=== PATIENT | female | born 1940 | race Caucasian/White ===

== ENCOUNTER 2016-11-01 17:51 | Inpatient (IN) | payer OTHER ==
[2016-11-01] MEDS ORDERED: ALBUTEROL SO4 2.5/IPRATROPIUM 0.5 INH SOL 3 ML VIAL.NEB. NEB ONE (18:15)
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
[2016-11-01] MEDS ORDERED: MAGNESIUM SULF 50% (8.12 MEQ/2 ML-1 GM VIAL) IVPB ONE (18:33)
[2016-11-01 18:39] VITALS: BMI 20.2
[2016-11-01] MEDS ORDERED: MAGNESIUM SULF 50% (8.12 MEQ/2 ML-1 GM VIAL) ONE (18:43)
[2016-11-01 19:12] LABS: MCH 28.7 pg (25.7-33.7); MEAN CELL VOLUME 89.6 fl (80-96); MEAN PLT VOLUME 8.3 fl (7.5-11.1); PLATELET COUNT 327 K/MM3 (134-434); RDW 16.2 % (11.6-15.6)
[2016-11-01 19:25] LABS: INR 1.34 (0.82-1.09); PROTHROMBIN TIME (PATIENT) 14.8 SEC (9.98-11.88)
[2016-11-01 19:43] LABS: ALBUMIN 3.3 g/dl (3.4-5.0); BILIRUBIN,TOTAL 0.3 mg/dL (0.2-1.0); CALCIUM 9.3 mg/dL (8.5-10.1); TOT PROT 6.5 g/dl (6.4-8.2)
[2016-11-01 19:44] LABS: TROPONIN I 0.06 ng/ml (0.00-0.05)
[2016-11-01] MEDS ORDERED: FUROSEMIDE 40 MG/4 ML INJECTABLE VIAL IVPUSH ONE (19:46)
[2016-11-01 20:08] LABS: ANISOCYTOSIS 1+; PLATELET ESTIMATE ADEQUATE (NORMAL); POLYCHROMASIA FEW
[2016-11-01] MEDS ORDERED: FUROSEMIDE 40 MG/4 ML INJECTABLE VIAL ONE ×2 (20:23→20:37)
[2016-11-01] MEDS ORDERED: dilTIAZem HCL 50 MG/10 ML - 10 ML VIAL IVPUSH ONE ×2 (20:28→22:41)
[2016-11-01] MEDS ORDERED: ASPIRIN 81 MG CHEWABLE TABLETS PO ONE (20:31)
[2016-11-01] MEDS ORDERED: ASPIRIN 81 MG CHEWABLE TABLETS ONE (20:36)
[2016-11-01] MEDS ORDERED: dilTIAZem HCL 125 MG/25 ML - 25 ML VIAL ONE (20:37)
[2016-11-01] MEDS ORDERED: ALBUTEROL SO4 0.083% IH SOL 2.5 MG/3 ML VIAL.NEB. NEB PRN (20:41)
[2016-11-01] MEDS ORDERED: LEVOFLOXACIN 500 MG IVPB 100 ML IVPB SCH (20:45)
[2016-11-01] MEDS ORDERED: LEVOFLOXACIN 500 MG IVPB 100 ML IVPB ONE ×2 (22:00→22:08)
[2016-11-01] MEDS ORDERED: methylPREDNISolone NA SUCC 40 MG/1 ML VIAL ONE (22:08)
[2016-11-01] MEDS: methylPREDNISolone NA SUCC 125 MG/2 ML VIAL IVPB SCH (22:43)
[2016-11-01] MEDS ORDERED: HEPARIN NA (PORCINE) 5,000 UNITS/ML 1ML VIAL ONE (22:44)
[2016-11-01] MEDS ORDERED: dilTIAZem HCL 50 MG/10 ML - 10 ML VIAL ONE (22:44)
[2016-11-01] MEDS ORDERED: RANITIDINE HCL 150 MG TABLET (FP) ONE (22:44)
[2016-11-01] MEDS: RANITIDINE HCL 150 MG TABLET (FP) PO SCH (23:01)
[2016-11-01] MEDS: HEPARIN NA (PORCINE) 5,000 UNITS/ML 1ML VIAL SQ SCH (23:01)
[2016-11-02] MEDS: methylPREDNISolone NA SUCC 125 MG/2 ML VIAL IVPB SCH ×3 (02:20→17:24)
[2016-11-02] MEDS: dilTIAZem HCL 125 MG/25 ML - 5 ML VIAL IV PRN ×3 (02:21→09:12)
[2016-11-02] MEDS: ALBUTEROL SO4 0.083% IH SOL 2.5 MG/3 ML VIAL.NEB. NEB SCH ×4 (06:00→18:10)
[2016-11-02 06:59] LABS: MCH 29.3 pg (25.7-33.7); MCHC 32.8 g/dl (32.0-36.0); MEAN CELL VOLUME 89.2 fl (80-96); PLATELET COUNT 302 K/MM3 (134-434); RDW 15.9 % (11.6-15.6)
[2016-11-02 07:40] LABS: ANION GAP 9 (8-16); CALCIUM 8.7 mg/dL (8.5-10.1); CO2 37 mmol/L (21-32); GLUCOSE,RANDOM 87 mg/dL (74-106)
[2016-11-02 07:46] LABS: ALK PHOS 109 U/L (45-117); BILIRUBIN,TOTAL 0.4 mg/dL (0.2-1.0); CREATININE 0.8 mg/dL (0.55-1.02); SGOT/AST 20 U/L (15-37); SGPT/ALT 23 U/L (12-78); TOT PROT 6.3 g/dl (6.4-8.2); TROPONIN I 0.06 ng/ml (0.00-0.05)
[2016-11-02 08:02] LABS: ALLENS TEST POSITIVE; ART PUNCT SITE RIGHT BRACHIAL; ARTERIAL BLOOD GAS BASE EXCESS 12.2 meq/l (-2-2); ARTERIAL BLOOD GAS HCO3 36.6 meq/L (22-26); TYPE OF O2 NASAL
[2016-11-02 08:03] LABS: ARTERIAL BLOOD GAS pH 7.51 (7.35-7.45); LPM/O2% 3L; PT. ON O2? YES
[2016-11-02 08:04] LABS: ARTERIAL BLOOD GAS PO2 69.6 mmHg (70-100)
[2016-11-02] MEDS: ASPIRIN 81 MG CHEWABLE TABLETS PO SCH (09:02)
[2016-11-02] MEDS: RANITIDINE HCL 150 MG TABLET (FP) PO SCH ×2 (09:02→21:08)
[2016-11-02] MEDS: DIGOXIN 0.125 MG TABLET (FP) PO SCH (09:02)
[2016-11-02] MEDS: HEPARIN NA (PORCINE) 5,000 UNITS/ML 1ML VIAL SQ SCH ×2 (09:02→21:08)
[2016-11-02] MEDS: POTASSIUM CHLORIDE TABS 10 MEQ TABLET.ER (FP) PO SCH (09:02)
[2016-11-02] MEDS: FUROSEMIDE 40 MG/4 ML INJECTABLE VIAL IVPUSH SCH (09:03)
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
--- NOTE | 2016-11-02 11:28 | HP ---
Admitting History and Physical - Primary Care Physician PCP: Mariano Jameson - Admission Chief Complaint: I had trouble breathing History of Present Illness: Ms Mo is a very pleasant 75 year old female who comes in with one episode of shortness of breath. She was recently discharged from [facility] after rehab. She was at home and was having some weakness but otherwise was doing well. However last night she began to have shortness of breath. She had it both at rest and on exertion. She noted that her heart was racing as well. She attempted to control it at home but it did not improve. She presented to the hospital and was found to be tachycardic. She was admitted. Currently she says she feels fine. She denies feeling feverish, chills, lightheadedness, dizziness , chest pain, coughing, abdominal pain, nausea, vomiting, diarrhea, constipation , difficulty or pain on urination, or swelling. History Source: Patient Limitations to Obtaining History: No Limitations - Past Medical History Cardiovascular: Yes: HTN, Pulmonary Hypertension Pulmonary: Yes: COPD, O2 Dependent - Past Surgical History Past Surgical History: Yes: None - Smoking History Smoking history: Former smoker Have you smoked in the past 12 months: No Aproximately how many cigarettes per day: 1 - Alcohol/Substance Use Hx Alcohol Use: No History of Substance Use: reports: None - Social History ADL: Family Assistance History of Recent Travel: No Home Medications - Allergies Allergies/Adverse Reactions: Allergies Allergy/AdvReac Type Severity Reaction Status Date / Time No Known Allergies Allergy Verified 11/01/16 18:40 - Home Medications Home Medications: Ambulatory Orders Digoxin [Lanoxin -] 0.125 mg PO DAILY tablet 09/27/16 Diltiazem Cd [Cardizem Cd -] 180 mg PO DAILY cap.cd.24h 09/27/16 Aspirin [ASA -] 81 mg PO DAILY 09/29/16 Furosemide [Lasix -] 40 mg PO DAILY tablet 10/06/16 Albuterol Sulfate Inhaler - [Ventolin Hfa Inhaler -] 2 inh PO Q6H PRN 11/01/16 Potassium Chloride [Klor-Con 10] 10 meq PO DAILY 11/01/16 Prednisone [Deltasone -] 10 mg PO DAILY 11/01/16 Ranitidine [Zantac -] 150 mg PO BID 11/01/16 Family Disease History - Family Disease History Family History: Unremarkable Review of Systems Findings/Remarks: Full review of systems obtained, as per HPI and otherwise negative Physical Examination Vital Signs: Vital Signs Temperature 98.2 F 11/02/16 10:00 Pulse Rate 158 H 11/02/16 10:00 Respiratory Rate 20 11/02/16 10:00 Blood Pressure 137/76 11/02/16 10:00 O2 Sat by Pulse Oximetry (%) 100 11/02/16 00:00 Constitutional: Yes: Well Nourished, No Distress, Calm Eyes: Yes: Conjunctiva Clear, EOM Intact Cardiovascular: Yes: Tachycardia, Pulse Irregular. No: Gallop, Murmur, Rub Respiratory: Yes: Regular, CTA Bilaterally. No: Rales, Rhonchi, Wheezes Gastrointestinal: Yes: Normal Bowel Sounds, Soft. No: Distention, Tenderness Extremities: Yes: WNL Edema: No Labs: CBC, BMP 11/02/16 05:35 11/02/16 05:35 Imaging - Results Chest X-ray: Report Reviewed, Image Reviewed Problem List - Problems (1) Severe sepsis Assessment/Plan: -patient with bacteremia, dyspnea, leukocytosis, and tachycardia -recently had MRSA infection -concerning for endocarditis or spinal abscess -spinal abscess less concerning secondary to no back pain, but with history of compression fractures -give 1 dose vancomycin and zosyn -obtain ECHO to evaluate for endocarditis -consult Dr Yo for further antibiotic orders -defer possible MRI of thoracic spine to Dr Yo -follow up cultures Code(s): A41.9 - SEPSIS, UNSPECIFIED ORGANISM R65.20 - SEVERE SEPSIS WITHOUT SEPTIC SHOCK (2) Atrial fibrillation with RVR Assessment/Plan: -secondary to sepsis -continue telemetry -cardiology following and note reviewed -continue digoxin and diltiazem Code(s): I48.91 - UNSPECIFIED ATRIAL FIBRILLATION (3) COPD (chronic obstructive pulmonary disease) Assessment/Plan: -case d/w Dr Zarco -suspect SOB more due to cardiac/sepsis than COPD exacerbation -will stop steroids -continue bronchodilators Code(s): J44.9 - CHRONIC OBSTRUCTIVE PULMONARY DISEASE, UNSPECIFIED Qualifiers : COPD type: COPD with acute exacerbation Qualified Code(s): J44.1 - Chronic obstructive pulmonary disease with (acute) exacerbation (4) Compressed spine fracture Assessment/Plan: -currently pain free -await Dr Yo to see in evaluation, may need MRI of thoracic spine Code(s): M48.50XA - COLLAPSED VERTEBRA, NEC, SITE UNSP, INIT (5) Pulmonary hypertension Assessment/Plan: -pulmonary following -cardiology placed on IV lasix -will closely monitor Code(s): I27.2 - OTHER SECONDARY PULMONARY HYPERTENSION
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
[2016-11-02] MEDS ORDERED: PIPERACILLIN/TAZOB 3.375 GM/50 ML PRE-DOCKED IVPB ONE (11:31)
[2016-11-02] MEDS ORDERED: VANCOMYCIN 1 GRAM (PRE-DOCKED) 250 ML IVPB ONE (11:31)
[2016-11-02 14:38] LABS: URINE APPEARANCE CLEAR; URINE BILIRUBIN NEGATIVE (NEGATIVE); URINE BLOOD NEGATIVE (NEGATIVE); URINE COLOR LTYELLOW; URINE GLUCOSE (UA) NEGATIVE (NEGATIVE); URINE KETONE NEGATIVE (NEGATIVE); URINE LEUK ESTERASE NEGATIVE (NEGATIVE); URINE NITRITE NEGATIVE (NEGATIVE); URINE PROTEIN NEGATIVE (NEGATIVE); URINE UROBILINOGEN NEGATIVE E.U./dl (0.2-1.0)
[2016-11-02 15:26] LABS: THYROID STIMULATING HORMONE 0.14 uIU/ml (0.358-3.74)
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
[2016-11-02 17:02] LABS: TROPONIN I 0.09 ng/ml (0.00-0.05)
[2016-11-02] MEDS: ALPRAZolam 0.25 MG TABLET PO PRN (21:08)
[2016-11-02] MEDS ORDERED: LEVOFLOXACIN 250 MG IVPB 50 ML IVPB SCH (22:00)
[2016-11-03] MEDS: ALBUTEROL SO4 0.083% IH SOL 2.5 MG/3 ML VIAL.NEB. NEB SCH ×5 (06:31→23:09)
[2016-11-03 06:59] LABS: MCHC 32.9 g/dl (32.0-36.0); MEAN CELL VOLUME 88.3 fl (80-96); MEAN PLT VOLUME 7.8 fl (7.5-11.1); PLATELET COUNT 319 K/MM3 (134-434); RDW 16.2 % (11.6-15.6); WHITE BLOOD COUNT 11.6 K/mm3 (4.0-10.0)
[2016-11-03 07:48] LABS: CALCIUM 9.6 mg/dL (8.5-10.1); CREATININE 0.8 mg/dL (0.55-1.02); MAGNESIUM 2.4 mg/dL (1.8-2.4); PHOSPHOROUS 3.1 mg/dL (2.5-4.9)
[2016-11-03] MEDS: ALPRAZolam 0.25 MG TABLET PO PRN ×2 (09:44→18:15)
[2016-11-03] MEDS: POTASSIUM CHLORIDE TABS 10 MEQ TABLET.ER (FP) PO SCH (09:45)
[2016-11-03] MEDS: RANITIDINE HCL 150 MG TABLET (FP) PO SCH ×2 (09:45→22:04)
[2016-11-03] MEDS: VANCOMYCIN 1 GRAM (PRE-DOCKED) 250 ML IVPB SCH (09:45)
[2016-11-03] MEDS: FUROSEMIDE 40 MG/4 ML INJECTABLE VIAL IVPUSH SCH (09:45)
[2016-11-03] MEDS: ASPIRIN 81 MG CHEWABLE TABLETS PO SCH (09:46)
[2016-11-03] MEDS: DIGOXIN 0.125 MG TABLET (FP) PO SCH (09:48)
[2016-11-03] MEDS: HEPARIN NA (PORCINE) 5,000 UNITS/ML 1ML VIAL SQ SCH ×2 (09:49→22:04)
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
--- NOTE | 2016-11-03 14:09 | EKG ---
Test Reason : Blood Pressure : / mmHG Vent. Rate : 111 BPM Atrial Rate : 468 BPM P-R Int : 000 ms QRS Dur : 084 ms QT Int : 316 ms P-R-T Axes : 000 047 260 degrees QTc Int : 429 ms MULTIFOCAL ATRIAL TACHYCARDIA POSSIBLE INFERIOR INFARCT (CITED ON OR BEFORE 14-SEP-2016) MARKED ST ABNORMALITY, POSSIBLE ANTERIOR SUBENDOCARDIAL INJURY ABNORMAL ECG WHEN COMPARED WITH ECG OF 01-NOV-2016 19:14, NO SIGNIFICANT CHANGE WAS FOUND Confirmed by DIAN VENCES MD ([id number]) on 11/03/2016 2:09:04 PM Referred By: DIAN VENCES Confirmed By:DIAN VENCES MD
--- NOTE | 2016-11-03 14:23 | EKG ---
Test Reason : Blood Pressure : / mmHG Vent. Rate : 126 BPM Atrial Rate : 127 BPM P-R Int : 000 ms QRS Dur : 078 ms QT Int : 312 ms P-R-T Axes : 000 040 243 degrees QTc Int : 451 ms SUPRAVENTRICULAR TACHYCARDIA POSSIBLE MULTIFOCAL ATRIAL TACHYCARDIA POSSIBLE INFERIOR INFARCT (CITED ON OR BEFORE 14-SEP-2016) ANTERIOR INFARCT , AGE UNDETERMINED ABNORMAL ECG WHEN COMPARED WITH ECG OF 29-SEP-2016 14:36, SIGNIFICANT CHANGES HAVE OCCURRED Confirmed by DIAN VENCES MD ([id number]) on 11/03/2016 2:22:40 PM Referred By: Confirmed By:DIAN VENCES MD
--- NOTE | 2016-11-03 14:36 | PN ---
Progress Note (short form) - Note Progress Note: PULMONARY Still short of breath. No chest pain. No cough or wheezing. No fevers recorded. Blood cultures growing presumptive MSSA. Last Vital Signs Temp Pulse Resp BP Pulse Ox 98.4 F 118 H 20 134/78 99 11/03/16 10:00 11/03/16 10:00 11/03/16 10:00 11/03/16 10:00 11/02/16 22:00 Intake & Output 10/31/16 11/01/16 11/02/16 11/03/16 23:59 23:59 23:59 23:59 Intake Total 870 Balance 870 Weight 100 lb Gen: tachypneic at rest Heart: tachycaric, regular Lung: bibasilar rales R>L Abd: soft, nontender Ext: no edema CBC, BMP 11/03/16 05:35 11/03/16 05:35 Active Medications Albuterol Sulfate (Ventolin 0.083% Nebulizer Soln -) 1 amp NEB Q4H PRN PRN Reason: SHORT OF BREATH/WHEEZING Albuterol Sulfate (Ventolin 0.083% Nebulizer Soln -) 1 amp NEB QIDR [facility] Last Admin: 11/03/16 11:20 Dose: Not Given Alprazolam (Xanax -) 0.25 mg PO Q8H PRN Last Admin: 11/03/16 09:44 Dose: 0.25 mg Aspirin (Asa -) 81 mg PO DAILY [facility] Last Admin: 11/03/16 09:46 Dose: 81 mg Digoxin (Lanoxin -) 0.125 mg PO DAILY [facility] Last Admin: 11/03/16 09:48 Dose: 0.125 mg Diltiazem HCl (Cardizem Injection -) 10 mg IV Q4H PRN PRN Reason: FOR HR > 120 Last Admin: 11/02/16 09:12 Dose: 10 mg Diltiazem HCl (Cardizem Cd -) 300 mg PO DAILY [facility] Last Admin: 11/03/16 09:46 Dose: 300 mg Furosemide (Lasix Injection -) 40 mg IVPUSH DAILY [facility] Last Admin: 11/03/16 09:45 Dose: 40 mg Heparin Sodium (Porcine) (Heparin -) 5,000 unit SQ BID [facility] Last Admin: 11/03/16 09:49 Dose: 5,000 unit Vancomycin HCl (Vancomycin (Pre-Docked)) 250 mls @ 250 mls/hr IVPB DAILY [facility] Last Admin: 11/03/16 09:45 Dose: 250 mls/hr Potassium Chloride (K-Dur -) 10 meq PO DAILY [facility] Last Admin: 11/03/16 09:45 Dose: 10 meq Ranitidine HCl (Zantac -) 150 mg PO BID [facility] Last Admin: 11/03/16 09:45 Dose: 150 mg A/P MSSA Bacteremia r/o Endocarditis Acute Diastolic Heart Failure Pulmonary HTN Mitral Regurgitation MAT COPD - continue antibiotics - f/u final cultures and sensitivities - lasix - monitor urine output, creatinine - shortness of breath more suggestive of cardiac etiology - inhaled bronchodilators - would defer systemic steroids at this time - rate control - O2 as needed - MANUEL when more stable - DVT prophylaxis
--- NOTE | 2016-11-03 14:59 | PN ---
Progress Note, Physician Chief Complaint: Ms Mo says she is not feeling as good today. Feeling short of breath. No cp or n/v. Does not have any back pain or numbness. - Current Medication List Current Medications: Active Medications Albuterol Sulfate (Ventolin 0.083% Nebulizer Soln -) 1 amp NEB Q4H PRN PRN Reason: SHORT OF BREATH/WHEEZING Last Admin: 11/03/16 14:40 Dose: 1 amp Albuterol Sulfate (Ventolin 0.083% Nebulizer Soln -) 1 amp NEB QIDR [facility] Last Admin: 11/03/16 11:20 Dose: Not Given Alprazolam (Xanax -) 0.25 mg PO Q8H PRN Last Admin: 11/03/16 09:44 Dose: 0.25 mg Aspirin (Asa -) 81 mg PO DAILY [facility] Last Admin: 11/03/16 09:46 Dose: 81 mg Digoxin (Lanoxin -) 0.125 mg PO DAILY [facility] Last Admin: 11/03/16 09:48 Dose: 0.125 mg Diltiazem HCl (Cardizem Injection -) 10 mg IV Q4H PRN PRN Reason: FOR HR > 120 Last Admin: 11/02/16 09:12 Dose: 10 mg Diltiazem HCl (Cardizem Cd -) 300 mg PO DAILY [facility] Last Admin: 11/03/16 09:46 Dose: 300 mg Furosemide (Lasix Injection -) 40 mg IVPUSH DAILY [facility] Last Admin: 11/03/16 09:45 Dose: 40 mg Heparin Sodium (Porcine) (Heparin -) 5,000 unit SQ BID [facility] Last Admin: 11/03/16 09:49 Dose: 5,000 unit Vancomycin HCl (Vancomycin (Pre-Docked)) 250 mls @ 250 mls/hr IVPB DAILY [facility] Last Admin: 11/03/16 09:45 Dose: 250 mls/hr Potassium Chloride (K-Dur -) 10 meq PO DAILY [facility] Last Admin: 11/03/16 09:45 Dose: 10 meq Ranitidine HCl (Zantac -) 150 mg PO BID [facility] Last Admin: 11/03/16 09:45 Dose: 150 mg - Objective Vital Signs: Vital Signs Temperature 98.4 F 11/03/16 10:00 Pulse Rate 118 H 11/03/16 10:00 Respiratory Rate 20 11/03/16 10:00 Blood Pressure 134/78 11/03/16 10:00 O2 Sat by Pulse Oximetry (%) 99 11/02/16 22:00 Constitutional: Yes: Well Nourished, No Distress, Calm Cardiovascular: Yes: Tachycardia. No: Gallop, Murmur, Rub Respiratory: Yes: Regular, CTA Bilaterally, On Nasal O2. No: Rales, Rhonchi, Wheezes Gastrointestinal: Yes: Normal Bowel Sounds, Soft. No: Distention, Tenderness Musculoskeletal: Yes: WNL Edema: No Labs: CBC, BMP 11/03/16 05:35 11/03/16 05:35 INR, PTT INR 1.34 (0.82-1.09) H 11/01/16 18:50 Problem List - Problems (1) Endocarditis Code(s): I38 - ENDOCARDITIS, VALVE UNSPECIFIED Qualifiers: Endocarditis type: infective Infective endocarditis organism: bacterial Chronicity: acute Qualified Code(s): I33.0 - Acute and subacute infective endocarditis (2) Severe sepsis Code(s): A41.9 - SEPSIS, UNSPECIFIED ORGANISM R65.20 - SEVERE SEPSIS WITHOUT SEPTIC SHOCK (3) Atrial fibrillation with RVR Code(s): I48.91 - UNSPECIFIED ATRIAL FIBRILLATION (4) COPD (chronic obstructive pulmonary disease) Code(s): J44.9 - CHRONIC OBSTRUCTIVE PULMONARY DISEASE, UNSPECIFIED Qualifiers : COPD type: COPD with acute exacerbation Qualified Code(s): J44.1 - Chronic obstructive pulmonary disease with (acute) exacerbation (5) Compressed spine fracture Code(s): M48.50XA - COLLAPSED VERTEBRA, NEC, SITE UNSP, INIT (6) Pulmonary hypertension Code(s): I27.2 - OTHER SECONDARY PULMONARY HYPERTENSION Assessment/Plan (1) Endocarditis -vegetation found on TTE -bacterial cultures growing presumptive MSSA -ID following and managing antibiotics -await recommendation for need for MANUEL, however not stable currently for procedure -will need 4-6 weeks IV antibiotics (2) Severe sepsis Assessment/Plan: -improving -secondary to endocarditis -antibiotics per ID Code(s): A41.9 - SEPSIS, UNSPECIFIED ORGANISM R65.20 - SEVERE SEPSIS WITHOUT SEPTIC SHOCK (3) Atrial fibrillation with RVR Assessment/Plan: -secondary to sepsis -continue telemetry -cardiology following and note reviewed -continue digoxin and diltiazem Code(s): I48.91 - UNSPECIFIED ATRIAL FIBRILLATION (4) COPD (chronic obstructive pulmonary disease) Assessment/Plan: -pulmonary following -continue albuterol Code(s): J44.9 - CHRONIC OBSTRUCTIVE PULMONARY DISEASE, UNSPECIFIED Qualifiers : COPD type: COPD with acute exacerbation Qualified Code(s): J44.1 - Chronic obstructive pulmonary disease with (acute) exacerbation (5) Compressed spine fracture Assessment/Plan: -currently pain free -await Dr Yo to see in evaluation, may need MRI of thoracic spine Code(s): M48.50XA - COLLAPSED VERTEBRA, NEC, SITE UNSP, INIT (6) Pulmonary hypertension Assessment/Plan: -continue IV lasix Code(s): I27.2 - OTHER SECONDARY PULMONARY HYPERTENSION
--- NOTE | 2016-11-03 15:40 | PN ---
Progress Note, Physician History of Present Illness: patient doing well asymptomatic echo result noted - Current Medication List Current Medications: Active Medications Albuterol Sulfate (Ventolin 0.083% Nebulizer Soln -) 1 amp NEB Q4H PRN PRN Reason: SHORT OF BREATH/WHEEZING Last Admin: 11/03/16 14:40 Dose: 1 amp Albuterol Sulfate (Ventolin 0.083% Nebulizer Soln -) 1 amp NEB QIDR [facility] Last Admin: 11/03/16 11:20 Dose: Not Given Alprazolam (Xanax -) 0.25 mg PO Q8H PRN Last Admin: 11/03/16 09:44 Dose: 0.25 mg Aspirin (Asa -) 81 mg PO DAILY [facility] Last Admin: 11/03/16 09:46 Dose: 81 mg Digoxin (Lanoxin -) 0.125 mg PO DAILY [facility] Last Admin: 11/03/16 09:48 Dose: 0.125 mg Diltiazem HCl (Cardizem Injection -) 10 mg IV Q4H PRN PRN Reason: FOR HR > 120 Last Admin: 11/02/16 09:12 Dose: 10 mg Diltiazem HCl (Cardizem Cd -) 300 mg PO DAILY [facility] Last Admin: 11/03/16 09:46 Dose: 300 mg Furosemide (Lasix Injection -) 40 mg IVPUSH DAILY [facility] Last Admin: 11/03/16 09:45 Dose: 40 mg Heparin Sodium (Porcine) (Heparin -) 5,000 unit SQ BID [facility] Last Admin: 11/03/16 09:49 Dose: 5,000 unit Vancomycin HCl (Vancomycin (Pre-Docked)) 250 mls @ 250 mls/hr IVPB DAILY [facility] Last Admin: 11/03/16 09:45 Dose: 250 mls/hr Potassium Chloride (K-Dur -) 10 meq PO DAILY [facility] Last Admin: 11/03/16 09:45 Dose: 10 meq Ranitidine HCl (Zantac -) 150 mg PO BID [facility] Last Admin: 11/03/16 09:45 Dose: 150 mg - Objective Vital Signs: Vital Signs Temperature 98.4 F 11/03/16 10:00 Pulse Rate 118 H 11/03/16 10:00 Respiratory Rate 20 11/03/16 10:00 Blood Pressure 134/78 11/03/16 10:00 O2 Sat by Pulse Oximetry (%) 99 11/02/16 22:00 Constitutional: Yes: No Distress, Calm Eyes: Yes: Conjunctiva Clear Cardiovascular: Yes: Regular Rate and Rhythm Respiratory: Yes: Regular, CTA Bilaterally Gastrointestinal: Yes: Normal Bowel Sounds, Soft Musculoskeletal: Yes: Other Extremities: Yes: Other Neurological: Yes: Alert, Oriented Psychiatric: Yes: Alert Labs: CBC, BMP 11/03/16 05:35 11/03/16 05:35 INR, PTT INR 1.34 (0.82-1.09) H 11/01/16 18:50 Assessment/Plan Problem List - Problems (1) Endocarditis Code(s): I38 - ENDOCARDITIS, VALVE UNSPECIFIED Qualifiers: Endocarditis type: infective Infective endocarditis organism: bacterial Chronicity: acute Qualified Code(s): I33.0 - Acute and subacute infective endocarditis (2) Severe sepsis Code(s): A41.9 - SEPSIS, UNSPECIFIED ORGANISM R65.20 - SEVERE SEPSIS WITHOUT SEPTIC SHOCK (3) Atrial fibrillation with RVR Code(s): I48.91 - UNSPECIFIED ATRIAL FIBRILLATION (4) COPD (chronic obstructive pulmonary disease) Code(s): J44.9 - CHRONIC OBSTRUCTIVE PULMONARY DISEASE, UNSPECIFIED Qualifiers : COPD type: COPD with acute exacerbation Qualified Code(s): J44.1 - Chronic obstructive pulmonary disease with (acute) exacerbation (5) Compressed spine fracture Code(s): M48.50XA - COLLAPSED VERTEBRA, NEC, SITE UNSP, INIT (6) Pulmonary hypertension Code(s): I27.2 - OTHER SECONDARY PULMONARY HYPERTENSION plan patient needs MALISSA continue vanco will need 4-6 weeks of iv abx will d/w the patient the need for malissa
[2016-11-04] MEDS: ALPRAZolam 0.25 MG TABLET PO PRN ×2 (06:18→21:39)
[2016-11-04] MEDS: ALBUTEROL SO4 0.083% IH SOL 2.5 MG/3 ML VIAL.NEB. NEB SCH ×5 (06:24→22:50)
[2016-11-04 08:15] LABS: BASOPHIL 0.3 % (0-2.0); EOSINOPHIL 0.2 % (0-4.5); MCH 30.1 pg (25.7-33.7); MCHC 33.6 g/dl (32.0-36.0); MEAN CELL VOLUME 89.4 fl (80-96); MEAN PLT VOLUME 7.7 fl (7.5-11.1); NEUTROPHILS 89.1 % (42.8-82.8); PLATELET COUNT 306 K/MM3 (134-434); WHITE BLOOD COUNT 10.5 K/mm3 (4.0-10.0)
[2016-11-04 09:58] LABS: CALCIUM 9.3 mg/dL (8.5-10.1); CREATININE 0.5 mg/dL (0.55-1.02); DIGOXIN LEVEL 1.8888 ng/ml (0.8-2.0); MAGNESIUM 2.4 mg/dL (1.8-2.4); PHOSPHOROUS 2.3 mg/dL (2.5-4.9)
[2016-11-04] MEDS ORDERED: PT OWN MED DRAWER 7, Y5N ONE (10:22)
[2016-11-04] MEDS: HEPARIN NA (PORCINE) 5,000 UNITS/ML 1ML VIAL SQ SCH ×2 (10:28→21:39)
[2016-11-04] MEDS: DIGOXIN 0.125 MG TABLET (FP) PO SCH (10:28)
[2016-11-04] MEDS: POTASSIUM CHLORIDE TABS 10 MEQ TABLET.ER (FP) PO SCH (10:28)
[2016-11-04] MEDS: ASPIRIN 81 MG CHEWABLE TABLETS PO SCH (10:28)
[2016-11-04] MEDS: VANCOMYCIN 1 GRAM (PRE-DOCKED) 250 ML IVPB SCH (10:28)
[2016-11-04] MEDS: RANITIDINE HCL 150 MG TABLET (FP) PO SCH ×2 (10:29→21:44)
[2016-11-04] MEDS: FUROSEMIDE 40 MG/4 ML INJECTABLE VIAL IVPUSH SCH (10:29)
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
[2016-11-04] MEDS ORDERED: ALBUTEROL SO4 0.083% IH SOL 2.5 MG/3 ML VIAL.NEB. NEB PRN (10:48)
--- NOTE | 2016-11-04 10:58 | PN ---
Progress Note (short form) - Note Progress Note: PULMONARY MUCH MORE DYSPNEIC/USING NEB/ HR 110 /AFEBRILE/ RR 24 PALE/ANICTERIC B/L WHEEZES S1S2 IRREG BS+ SOFT NO EDEMA LABS/MEDS/NOTES/IMAGING/MICRO REVIEWED IMP: MSSA BACTEREMIA END STAGE COPD/PULMONARY HYPERTENSION ENDOCARDITIS MAT PLAN TRANSFER TO ICU BEGIN STEROIDS HAVE ADJUSTED NEBS/ADDEDE SPIRIVA CONTINUE ANTIBIOTICS CARDIO/ID F/U HOLD OFF ON MANUEL UNTIL CLINICAL CONDITION IMPROVES R [place] Problem List - Problems (1) COPD (chronic obstructive pulmonary disease) Code(s): J44.9 - CHRONIC OBSTRUCTIVE PULMONARY DISEASE, UNSPECIFIED Qualifiers : COPD type: COPD with acute exacerbation Qualified Code(s): J44.1 - Chronic obstructive pulmonary disease with (acute) exacerbation (2) Tachycardia Code(s): R00.0 - TACHYCARDIA, UNSPECIFIED (3) Bacteremia Code(s): R78.81 - BACTEREMIA (4) Chronic respiratory failure with hypoxia Code(s): J96.11 - CHRONIC RESPIRATORY FAILURE WITH HYPOXIA
[2016-11-04] MEDS: methylPREDNISolone NA SUCC 40 MG/1 ML VIAL IVPB SCH ×2 (11:39→18:23)
--- NOTE | 2016-11-04 12:00 | PN ---
Progress Note, Physician Chief Complaint: Ms Mo says she is not feeling as good today. Still short of breath. No cp or n/v - Current Medication List Current Medications: Active Medications Albuterol Sulfate (Ventolin 0.083% Nebulizer Soln -) 1 amp NEB Q1H PRN PRN Reason: SHORT OF BREATH/WHEEZING Albuterol Sulfate (Ventolin 0.083% Nebulizer Soln -) 1 amp NEB Q4H [facility] Alprazolam (Xanax -) 0.25 mg PO Q8H PRN Last Admin: 11/04/16 06:18 Dose: 0.25 mg Aspirin (Asa -) 81 mg PO DAILY [facility] Last Admin: 11/04/16 10:28 Dose: 81 mg Digoxin (Lanoxin -) 0.125 mg PO DAILY [facility] Last Admin: 11/04/16 10:28 Dose: 0.125 mg Diltiazem HCl (Cardizem Injection -) 10 mg IV Q4H PRN PRN Reason: FOR HR > 120 Last Admin: 11/02/16 09:12 Dose: 10 mg Diltiazem HCl (Cardizem Cd -) 300 mg PO DAILY [facility] Last Admin: 11/04/16 10:28 Dose: 300 mg Furosemide (Lasix Injection -) 40 mg IVPUSH DAILY [facility] Last Admin: 11/04/16 10:29 Dose: 40 mg Heparin Sodium (Porcine) (Heparin -) 5,000 unit SQ BID [facility] Last Admin: 11/04/16 10:28 Dose: 5,000 unit Vancomycin HCl (Vancomycin (Pre-Docked)) 250 mls @ 250 mls/hr IVPB DAILY [facility] Last Admin: 11/04/16 10:28 Dose: 250 mls/hr Methylprednisolone Sodium Succinate (Solu-Medrol -) 40 mg IVPB Q8H-IV [facility] Last Admin: 11/04/16 11:39 Dose: 40 mg Potassium Chloride (K-Dur -) 10 meq PO DAILY [facility] Last Admin: 11/04/16 10:28 Dose: 10 meq Ranitidine HCl (Zantac -) 150 mg PO BID [facility] Last Admin: 11/04/16 10:29 Dose: 150 mg Tiotropium [place] (Spiriva -) 1 puff IH DAILY [facility] - Objective Vital Signs: Vital Signs Temperature 98.2 F 11/04/16 10:00 Pulse Rate 110 H 11/04/16 10:28 Respiratory Rate 23 11/04/16 10:00 Blood Pressure 133/74 11/04/16 10:00 O2 Sat by Pulse Oximetry (%) 97 11/03/16 22:00 Constitutional: Yes: No Distress, Calm Cardiovascular: Yes: Tachycardia. No: Gallop, Murmur, Rub Respiratory: Yes: Regular, CTA Bilaterally, On Nasal O2. No: Rales, Rhonchi, Wheezes Gastrointestinal: Yes: Normal Bowel Sounds, Soft. No: Distention, Tenderness Extremities: Yes: WNL Edema: No Labs: CBC, BMP 11/04/16 06:50 11/04/16 06:50 INR, PTT INR 1.34 (0.82-1.09) H 11/01/16 18:50 Problem List - Problems (1) Endocarditis Code(s): I38 - ENDOCARDITIS, VALVE UNSPECIFIED Qualifiers: Endocarditis type: infective Infective endocarditis organism: bacterial Chronicity: acute Qualified Code(s): I33.0 - Acute and subacute infective endocarditis (2) Severe sepsis Code(s): A41.9 - SEPSIS, UNSPECIFIED ORGANISM R65.20 - SEVERE SEPSIS WITHOUT SEPTIC SHOCK (3) Atrial fibrillation with RVR Code(s): I48.91 - UNSPECIFIED ATRIAL FIBRILLATION (4) COPD (chronic obstructive pulmonary disease) Code(s): J44.9 - CHRONIC OBSTRUCTIVE PULMONARY DISEASE, UNSPECIFIED Qualifiers : COPD type: COPD with acute exacerbation Qualified Code(s): J44.1 - Chronic obstructive pulmonary disease with (acute) exacerbation (5) Compressed spine fracture Code(s): M48.50XA - COLLAPSED VERTEBRA, NEC, SITE UNSP, INIT (6) Pulmonary hypertension Code(s): I27.2 - OTHER SECONDARY PULMONARY HYPERTENSION Assessment/Plan (1) Endocarditis -vegetation found on TTE -bacterial cultures growing MSSA -ID following and managing antibiotics -will need MANUEL, however currently not stable -will need 4-6 weeks IV antibiotics (2) Severe sepsis Assessment/Plan: -leukocytosis improved today -however patient clinically appeared worse -recommended transfer to the ICU, patient declined -continue to monitor on telemetry Code(s): A41.9 - SEPSIS, UNSPECIFIED ORGANISM R65.20 - SEVERE SEPSIS WITHOUT SEPTIC SHOCK (3) Atrial fibrillation with RVR Assessment/Plan: -secondary to sepsis -continue telemetry -improving but still rapid -continue digoxin and diltiazem Code(s): I48.91 - UNSPECIFIED ATRIAL FIBRILLATION (4) COPD (chronic obstructive pulmonary disease) Assessment/Plan: -pulmonary following and case reviewed -start on solumedrol since episode of shortness of breath -continue albuterol Code(s): J44.9 - CHRONIC OBSTRUCTIVE PULMONARY DISEASE, UNSPECIFIED Qualifiers : COPD type: COPD with acute exacerbation Qualified Code(s): J44.1 - Chronic obstructive pulmonary disease with (acute) exacerbation (5) Compressed spine fracture Assessment/Plan: -currently pain free -no need for MRI Code(s): M48.50XA - COLLAPSED VERTEBRA, NEC, SITE UNSP, INIT (6) Pulmonary hypertension Assessment/Plan: -continue IV lasix Code(s): I27.2 - OTHER SECONDARY PULMONARY HYPERTENSION
--- NOTE | 2016-11-04 14:40 | PN ---
Progress Note, Physician History of Present Illness: patient doing well asymptomatic echo result noted patient had some sob episode this morning now stable - Current Medication List Current Medications: Active Medications Albuterol Sulfate (Ventolin 0.083% Nebulizer Soln -) 1 amp NEB Q1H PRN PRN Reason: SHORT OF BREATH/WHEEZING Albuterol Sulfate (Ventolin 0.083% Nebulizer Soln -) 1 amp NEB Q4H [facility] Last Admin: 11/04/16 14:00 Dose: 1 amp Alprazolam (Xanax -) 0.25 mg PO Q8H PRN Last Admin: 11/04/16 06:18 Dose: 0.25 mg Aspirin (Asa -) 81 mg PO DAILY [facility] Last Admin: 11/04/16 10:28 Dose: 81 mg Digoxin (Lanoxin -) 0.125 mg PO DAILY [facility] Last Admin: 11/04/16 10:28 Dose: 0.125 mg Diltiazem HCl (Cardizem Injection -) 10 mg IV Q4H PRN PRN Reason: FOR HR > 120 Last Admin: 11/02/16 09:12 Dose: 10 mg Diltiazem HCl (Cardizem Cd -) 300 mg PO DAILY [facility] Last Admin: 11/04/16 10:28 Dose: 300 mg Furosemide (Lasix Injection -) 40 mg IVPUSH DAILY [facility] Last Admin: 11/04/16 10:29 Dose: 40 mg Heparin Sodium (Porcine) (Heparin -) 5,000 unit SQ BID [facility] Last Admin: 11/04/16 10:28 Dose: 5,000 unit Vancomycin HCl (Vancomycin (Pre-Docked)) 250 mls @ 250 mls/hr IVPB DAILY [facility] Last Admin: 11/04/16 10:28 Dose: 250 mls/hr Methylprednisolone Sodium Succinate (Solu-Medrol -) 40 mg IVPB Q8H-IV [facility] Last Admin: 11/04/16 11:39 Dose: 40 mg Potassium Chloride (K-Dur -) 10 meq PO DAILY [facility] Last Admin: 11/04/16 10:28 Dose: 10 meq Potassium Phos/Sodium Phos (Phos-Nak Packet -) 1 packet PO BID [facility] Ranitidine HCl (Zantac -) 150 mg PO BID [facility] Last Admin: 11/04/16 10:29 Dose: 150 mg Tiotropium [place] (Spiriva -) 1 puff IH DAILY [facility] - Objective Vital Signs: Vital Signs Temperature 98.2 F 11/04/16 14:00 Pulse Rate 106 H 11/04/16 14:00 Respiratory Rate 22 11/04/16 14:00 Blood Pressure 132/60 11/04/16 14:00 O2 Sat by Pulse Oximetry (%) 97 11/03/16 22:00 Constitutional: Yes: No Distress, Calm Cardiovascular: Yes: Regular Rate and Rhythm Respiratory: Yes: Regular, Poor Air Entry Gastrointestinal: Yes: Normal Bowel Sounds, Soft Musculoskeletal: Yes: WNL Extremities: Yes: WNL Neurological: Yes: Alert, Oriented Psychiatric: Yes: Alert Labs: CBC, BMP 11/04/16 06:50 11/04/16 06:50 INR, PTT INR 1.34 (0.82-1.09) H 11/01/16 18:50 Assessment/Plan Problem List - Problems (1) Endocarditis Code(s): I38 - ENDOCARDITIS, VALVE UNSPECIFIED Qualifiers: Endocarditis type: infective Infective endocarditis organism: bacterial Chronicity: acute Qualified Code(s): I33.0 - Acute and subacute infective endocarditis (2) Severe sepsis Code(s): A41.9 - SEPSIS, UNSPECIFIED ORGANISM R65.20 - SEVERE SEPSIS WITHOUT SEPTIC SHOCK (3) Atrial fibrillation with RVR Code(s): I48.91 - UNSPECIFIED ATRIAL FIBRILLATION (4) COPD (chronic obstructive pulmonary disease) Code(s): J44.9 - CHRONIC OBSTRUCTIVE PULMONARY DISEASE, UNSPECIFIED Qualifiers : COPD type: COPD with acute exacerbation Qualified Code(s): J44.1 - Chronic obstructive pulmonary disease with (acute) exacerbation (5) Compressed spine fracture Code(s): M48.50XA - COLLAPSED VERTEBRA, NEC, SITE UNSP, INIT (6) Pulmonary hypertension Code(s): I27.2 - OTHER SECONDARY PULMONARY HYPERTENSION plan cx result noted abx changed to cefazolin malissa incentive ally repeat blood cx pending
[2016-11-04] MEDS: NAPH,MB-DB/K PH,MBDB POWDER PACKET PO SCH ×2 (15:15→21:39)
[2016-11-04] MEDS: TIOTROPIUM BROMIDE 18 MCG/INH (DEVICE W/ 5 CAPSULES) IH SCH (15:15)
[2016-11-04] MEDS: CEFAZOLIN 1 GM/D5W 50 ML IVPB SCH (18:23)
[2016-11-05] MEDS: CEFAZOLIN 1 GM/D5W 50 ML IVPB SCH ×3 (01:44→18:07)
[2016-11-05] MEDS: methylPREDNISolone NA SUCC 40 MG/1 ML VIAL IVPB SCH ×3 (01:45→18:07)
[2016-11-05] MEDS: ALBUTEROL SO4 0.083% IH SOL 2.5 MG/3 ML VIAL.NEB. NEB SCH ×6 (02:11→22:08)
[2016-11-05 07:29] LABS: BASOPHIL 0.1 % (0-2.0); MCH 29.2 pg (25.7-33.7); MCHC 32.5 g/dl (32.0-36.0); MEAN CELL VOLUME 89.8 fl (80-96); MEAN PLT VOLUME 7.5 fl (7.5-11.1); NEUTROPHILS 94.9 % (42.8-82.8); PLATELET COUNT 262 K/MM3 (134-434); RDW 15.8 % (11.6-15.6); WHITE BLOOD COUNT 13.7 K/mm3 (4.0-10.0)
[2016-11-05 08:38] LABS: CALCIUM 9.6 mg/dL (8.5-10.1); CREATININE 0.6 mg/dL (0.55-1.02); MAGNESIUM 2.4 mg/dL (1.8-2.4); PHOSPHOROUS 2.8 mg/dL (2.5-4.9)
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
[2016-11-05] MEDS ORDERED: PT OWN MED DRAWER 7, Y5N ONE ×2 (08:53→16:33)
[2016-11-05] MEDS: ALPRAZolam 0.25 MG TABLET PO PRN (08:56)
[2016-11-05] MEDS: FUROSEMIDE 40 MG/4 ML INJECTABLE VIAL IVPUSH SCH (09:04)
[2016-11-05] MEDS: ASPIRIN 81 MG CHEWABLE TABLETS PO SCH (09:04)
[2016-11-05] MEDS: POTASSIUM CHLORIDE TABS 10 MEQ TABLET.ER (FP) PO SCH (09:04)
[2016-11-05] MEDS: HEPARIN NA (PORCINE) 5,000 UNITS/ML 1ML VIAL SQ SCH (09:04)
[2016-11-05] MEDS: RANITIDINE HCL 150 MG TABLET (FP) PO SCH ×2 (09:04→22:22)
[2016-11-05] MEDS: DIGOXIN 0.125 MG TABLET (FP) PO SCH (09:05)
[2016-11-05] MEDS: NAPH,MB-DB/K PH,MBDB POWDER PACKET PO SCH ×2 (09:05→22:22)
[2016-11-05] MEDS: TIOTROPIUM BROMIDE 18 MCG/INH (DEVICE W/ 5 CAPSULES) IH SCH (09:05)
[2016-11-05] MEDS ORDERED: APIXABAN 5 MG TABLET PO SCH (10:15)
[2016-11-05] MEDS ORDERED: ALPRAZolam 0.25 MG TABLET PO ONE (10:55)
--- NOTE | 2016-11-05 12:11 | PN ---
Progress Note (short form) - Note Progress Note: Patient seen and examined Chart reviewed. Currently alert, responsive and appropriate, lying supine in bed. Denies pain or worsening of dyspnea. Labs and senior energy consultant notes reviewed at length. Selected Entries 11/05/16 11/05/16 06:00 10:00 Temperature 98.4 F Pulse Rate 117 H Respiratory 20 Rate Blood Pressure 122/77 Weight 86 lb 6.4 oz Laboratory Tests 11/02/16 11/02/16 11/02/16 05:35 07:50 12:15 WBC Hgb Hct Plt Count ABG pH 7.51 H ABG pCO2 at Pt Temp 46.2 H ABG pO2 at Pt Temp 69.6 L D Oxygen Flow Rate 3l Sodium Potassium Chloride Carbon Dioxide BUN Creatinine Random Glucose Calcium Phosphorus Magnesium Creatine Kinase Troponin I C-Reactive Protein 25.7 H Albumin 3.0 L 11/02/16 11/05/16 11/05/16 14:45 06:00 06:00 WBC 13.7 H D Hgb 9.0 L Hct 27.8 L Plt Count 262 ABG pH ABG pCO2 at Pt Temp ABG pO2 at Pt Temp Oxygen Flow Rate Sodium 135 L Potassium 4.0 Chloride 83 L Carbon Dioxide 43 H BUN 30 H Creatinine 0.6 Random Glucose 127 H D Calcium 9.6 Phosphorus 2.8 D Magnesium 2.4 Creatine Kinase 26 Troponin I 0.09 H C-Reactive Protein Albumin Chest Mild expiratory wheezing with prolonged expiratory phase of respiration Cor Irregular 1/6 systolic murmur Abd Distended No mass or tenderness Ext No edema No phlebitis Neuro No new focal deficit Telemetry AFib Assessment and Plan Exacerbation of COPD On Rx ABG noted with mild elevation of pCO2 c/w CO2 retention and chronically elevated serum bicarb Anemia 9.0/13.7 On corticosteroids For COPD Note increase wbc and %polys Decompensated CHF elevated BNP noted On Rx Positive blood culture with MSSA R/O SBE with MANUEL Pulmonary HTN Stable OA Stable H/o compression fractures MVP with MR For MANUEL Atrial Fibrillation Stable Previous RVR
--- NOTE | 2016-11-05 13:16 | PN ---
Progress Note (short form) - Note Progress Note: PULMONARY CONTINUES TO BE DYSPNEIC CONFUSED HR 110 /AFEBRILE/ RR 24 PALE/ANICTERIC B/L WHEEZES S1S2 IRREG BS+ SOFT NO EDEMA LABS/MEDS/NOTES/IMAGING/MICRO REVIEWED IMP: MSSA BACTEREMIA END STAGE COPD/PULMONARY HYPERTENSION ENDOCARDITIS MAT PLAN TRANSFER TO ICU REFUSED YESTERDAY STAT ABG R/O CO2 RETENTION STEROIDS HAVE ADJUSTED NEBS/ADDED SPIRIVA CONTINUE ANTIBIOTICS CARDIO/ID F/U HOLD OFF ON MANUEL/MRI'S UNTIL CLINICAL CONDITION IMPROVES R [place] Problem List - Problems (1) COPD (chronic obstructive pulmonary disease) Code(s): J44.9 - CHRONIC OBSTRUCTIVE PULMONARY DISEASE, UNSPECIFIED Qualifiers : COPD type: COPD with acute exacerbation Qualified Code(s): J44.1 - Chronic obstructive pulmonary disease with (acute) exacerbation (2) Tachycardia Code(s): R00.0 - TACHYCARDIA, UNSPECIFIED (3) Bacteremia Code(s): R78.81 - BACTEREMIA (4) Chronic respiratory failure with hypoxia Code(s): J96.11 - CHRONIC RESPIRATORY FAILURE WITH HYPOXIA
[2016-11-05 13:43] LABS: ARTERIAL BLD GAS O2 SATURATION 96.5 % (90-98.9); ARTERIAL BLOOD GAS BASE EXCESS 19.5 meq/l (-2-2); ARTERIAL BLOOD GAS HCO3 45.6 meq/L (22-26); ARTERIAL BLOOD GAS pH 7.51 (7.35-7.45)
[2016-11-05 13:44] LABS: ALLENS TEST POSITIVE; ART PUNCT SITE RIGHT RADIAL; LPM/O2% 2L; PT. ON O2? YES; TYPE OF O2 N/C
--- NOTE | 2016-11-05 16:48 | PN ---
Progress Note, Physician History of Present Illness: patient doing well no new events - Current Medication List Current Medications: Active Medications Albuterol Sulfate (Ventolin 0.083% Nebulizer Soln -) 1 amp NEB Q1H PRN PRN Reason: SHORT OF BREATH/WHEEZING Albuterol Sulfate (Ventolin 0.083% Nebulizer Soln -) 1 amp NEB Q4H [facility] Last Admin: 11/05/16 12:31 Dose: 1 amp Alprazolam (Xanax -) 0.25 mg PO Q8H PRN Last Admin: 11/05/16 08:56 Dose: 0.25 mg Aspirin (Ecotrin -) 81 mg PO DAILY [facility] Digoxin (Lanoxin -) 0.125 mg PO DAILY [facility] Last Admin: 11/05/16 09:05 Dose: 0.125 mg Diltiazem HCl (Cardizem Injection -) 10 mg IV Q4H PRN PRN Reason: FOR HR > 120 Last Admin: 11/02/16 09:12 Dose: 10 mg Diltiazem HCl (Cardizem Cd -) 240 mg PO DAILY [facility] Furosemide (Lasix Injection -) 40 mg IVPUSH DAILY [facility] Last Admin: 11/05/16 09:04 Dose: 40 mg Heparin Sodium (Porcine) (Heparin -) 5,000 unit SQ BID [facility] Cefazolin Sodium (Ancef 1 Gm Premixed Ivpb -) 50 mls @ 100 mls/hr IVPB Q8H-IV [facility] Last Admin: 11/05/16 09:02 Dose: 100 mls/hr Methylprednisolone Sodium Succinate (Solu-Medrol -) 40 mg IVPB Q8H-IV [facility] Last Admin: 11/05/16 09:04 Dose: 40 mg Potassium Chloride (K-Dur -) 10 meq PO DAILY [facility] Last Admin: 11/05/16 09:04 Dose: 10 meq Potassium Phos/Sodium Phos (Phos-Nak Packet -) 1 packet PO BID [facility] Last Admin: 11/05/16 09:05 Dose: 1 packet Ranitidine HCl (Zantac -) 150 mg PO BID [facility] Last Admin: 11/05/16 09:04 Dose: 150 mg Tiotropium [place] (Spiriva -) 1 puff IH DAILY [facility] Last Admin: 11/05/16 09:05 Dose: 1 puff - Objective Vital Signs: Vital Signs Temperature 98.5 F 11/05/16 14:00 Pulse Rate 112 H 11/05/16 14:00 Respiratory Rate 20 11/05/16 14:00 Blood Pressure 145/80 11/05/16 14:00 O2 Sat by Pulse Oximetry (%) 96 11/05/16 12:47 Constitutional: Yes: No Distress, Calm Cardiovascular: Yes: Regular Rate and Rhythm Respiratory: Yes: Regular, Poor Air Entry, Rhonchi Gastrointestinal: Yes: Normal Bowel Sounds, Soft Musculoskeletal: Yes: WNL Extremities: Yes: WNL Neurological: Yes: Alert, Oriented Psychiatric: Yes: Alert Labs: CBC, BMP 11/05/16 06:00 11/05/16 06:00 INR, PTT INR 1.34 (0.82-1.09) H 11/01/16 18:50 Assessment/Plan Problem List - Problems (1) Endocarditis Code(s): I38 - ENDOCARDITIS, VALVE UNSPECIFIED Qualifiers: Endocarditis type: infective Infective endocarditis organism: bacterial Chronicity: acute Qualified Code(s): I33.0 - Acute and subacute infective endocarditis (2) Severe sepsis Code(s): A41.9 - SEPSIS, UNSPECIFIED ORGANISM R65.20 - SEVERE SEPSIS WITHOUT SEPTIC SHOCK (3) Atrial fibrillation with RVR Code(s): I48.91 - UNSPECIFIED ATRIAL FIBRILLATION (4) COPD (chronic obstructive pulmonary disease) Code(s): J44.9 - CHRONIC OBSTRUCTIVE PULMONARY DISEASE, UNSPECIFIED Qualifiers : COPD type: COPD with acute exacerbation Qualified Code(s): J44.1 - Chronic obstructive pulmonary disease with (acute) exacerbation (5) Compressed spine fracture Code(s): M48.50XA - COLLAPSED VERTEBRA, NEC, SITE UNSP, INIT (6) Pulmonary hypertension Code(s): I27.2 - OTHER SECONDARY PULMONARY HYPERTENSION plan continue current abx blood cx negative
[2016-11-05] MEDS ORDERED: HEPARIN - 25,000 UNIT in SODIUM CHLORIDE 495 ML IV SCH (20:30)
[2016-11-05] MEDS ORDERED: HEPARIN NA (PORCINE) 5,000 UNITS/ML 1ML VIAL IVPUSH PRN ×2 (20:55)
[2016-11-05] MEDS ORDERED: HEPARIN NA (PORCINE) 5,000 UNITS/ML 1ML VIAL SQ SCH (22:00)
[2016-11-05] MEDS: HEPARIN INFUSION - 500 ML IVPB SCH (22:22)
[2016-11-06] MEDS: methylPREDNISolone NA SUCC 40 MG/1 ML VIAL IVPB SCH ×3 (01:15→17:55)
[2016-11-06] MEDS: CEFAZOLIN 1 GM/D5W 50 ML IVPB SCH ×3 (01:15→17:56)
[2016-11-06] MEDS: ALBUTEROL SO4 0.083% IH SOL 2.5 MG/3 ML VIAL.NEB. NEB SCH ×6 (02:30→21:40)
[2016-11-06 07:08] LABS: BASOPHIL 0.1 % (0-2.0); MCH 28.5 pg (25.7-33.7); MEAN CELL VOLUME 88.9 fl (80-96); MEAN PLT VOLUME 7.1 fl (7.5-11.1); NEUTROPHILS 94.5 % (42.8-82.8); PLATELET COUNT 283 K/MM3 (134-434); RDW 15.9 % (11.6-15.6)
[2016-11-06 07:39] LABS: CALCIUM 9.2 mg/dL (8.5-10.1); CREATININE 0.6 mg/dL (0.55-1.02)
[2016-11-06 07:51] LABS: DIGOXIN LEVEL 1.5389 ng/ml (0.8-2.0)
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
[2016-11-06] MEDS: DIGOXIN 0.125 MG TABLET (FP) PO SCH (09:30)
[2016-11-06] MEDS: FUROSEMIDE 40 MG/4 ML INJECTABLE VIAL IVPUSH SCH (09:30)
[2016-11-06] MEDS: ALPRAZolam 0.25 MG TABLET PO PRN ×2 (09:31→21:26)
[2016-11-06] MEDS: POTASSIUM CHLORIDE TABS 10 MEQ TABLET.ER (FP) PO SCH (09:31)
[2016-11-06] MEDS: NAPH,MB-DB/K PH,MBDB POWDER PACKET PO SCH ×2 (09:41→21:25)
[2016-11-06] MEDS: TIOTROPIUM BROMIDE 18 MCG/INH (DEVICE W/ 5 CAPSULES) IH SCH (09:42)
[2016-11-06] MEDS ORDERED: ASPIRIN COATED 81 MG TABLET.EC PO SCH (10:00)
[2016-11-06] MEDS: RANITIDINE HCL 150 MG TABLET (FP) PO SCH ×2 (10:33→21:26)
--- NOTE | 2016-11-06 11:02 | PN ---
Progress Note (short form) - Note Progress Note: PULMONARY CONTINUES TO BE DYSPNEIC CONFUSED(I HAVE NEVER BEEN IN A HOSPITAL BEFORE) VSS/AFEBRILE PALE/ANICTERIC B/L DIMINISHED BREATH SOUNDS S1S2 IRREG BS+ SOFT NO EDEMA LABS/MEDS/NOTES/IMAGING/MICRO REVIEWED PH 7.51/57/78/96% 2L/M O2 MRI BRAIN NOTED IMP: MSSA BACTEREMIA END STAGE COPD/PULMONARY HYPERTENSION ENDOCARDITIS MAT PLAN STEROID DOSE ADJUSTED CONTINUE NEBS/ SPIRIVA ANTIBIOTICS CARDIO/ID F/U R [place] Problem List - Problems (1) COPD (chronic obstructive pulmonary disease) Code(s): J44.9 - CHRONIC OBSTRUCTIVE PULMONARY DISEASE, UNSPECIFIED Qualifiers : COPD type: COPD with acute exacerbation Qualified Code(s): J44.1 - Chronic obstructive pulmonary disease with (acute) exacerbation (2) Tachycardia Code(s): R00.0 - TACHYCARDIA, UNSPECIFIED (3) Bacteremia Code(s): R78.81 - BACTEREMIA (4) Chronic respiratory failure with hypoxia Code(s): J96.11 - CHRONIC RESPIRATORY FAILURE WITH HYPOXIA
--- NOTE | 2016-11-06 11:55 | PN ---
Progress Note (short form) - Note Progress Note: Patient seen and examined Chart reviewed. Currently alert, responsive and appropriate, lying on her left side, in bed. Denies pain or worsening of dyspnea. Labs, telemetry and automotive internet sales consultant notes reviewed at length. Selected Entries 11/06/16 11/06/16 06:53 09:30 Temperature 97.7 F Pulse Rate 105 H Respiratory 18 Rate Blood Pressure 114/62 Weight 86 lb 8 oz Laboratory Tests 11/05/16 11/06/16 11/06/16 13:40 06:00 06:00 WBC 14.0 H Hgb 9.5 L Hct 29.7 L Plt Count 283 ABG pH 7.51 H ABG pCO2 at Pt Temp 57.8 H D ABG pO2 at Pt Temp 78.0 O2 Delivery Device N/c Oxygen Flow Rate 2l Sodium 136 Potassium 3.5 Chloride 81 L Carbon Dioxide 45 H BUN 31 H Creatinine 0.6 Random Glucose 118 H Calcium 9.2 Chest Overall decreased breath wounds with minimal expiratory wheezing. Prolonged expiratory phase of respiration Cor Irregular 1/6 systolic murmur Abd Distended No mass or tenderness Ext No edema No phlebitis Neuro No new focal deficit Telemetry AFib Assessment and Plan Exacerbation of COPD On Rx ABG noted with elevation of pCO2 c/w CO2 retention but extreme underlying Metabolic Alkalosis with chronically elevated serum bicarb Anemia 9.0/13.7>>9.5/29.7 On corticosteroids For COPD Note increase wbc and %polys Decompensated CHF elevated BNP noted On Rx Positive blood culture with MSSA R/O SBE with MANUEL Pulmonary HTN Stable OA Stable H/o compression fractures MVP with MR For MANUEL Atrial Fibrillation Stable Previous RVR Previously noted to have MAT rhythm, but current telemetry appears to be AFib Metabolic Alkalosis Primary underlying alkalosis plus compensatory reaction to chronic CO2 retention
--- NOTE | 2016-11-06 17:14 | PN ---
Progress Note, Physician History of Present Illness: stable no new events - Current Medication List Current Medications: Active Medications Albuterol Sulfate (Ventolin 0.083% Nebulizer Soln -) 1 amp NEB Q1H PRN PRN Reason: SHORT OF BREATH/WHEEZING Albuterol Sulfate (Ventolin 0.083% Nebulizer Soln -) 1 amp NEB Q4HPO HERMINIO Last Admin: 11/06/16 14:50 Dose: 1 amp Alprazolam (Xanax -) 0.25 mg PO Q8H PRN Last Admin: 11/06/16 09:31 Dose: 0.25 mg Digoxin (Lanoxin -) 0.125 mg PO DAILY [facility] Last Admin: 11/06/16 09:30 Dose: 0.125 mg Diltiazem HCl (Cardizem Injection -) 10 mg IV Q4H PRN PRN Reason: FOR HR > 120 Last Admin: 11/02/16 09:12 Dose: 10 mg Diltiazem HCl (Cardizem Cd -) 240 mg PO DAILY [facility] Last Admin: 11/06/16 09:31 Dose: 240 mg Furosemide (Lasix Injection -) 40 mg IVPUSH DAILY [facility] Last Admin: 11/06/16 09:30 Dose: 40 mg Heparin Sodium (Porcine) (Heparin -) 5,000 unit IVPUSH PRN PRN Heparin Sodium (Porcine) (Heparin -) 1,000 unit IVPUSH PRN PRN Last Admin: 11/06/16 09:47 Dose: 1,000 unit Cefazolin Sodium (Ancef 1 Gm Premixed Ivpb -) 50 mls @ 100 mls/hr IVPB Q8H-IV [facility] Last Admin: 11/06/16 09:30 Dose: 100 mls/hr Heparin Sodium/Dextrose (Heparin Infusion -) 500 mls @ 16 mls/hr IVPB TITR HERMINIO ; 800 UNITS/HR PRN Reason: Protocol Last Titration: 11/06/16 09:30 Dose: 900 units/hr Methylprednisolone Sodium Succinate (Solu-Medrol -) 20 mg IVPB Q8H-IV HERMINIO Potassium Chloride (K-Dur -) 10 meq PO DAILY [facility] Last Admin: 11/06/16 09:31 Dose: 10 meq Potassium Phos/Sodium Phos (Phos-Nak Packet -) 1 packet PO BID [facility] Last Admin: 11/06/16 09:41 Dose: 1 packet Ranitidine HCl (Zantac -) 150 mg PO BID [facility] Last Admin: 11/06/16 10:33 Dose: 150 mg Tiotropium [place] (Spiriva -) 1 puff IH DAILY [facility] Last Admin: 11/06/16 09:42 Dose: 1 puff - Objective Vital Signs: Vital Signs Temperature 98.5 F 11/06/16 14:00 Pulse Rate 108 H 11/06/16 14:00 Respiratory Rate 20 11/06/16 14:00 Blood Pressure 123/69 11/06/16 14:00 O2 Sat by Pulse Oximetry (%) 96 11/05/16 12:47 Constitutional: Yes: No Distress, Calm HENT: Yes: Atraumatic Neck: Yes: Supple Cardiovascular: Yes: Regular Rate and Rhythm, Pulse Irregular Respiratory: Yes: Regular, Rhonchi Gastrointestinal: Yes: Normal Bowel Sounds, Soft Musculoskeletal: Yes: Other Extremities: Yes: Other Neurological: Yes: Alert, Oriented Labs: CBC, BMP 11/06/16 06:00 11/06/16 06:00 INR, PTT INR 1.34 (0.82-1.09) H 11/01/16 18:50 Assessment/Plan Problem List - Problems (1) Endocarditis Code(s): I38 - ENDOCARDITIS, VALVE UNSPECIFIED Qualifiers: Endocarditis type: infective Infective endocarditis organism: bacterial Chronicity: acute Qualified Code(s): I33.0 - Acute and subacute infective endocarditis (2) Severe sepsis Code(s): A41.9 - SEPSIS, UNSPECIFIED ORGANISM R65.20 - SEVERE SEPSIS WITHOUT SEPTIC SHOCK (3) Atrial fibrillation with RVR Code(s): I48.91 - UNSPECIFIED ATRIAL FIBRILLATION (4) COPD (chronic obstructive pulmonary disease) Code(s): J44.9 - CHRONIC OBSTRUCTIVE PULMONARY DISEASE, UNSPECIFIED Qualifiers : COPD type: COPD with acute exacerbation Qualified Code(s): J44.1 - Chronic obstructive pulmonary disease with (acute) exacerbation (5) Compressed spine fracture Code(s): M48.50XA - COLLAPSED VERTEBRA, NEC, SITE UNSP, INIT (6) Pulmonary hypertension Code(s): I27.2 - OTHER SECONDARY PULMONARY HYPERTENSION plan continue current abx blood cx negative await for malissa
[2016-11-06] MEDS ORDERED: PT OWN MED DRAWER 7, Y5N ONE (17:48)
[2016-11-06] MEDS: HEPARIN INFUSION - 500 ML IVPB SCH (21:25)
[2016-11-07] MEDS: CEFAZOLIN 1 GM/D5W 50 ML IVPB SCH ×3 (01:52→17:17)
[2016-11-07] MEDS: methylPREDNISolone NA SUCC 40 MG/1 ML VIAL IVPB SCH ×3 (01:53→17:17)
[2016-11-07] MEDS: ALBUTEROL SO4 0.083% IH SOL 2.5 MG/3 ML VIAL.NEB. NEB SCH ×6 (02:08→23:00)
[2016-11-07 07:33] LABS: MCHC 32.5 g/dl (32.0-36.0); MEAN PLT VOLUME 7.4 fl (7.5-11.1); NEUTROPHILS 94.5 % (42.8-82.8); PLATELET COUNT 295 K/MM3 (134-434); RDW 15.7 % (11.6-15.6); WHITE BLOOD COUNT 14.9 K/mm3 (4.0-10.0)
--- NOTE | 2016-11-07 07:53 | EKG ---
Test Reason : Blood Pressure : / mmHG Vent. Rate : 111 BPM Atrial Rate : 111 BPM P-R Int : 270 ms QRS Dur : 082 ms QT Int : 306 ms P-R-T Axes : 054 -06 176 degrees QTc Int : 416 ms PROBABLY MULTIFOCAL ATRIAL TACHYCARDIA INFERIOR INFARCT (CITED ON OR BEFORE 14-SEP-2016) ABNORMAL ECG POOR DATA QUALITY, INTERPRETATION MAY BE ADVERSELY AFFECTED Confirmed by XOCHILT STEVENS MD ([id number]) on 11/04/2016 11:31:22 AM Referred By: DIAN VENCES Confirmed By:XOCHILT STEVENS MD
--- NOTE | 2016-11-07 08:10 | PN ---
Progress Note, Physician Chief Complaint: bacteremia, resp distress History of Present Illness: denies sob at present, no orthopnea (lying flat); no cp, palpit + cigs - Current Medication List Current Medications: Active Medications Albuterol Sulfate (Ventolin 0.083% Nebulizer Soln -) 1 amp NEB Q1H PRN PRN Reason: SHORT OF BREATH/WHEEZING Albuterol Sulfate (Ventolin 0.083% Nebulizer Soln -) 1 amp NEB Q4HPO HERMINIO Last Admin: 11/07/16 06:20 Dose: 1 amp Alprazolam (Xanax -) 0.25 mg PO Q8H PRN Last Admin: 11/06/16 21:26 Dose: 0.25 mg Digoxin (Lanoxin -) 0.125 mg PO DAILY [facility] Last Admin: 11/06/16 09:30 Dose: 0.125 mg Diltiazem HCl (Cardizem Injection -) 10 mg IV Q4H PRN PRN Reason: FOR HR > 120 Last Admin: 11/02/16 09:12 Dose: 10 mg Diltiazem HCl (Cardizem Cd -) 240 mg PO DAILY HERMINIO Last Admin: 11/06/16 09:31 Dose: 240 mg Furosemide (Lasix Injection -) 40 mg IVPUSH DAILY HERMINIO Last Admin: 11/06/16 09:30 Dose: 40 mg Heparin Sodium (Porcine) (Heparin -) 5,000 unit IVPUSH PRN PRN Heparin Sodium (Porcine) (Heparin -) 1,000 unit IVPUSH PRN PRN Last Admin: 11/06/16 09:47 Dose: 1,000 unit Cefazolin Sodium (Ancef 1 Gm Premixed Ivpb -) 50 mls @ 100 mls/hr IVPB Q8H-IV [facility]IO Last Admin: 11/07/16 01:52 Dose: 100 mls/hr Heparin Sodium/Dextrose (Heparin Infusion -) 500 mls @ 16 mls/hr IVPB TITR HERMINIO ; 800 UNITS/HR PRN Reason: Protocol Last Admin: 11/06/16 21:25 Dose: 18 mls/hr Methylprednisolone Sodium Succinate (Solu-Medrol -) 20 mg IVPB Q8H-IV [facility] Last Admin: 11/07/16 01:53 Dose: 20 mg Potassium Chloride (K-Dur -) 10 meq PO DAILY HERMINIO Last Admin: 11/06/16 09:31 Dose: 10 meq Potassium Phos/Sodium Phos (Phos-Nak Packet -) 1 packet PO BID [facility] Last Admin: 11/06/16 21:25 Dose: 1 packet Ranitidine HCl (Zantac -) 150 mg PO BID [facility] Last Admin: 11/06/16 21:26 Dose: 150 mg Tiotropium [place] (Spiriva -) 1 puff IH DAILY [facility] Last Admin: 11/06/16 09:42 Dose: 1 puff - Objective Vital Signs: Vital Signs Temperature 97.6 F 11/07/16 06:00 Pulse Rate 108 H 11/07/16 06:00 Respiratory Rate 20 11/07/16 06:00 Blood Pressure 120/58 11/07/16 06:00 O2 Sat by Pulse Oximetry (%) 94 L 11/06/16 23:47 Constitutional: Yes: No Distress, Calm Eyes: No: Sclera Icterus HENT: No: Nasal Congestion Cardiovascular: Yes: Pulse Irregular, Murmur (soft MR murmur unchanged), S1, S2 , Other (PMI non diplaced). No: Gallop Respiratory: Yes: CTA Bilaterally (decr sounds). No: Accessory Muscle Use, Rales, Wheezes Gastrointestinal: Yes: Normal Bowel Sounds, Soft. No: Tenderness Musculoskeletal: Yes: Other (No kyphosis) Extremities: No: Cold Edema: No Integumentary: No: Jaundice Neurological: Yes: Alert, Oriented (x3) Psychiatric: No: Agitated Labs: CBC, BMP 11/07/16 06:30 INR, PTT INR 1.34 (0.82-1.09) H 11/01/16 18:50 - ....Imaging EKG: Other (tele: AF, hr good; PVCs, artifact; NSVT x 7b) Assessment/Plan echo 10/2016: nl lv/rv, sixto, mild mr, post mv leaflet?veg, mild-mod tr, nl rvsp, nl rvsp, mild ar Echo 09/2016: Nl lv/rv. Mod MAC. 1+ AR/TR. Mod [place]. 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 butcher fish); mild-mod MR with no systolic blunting or reversal of flow in pulm vein; peak E velocity (59 cm/sec) ; myxomatous TV with prob mild-mod TR; at least moderate pulm HTN; no change vs 2013 echo tele: afib, rate controlled a/p: resp distress/ acute decompensated diast chf/ a.e. copd: -has been well-compensated on lasix 20 qd for long time as outpt, with occasional prn 40mg doses (intolerant of 40 qd due to urinary frequency and still works full-time) -required lasix 40 iv qd for several days on prior admits -this time around pulm initially did not feel a.e. copd likely -CXR not impressive for congestion, however BNP up 2500 from 500 prior baseline- -she was treated with iv lasix (40 qd) and symptoms improved -11/04 with acute resp distress and diffuse wheezing, steroids started by pulm -11/05: doubt jvd on exam, yesterday's acute resp distress turned around with purely pulm treatment; cont lasix as doing (40 iv qd) -11/06: cont copd tx per pulm, resp status seems to be improving -11/07: bun/creat and bicarb up, no clinical chf; change lasix 40 iv to 40 po qd staph bacteremia/?endocarditis: -2nd recent admit with staph bacteremia: she had MSSA on repeat BCXs 2d apart in early 09/23 (treated with 14d of abx then), now back with spontaneous MSSA as outpatient; (-intervening gram-neg betty blood cx at [place] ultimately felt to be contaminant by id) -echo reporting possible veg on MV--upon dr ramirez's review there is calcification on MV that makes it difficult to conclude if veg is present -for malissa today (d/w'd pt in detail this am, as well as dtr (yadira) on phone on and explained risks/benefits--all agree) -cont abx per id new Afib/supraventricular tachycardia/MAT: -has hx mat worsened by acute resp illnesses in past -now in AFib on tele, HR well controlled -Cont dig (level good), dilt dose 240 -CHADS VASC 4, AC started (MRI w/o septic embolic or mycotic aneurysm) -cont UFH--change to NOAC (eliquis) once endocarditis dx is clarified VTach: -7b run NSVT (> AF with aberrancy) on tele 11/07: -replete K (ordered); Mag has been stable, will rpt level -EF preserved--no further tx warranted pulm HTN: -WHO 3 (overnight hypoxia has been documented), possibly WHO 2 component from LV diast chf -refuses 24 hr O2 repeatedly--cont copd and chf tx, nocturnal O2 MVP with mitral regurg: -likely not hemodynamically significant per recent echo, doubt causal in her sob sx's -remains mild appearing on echo here -for MALISSA today HTN -stable on dilt
[2016-11-07 08:25] LABS: ALK PHOS 96 U/L (45-117); BILIRUBIN,TOTAL 0.4 mg/dL (0.2-1.0); CALCIUM 9.1 mg/dL (8.5-10.1); CREATININE 0.7 mg/dL (0.55-1.02); GLUCOSE,RANDOM 178 mg/dL (74-106); SGOT/AST 23 U/L (15-37); SGPT/ALT 49 U/L (12-78)
[2016-11-07 08:47] LABS: ANION GAP 8 (8-16); CO2 47 mmol/L (21-32)
[2016-11-07] MEDS ORDERED: PT OWN MED DRAWER 7, Y5N ONE (09:24)
[2016-11-07] MEDS: DIGOXIN 0.125 MG TABLET (FP) PO SCH (09:39)
[2016-11-07] MEDS: RANITIDINE HCL 150 MG TABLET (FP) PO SCH ×2 (09:39→22:18)
[2016-11-07] MEDS: NAPH,MB-DB/K PH,MBDB POWDER PACKET PO SCH ×2 (09:40→22:18)
[2016-11-07] MEDS: FUROSEMIDE 40 MG TABLET (FP) PO SCH (09:53)
[2016-11-07] MEDS ORDERED: POTASSIUM CHLORIDE TABS 20 MEQ TABLET.ER (FP) PO ONE (10:00)
[2016-11-07 11:27] LABS: MAGNESIUM 2.6 mg/dL (1.8-2.4)
--- NOTE | 2016-11-07 12:07 | PROC ---
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--only mild MR present; myxomatous TV with no TR present; normal appearing AV with mild AI no vegetation or abscess visualized on AV, MV or TV; highly mobile, long linear echodensity in RA wall typical appearance of Chiari network, with tip of the density seen entering field of view just beneath tricuspid valve plane but clearly adherent to posterior RA wall and not the valve itself; no intracardiac masses; mild-mod aortic arch and descending aorta plaque present (no pedunculated or mobile elements) spontaneous echocontrast ("smoke" in LA and appendage, no thrombus) pt tolerated procedure well with stable VSs throughout, monitored by anesthesia
--- NOTE | 2016-11-07 13:00 | PN ---
Progress Note, Physician History of Present Illness: pulmonary alert,feeling better less dyspneic,s/p MANUEL tolerated procedure well - Current Medication List Current Medications: Active Medications Albuterol Sulfate (Ventolin 0.083% Nebulizer Soln -) 1 amp NEB Q1H PRN PRN Reason: SHORT OF BREATH/WHEEZING Albuterol Sulfate (Ventolin 0.083% Nebulizer Soln -) 1 amp NEB Q4HPO [facility] Last Admin: 11/07/16 10:10 Dose: 1 amp Digoxin (Lanoxin -) 0.125 mg PO DAILY [facility] Last Admin: 11/07/16 09:39 Dose: 0.125 mg Diltiazem HCl (Cardizem Injection -) 10 mg IV Q4H PRN PRN Reason: FOR HR > 120 Last Admin: 11/02/16 09:12 Dose: 10 mg Diltiazem HCl (Cardizem Cd -) 240 mg PO DAILY [facility] Last Admin: 11/07/16 09:39 Dose: 240 mg Furosemide (Lasix -) 40 mg PO DAILY [facility] Last Admin: 11/07/16 09:53 Dose: 40 mg Heparin Sodium (Porcine) (Heparin -) 5,000 unit IVPUSH PRN PRN Heparin Sodium (Porcine) (Heparin -) 1,000 unit IVPUSH PRN PRN Last Admin: 11/06/16 09:47 Dose: 1,000 unit Cefazolin Sodium (Ancef 1 Gm Premixed Ivpb -) 50 mls @ 100 mls/hr IVPB Q8H-IV [facility] Last Admin: 11/07/16 09:45 Dose: 100 mls/hr Heparin Sodium/Dextrose (Heparin Infusion -) 500 mls @ 16 mls/hr IVPB TITR [facility] ; 800 UNITS/HR PRN Reason: Protocol Last Admin: 11/06/16 21:25 Dose: 18 mls/hr Methylprednisolone Sodium Succinate (Solu-Medrol -) 20 mg IVPB Q8H-IV [facility] Last Admin: 11/07/16 09:45 Dose: 20 mg Potassium Chloride (K-Dur -) 20 meq PO DAILY [facility] Potassium Phos/Sodium Phos (Phos-Nak Packet -) 1 packet PO BID [facility] Last Admin: 11/07/16 09:40 Dose: 1 packet Ranitidine HCl (Zantac -) 150 mg PO BID [facility] Last Admin: 11/07/16 09:39 Dose: 150 mg Tiotropium [place] (Spiriva -) 1 puff IH DAILY [facility] Last Admin: 11/06/16 09:42 Dose: 1 puff - Objective Vital Signs: Vital Signs Temperature 98.3 F 11/07/16 12:04 Pulse Rate 102 H 11/07/16 12:40 Respiratory Rate 20 11/07/16 12:40 Blood Pressure 121/69 11/07/16 12:40 O2 Sat by Pulse Oximetry (%) 96 11/07/16 12:40 Constitutional: Yes: Well Nourished, Calm Eyes: Yes: WNL HENT: Yes: WNL Neck: Yes: WNL Cardiovascular: Yes: Regular Rate and Rhythm, S1, S2 Respiratory: Yes: Diminished, Rhonchi (few scattered scott wheezes) Gastrointestinal: Yes: Normal Bowel Sounds, Soft Extremities: Yes: WNL Edema: No Labs: CBC, BMP 11/07/16 06:30 11/07/16 06:30 INR, PTT INR 1.34 (0.82-1.09) H 11/01/16 18:50 Problem List - Problems (1) Atrial fibrillation with RVR Code(s): I48.91 - UNSPECIFIED ATRIAL FIBRILLATION (2) COPD (chronic obstructive pulmonary disease) Code(s): J44.9 - CHRONIC OBSTRUCTIVE PULMONARY DISEASE, UNSPECIFIED Qualifiers : COPD type: COPD with acute exacerbation Qualified Code(s): J44.1 - Chronic obstructive pulmonary disease with (acute) exacerbation (3) Chest pain Code(s): R07.9 - CHEST PAIN, UNSPECIFIED Qualifiers: Chest pain type: other chest pain Qualified Code(s): R07.89 - Other chest pain; R07.8 - Other chest pain (4) Dyspnea Code(s): R06.00 - DYSPNEA, UNSPECIFIED Qualifiers: Dyspnea type: shortness of breath Qualified Code(s): R06.02 - Shortness of breath (5) Endocarditis Code(s): I38 - ENDOCARDITIS, VALVE UNSPECIFIED Qualifiers: Endocarditis type: infective Infective endocarditis organism: bacterial Chronicity: acute Qualified Code(s): I33.0 - Acute and subacute infective endocarditis (6) Tachycardia Code(s): R00.0 - TACHYCARDIA, UNSPECIFIED (7) Bacteremia Code(s): R78.81 - BACTEREMIA (8) Chronic respiratory failure with hypoxia Code(s): J96.11 - CHRONIC RESPIRATORY FAILURE WITH HYPOXIA (9) Respiratory failure Code(s): J96.90 - RESPIRATORY FAILURE, UNSP, UNSP W HYPOXIA OR HYPERCAPNIA Assessment/Plan A/P MSSA Bacteremia r/o Endocarditis Acute Diastolic Heart Failure Pulmonary HTN Mitral Regurgitation MAT COPD - continue antibiotics - lasix - monitor urine output, creatinine - inhaled bronchodilators - rate control - O2 as needed - DVT prophylaxis - check results of MANUEL DR [place]
[2016-11-07] MEDS: TIOTROPIUM BROMIDE 18 MCG/INH (DEVICE W/ 5 CAPSULES) IH SCH (13:58)
--- NOTE | 2016-11-07 15:36 | PN ---
Progress Note, Physician Chief Complaint: Ms Mo says she is feeling well. No cp, sob, n/v. - Current Medication List Current Medications: Active Medications Albuterol Sulfate (Ventolin 0.083% Nebulizer Soln -) 1 amp NEB Q1H PRN PRN Reason: SHORT OF BREATH/WHEEZING Albuterol Sulfate (Ventolin 0.083% Nebulizer Soln -) 1 amp NEB Q4HPO [facility] Last Admin: 11/07/16 10:10 Dose: 1 amp Digoxin (Lanoxin -) 0.125 mg PO DAILY [facility] Last Admin: 11/07/16 09:39 Dose: 0.125 mg Diltiazem HCl (Cardizem Injection -) 10 mg IV Q4H PRN PRN Reason: FOR HR > 120 Last Admin: 11/02/16 09:12 Dose: 10 mg Diltiazem HCl (Cardizem Cd -) 240 mg PO DAILY [facility] Last Admin: 11/07/16 09:39 Dose: 240 mg Furosemide (Lasix -) 40 mg PO DAILY [facility] Last Admin: 11/07/16 09:53 Dose: 40 mg Heparin Sodium (Porcine) (Heparin -) 5,000 unit IVPUSH PRN PRN Heparin Sodium (Porcine) (Heparin -) 1,000 unit IVPUSH PRN PRN Last Admin: 11/06/16 09:47 Dose: 1,000 unit Cefazolin Sodium (Ancef 1 Gm Premixed Ivpb -) 50 mls @ 100 mls/hr IVPB Q8H-IV [facility] Last Admin: 11/07/16 09:45 Dose: 100 mls/hr Heparin Sodium/Dextrose (Heparin Infusion -) 500 mls @ 16 mls/hr IVPB TITR [facility] ; 800 UNITS/HR PRN Reason: Protocol Last Admin: 11/06/16 21:25 Dose: 18 mls/hr Methylprednisolone Sodium Succinate (Solu-Medrol -) 20 mg IVPB Q8H-IV [facility] Last Admin: 11/07/16 09:45 Dose: 20 mg Potassium Chloride (K-Dur -) 20 meq PO DAILY [facility] Potassium Phos/Sodium Phos (Phos-Nak Packet -) 1 packet PO BID [facility] Last Admin: 11/07/16 09:40 Dose: 1 packet Ranitidine HCl (Zantac -) 150 mg PO BID [facility] Last Admin: 11/07/16 09:39 Dose: 150 mg Tiotropium [place] (Spiriva -) 1 puff IH DAILY [facility] Last Admin: 11/07/16 13:58 Dose: 1 puff - Objective Vital Signs: Vital Signs Temperature 98.0 F 11/07/16 14:00 Pulse Rate 96 H 11/07/16 14:00 Respiratory Rate 16 11/07/16 14:00 Blood Pressure 120/69 11/07/16 14:00 O2 Sat by Pulse Oximetry (%) 96 11/07/16 12:40 Constitutional: Yes: Well Nourished, No Distress, Calm Cardiovascular: Yes: Pulse Irregular. No: Tachycardia, Gallop, Murmur, Rub Respiratory: Yes: Regular, CTA Bilaterally, On Nasal O2. No: Rales, Rhonchi, Wheezes Gastrointestinal: Yes: Normal Bowel Sounds, Soft. No: Distention, Tenderness Extremities: Yes: WNL Edema: No Labs: CBC, BMP 11/07/16 06:30 11/07/16 06:30 INR, PTT INR 1.34 (0.82-1.09) H 11/01/16 18:50 Problem List - Problems (1) Endocarditis Code(s): I38 - ENDOCARDITIS, VALVE UNSPECIFIED Qualifiers: Endocarditis type: infective Infective endocarditis organism: bacterial Chronicity: acute Qualified Code(s): I33.0 - Acute and subacute infective endocarditis (2) Severe sepsis Code(s): A41.9 - SEPSIS, UNSPECIFIED ORGANISM R65.20 - SEVERE SEPSIS WITHOUT SEPTIC SHOCK (3) Atrial fibrillation with RVR Code(s): I48.91 - UNSPECIFIED ATRIAL FIBRILLATION (4) COPD (chronic obstructive pulmonary disease) Code(s): J44.9 - CHRONIC OBSTRUCTIVE PULMONARY DISEASE, UNSPECIFIED Qualifiers : COPD type: COPD with acute exacerbation Qualified Code(s): J44.1 - Chronic obstructive pulmonary disease with (acute) exacerbation (5) Compressed spine fracture Code(s): M48.50XA - COLLAPSED VERTEBRA, NEC, SITE UNSP, INIT (6) Pulmonary hypertension Code(s): I27.2 - OTHER SECONDARY PULMONARY HYPERTENSION Assessment/Plan (1) Endocarditis -patient s/p MANUEL -official read appears to not show signs of vegetation -will d/w cardiology -unclear source of infection -ID following -continue cefazolin -will d/w Dr Yo about length of course (2) Severe sepsis Assessment/Plan: -continue antibiotics currently Code(s): A41.9 - SEPSIS, UNSPECIFIED ORGANISM R65.20 - SEVERE SEPSIS WITHOUT SEPTIC SHOCK (3) Atrial fibrillation with RVR Assessment/Plan: -rate controlled -on heparin gtt -place on anticoagulation per cardiology recommendations -continue digoxin and diltiazem Code(s): I48.91 - UNSPECIFIED ATRIAL FIBRILLATION (4) COPD (chronic obstructive pulmonary disease) Assessment/Plan: -pulmonary following and case reviewed -continue solumedrol currently -continue albuterol Code(s): J44.9 - CHRONIC OBSTRUCTIVE PULMONARY DISEASE, UNSPECIFIED Qualifiers : COPD type: COPD with acute exacerbation Qualified Code(s): J44.1 - Chronic obstructive pulmonary disease with (acute) exacerbation (5) Compressed spine fracture Assessment/Plan: -currently pain free -no need for MRI Code(s): M48.50XA - COLLAPSED VERTEBRA, NEC, SITE UNSP, INIT (6) Pulmonary hypertension Assessment/Plan: -continue oral lasix Code(s): I27.2 - OTHER SECONDARY PULMONARY HYPERTENSION
[2016-11-07] MEDS: ALPRAZolam 0.25 MG TABLET PO PRN (20:05)
[2016-11-07] MEDS: HEPARIN INFUSION - 500 ML IVPB SCH (22:18)
[2016-11-08] MEDS: CEFAZOLIN 1 GM/D5W 50 ML IVPB SCH ×3 (02:02→17:59)
[2016-11-08] MEDS: methylPREDNISolone NA SUCC 40 MG/1 ML VIAL IVPB SCH ×2 (02:02→09:49)
[2016-11-08] MEDS: ALBUTEROL SO4 0.083% IH SOL 2.5 MG/3 ML VIAL.NEB. NEB SCH ×6 (02:30→22:00)
[2016-11-08 06:21] LABS: BASOPHIL 0.1 % (0-2.0); MCH 28.7 pg (25.7-33.7); MCHC 32.7 g/dl (32.0-36.0); MEAN CELL VOLUME 87.8 fl (80-96); MEAN PLT VOLUME 7.3 fl (7.5-11.1); NEUTROPHILS 94.1 % (42.8-82.8); PLATELET COUNT 363 K/MM3 (134-434); WHITE BLOOD COUNT 13.7 K/mm3 (4.0-10.0)
[2016-11-08 06:50] LABS: CREATININE 0.5 mg/dL (0.55-1.02); MAGNESIUM 2.3 mg/dL (1.8-2.4); PHOSPHOROUS 2.8 mg/dL (2.5-4.9)
[2016-11-08] MEDS: DIGOXIN 0.125 MG TABLET (FP) PO SCH (09:49)
[2016-11-08] MEDS: RANITIDINE HCL 150 MG TABLET (FP) PO SCH ×2 (09:49→21:48)
[2016-11-08] MEDS: POTASSIUM CHLORIDE TABS 20 MEQ TABLET.ER (FP) PO SCH (09:49)
[2016-11-08] MEDS: FUROSEMIDE 40 MG TABLET (FP) PO SCH (09:50)
[2016-11-08] MEDS: ALPRAZolam 0.25 MG TABLET PO PRN ×2 (09:50→21:48)
[2016-11-08] MEDS: TIOTROPIUM BROMIDE 18 MCG/INH (DEVICE W/ 5 CAPSULES) IH SCH (09:50)
--- NOTE | 2016-11-08 09:57 | PN ---
Progress Note (short form) - Note Progress Note: Chief Complaint: bacteremia, resp distress History of Present Illness: sob this morning which she attributes to having a panic attack regarding not being allowed to get up to go to commode. denies sob at present, no orthopnea ( lying flat); no cp, palpit Had MALISSA yesterday. Transtioned from IV to PO lasix. + cigs Current Medications Albuterol Sulfate (Ventolin 0.083% Nebulizer Soln -) 1 amp NEB Q1H PRN PRN Reason: SHORT OF BREATH/WHEEZING Albuterol Sulfate (Ventolin 0.083% Nebulizer Soln -) 1 amp NEB Q4HPO [facility] Last Admin: 11/08/16 06:30 Dose: 1 amp Alprazolam (Xanax -) 0.25 mg PO Q8H PRN PRN Reason: ANXIETY Last Admin: 11/07/16 20:05 Dose: 0.25 mg Digoxin (Lanoxin -) 0.125 mg PO DAILY [facility] Last Admin: 11/07/16 09:39 Dose: 0.125 mg Diltiazem HCl (Cardizem Injection -) 10 mg IV Q4H PRN PRN Reason: FOR HR > 120 Last Admin: 11/02/16 09:12 Dose: 10 mg Diltiazem HCl (Cardizem Cd -) 240 mg PO DAILY [facility] Last Admin: 11/07/16 09:39 Dose: 240 mg Furosemide (Lasix -) 40 mg PO DAILY [facility] Last Admin: 11/07/16 09:53 Dose: 40 mg Heparin Sodium (Porcine) (Heparin -) 5,000 unit IVPUSH PRN PRN Heparin Sodium (Porcine) (Heparin -) 1,000 unit IVPUSH PRN PRN Last Admin: 11/06/16 09:47 Dose: 1,000 unit Cefazolin Sodium (Ancef 1 Gm Premixed Ivpb -) 50 mls @ 100 mls/hr IVPB Q8H-IV [facility] Last Admin: 11/08/16 02:02 Dose: 100 mls/hr Heparin Sodium/Dextrose (Heparin Infusion -) 500 mls @ 16 mls/hr IVPB TITR [facility] ; 800 UNITS/HR PRN Reason: Protocol Last Admin: 11/07/16 22:18 Dose: 18 mls/hr Methylprednisolone Sodium Succinate (Solu-Medrol -) 20 mg IVPB Q8H-IV [facility] Last Admin: 11/08/16 02:02 Dose: 20 mg Potassium Chloride (K-Dur -) 20 meq PO DAILY [facility] Potassium Phos/Sodium Phos (Phos-Nak Packet -) 1 packet PO BID [facility] Last Admin: 11/07/16 22:18 Dose: 1 packet Ranitidine HCl (Zantac -) 150 mg PO BID [facility] Last Admin: 11/07/16 22:18 Dose: 150 mg Tiotropium [place] (Spiriva -) 1 puff IH DAILY [facility] Last Admin: 11/07/16 13:58 Dose: 1 puff Vital Signs - 24 hr 11/07/16 11/07/16 11/07/16 10:00 10:15 12:04 Temperature 98.1 F 98.3 F Pulse Rate 110 H 104 H 100 H Respiratory 18 20 Rate Blood Pressure 137/80 106/63 O2 Sat by Pulse 97 99 Oximetry (%) 11/07/16 11/07/16 11/07/16 12:20 12:40 14:00 Temperature 98.0 F Pulse Rate 102 H 102 H 96 H Respiratory 20 20 16 Rate Blood Pressure 111/73 121/69 120/69 O2 Sat by Pulse 98 96 Oximetry (%) 11/07/16 11/07/16 11/08/16 19:00 20:15 02:15 Temperature 98.7 F 98.1 F 97.9 F Pulse Rate 96 H 107 H 100 H Respiratory 18 16 18 Rate Blood Pressure 122/62 137/73 137/81 O2 Sat by Pulse 96 Oximetry (%) 11/08/16 06:00 Temperature 98 F Pulse Rate 98 H Respiratory 18 Rate Blood Pressure 123/71 O2 Sat by Pulse Oximetry (%) Intake & Output 11/06/16 11/07/16 11/08/16 11/09/16 07:59 07:59 07:59 07:59 Intake Total 023 386 2862 Balance 022 781 4395 Weight 86 lb 8 oz Constitutional: Yes: No Distress, Calm, tachypneic, but O2 sat measured at bedside 97%. Eyes: No: Sclera Icterus HENT: No: Nasal Congestion Cardiovascular: Yes: Pulse Irregular, Murmur (soft MR murmur unchanged), S1, S2 , Other (PMI non diplaced). No: Gallop Respiratory: Yes: CTA Bilaterally (decr sounds). No: Accessory Muscle Use, Rales, Wheezes Gastrointestinal: Yes: Normal Bowel Sounds, Soft. No: Tenderness Musculoskeletal: Yes: Other (No kyphosis) Extremities: No: Cold Edema: No Integumentary: No: Jaundice Neurological: Yes: Alert, Oriented (x3) Psychiatric: No: Agitated Labs: CBC, BMP 11/08/16 05:35 11/08/16 05:35 Laboratory Tests 11/08/16 05:35 Magnesium 2.3 - ....Imaging EKG: Other (tele: AF, hr 100's, occasionally episodes 110's-120's; PVCs, artifact; occ NSVT x 3b) Assessment/Plan MALISSA 10/2016: nl lv/rv. 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 No TR. 1+ AR. No veg/abscess. Mobile linear density in RA --> [facility] network. No intracardiac mass. Mild-mod mural aortic atheroma. echo 10/2016: nl lv/rv, sixto, mild mr, post mv leaflet?veg, mild-mod tr, nl rvsp, nl rvsp, mild ar Echo 09/2016: Nl lv/rv. Mod MAC. 1+ AR/TR. Mod ID. 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 director title); mild-mod MR with no systolic blunting or reversal of flow in pulm vein; peak E velocity (59 cm/sec) ; myxomatous TV with prob mild-mod TR; at least moderate pulm HTN; no change vs 2013 echo a/p: resp distress/ acute decompensated diast chf/ a.e. copd: -has been well-compensated on lasix 20 qd for long time as outpt, with occasional prn 40mg doses (intolerant of 40 qd due to urinary frequency and still works full-time) -required lasix 40 iv qd for several days on prior admits -this time around pulm initially did not feel a.e. copd likely -CXR not impressive for congestion, however BNP up 2500 from 500 prior baseline- -she was treated with iv lasix (40 qd) and symptoms improved -11/04 with acute resp distress and diffuse wheezing, steroids started by pulm -11/05: doubt jvd on exam, yesterday's acute resp distress turned around with purely pulm treatment; cont lasix as doing (40 iv qd) -11/06: cont copd tx per pulm, resp status seems to be improving -11/07: bun/creat and bicarb up, no clinical chf; change lasix 40 iv to 40 po qd - 11/08: tolerated change to po lasix, continue. If recurrent sob/anxiety tomorrow reevaluate volume status. recurrent staph bacteremia/MALISSA negative for endocarditis: -2nd recent admit with staph bacteremia: she had MSSA on repeat BCXs 2d apart in early 09/23 (treated with 14d of abx then), now back with spontaneous MSSA as outpatient; (-intervening gram-neg betty blood cx at [place] ultimately felt to be contaminant by id) -echo reporting possible veg on MV--upon dr ramirez's review there is calcification on MV that makes it difficult to conclude if veg is present -for malissa today (d/w'd pt in detail this am, as well as dtr (yadira) on phone on and explained risks/benefits--all agree) -cont abx per id new Afib/supraventricular tachycardia/MAT: -has hx mat worsened by acute resp illnesses in past -now in AFib on tele, HR well controlled -Cont dig (level good), dilt dose 240 (11/08 HR slightly elevated in setting of anxiety /sob. If still elevated tomorrow consider uptitration of regimen. -CHADS VASC 4, AC started (MRI w/o septic embolic or mycotic aneurysm) - no endocarditis, will change heparin drip to eliquis tonight. VTach: -7b run NSVT (> AF with aberrancy) on tele 11/07: -replete K, Mag PRN -EF preserved--no further tx warranted pulm HTN: -WHO 3 (overnight hypoxia has been documented), possibly WHO 2 component from LV diast chf -refuses 24 hr O2 repeatedly--cont copd and chf tx, nocturnal O2 MVP with mitral regurg: -likely not hemodynamically significant per recent echo, doubt causal in her sob sx's HTN -stable on dilt
[2016-11-08] MEDS: NAPH,MB-DB/K PH,MBDB POWDER PACKET PO SCH ×2 (10:06→21:48)
--- NOTE | 2016-11-08 12:39 | PN ---
Progress Note (short form) - Note Progress Note: Reports having a panic attack early this AM. Now feels OK. Denies CP or SOB. Intake & Output 11/05/16 11/06/16 11/07/16 11/08/16 23:59 23:59 23:59 23:59 Intake Total 253 895 4843 548 Balance 868 407 9784 548 Weight 86 lb 6.4 oz 86 lb 8 oz Last Vital Signs Temp Pulse Resp BP Pulse Ox 98 F 110 H 18 123/71 97 11/08/16 06:00 11/08/16 10:23 11/08/16 06:00 11/08/16 06:00 11/08/16 10:23 Active Medications Albuterol Sulfate (Ventolin 0.083% Nebulizer Soln -) 1 amp NEB Q1H PRN PRN Reason: SHORT OF BREATH/WHEEZING Albuterol Sulfate (Ventolin 0.083% Nebulizer Soln -) 1 amp NEB Q4HPO [facility] Last Admin: 11/08/16 10:10 Dose: 1 amp Alprazolam (Xanax -) 0.25 mg PO Q8H PRN PRN Reason: ANXIETY Last Admin: 11/08/16 09:50 Dose: 0.25 mg Digoxin (Lanoxin -) 0.125 mg PO DAILY [facility] Last Admin: 11/08/16 09:49 Dose: 0.125 mg Diltiazem HCl (Cardizem Injection -) 10 mg IV Q4H PRN PRN Reason: FOR HR > 120 Last Admin: 11/02/16 09:12 Dose: 10 mg Diltiazem HCl (Cardizem Cd -) 240 mg PO DAILY [facility] Last Admin: 11/08/16 09:50 Dose: 240 mg Furosemide (Lasix -) 40 mg PO DAILY [facility] Last Admin: 11/08/16 09:50 Dose: 40 mg Heparin Sodium (Porcine) (Heparin -) 5,000 unit IVPUSH PRN PRN Heparin Sodium (Porcine) (Heparin -) 1,000 unit IVPUSH PRN PRN Last Admin: 11/06/16 09:47 Dose: 1,000 unit Cefazolin Sodium (Ancef 1 Gm Premixed Ivpb -) 50 mls @ 100 mls/hr IVPB Q8H-IV [facility] Last Admin: 11/08/16 09:50 Dose: 100 mls/hr Heparin Sodium/Dextrose (Heparin Infusion -) 500 mls @ 16 mls/hr IVPB TITR [facility] ; 800 UNITS/HR PRN Reason: Protocol Last Admin: 11/07/16 22:18 Dose: 18 mls/hr Methylprednisolone Sodium Succinate (Solu-Medrol -) 20 mg IVPB Q8H-IV [facility] Last Admin: 11/08/16 09:49 Dose: 20 mg Potassium Chloride (K-Dur -) 20 meq PO DAILY [facility] Last Admin: 11/08/16 09:49 Dose: 20 meq Potassium Phos/Sodium Phos (Phos-Nak Packet -) 1 packet PO BID [facility] Last Admin: 11/08/16 10:06 Dose: 1 packet Ranitidine HCl (Zantac -) 150 mg PO BID [facility] Last Admin: 11/08/16 09:49 Dose: 150 mg Tiotropium [place] (Spiriva -) 1 puff IH DAILY [facility] Last Admin: 11/08/16 09:50 Dose: 1 puff - Objective Vital Signs: Constitutional: Yes: NAD but mildly tachypneic while eating lunch Eyes: Yes: WNL HENT: Yes: WNL Neck: Yes: WNL Cardiovascular: Yes: Regular Rate and Rhythm, S1, S2 Respiratory: Yes: Diminished, Rhonchi, no wheezing heard Gastrointestinal: Yes: Normal Bowel Sounds, Soft Extremities: Yes: WNL Edema: No Labs: Laboratory Results - last 24 hr 11/08/16 11/08/16 11/08/16 05:35 05:35 05:35 WBC 13.7 H RBC 3.44 L Hgb 9.9 L Hct 30.2 L MCV 87.8 MCHC 32.7 RDW 16.0 H Plt Count 363 D MPV 7.3 L Neutrophils % 94.1 H Lymphocytes % 2.0 L Monocytes % 3.8 Eosinophils % 0.0 Basophils % 0.1 D PTT (Actin FS) 67.1 H Sodium 137 Potassium 3.7 Chloride 85 L Carbon Dioxide 41 H Anion Gap 11 BUN 32 H Creatinine 0.5 L D Random Glucose 127 H D Calcium 9.0 Phosphorus 2.8 Magnesium 2.3 Problem List - Problems (1) Atrial fibrillation with RVR Code(s): I48.91 - UNSPECIFIED ATRIAL FIBRILLATION (2) COPD (chronic obstructive pulmonary disease) Code(s): J44.9 - CHRONIC OBSTRUCTIVE PULMONARY DISEASE, UNSPECIFIED Qualifiers : COPD type: COPD with acute exacerbation Qualified Code(s): J44.1 - Chronic obstructive pulmonary disease with (acute) exacerbation (3) Chest pain Code(s): R07.9 - CHEST PAIN, UNSPECIFIED Qualifiers: Chest pain type: other chest pain Qualified Code(s): R07.89 - Other chest pain; R07.8 - Other chest pain (4) Dyspnea Code(s): R06.00 - DYSPNEA, UNSPECIFIED Qualifiers: Dyspnea type: shortness of breath Qualified Code(s): R06.02 - Shortness of breath (5) Endocarditis Code(s): I38 - ENDOCARDITIS, VALVE UNSPECIFIED Qualifiers: Endocarditis type: infective Infective endocarditis organism: bacterial Chronicity: acute Qualified Code(s): I33.0 - Acute and subacute infective endocarditis (6) Tachycardia Code(s): R00.0 - TACHYCARDIA, UNSPECIFIED (7) Bacteremia Code(s): R78.81 - BACTEREMIA (8) Chronic respiratory failure with hypoxia Code(s): J96.11 - CHRONIC RESPIRATORY FAILURE WITH HYPOXIA (9) Respiratory failure Code(s): J96.90 - RESPIRATORY FAILURE, UNSP, UNSP W HYPOXIA OR HYPERCAPNIA Assessment/Plan MSSA Bacteremia Endocarditis ruled out Acute Diastolic Heart Failure Pulmonary HTN Mitral Regurgitation MAT COPD - ABX Per ID - lasix - monitor urine output, creatinine - inhaled bronchodilators - rate control - O2 as needed - DVT prophylaxis - Change to Prednisone Dr Ayoub
--- NOTE | 2016-11-08 14:00 | PN ---
Progress Note, Physician Chief Complaint: Ms Mo says she is having a panic attack, was worse this am but better. Characterized by shortness of breath. No cp or n/v. - Current Medication List Current Medications: Active Medications Albuterol Sulfate (Ventolin 0.083% Nebulizer Soln -) 1 amp NEB Q1H PRN PRN Reason: SHORT OF BREATH/WHEEZING Albuterol Sulfate (Ventolin 0.083% Nebulizer Soln -) 1 amp NEB Q4HPO [facility] Last Admin: 11/08/16 10:10 Dose: 1 amp Alprazolam (Xanax -) 0.25 mg PO Q8H PRN PRN Reason: ANXIETY Last Admin: 11/08/16 09:50 Dose: 0.25 mg Digoxin (Lanoxin -) 0.125 mg PO DAILY [facility] Last Admin: 11/08/16 09:49 Dose: 0.125 mg Diltiazem HCl (Cardizem Injection -) 10 mg IV Q4H PRN PRN Reason: FOR HR > 120 Last Admin: 11/02/16 09:12 Dose: 10 mg Diltiazem HCl (Cardizem Cd -) 240 mg PO DAILY [facility] Last Admin: 11/08/16 09:50 Dose: 240 mg Furosemide (Lasix -) 40 mg PO DAILY [facility] Last Admin: 11/08/16 09:50 Dose: 40 mg Heparin Sodium (Porcine) (Heparin -) 5,000 unit IVPUSH PRN PRN Heparin Sodium (Porcine) (Heparin -) 1,000 unit IVPUSH PRN PRN Last Admin: 11/06/16 09:47 Dose: 1,000 unit Cefazolin Sodium (Ancef 1 Gm Premixed Ivpb -) 50 mls @ 100 mls/hr IVPB Q8H-IV [facility] Last Admin: 11/08/16 09:50 Dose: 100 mls/hr Heparin Sodium/Dextrose (Heparin Infusion -) 500 mls @ 16 mls/hr IVPB TITR [facility] ; 800 UNITS/HR PRN Reason: Protocol Last Admin: 11/07/16 22:18 Dose: 18 mls/hr Potassium Chloride (K-Dur -) 20 meq PO DAILY [facility] Last Admin: 11/08/16 09:49 Dose: 20 meq Potassium Phos/Sodium Phos (Phos-Nak Packet -) 1 packet PO BID [facility] Last Admin: 11/08/16 10:06 Dose: 1 packet Prednisone (Deltasone -) 20 mg PO BID [facility] Ranitidine HCl (Zantac -) 150 mg PO BID [facility] Last Admin: 11/08/16 09:49 Dose: 150 mg Tiotropium [place] (Spiriva -) 1 puff IH DAILY [facility] Last Admin: 11/08/16 09:50 Dose: 1 puff - Objective Vital Signs: Vital Signs Temperature 98 F 11/08/16 06:00 Pulse Rate 110 H 11/08/16 10:23 Respiratory Rate 18 11/08/16 06:00 Blood Pressure 123/71 11/08/16 06:00 O2 Sat by Pulse Oximetry (%) 97 11/08/16 10:23 Constitutional: Yes: No Distress, Calm, Thin Cardiovascular: Yes: Pulse Irregular. No: Tachycardia, Gallop, Murmur, Rub Respiratory: Yes: Regular, On Nasal O2, Rales (bilateral), Wheezes. No: Rhonchi Gastrointestinal: Yes: Normal Bowel Sounds, Soft. No: Distention, Tenderness Extremities: Yes: WNL Edema: No Labs: CBC, BMP 11/08/16 05:35 11/08/16 05:35 INR, PTT INR 1.34 (0.82-1.09) H 11/01/16 18:50 Problem List - Problems (1) Endocarditis Code(s): I38 - ENDOCARDITIS, VALVE UNSPECIFIED Qualifiers: Endocarditis type: infective Infective endocarditis organism: bacterial Chronicity: acute Qualified Code(s): I33.0 - Acute and subacute infective endocarditis (2) Severe sepsis Code(s): A41.9 - SEPSIS, UNSPECIFIED ORGANISM R65.20 - SEVERE SEPSIS WITHOUT SEPTIC SHOCK (3) Atrial fibrillation with RVR Code(s): I48.91 - UNSPECIFIED ATRIAL FIBRILLATION (4) COPD (chronic obstructive pulmonary disease) Code(s): J44.9 - CHRONIC OBSTRUCTIVE PULMONARY DISEASE, UNSPECIFIED Qualifiers : COPD type: COPD with acute exacerbation Qualified Code(s): J44.1 - Chronic obstructive pulmonary disease with (acute) exacerbation (5) Compressed spine fracture Code(s): M48.50XA - COLLAPSED VERTEBRA, NEC, SITE UNSP, INIT (6) Pulmonary hypertension Code(s): I27.2 - OTHER SECONDARY PULMONARY HYPERTENSION Assessment/Plan (1) MRSA bacteremia -endocarditis ruled out by MANEUL -however still do not have a source -not with back pain -ID to recommend course of antibiotics, suspect will need long course -if has back pain or any other back complaints have low threshold for MRI or CT with contrast if cannot tolerate MRI (2) Severe sepsis Assessment/Plan: -continue antibiotics currently Code(s): A41.9 - SEPSIS, UNSPECIFIED ORGANISM R65.20 - SEVERE SEPSIS WITHOUT SEPTIC SHOCK (3) Atrial fibrillation with RVR Assessment/Plan: -rate controlled -on heparin gtt -place on anticoagulation per cardiology recommendations -continue digoxin and diltiazem -change to eliquis per cardiology recommendations Code(s): I48.91 - UNSPECIFIED ATRIAL FIBRILLATION (4) COPD (chronic obstructive pulmonary disease) Assessment/Plan: -pulmonary following and case reviewed -decreased to prednisone -continue albuterol -concerning these "anxiety attacks" are actually hypoxia -pulmonary to make recommendations Code(s): J44.9 - CHRONIC OBSTRUCTIVE PULMONARY DISEASE, UNSPECIFIED Qualifiers : COPD type: COPD with acute exacerbation Qualified Code(s): J44.1 - Chronic obstructive pulmonary disease with (acute) exacerbation (5) Compressed spine fracture Assessment/Plan: -as above Code(s): M48.50XA - COLLAPSED VERTEBRA, NEC, SITE UNSP, INIT (6) Pulmonary hypertension Assessment/Plan: -continue oral lasix Code(s): I27.2 - OTHER SECONDARY PULMONARY HYPERTENSION
--- NOTE | 2016-11-08 14:08 | PN ---
Progress Note, Physician History of Present Illness: patient had episode of hypoxia this morning now better working with physio - Current Medication List Current Medications: Active Medications Albuterol Sulfate (Ventolin 0.083% Nebulizer Soln -) 1 amp NEB Q1H PRN PRN Reason: SHORT OF BREATH/WHEEZING Albuterol Sulfate (Ventolin 0.083% Nebulizer Soln -) 1 amp NEB Q4HPO [facility] Last Admin: 11/08/16 10:10 Dose: 1 amp Alprazolam (Xanax -) 0.25 mg PO Q8H PRN PRN Reason: ANXIETY Last Admin: 11/08/16 09:50 Dose: 0.25 mg Digoxin (Lanoxin -) 0.125 mg PO DAILY [facility] Last Admin: 11/08/16 09:49 Dose: 0.125 mg Diltiazem HCl (Cardizem Injection -) 10 mg IV Q4H PRN PRN Reason: FOR HR > 120 Last Admin: 11/02/16 09:12 Dose: 10 mg Diltiazem HCl (Cardizem Cd -) 240 mg PO DAILY [facility] Last Admin: 11/08/16 09:50 Dose: 240 mg Furosemide (Lasix -) 40 mg PO DAILY [facility] Last Admin: 11/08/16 09:50 Dose: 40 mg Heparin Sodium (Porcine) (Heparin -) 5,000 unit IVPUSH PRN PRN Heparin Sodium (Porcine) (Heparin -) 1,000 unit IVPUSH PRN PRN Last Admin: 11/06/16 09:47 Dose: 1,000 unit Cefazolin Sodium (Ancef 1 Gm Premixed Ivpb -) 50 mls @ 100 mls/hr IVPB Q8H-IV [facility] Last Admin: 11/08/16 09:50 Dose: 100 mls/hr Heparin Sodium/Dextrose (Heparin Infusion -) 500 mls @ 16 mls/hr IVPB TITR HERIMNIO ; 800 UNITS/HR PRN Reason: Protocol Last Admin: 11/07/16 22:18 Dose: 18 mls/hr Potassium Chloride (K-Dur -) 20 meq PO DAILY [facility] Last Admin: 11/08/16 09:49 Dose: 20 meq Potassium Phos/Sodium Phos (Phos-Nak Packet -) 1 packet PO BID [facility] Last Admin: 11/08/16 10:06 Dose: 1 packet Prednisone (Deltasone -) 20 mg PO BID [facility] Ranitidine HCl (Zantac -) 150 mg PO BID [facility] Last Admin: 11/08/16 09:49 Dose: 150 mg Tiotropium [place] (Spiriva -) 1 puff IH DAILY [facility] Last Admin: 11/08/16 09:50 Dose: 1 puff - Objective Vital Signs: Vital Signs Temperature 98 F 11/08/16 06:00 Pulse Rate 110 H 11/08/16 10:23 Respiratory Rate 18 11/08/16 06:00 Blood Pressure 123/71 11/08/16 06:00 O2 Sat by Pulse Oximetry (%) 97 11/08/16 10:23 Constitutional: Yes: No Distress, Calm Cardiovascular: Yes: Regular Rate and Rhythm Respiratory: Yes: Regular, Poor Air Entry Gastrointestinal: Yes: Normal Bowel Sounds, Soft Musculoskeletal: Yes: WNL Extremities: Yes: WNL Neurological: Yes: Alert, Oriented Psychiatric: Yes: Alert Labs: CBC, BMP 11/08/16 05:35 11/08/16 05:35 INR, PTT INR 1.34 (0.82-1.09) H 11/01/16 18:50 Assessment/Plan Problem List - Problems (1) Endocarditis Code(s): I38 - ENDOCARDITIS, VALVE UNSPECIFIED Qualifiers: Endocarditis type: infective Infective endocarditis organism: bacterial Chronicity: acute Qualified Code(s): I33.0 - Acute and subacute infective endocarditis (2) Severe sepsis Code(s): A41.9 - SEPSIS, UNSPECIFIED ORGANISM R65.20 - SEVERE SEPSIS WITHOUT SEPTIC SHOCK (3) Atrial fibrillation with RVR Code(s): I48.91 - UNSPECIFIED ATRIAL FIBRILLATION (4) COPD (chronic obstructive pulmonary disease) Code(s): J44.9 - CHRONIC OBSTRUCTIVE PULMONARY DISEASE, UNSPECIFIED Qualifiers : COPD type: COPD with acute exacerbation Qualified Code(s): J44.1 - Chronic obstructive pulmonary disease with (acute) exacerbation (5) Compressed spine fracture Code(s): M48.50XA - COLLAPSED VERTEBRA, NEC, SITE UNSP, INIT (6) Pulmonary hypertension Code(s): I27.2 - OTHER SECONDARY PULMONARY HYPERTENSION plan continue current abx blood cx negative malissa negative i think we should get mri of the spine as she was c/o of pain i the back before and she has repeat bacteria which is staph and the same and we still do not have a source abx will continue this time for 4 weeks at least
--- NOTE | 2016-11-08 14:31 | PN ---
Progress Note, Physician History of Present Illness: doing well no complaints - Current Medication List Current Medications: Active Medications Albuterol Sulfate (Ventolin 0.083% Nebulizer Soln -) 1 amp NEB Q1H PRN PRN Reason: SHORT OF BREATH/WHEEZING Albuterol Sulfate (Ventolin 0.083% Nebulizer Soln -) 1 amp NEB Q4HPO [facility] Last Admin: 11/08/16 10:10 Dose: 1 amp Alprazolam (Xanax -) 0.25 mg PO Q8H PRN PRN Reason: ANXIETY Last Admin: 11/08/16 09:50 Dose: 0.25 mg Digoxin (Lanoxin -) 0.125 mg PO DAILY [facility] Last Admin: 11/08/16 09:49 Dose: 0.125 mg Diltiazem HCl (Cardizem Injection -) 10 mg IV Q4H PRN PRN Reason: FOR HR > 120 Last Admin: 11/02/16 09:12 Dose: 10 mg Diltiazem HCl (Cardizem Cd -) 240 mg PO DAILY [facility] Last Admin: 11/08/16 09:50 Dose: 240 mg Furosemide (Lasix -) 40 mg PO DAILY [facility] Last Admin: 11/08/16 09:50 Dose: 40 mg Heparin Sodium (Porcine) (Heparin -) 5,000 unit IVPUSH PRN PRN Heparin Sodium (Porcine) (Heparin -) 1,000 unit IVPUSH PRN PRN Last Admin: 11/06/16 09:47 Dose: 1,000 unit Cefazolin Sodium (Ancef 1 Gm Premixed Ivpb -) 50 mls @ 100 mls/hr IVPB Q8H-IV [facility] Last Admin: 11/08/16 09:50 Dose: 100 mls/hr Heparin Sodium/Dextrose (Heparin Infusion -) 500 mls @ 16 mls/hr IVPB TITR [facility] ; 800 UNITS/HR PRN Reason: Protocol Last Admin: 11/07/16 22:18 Dose: 18 mls/hr Potassium Chloride (K-Dur -) 20 meq PO DAILY [facility] Last Admin: 11/08/16 09:49 Dose: 20 meq Potassium Phos/Sodium Phos (Phos-Nak Packet -) 1 packet PO BID [facility] Last Admin: 11/08/16 10:06 Dose: 1 packet Prednisone (Deltasone -) 20 mg PO BID [facility] Ranitidine HCl (Zantac -) 150 mg PO BID [facility] Last Admin: 11/08/16 09:49 Dose: 150 mg Tiotropium [place] (Spiriva -) 1 puff IH DAILY [facility] Last Admin: 11/08/16 09:50 Dose: 1 puff - Objective Vital Signs: Vital Signs Temperature 98 F 11/08/16 06:00 Pulse Rate 110 H 11/08/16 10:23 Respiratory Rate 18 11/08/16 06:00 Blood Pressure 123/71 11/08/16 06:00 O2 Sat by Pulse Oximetry (%) 97 11/08/16 10:23 Constitutional: Yes: No Distress, Calm Cardiovascular: Yes: Regular Rate and Rhythm Respiratory: Yes: Regular, Poor Air Entry, Rhonchi Gastrointestinal: Yes: Normal Bowel Sounds, Soft Musculoskeletal: Yes: Other Extremities: Yes: WNL Neurological: Yes: Alert, Oriented Psychiatric: Yes: Alert Labs: CBC, BMP 11/08/16 05:35 11/08/16 05:35 INR, PTT INR 1.34 (0.82-1.09) H 11/01/16 18:50 Assessment/Plan Problem List - Problems (1) Endocarditis Code(s): I38 - ENDOCARDITIS, VALVE UNSPECIFIED Qualifiers: Endocarditis type: infective Infective endocarditis organism: bacterial Chronicity: acute Qualified Code(s): I33.0 - Acute and subacute infective endocarditis (2) Severe sepsis Code(s): A41.9 - SEPSIS, UNSPECIFIED ORGANISM R65.20 - SEVERE SEPSIS WITHOUT SEPTIC SHOCK (3) Atrial fibrillation with RVR Code(s): I48.91 - UNSPECIFIED ATRIAL FIBRILLATION (4) COPD (chronic obstructive pulmonary disease) Code(s): J44.9 - CHRONIC OBSTRUCTIVE PULMONARY DISEASE, UNSPECIFIED Qualifiers : COPD type: COPD with acute exacerbation Qualified Code(s): J44.1 - Chronic obstructive pulmonary disease with (acute) exacerbation (5) Compressed spine fracture Code(s): M48.50XA - COLLAPSED VERTEBRA, NEC, SITE UNSP, INIT (6) Pulmonary hypertension Code(s): I27.2 - OTHER SECONDARY PULMONARY HYPERTENSION plan continue current abx blood cx negative malissa negative will plan further mgmt
[2016-11-08] MEDS: APIXABAN 5 MG TABLET PO SCH (21:48)
[2016-11-08] MEDS: predniSONE 20 MG TABLET (UD) PO SCH (21:48)
[2016-11-09] MEDS: CEFAZOLIN 1 GM/D5W 50 ML IVPB SCH ×3 (01:15→18:33)
[2016-11-09] MEDS: ALBUTEROL SO4 0.083% IH SOL 2.5 MG/3 ML VIAL.NEB. NEB SCH ×6 (02:45→22:10)
[2016-11-09 07:12] LABS: MCH 29.2 pg (25.7-33.7); MCHC 32.7 g/dl (32.0-36.0); MEAN CELL VOLUME 89.2 fl (80-96); MEAN PLT VOLUME 7.1 fl (7.5-11.1); NEUTROPHILS 93.5 % (42.8-82.8); PLATELET COUNT 296 K/MM3 (134-434); RDW 15.9 % (11.6-15.6); WHITE BLOOD COUNT 15.4 K/mm3 (4.0-10.0)
[2016-11-09 07:35] LABS: CALCIUM 9.3 mg/dL (8.5-10.1); CREATININE 0.5 mg/dL (0.55-1.02); MAGNESIUM 2.3 mg/dL (1.8-2.4); PHOSPHOROUS 2.9 mg/dL (2.5-4.9)
[2016-11-09] MEDS: APIXABAN 5 MG TABLET PO SCH ×2 (10:02→21:46)
[2016-11-09] MEDS: ALPRAZolam 0.25 MG TABLET PO PRN (10:02)
[2016-11-09] MEDS: predniSONE 20 MG TABLET (UD) PO SCH ×2 (10:02→21:46)
[2016-11-09] MEDS: POTASSIUM CHLORIDE TABS 20 MEQ TABLET.ER (FP) PO SCH (10:02)
[2016-11-09] MEDS: RANITIDINE HCL 150 MG TABLET (FP) PO SCH ×2 (10:02→21:46)
[2016-11-09] MEDS: FUROSEMIDE 40 MG TABLET (FP) PO SCH (10:02)
[2016-11-09] MEDS: DIGOXIN 0.125 MG TABLET (FP) PO SCH (10:02)
[2016-11-09] MEDS: NAPH,MB-DB/K PH,MBDB POWDER PACKET PO SCH ×2 (10:03→21:46)
[2016-11-09] MEDS: TIOTROPIUM BROMIDE 18 MCG/INH (DEVICE W/ 5 CAPSULES) IH SCH (10:11)
--- NOTE | 2016-11-09 11:03 | PN ---
Progress Note (short form) - Note Progress Note: s: no cp palps dizzy; sob improving o: Vital Signs Period Temp Pulse Resp BP Sys/Starks Pulse Ox Last 24 Hr 97.5 F-98.2 F 94-111 18-22 115-131/60-81 97 nad no jvd irreg, s1s2 no mrg cta bl, nl eff aaox3 no le e/c/c abd nt nd pos bs no jaundice diaphoresis Current Medications Generic Name Dose Route Start Last Admin Trade Name Freq PRN Reason Stop Dose Admin Albuterol Sulfate 1 amp 11/04/16 10:48 Ventolin 0.083% Nebulizer Soln - NEB Q1H PRN SHORT OF BREATH/WHEEZING Albuterol Sulfate 1 amp 11/05/16 22:00 11/09/16 06:10 Ventolin 0.083% Nebulizer Soln - NEB 1 amp Q4HPO [facility] Administration Alprazolam 0.25 mg 11/07/16 18:40 11/09/16 10:02 Xanax - PO 0.25 mg Q8H PRN Administration ANXIETY Apixaban 5 mg 11/08/16 22:00 11/09/16 10:02 Eliquis - PO 5 mg BID [facility] Administration Digoxin 0.125 mg 11/02/16 10:00 11/09/16 10:02 Lanoxin - PO 0.125 mg DAILY [facility] Administration Diltiazem HCl 10 mg 11/02/16 01:13 11/02/16 09:12 Cardizem Injection - IV 10 mg Q4H PRN Administration FOR HR > 120 Diltiazem HCl 240 mg 11/05/16 10:08 11/09/16 10:02 Cardizem Cd - PO 240 mg DAILY [facility] Administration Furosemide 40 mg 11/07/16 10:00 11/09/16 10:02 Lasix - PO 40 mg DAILY [facility] Administration Cefazolin Sodium 50 mls @ 100 mls/hr 11/04/16 18:00 11/09/16 10:02 Ancef 1 Gm Premixed Ivpb - IVPB 100 mls/hr Q8H-IV [facility] Administration Potassium Chloride 20 meq 11/08/16 10:00 11/09/16 10:02 K-Dur - PO 20 meq DAILY [facility] Administration Potassium Phos/Sodium Phos 1 packet 11/04/16 12:00 11/09/16 10:03 Phos-Nak Packet - PO 1 packet BID [facility] Administration Prednisone 20 mg 11/08/16 22:00 11/09/16 10:02 Deltasone - PO 20 mg BID [facility] Administration Ranitidine HCl 150 mg 11/01/16 22:00 11/09/16 10:02 Zantac - PO 150 mg BID [facility] Administration Tiotropium [place] 1 puff 11/04/16 11:00 11/09/16 10:11 Spiriva - IH 1 puff DAILY [facility] Administration CBC, BMP 11/09/16 06:05 11/09/16 06:05 MANUEL 10/2016: nl lv/rv. 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 No TR. 1+ AR. No veg/abscess. Mobile linear density in RA --> chiari network. No intracardiac mass. Mild-mod mural aortic atheroma. echo 10/2016: nl lv/rv, sixto, mild mr, post mv leaflet?veg, mild-mod tr, nl rvsp, nl rvsp, mild ar Echo 09/2016: Nl lv/rv. Mod MAC. 1+ AR/TR. Mod WV. 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 patient care specialist); mild-mod MR with no systolic blunting or reversal of flow in pulm vein; peak E velocity (59 cm/sec) ; myxomatous TV with prob mild-mod TR; at least moderate pulm HTN; no change vs 2013 echo tele: afib, rate controlled a/p: resp distress/ acute decompensated diast chf/ a.e. copd: -has been well-compensated on lasix 20 qd for long time as outpt, with occasional prn 40mg doses (intolerant of 40 qd due to urinary frequency and still works full-time) -required lasix 40 iv qd for several days on prior admits -this time around pulm initially did not feel a.e. copd likely -CXR not impressive for congestion, however BNP up 2500 from 500 prior baseline- -she was treated with iv lasix (40 qd) and symptoms improved -11/04 with acute resp distress and diffuse wheezing, steroids started by pulm -11/05: doubt jvd on exam, yesterday's acute resp distress turned around with purely pulm treatment; cont lasix as doing (40 iv qd) -11/06: cont copd tx per pulm, resp status seems to be improving -11/07: bun/creat and bicarb up, no clinical chf; change lasix 40 iv to 40 po qd - 11/08-11/09: tolerated change to po lasix, continue. recurrent staph bacteremia/MANUEL negative for endocarditis: -2nd recent admit with staph bacteremia: she had MSSA on repeat BCXs 2d apart in early 09/23 (treated with 14d of abx then), now back with spontaneous MSSA as outpatient; (-intervening gram-neg btety blood cx at [facility] ultimately felt to be contaminant by id) -echo reporting possible veg on MV, pt then had MANUEL showing no indication of endocarditis -cont abx per id new Afib/supraventricular tachycardia/MAT: -has hx mat worsened by acute resp illnesses in past -now in AFib on tele, HR well controlled -Cont dig (level good), dilt dose 240 (11/08 HR slightly elevated in setting of anxiety /sob. If still elevated tomorrow consider uptitration of regimen. 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
--- NOTE | 2016-11-09 12:10 | PN ---
Progress Note, Physician History of Present Illness: pulmonary alert,feeling better,less dyspneic - Current Medication List Current Medications: Active Medications Albuterol Sulfate (Ventolin 0.083% Nebulizer Soln -) 1 amp NEB Q1H PRN PRN Reason: SHORT OF BREATH/WHEEZING Albuterol Sulfate (Ventolin 0.083% Nebulizer Soln -) 1 amp NEB Q4HPO [facility] Last Admin: 11/09/16 10:00 Dose: 1 amp Alprazolam (Xanax -) 0.25 mg PO Q8H PRN PRN Reason: ANXIETY Last Admin: 11/09/16 10:02 Dose: 0.25 mg Apixaban (Eliquis -) 5 mg PO BID [facility] Last Admin: 11/09/16 10:02 Dose: 5 mg Digoxin (Lanoxin -) 0.125 mg PO DAILY [facility] Last Admin: 11/09/16 10:02 Dose: 0.125 mg Diltiazem HCl (Cardizem Injection -) 10 mg IV Q4H PRN PRN Reason: FOR HR > 120 Last Admin: 11/02/16 09:12 Dose: 10 mg Diltiazem HCl (Cardizem Cd -) 240 mg PO DAILY [facility] Last Admin: 11/09/16 10:02 Dose: 240 mg Furosemide (Lasix -) 40 mg PO DAILY [facility] Last Admin: 11/09/16 10:02 Dose: 40 mg Cefazolin Sodium (Ancef 1 Gm Premixed Ivpb -) 50 mls @ 100 mls/hr IVPB Q8H-IV [facility] Last Admin: 11/09/16 10:02 Dose: 100 mls/hr Potassium Chloride (K-Dur -) 20 meq PO DAILY [facility] Last Admin: 11/09/16 10:02 Dose: 20 meq Potassium Phos/Sodium Phos (Phos-Nak Packet -) 1 packet PO BID [facility] Last Admin: 11/09/16 10:03 Dose: 1 packet Prednisone (Deltasone -) 20 mg PO BID [facility] Last Admin: 11/09/16 10:02 Dose: 20 mg Ranitidine HCl (Zantac -) 150 mg PO BID [facility] Last Admin: 11/09/16 10:02 Dose: 150 mg Tiotropium [place] (Spiriva -) 1 puff IH DAILY [facility] Last Admin: 11/09/16 10:11 Dose: 1 puff - Objective Vital Signs: Vital Signs Temperature 98.1 F 11/09/16 10:05 Pulse Rate 111 H 11/09/16 10:05 Respiratory Rate 22 11/09/16 10:05 Blood Pressure 122/72 11/09/16 10:05 O2 Sat by Pulse Oximetry (%) 97 11/08/16 22:00 Constitutional: Yes: Calm, Thin Eyes: Yes: WNL HENT: Yes: WNL Neck: Yes: WNL Cardiovascular: Yes: Pulse Irregular, S1, S2 Respiratory: Yes: Diminished Gastrointestinal: Yes: Normal Bowel Sounds, Soft Extremities: Yes: WNL Edema: No Labs: CBC, BMP 11/09/16 06:05 11/09/16 06:05 INR, PTT INR 1.34 (0.82-1.09) H 11/01/16 18:50 Problem List - Problems (1) Atrial fibrillation with RVR Code(s): I48.91 - UNSPECIFIED ATRIAL FIBRILLATION (2) COPD (chronic obstructive pulmonary disease) Code(s): J44.9 - CHRONIC OBSTRUCTIVE PULMONARY DISEASE, UNSPECIFIED Qualifiers : COPD type: COPD with acute exacerbation Qualified Code(s): J44.1 - Chronic obstructive pulmonary disease with (acute) exacerbation (3) Chest pain Code(s): R07.9 - CHEST PAIN, UNSPECIFIED Qualifiers: Chest pain type: other chest pain Qualified Code(s): R07.89 - Other chest pain; R07.8 - Other chest pain (4) Dyspnea Code(s): R06.00 - DYSPNEA, UNSPECIFIED Qualifiers: Dyspnea type: shortness of breath Qualified Code(s): R06.02 - Shortness of breath (5) Endocarditis Code(s): I38 - ENDOCARDITIS, VALVE UNSPECIFIED Qualifiers: Endocarditis type: infective Infective endocarditis organism: bacterial Chronicity: acute Qualified Code(s): I33.0 - Acute and subacute infective endocarditis (6) Tachycardia Code(s): R00.0 - TACHYCARDIA, UNSPECIFIED (7) Bacteremia Code(s): R78.81 - BACTEREMIA (8) Chronic respiratory failure with hypoxia Code(s): J96.11 - CHRONIC RESPIRATORY FAILURE WITH HYPOXIA (9) Respiratory failure Code(s): J96.90 - RESPIRATORY FAILURE, UNSP, UNSP W HYPOXIA OR HYPERCAPNIA Assessment/Plan A/P MSSA Bacteremia Endocarditis ruled out Acute Diastolic Heart Failure Pulmonary HTN Mitral Regurgitation MAT COPD - continue antibiotics - lasix - monitor urine output, creatinine - inhaled bronchodilators - rate control - O2 as needed - DVT prophylaxis - prednisone DR RUTHERFORD
--- NOTE | 2016-11-09 13:15 | PN ---
Progress Note, Physician Chief Complaint: Ms Mo says she is feeling fine, is not short of breath today. Saying she will be ready for discharge tomorrow. No cp or n/v. - Current Medication List Current Medications: Active Medications Albuterol Sulfate (Ventolin 0.083% Nebulizer Soln -) 1 amp NEB Q1H PRN PRN Reason: SHORT OF BREATH/WHEEZING Albuterol Sulfate (Ventolin 0.083% Nebulizer Soln -) 1 amp NEB Q4HPO [facility] Last Admin: 11/09/16 10:00 Dose: 1 amp Alprazolam (Xanax -) 0.25 mg PO Q8H PRN PRN Reason: ANXIETY Last Admin: 11/09/16 10:02 Dose: 0.25 mg Apixaban (Eliquis -) 5 mg PO BID [facility] Last Admin: 11/09/16 10:02 Dose: 5 mg Digoxin (Lanoxin -) 0.125 mg PO DAILY [facility] Last Admin: 11/09/16 10:02 Dose: 0.125 mg Diltiazem HCl (Cardizem Injection -) 10 mg IV Q4H PRN PRN Reason: FOR HR > 120 Last Admin: 11/02/16 09:12 Dose: 10 mg Diltiazem HCl (Cardizem Cd -) 240 mg PO DAILY [facility] Last Admin: 11/09/16 10:02 Dose: 240 mg Furosemide (Lasix -) 40 mg PO DAILY [facility] Last Admin: 11/09/16 10:02 Dose: 40 mg Cefazolin Sodium (Ancef 1 Gm Premixed Ivpb -) 50 mls @ 100 mls/hr IVPB Q8H-IV [facility] Last Admin: 11/09/16 10:02 Dose: 100 mls/hr Potassium Chloride (K-Dur -) 20 meq PO DAILY [facility] Last Admin: 11/09/16 10:02 Dose: 20 meq Potassium Phos/Sodium Phos (Phos-Nak Packet -) 1 packet PO BID [facility] Last Admin: 11/09/16 10:03 Dose: 1 packet Prednisone (Deltasone -) 20 mg PO BID [facility] Last Admin: 11/09/16 10:02 Dose: 20 mg Ranitidine HCl (Zantac -) 150 mg PO BID [facility] Last Admin: 11/09/16 10:02 Dose: 150 mg Tiotropium [place] (Spiriva -) 1 puff IH DAILY [facility] Last Admin: 11/09/16 10:11 Dose: 1 puff - Objective Vital Signs: Vital Signs Temperature 98.1 F 11/09/16 10:05 Pulse Rate 111 H 11/09/16 10:05 Respiratory Rate 22 11/09/16 10:05 Blood Pressure 122/72 11/09/16 10:05 O2 Sat by Pulse Oximetry (%) 97 11/08/16 22:00 Constitutional: Yes: No Distress, Calm, Thin Cardiovascular: Yes: Pulse Irregular. No: Gallop, Murmur, Rub Respiratory: Yes: Regular, Other (fair air movement). No: Rales, Rhonchi, Wheezes Gastrointestinal: Yes: Normal Bowel Sounds, Soft. No: Distention, Tenderness Extremities: Yes: WNL Edema: No Labs: CBC, BMP 11/09/16 06:05 11/09/16 06:05 INR, PTT INR 1.34 (0.82-1.09) H 11/01/16 18:50 Problem List - Problems (1) Endocarditis Code(s): I38 - ENDOCARDITIS, VALVE UNSPECIFIED Qualifiers: Endocarditis type: infective Infective endocarditis organism: bacterial Chronicity: acute Qualified Code(s): I33.0 - Acute and subacute infective endocarditis (2) Severe sepsis Code(s): A41.9 - SEPSIS, UNSPECIFIED ORGANISM R65.20 - SEVERE SEPSIS WITHOUT SEPTIC SHOCK (3) Atrial fibrillation with RVR Code(s): I48.91 - UNSPECIFIED ATRIAL FIBRILLATION (4) COPD (chronic obstructive pulmonary disease) Code(s): J44.9 - CHRONIC OBSTRUCTIVE PULMONARY DISEASE, UNSPECIFIED Qualifiers : COPD type: COPD with acute exacerbation Qualified Code(s): J44.1 - Chronic obstructive pulmonary disease with (acute) exacerbation (5) Compressed spine fracture Code(s): M48.50XA - COLLAPSED VERTEBRA, NEC, SITE UNSP, INIT (6) Pulmonary hypertension Code(s): I27.2 - OTHER SECONDARY PULMONARY HYPERTENSION Assessment/Plan (1) MRSA bacteremia -endocarditis ruled out by MANUEL -however still do not have a source -currently feeling much better -if still feels well tomorrow, d/c to SNF on IV antibiotics (2) Severe sepsis Assessment/Plan: -continue antibiotics currently Code(s): A41.9 - SEPSIS, UNSPECIFIED ORGANISM R65.20 - SEVERE SEPSIS WITHOUT SEPTIC SHOCK (3) Atrial fibrillation with RVR Assessment/Plan: -rate controlled -on eliquis -continue digoxin and diltiazem Code(s): I48.91 - UNSPECIFIED ATRIAL FIBRILLATION (4) COPD (chronic obstructive pulmonary disease) Assessment/Plan: -pulmonary following and case reviewed -improved today -continue current management Code(s): J44.9 - CHRONIC OBSTRUCTIVE PULMONARY DISEASE, UNSPECIFIED Qualifiers : COPD type: COPD with acute exacerbation Qualified Code(s): J44.1 - Chronic obstructive pulmonary disease with (acute) exacerbation (5) Compressed spine fracture Assessment/Plan: -if has any pain or complaints, perform MRI or CT with contrast on spine Code(s): M48.50XA - COLLAPSED VERTEBRA, NEC, SITE UNSP, INIT (6) Pulmonary hypertension Assessment/Plan: -continue oral lasix Code(s): I27.2 - OTHER SECONDARY PULMONARY HYPERTENSION
--- NOTE | 2016-11-09 16:34 | PN ---
Progress Note, Physician History of Present Illness: doing well no complaints - Current Medication List Current Medications: Active Medications Albuterol Sulfate (Ventolin 0.083% Nebulizer Soln -) 1 amp NEB Q1H PRN PRN Reason: SHORT OF BREATH/WHEEZING Albuterol Sulfate (Ventolin 0.083% Nebulizer Soln -) 1 amp NEB Q4HPO [facility] Last Admin: 11/09/16 14:00 Dose: 1 amp Alprazolam (Xanax -) 0.25 mg PO Q8H PRN PRN Reason: ANXIETY Last Admin: 11/09/16 10:02 Dose: 0.25 mg Apixaban (Eliquis -) 5 mg PO BID [facility] Last Admin: 11/09/16 10:02 Dose: 5 mg Digoxin (Lanoxin -) 0.125 mg PO DAILY [facility] Last Admin: 11/09/16 10:02 Dose: 0.125 mg Diltiazem HCl (Cardizem Injection -) 10 mg IV Q4H PRN PRN Reason: FOR HR > 120 Last Admin: 11/02/16 09:12 Dose: 10 mg Diltiazem HCl (Cardizem Cd -) 240 mg PO DAILY [facility] Last Admin: 11/09/16 10:02 Dose: 240 mg Furosemide (Lasix -) 40 mg PO DAILY [facility] Last Admin: 11/09/16 10:02 Dose: 40 mg Cefazolin Sodium (Ancef 1 Gm Premixed Ivpb -) 50 mls @ 100 mls/hr IVPB Q8H-IV [facility] Last Admin: 11/09/16 10:02 Dose: 100 mls/hr Potassium Chloride (K-Dur -) 20 meq PO DAILY [facility] Last Admin: 11/09/16 10:02 Dose: 20 meq Potassium Phos/Sodium Phos (Phos-Nak Packet -) 1 packet PO BID [facility] Last Admin: 11/09/16 10:03 Dose: 1 packet Prednisone (Deltasone -) 20 mg PO BID [facility] Last Admin: 11/09/16 10:02 Dose: 20 mg Ranitidine HCl (Zantac -) 150 mg PO BID [facility] Last Admin: 11/09/16 10:02 Dose: 150 mg Tiotropium [place] (Spiriva -) 1 puff IH DAILY [facility] Last Admin: 11/09/16 10:11 Dose: 1 puff - Objective Vital Signs: Vital Signs Temperature 98.1 F 11/09/16 14:50 Pulse Rate 100 H 11/09/16 15:07 Respiratory Rate 22 11/09/16 14:50 Blood Pressure 127/63 11/09/16 14:50 O2 Sat by Pulse Oximetry (%) 97 11/09/16 15:07 Constitutional: Yes: No Distress, Calm Neck: Yes: Supple Cardiovascular: Yes: Regular Rate and Rhythm Respiratory: Yes: Regular, Rhonchi Gastrointestinal: Yes: Normal Bowel Sounds, Soft Musculoskeletal: Yes: WNL Extremities: Yes: WNL Neurological: Yes: Alert, Oriented Psychiatric: Yes: Alert Labs: CBC, BMP 11/09/16 06:05 11/09/16 06:05 INR, PTT INR 1.34 (0.82-1.09) H 11/01/16 18:50 Assessment/Plan Problem List - Problems (1) Endocarditis Code(s): I38 - ENDOCARDITIS, VALVE UNSPECIFIED Qualifiers: Endocarditis type: infective Infective endocarditis organism: bacterial Chronicity: acute Qualified Code(s): I33.0 - Acute and subacute infective endocarditis (2) Severe sepsis Code(s): A41.9 - SEPSIS, UNSPECIFIED ORGANISM R65.20 - SEVERE SEPSIS WITHOUT SEPTIC SHOCK (3) Atrial fibrillation with RVR Code(s): I48.91 - UNSPECIFIED ATRIAL FIBRILLATION (4) COPD (chronic obstructive pulmonary disease) Code(s): J44.9 - CHRONIC OBSTRUCTIVE PULMONARY DISEASE, UNSPECIFIED Qualifiers : COPD type: COPD with acute exacerbation Qualified Code(s): J44.1 - Chronic obstructive pulmonary disease with (acute) exacerbation (5) Compressed spine fracture Code(s): M48.50XA - COLLAPSED VERTEBRA, NEC, SITE UNSP, INIT (6) Pulmonary hypertension Code(s): I27.2 - OTHER SECONDARY PULMONARY HYPERTENSION plan continue current abx blood cx negative malissa negative continue abx for a total of 4 weeks
[2016-11-09] MEDS ORDERED: PT OWN MED DRAWER 7, Y5N ONE (19:41)
[2016-11-10] MEDS: CEFAZOLIN 1 GM/D5W 50 ML IVPB SCH ×3 (02:17→17:27)
[2016-11-10] MEDS: ALBUTEROL SO4 0.083% IH SOL 2.5 MG/3 ML VIAL.NEB. NEB SCH ×6 (02:35→21:50)
[2016-11-10 07:24] LABS: MCH 28.4 pg (25.7-33.7); MCHC 31.9 g/dl (32.0-36.0); MEAN CELL VOLUME 89.2 fl (80-96); MEAN PLT VOLUME 7.3 fl (7.5-11.1); PLATELET COUNT 300 K/MM3 (134-434); RDW 15.8 % (11.6-15.6); WHITE BLOOD COUNT 15.8 K/mm3 (4.0-10.0)
[2016-11-10 08:20] LABS: CALCIUM 8.9 mg/dL (8.5-10.1); MAGNESIUM 2.3 mg/dL (1.8-2.4)
[2016-11-10 08:22] LABS: CREATININE 0.4 mg/dL (0.55-1.02)
[2016-11-10] MEDS ORDERED: PT OWN MED DRAWER 7, Y5N ONE (09:24)
[2016-11-10] MEDS: ALPRAZolam 0.25 MG TABLET PO PRN ×2 (09:25→21:21)
[2016-11-10] MEDS: APIXABAN 5 MG TABLET PO SCH ×2 (09:25→21:21)
[2016-11-10] MEDS: RANITIDINE HCL 150 MG TABLET (FP) PO SCH ×2 (09:26→21:21)
[2016-11-10] MEDS: NAPH,MB-DB/K PH,MBDB POWDER PACKET PO SCH ×2 (09:26→21:22)
[2016-11-10] MEDS: FUROSEMIDE 40 MG TABLET (FP) PO SCH (09:26)
[2016-11-10] MEDS: DIGOXIN 0.125 MG TABLET (FP) PO SCH (09:26)
[2016-11-10] MEDS: POTASSIUM CHLORIDE TABS 20 MEQ TABLET.ER (FP) PO SCH (09:26)
[2016-11-10] MEDS: predniSONE 20 MG TABLET (UD) PO SCH ×2 (09:26→21:21)
[2016-11-10] MEDS: TIOTROPIUM BROMIDE 18 MCG/INH (DEVICE W/ 5 CAPSULES) IH SCH (09:34)
--- NOTE | 2016-11-10 10:22 | PN ---
Progress Note (short form) - Note Progress Note: s: no cp palps dizzy; sob was better but then this AM felt anxious and sob again o: Vital Signs Period Temp Pulse Resp BP Sys/Starks Pulse Ox Last 24 Hr 97.4 F-98.3 F 95-109 20-22 101-127/56-75 92-97 nad no jvd irreg, s1s2 no mrg cta bl, nl eff aaox3 no le e/c/c no jaundice diaphoresis Current Medications Generic Name Dose Route Start Last Admin Trade Name Freq PRN Reason Stop Dose Admin Albuterol Sulfate 1 amp 11/04/16 10:48 Ventolin 0.083% Nebulizer Soln - NEB Q1H PRN SHORT OF BREATH/WHEEZING Albuterol Sulfate 1 amp 11/05/16 22:00 11/10/16 09:30 Ventolin 0.083% Nebulizer Soln - NEB 1 amp Q4HPO HERMINIO Administration Alprazolam 0.25 mg 11/07/16 18:40 11/10/16 09:25 Xanax - PO 0.25 mg Q8H PRN Administration ANXIETY Apixaban 5 mg 11/08/16 22:00 11/10/16 09:25 Eliquis - PO 5 mg BID HERMINIO Administration Digoxin 0.125 mg 11/02/16 10:00 11/10/16 09:26 Lanoxin - PO 0.125 mg DAILY HERMINIO Administration Diltiazem HCl 10 mg 11/02/16 01:13 11/02/16 09:12 Cardizem Injection - IV 10 mg Q4H PRN Administration FOR HR > 120 Diltiazem HCl 240 mg 11/05/16 10:08 11/10/16 09:26 Cardizem Cd - PO 240 mg DAILY HERMINIO Administration Furosemide 40 mg 11/07/16 10:00 11/10/16 09:26 Lasix - PO 40 mg DAILY HERMINIO Administration Cefazolin Sodium 50 mls @ 100 mls/hr 11/04/16 18:00 11/10/16 09:26 Ancef 1 Gm Premixed Ivpb - IVPB 100 mls/hr Q8H-IV HERMINIO Administration Potassium Chloride 20 meq 11/08/16 10:00 11/10/16 09:26 K-Dur - PO 20 meq DAILY HERMINIO Administration Potassium Phos/Sodium Phos 1 packet 11/04/16 12:00 11/10/16 09:26 Phos-Nak Packet - PO 1 packet BID HERMINIO Administration Prednisone 20 mg 11/08/16 22:00 11/10/16 09:26 Deltasone - PO 20 mg BID HERMINIO Administration Ranitidine HCl 150 mg 11/01/16 22:00 11/10/16 09:26 Zantac - PO 150 mg BID HERMINIO Administration Tiotropium [place] 1 puff 11/04/16 11:00 11/10/16 09:34 Spiriva - IH 1 puff DAILY HERMINIO Administration CBC, BMP 11/10/16 06:00 11/10/16 06:00 MANUEL 10/2016: nl lv/rv. 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 No TR. 1+ AR. No veg/abscess. Mobile linear density in RA --> chiari network. No intracardiac mass. Mild-mod mural aortic atheroma. echo 10/2016: nl lv/rv, sixto, mild mr, post mv leaflet?veg, mild-mod tr, nl rvsp, nl rvsp, mild ar Echo 09/2016: Nl lv/rv. Mod MAC. 1+ AR/TR. Mod SD. 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 circular saw filer); mild-mod MR with no systolic blunting or reversal of flow in pulm vein; peak E velocity (59 cm/sec) ; myxomatous TV with prob mild-mod TR; at least moderate pulm HTN; no change vs 2013 echo tele: afib, rate mostly controlled (brief rvr 120s when anxious) a/p: resp distress/ acute decompensated diast chf/ a.e. copd: -has been well-compensated on lasix 20 qd for long time as outpt, with occasional prn 40mg doses (intolerant of 40 qd due to urinary frequency and still works full-time) -required lasix 40 iv qd for several days on prior admits -this time around pulm initially did not feel a.e. copd likely -CXR not impressive for congestion, however BNP up 2500 from 500 prior baseline- -she was treated with iv lasix (40 qd) and symptoms improved -11/04 with acute resp distress and diffuse wheezing, steroids started by pulm -11/05: doubt jvd on exam, yesterday's acute resp distress turned around with purely pulm treatment; cont lasix as doing (40 iv qd) -11/06: cont copd tx per pulm, resp status seems to be improving -11/07: bun/creat and bicarb up, no clinical chf; change lasix 40 iv to 40 po qd - 11/08-11/10: tolerated change to po lasix, continue. gets episodes of anxiety that seems to trigger brief sob episodes, resolves with xanax, does not seem chf related. recurrent staph bacteremia/MANUEL negative for endocarditis: -2nd recent admit with staph bacteremia: she had MSSA on repeat BCXs 2d apart in early 09/23 (treated with 14d of abx then), now back with spontaneous MSSA as outpatient; (-intervening gram-neg betty blood cx at [place] ultimately felt to be contaminant by id) -echo reporting possible veg on MV, pt then had MANUEL showing no indication of endocarditis -cont abx per id new Afib/supraventricular tachycardia/MAT: -has hx mat worsened by acute resp illnesses in past -now in AFib on tele, HR mostly controlled, has occasional rvr when anxious -Cont dig (level good), dilt dose 240 qd -CHADS VASC 4, cont eliquis VTach: -7b run NSVT (> AF with aberrancy) on tele 11/07, none further -replete K, Mag PRN -EF preserved--no further tx warranted at this time pulm HTN: -WHO 3 (overnight hypoxia has been documented), possibly WHO 2 component from LV diast chf -refuses 24 hr O2 repeatedly--cont copd and chf tx, nocturnal O2 MVP with mitral regurg: -likely not hemodynamically significant per recent echo, doubt causal in her sob sx's HTN -stable on dilt
--- NOTE | 2016-11-10 12:03 | PN ---
Progress Note (short form) - Note Progress Note: Breathing feels about the same. (+) Panic attack. Denies CP or SOB. Intake & Output 11/07/16 11/08/16 11/09/16 11/10/16 23:59 23:59 23:59 23:59 Intake Total 1316 966 680 350 Balance 1316 966 680 350 Last Vital Signs Temp Pulse Resp BP Pulse Ox 98.4 F 105 H 20 125/59 96 11/10/16 10:00 11/10/16 10:00 11/10/16 10:00 11/10/16 10:00 11/10/16 09:00 Active Medications Albuterol Sulfate (Ventolin 0.083% Nebulizer Soln -) 1 amp NEB Q1H PRN PRN Reason: SHORT OF BREATH/WHEEZING Albuterol Sulfate (Ventolin 0.083% Nebulizer Soln -) 1 amp NEB Q4HPO [facility] Last Admin: 11/10/16 09:30 Dose: 1 amp Alprazolam (Xanax -) 0.25 mg PO Q8H PRN PRN Reason: ANXIETY Last Admin: 11/10/16 09:25 Dose: 0.25 mg Apixaban (Eliquis -) 5 mg PO BID [facility] Last Admin: 11/10/16 09:25 Dose: 5 mg Digoxin (Lanoxin -) 0.125 mg PO DAILY [facility] Last Admin: 11/10/16 09:26 Dose: 0.125 mg Diltiazem HCl (Cardizem Injection -) 10 mg IV Q4H PRN PRN Reason: FOR HR > 120 Last Admin: 11/02/16 09:12 Dose: 10 mg Diltiazem HCl (Cardizem Cd -) 240 mg PO DAILY [facility] Last Admin: 11/10/16 09:26 Dose: 240 mg Furosemide (Lasix -) 40 mg PO DAILY [facility] Last Admin: 11/10/16 09:26 Dose: 40 mg Cefazolin Sodium (Ancef 1 Gm Premixed Ivpb -) 50 mls @ 100 mls/hr IVPB Q8H-IV HERMINIO Last Admin: 11/10/16 09:26 Dose: 100 mls/hr Potassium Chloride (K-Dur -) 20 meq PO DAILY [facility] Last Admin: 11/10/16 09:26 Dose: 20 meq Potassium Phos/Sodium Phos (Phos-Nak Packet -) 1 packet PO BID [facility] Last Admin: 11/10/16 09:26 Dose: 1 packet Prednisone (Deltasone -) 20 mg PO BID [facility] Last Admin: 11/10/16 09:26 Dose: 20 mg Ranitidine HCl (Zantac -) 150 mg PO BID [facility] Last Admin: 11/10/16 09:26 Dose: 150 mg Tiotropium [place] (Spiriva -) 1 puff IH DAILY [facility] Last Admin: 11/10/16 09:34 Dose: 1 puff - Objective Vital Signs: Constitutional: Yes: NAD but mildly tachypneic while eating lunch Eyes: Yes: WNL HENT: Yes: WNL Neck: Yes: WNL Cardiovascular: Yes: Regular Rate and Rhythm, S1, S2 Respiratory: Yes: Diminished, Rhonchi, no wheezing heard Gastrointestinal: Yes: Normal Bowel Sounds, Soft Extremities: Yes: WNL Edema: No Labs: Laboratory Results - last 24 hr 11/10/16 11/10/16 06:00 06:00 WBC 15.8 H RBC 3.38 L Hgb 9.6 L Hct 30.1 L MCV 89.2 MCHC 31.9 L RDW 15.8 H Plt Count 300 MPV 7.3 L Sodium 137 Potassium 4.6 Chloride 87 L Carbon Dioxide 45 H Anion Gap 5 L BUN 30 H Creatinine 0.4 L Random Glucose 98 Calcium 8.9 Phosphorus 3.0 Magnesium 2.3 Problem List - Problems (1) Atrial fibrillation with RVR Code(s): I48.91 - UNSPECIFIED ATRIAL FIBRILLATION (2) COPD (chronic obstructive pulmonary disease) Code(s): J44.9 - CHRONIC OBSTRUCTIVE PULMONARY DISEASE, UNSPECIFIED Qualifiers : COPD type: COPD with acute exacerbation Qualified Code(s): J44.1 - Chronic obstructive pulmonary disease with (acute) exacerbation (3) Chest pain Code(s): R07.9 - CHEST PAIN, UNSPECIFIED Qualifiers: Chest pain type: other chest pain Qualified Code(s): R07.89 - Other chest pain; R07.8 - Other chest pain (4) Dyspnea Code(s): R06.00 - DYSPNEA, UNSPECIFIED Qualifiers: Dyspnea type: shortness of breath Qualified Code(s): R06.02 - Shortness of breath (5) Endocarditis Code(s): I38 - ENDOCARDITIS, VALVE UNSPECIFIED Qualifiers: Endocarditis type: infective Infective endocarditis organism: bacterial Chronicity: acute Qualified Code(s): I33.0 - Acute and subacute infective endocarditis (6) Tachycardia Code(s): R00.0 - TACHYCARDIA, UNSPECIFIED (7) Bacteremia Code(s): R78.81 - BACTEREMIA (8) Chronic respiratory failure with hypoxia Code(s): J96.11 - CHRONIC RESPIRATORY FAILURE WITH HYPOXIA (9) Respiratory failure Code(s): J96.90 - RESPIRATORY FAILURE, UNSP, UNSP W HYPOXIA OR HYPERCAPNIA Assessment/Plan MSSA Bacteremia Endocarditis ruled out Acute Diastolic Heart Failure Pulmonary HTN Mitral Regurgitation MAT COPD - ABX Per ID - lasix - monitor urine output, creatinine - inhaled bronchodilators - rate control - O2 as needed - DVT prophylaxis - Prednisone Dr Ayoub
[2016-11-10] MEDS ORDERED: PICC LINE 8 ML FLUSH PROTOCOL IVPUSH PRN (13:10)
--- NOTE | 2016-11-10 14:30 | PN ---
Progress Note, Physician Chief Complaint: Ms Mo says she is feeling fine and is without complaint. No cp, sob, n/v. - Current Medication List Current Medications: Active Medications Albuterol Sulfate (Ventolin 0.083% Nebulizer Soln -) 1 amp NEB Q1H PRN PRN Reason: SHORT OF BREATH/WHEEZING Albuterol Sulfate (Ventolin 0.083% Nebulizer Soln -) 1 amp NEB Q4HPO HERMINIO Last Admin: 11/10/16 09:30 Dose: 1 amp Alprazolam (Xanax -) 0.25 mg PO Q8H PRN PRN Reason: ANXIETY Last Admin: 11/10/16 09:25 Dose: 0.25 mg Apixaban (Eliquis -) 5 mg PO BID COUNTS INCLUDE 234 BEDS AT THE [facility] Last Admin: 11/10/16 09:25 Dose: 5 mg Digoxin (Lanoxin -) 0.125 mg PO DAILY COUNTS INCLUDE 234 BEDS AT THE [facility] Last Admin: 11/10/16 09:26 Dose: 0.125 mg Diltiazem HCl (Cardizem Injection -) 10 mg IV Q4H PRN PRN Reason: FOR HR > 120 Last Admin: 11/02/16 09:12 Dose: 10 mg Diltiazem HCl (Cardizem Cd -) 240 mg PO DAILY COUNTS INCLUDE 234 BEDS AT THE [facility] Last Admin: 11/10/16 09:26 Dose: 240 mg Furosemide (Lasix -) 40 mg PO DAILY COUNTS INCLUDE 234 BEDS AT THE [facility] Last Admin: 11/10/16 09:26 Dose: 40 mg IV Flush (Picc Line Flush) 8 ml IVPUSH PRN PRN PRN Reason: Protocol Cefazolin Sodium (Ancef 1 Gm Premixed Ivpb -) 50 mls @ 100 mls/hr IVPB Q8H-IV HERMINIO Last Admin: 11/10/16 09:26 Dose: 100 mls/hr Potassium Chloride (K-Dur -) 20 meq PO DAILY COUNTS INCLUDE 234 BEDS AT THE [facility] Last Admin: 11/10/16 09:26 Dose: 20 meq Potassium Phos/Sodium Phos (Phos-Nak Packet -) 1 packet PO BID COUNTS INCLUDE 234 BEDS AT THE [facility] Last Admin: 11/10/16 09:26 Dose: 1 packet Prednisone (Deltasone -) 20 mg PO BID COUNTS INCLUDE 234 BEDS AT THE [facility] Last Admin: 11/10/16 09:26 Dose: 20 mg Ranitidine HCl (Zantac -) 150 mg PO BID COUNTS INCLUDE 234 BEDS AT THE [facility] Last Admin: 11/10/16 09:26 Dose: 150 mg Tiotropium [place] (Spiriva -) 1 puff IH DAILY HERMINIO Last Admin: 11/10/16 09:34 Dose: 1 puff - Objective Vital Signs: Vital Signs Temperature 98.4 F 11/10/16 10:00 Pulse Rate 122 H 11/10/16 12:31 Respiratory Rate 20 11/10/16 10:00 Blood Pressure 125/59 11/10/16 10:00 O2 Sat by Pulse Oximetry (%) 98 11/10/16 12:31 Constitutional: Yes: Well Nourished, No Distress, Calm Cardiovascular: Yes: Pulse Irregular. No: Gallop, Murmur, Rub Respiratory: Yes: Regular, CTA Bilaterally, On Nasal O2. No: Rales, Rhonchi, Wheezes Gastrointestinal: Yes: Normal Bowel Sounds, Soft. No: Distention, Tenderness Extremities: Yes: WNL Edema: No Labs: CBC, BMP 11/10/16 06:00 11/10/16 06:00 INR, PTT INR 1.34 (0.82-1.09) H 11/01/16 18:50 Problem List - Problems (1) Endocarditis Code(s): I38 - ENDOCARDITIS, VALVE UNSPECIFIED Qualifiers: Endocarditis type: infective Infective endocarditis organism: bacterial Chronicity: acute Qualified Code(s): I33.0 - Acute and subacute infective endocarditis (2) Severe sepsis Code(s): A41.9 - SEPSIS, UNSPECIFIED ORGANISM R65.20 - SEVERE SEPSIS WITHOUT SEPTIC SHOCK (3) Atrial fibrillation with RVR Code(s): I48.91 - UNSPECIFIED ATRIAL FIBRILLATION (4) COPD (chronic obstructive pulmonary disease) Code(s): J44.9 - CHRONIC OBSTRUCTIVE PULMONARY DISEASE, UNSPECIFIED Qualifiers : COPD type: COPD with acute exacerbation Qualified Code(s): J44.1 - Chronic obstructive pulmonary disease with (acute) exacerbation (5) Compressed spine fracture Code(s): M48.50XA - COLLAPSED VERTEBRA, NEC, SITE UNSP, INIT (6) Pulmonary hypertension Code(s): I27.2 - OTHER SECONDARY PULMONARY HYPERTENSION Assessment/Plan (1) MRSA bacteremia -plan on discharge tomorrow once antibiotics set up -continue for four weeks per ID (2) Severe sepsis Assessment/Plan: -continue antibiotics currently Code(s): A41.9 - SEPSIS, UNSPECIFIED ORGANISM R65.20 - SEVERE SEPSIS WITHOUT SEPTIC SHOCK (3) Atrial fibrillation with RVR Assessment/Plan: -rate controlled -on eliquis -continue digoxin and diltiazem Code(s): I48.91 - UNSPECIFIED ATRIAL FIBRILLATION (4) COPD (chronic obstructive pulmonary disease) Assessment/Plan: -continue current management -at baseline Code(s): J44.9 - CHRONIC OBSTRUCTIVE PULMONARY DISEASE, UNSPECIFIED Qualifiers : COPD type: COPD with acute exacerbation Qualified Code(s): J44.1 - Chronic obstructive pulmonary disease with (acute) exacerbation (5) Compressed spine fracture Assessment/Plan: -if has any pain or complaints, perform MRI or CT with contrast on spine Code(s): M48.50XA - COLLAPSED VERTEBRA, NEC, SITE UNSP, INIT (6) Pulmonary hypertension Assessment/Plan: -continue oral lasix Code(s): I27.2 - OTHER SECONDARY PULMONARY HYPERTENSION
--- NOTE | 2016-11-10 17:45 | PN ---
Progress Note, Physician History of Present Illness: doing well no complaints - Current Medication List Current Medications: Active Medications Albuterol Sulfate (Ventolin 0.083% Nebulizer Soln -) 1 amp NEB Q1H PRN PRN Reason: SHORT OF BREATH/WHEEZING Albuterol Sulfate (Ventolin 0.083% Nebulizer Soln -) 1 amp NEB Q4HPO [facility] Last Admin: 11/10/16 14:15 Dose: Not Given Alprazolam (Xanax -) 0.25 mg PO Q8H PRN PRN Reason: ANXIETY Last Admin: 11/10/16 09:25 Dose: 0.25 mg Apixaban (Eliquis -) 5 mg PO BID [facility] Last Admin: 11/10/16 09:25 Dose: 5 mg Digoxin (Lanoxin -) 0.125 mg PO DAILY [facility] Last Admin: 11/10/16 09:26 Dose: 0.125 mg Diltiazem HCl (Cardizem Injection -) 10 mg IV Q4H PRN PRN Reason: FOR HR > 120 Last Admin: 11/02/16 09:12 Dose: 10 mg Diltiazem HCl (Cardizem Cd -) 240 mg PO DAILY [facility] Last Admin: 11/10/16 09:26 Dose: 240 mg Furosemide (Lasix -) 40 mg PO DAILY [facility] Last Admin: 11/10/16 09:26 Dose: 40 mg IV Flush (Picc Line Flush) 8 ml IVPUSH PRN PRN PRN Reason: Protocol Cefazolin Sodium (Ancef 1 Gm Premixed Ivpb -) 50 mls @ 100 mls/hr IVPB Q8H-IV [facility] Last Admin: 11/10/16 17:27 Dose: 100 mls/hr Potassium Chloride (K-Dur -) 20 meq PO DAILY [facility] Last Admin: 11/10/16 09:26 Dose: 20 meq Potassium Phos/Sodium Phos (Phos-Nak Packet -) 1 packet PO BID [facility] Last Admin: 11/10/16 09:26 Dose: 1 packet Prednisone (Deltasone -) 20 mg PO BID [facility] Last Admin: 11/10/16 09:26 Dose: 20 mg Ranitidine HCl (Zantac -) 150 mg PO BID [facility] Last Admin: 11/10/16 09:26 Dose: 150 mg Tiotropium [place] (Spiriva -) 1 puff IH DAILY [facility] Last Admin: 11/10/16 09:34 Dose: 1 puff - Objective Vital Signs: Vital Signs Temperature 98.3 F 11/10/16 14:30 Pulse Rate 106 H 11/10/16 14:30 Respiratory Rate 22 11/10/16 14:30 Blood Pressure 127/74 11/10/16 14:30 O2 Sat by Pulse Oximetry (%) 98 11/10/16 12:31 Constitutional: Yes: No Distress, Calm Cardiovascular: Yes: Regular Rate and Rhythm Respiratory: Yes: Regular, Poor Air Entry, Rhonchi Gastrointestinal: Yes: Normal Bowel Sounds, Soft Musculoskeletal: Yes: WNL Extremities: Yes: WNL Neurological: Yes: Alert, Oriented Psychiatric: Yes: Alert Labs: CBC, BMP 11/10/16 06:00 11/10/16 06:00 INR, PTT INR 1.34 (0.82-1.09) H 11/01/16 18:50 Assessment/Plan Problem List - Problems (1) Endocarditis Code(s): I38 - ENDOCARDITIS, VALVE UNSPECIFIED Qualifiers: Endocarditis type: infective Infective endocarditis organism: bacterial Chronicity: acute Qualified Code(s): I33.0 - Acute and subacute infective endocarditis (2) Severe sepsis Code(s): A41.9 - SEPSIS, UNSPECIFIED ORGANISM R65.20 - SEVERE SEPSIS WITHOUT SEPTIC SHOCK (3) Atrial fibrillation with RVR Code(s): I48.91 - UNSPECIFIED ATRIAL FIBRILLATION (4) COPD (chronic obstructive pulmonary disease) Code(s): J44.9 - CHRONIC OBSTRUCTIVE PULMONARY DISEASE, UNSPECIFIED Qualifiers : COPD type: COPD with acute exacerbation Qualified Code(s): J44.1 - Chronic obstructive pulmonary disease with (acute) exacerbation (5) Compressed spine fracture Code(s): M48.50XA - COLLAPSED VERTEBRA, NEC, SITE UNSP, INIT (6) Pulmonary hypertension Code(s): I27.2 - OTHER SECONDARY PULMONARY HYPERTENSION plan continue current abx blood cx negative malissa negative continue abx for a total of 4 weeks
[2016-11-11] MEDS: ALBUTEROL SO4 0.083% IH SOL 2.5 MG/3 ML VIAL.NEB. NEB SCH ×3 (02:15→10:19)
[2016-11-11] MEDS: CEFAZOLIN 1 GM/D5W 50 ML IVPB SCH ×2 (02:20→09:04)
[2016-11-11 07:10] LABS: MCH 28.1 pg (25.7-33.7); MCHC 31.3 g/dl (32.0-36.0); MEAN CELL VOLUME 89.7 fl (80-96); MEAN PLT VOLUME 7.3 fl (7.5-11.1); NEUTROPHILS 93.2 % (42.8-82.8); PLATELET COUNT 307 K/MM3 (134-434); RDW 16.1 % (11.6-15.6); WHITE BLOOD COUNT 15.1 K/mm3 (4.0-10.0)
[2016-11-11 07:31] LABS: CALCIUM 9.3 mg/dL (8.5-10.1); CREATININE 0.4 mg/dL (0.55-1.02); MAGNESIUM 2.3 mg/dL (1.8-2.4); PHOSPHOROUS 3.1 mg/dL (2.5-4.9)
[2016-11-11] MEDS ORDERED: PT OWN MED DRAWER 7, Y5N ONE (08:58)
[2016-11-11] MEDS: ALPRAZolam 0.25 MG TABLET PO PRN (09:02)
[2016-11-11] MEDS: DIGOXIN 0.125 MG TABLET (FP) PO SCH (09:03)
[2016-11-11] MEDS: POTASSIUM CHLORIDE TABS 20 MEQ TABLET.ER (FP) PO SCH (09:03)
[2016-11-11] MEDS: predniSONE 20 MG TABLET (UD) PO SCH (09:03)
[2016-11-11] MEDS: FUROSEMIDE 40 MG TABLET (FP) PO SCH (09:03)
[2016-11-11] MEDS: RANITIDINE HCL 150 MG TABLET (FP) PO SCH (09:03)
[2016-11-11] MEDS: APIXABAN 5 MG TABLET PO SCH (09:03)
[2016-11-11] MEDS: NAPH,MB-DB/K PH,MBDB POWDER PACKET PO SCH (09:04)
[2016-11-11] MEDS: TIOTROPIUM BROMIDE 18 MCG/INH (DEVICE W/ 5 CAPSULES) IH SCH (09:04)
--- NOTE | 2016-11-11 10:07 | PN ---
Progress Note (short form) - Note Progress Note: s: no cp palps dizzy; sob better o: Vital Signs Period Temp Pulse Resp BP Sys/Starks Pulse Ox Last 24 Hr 97.5 F-98.4 F 94-122 18-22 117-135/67-82 98-98 nad no jvd irreg, s1s2 no mrg cta bl, nl eff aaox3 no le e/c/c no jaundice diaphoresis Current Medications Generic Name Dose Route Start Last Admin Trade Name Freq PRN Reason Stop Dose Admin Albuterol Sulfate 1 amp 11/04/16 10:48 Ventolin 0.083% Nebulizer Soln - NEB Q1H PRN SHORT OF BREATH/WHEEZING Albuterol Sulfate 1 amp 11/05/16 22:00 11/11/16 06:15 Ventolin 0.083% Nebulizer Soln - NEB 1 amp Q4HPO HERMINIO Administration Alprazolam 0.25 mg 11/07/16 18:40 11/11/16 09:02 Xanax - PO 0.25 mg Q8H PRN Administration ANXIETY Apixaban 5 mg 11/08/16 22:00 11/11/16 09:03 Eliquis - PO 5 mg BID HERMINIO Administration Digoxin 0.125 mg 11/02/16 10:00 11/11/16 09:03 Lanoxin - PO 0.125 mg DAILY [facility] Administration Diltiazem HCl 10 mg 11/02/16 01:13 11/02/16 09:12 Cardizem Injection - IV 10 mg Q4H PRN Administration FOR HR > 120 Diltiazem HCl 240 mg 11/05/16 10:08 11/11/16 09:03 Cardizem Cd - PO 240 mg DAILY [facility] Administration Furosemide 40 mg 11/07/16 10:00 11/11/16 09:03 Lasix - PO 40 mg DAILY [facility] Administration IV Flush 8 ml 11/10/16 13:10 11/11/16 06:22 Picc Line Flush IVPUSH 8 ml PRN PRN Administration Protocol Cefazolin Sodium 50 mls @ 100 mls/hr 11/04/16 18:00 11/11/16 09:04 Ancef 1 Gm Premixed Ivpb - IVPB 100 mls/hr Q8H-IV [facility] Administration Potassium Chloride 20 meq 11/08/16 10:00 11/11/16 09:03 K-Dur - PO 20 meq DAILY [facility] Administration Potassium Phos/Sodium Phos 1 packet 11/04/16 12:00 11/11/16 09:04 Phos-Nak Packet - PO 1 packet BID [facility] Administration Prednisone 20 mg 11/08/16 22:00 11/11/16 09:03 Deltasone - PO 20 mg BID [facility] Administration Ranitidine HCl 150 mg 11/01/16 22:00 11/11/16 09:03 Zantac - PO 150 mg BID [facility] Administration Tiotropium [place] 1 puff 11/04/16 11:00 11/11/16 09:04 Spiriva - IH 1 puff DAILY [facility] Administration CBC, BMP 11/11/16 05:35 11/11/16 05:35 MANUEL 10/2016: nl lv/rv. 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 No TR. 1+ AR. No veg/abscess. Mobile linear density in RA --> chiari network. No intracardiac mass. Mild-mod mural aortic atheroma. echo 10/2016: nl lv/rv, sixto, mild mr, post mv leaflet?veg, mild-mod tr, nl rvsp, nl rvsp, mild ar Echo 09/2016: Nl lv/rv. Mod MAC. 1+ AR/TR. Mod AL. 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 copd: -has been well-compensated on lasix 20 qd for long time as outpt, with occasional prn 40mg doses (intolerant of 40 qd due to urinary frequency and still works full-time) -required lasix 40 iv qd for several days on prior admits -this time around pulm initially did not feel a.e. copd likely -CXR not impressive for congestion, however BNP up 2500 from 500 prior baseline- -she was treated with iv lasix (40 qd) and symptoms improved -11/04 with acute resp distress and diffuse wheezing, steroids started by pulm -11/05: doubt jvd on exam, yesterday's acute resp distress turned around with purely pulm treatment; cont lasix as doing (40 iv qd) -11/06: cont copd tx per pulm, resp status seems to be improving -11/07: bun/creat and bicarb up, no clinical chf; change lasix 40 iv to 40 po qd - 11/08-/: tolerating po lasix, continue. gets episodes of anxiety that seems to trigger brief sob episodes, resolves with xanax, does not seem chf related. recurrent staph bacteremia/MANUEL negative for endocarditis: -2nd recent admit with staph bacteremia: she had MSSA on repeat BCXs 2d apart in early 09/23 (treated with 14d of abx then), now back with spontaneous MSSA as outpatient; (-intervening gram-neg betty blood cx at [place] ultimately felt to be contaminant by id) -echo reporting possible veg on MV, pt then had MANUEL showing no indication of endocarditis -cont abx per id new Afib/supraventricular tachycardia/MAT: -has hx mat worsened by acute resp illnesses in past -now in AFib on tele, HR mostly controlled, has occasional rvr when anxious -Cont dig (level good), dilt dose 240 qd -CHADS VASC 4, cont eliquis VTach: -7b run NSVT (> AF with aberrancy) on tele 11/07, none further -replete K, Mag PRN -EF preserved--no further tx warranted at this time pulm HTN: -WHO 3 (overnight hypoxia has been documented), possibly WHO 2 component from LV diast chf -refuses 24 hr O2 repeatedly--cont copd and chf tx, nocturnal O2 MVP with mitral regurg: -likely not hemodynamically significant per recent echo, doubt causal in her sob sx's HTN -stable on dilt cardiac dsouza stable for snf
--- NOTE | 2016-11-11 12:53 | DS ---
Physical Examination Vital Signs: Vital Signs Temperature 97.8 F 11/11/16 10:00 Pulse Rate 115 H 11/11/16 10:00 Respiratory Rate 18 11/11/16 10:00 Blood Pressure 130/77 11/11/16 10:00 O2 Sat by Pulse Oximetry (%) 96 11/11/16 09:00 Labs: CBC, BMP 11/11/16 05:35 11/11/16 05:35 Discharge Summary Reason For Visit: DYSPNEA/COPD/CHEST PAIN Current Active Problems Atrial fibrillation with RVR (Acute) COPD (chronic obstructive pulmonary disease) (Acute) Chest pain (Acute) Dyspnea (Acute) Endocarditis (Acute) Severe sepsis (Acute) Tachycardia (Acute) Condition: Good - Instructions Diet, Activity, Other Instructions: sodium controlled diet. Up with assistance, further activity per PT at SNF Referrals: Mariano Jameson MD [Primary Care Provider] - Anabela Yo MD [Staff Physician] - Nas Marsh MD [Staff Physician] - Lamine Wilkerson MD [Staff Physician] - Disposition: SNF FACILITY - Home Medications Comprehensive Discharge Medication List: Ambulatory Orders Digoxin [Lanoxin -] 0.125 mg PO DAILY tablet 09/27/16 Furosemide [Lasix -] 40 mg PO DAILY tablet 10/06/16 Albuterol Sulfate Inhaler - [Ventolin HFA Inhaler -] 2 inh PO Q6H PRN 11/01/16 Potassium Chloride [Klor-Con 10] 10 meq PO DAILY 11/01/16 Ranitidine [Zantac -] 150 mg PO BID 11/01/16 Albuterol 0.083% Nebulizer [place] [Ventolin 0.083% Nebulizer Soln -] 1 amp NEB Q4HPO amp 11/11/16 Alprazolam [Xanax] 0.25 mg PO Q8H PRN #0 tablet MDD 1mg 11/11/16 Apixaban [Eliquis -] 5 mg PO BID tablet 11/11/16 Cefazolin 1 gm/D5w [Ancef 1 gm Premixed Ivpb -] 50 ml IVPB Q8H-IV 20 Days Diltiazem Cd [Cardizem Cd -] 240 mg PO DAILY cap.cd.24h 11/11/16 Picc Line Flush [Picc Line Flush -] 8 ml IVPUSH PRN PRN #0 ml 11/11/16 Prednisone [Deltasone -] 5 mg PO ASDIR #32 tab 11/11/16 Tiotropium [place] [Spiriva] 1 puff IH DAILY inh 11/11/16
--- NOTE | 2016-11-11 13:59 | PN ---
Progress Note, Physician History of Present Illness: pulmonary alert,oob-chair,comfortable nad - Current Medication List Current Medications: Active Medications Albuterol Sulfate (Ventolin 0.083% Nebulizer Soln -) 1 amp NEB Q1H PRN PRN Reason: SHORT OF BREATH/WHEEZING Albuterol Sulfate (Ventolin 0.083% Nebulizer Soln -) 1 amp NEB Q4HPO [facility] Last Admin: 11/11/16 06:15 Dose: 1 amp Alprazolam (Xanax -) 0.25 mg PO Q8H PRN PRN Reason: ANXIETY Last Admin: 11/11/16 09:02 Dose: 0.25 mg Apixaban (Eliquis -) 5 mg PO BID [facility] Last Admin: 11/11/16 09:03 Dose: 5 mg Digoxin (Lanoxin -) 0.125 mg PO DAILY [facility] Last Admin: 11/11/16 09:03 Dose: 0.125 mg Diltiazem HCl (Cardizem Injection -) 10 mg IV Q4H PRN PRN Reason: FOR HR > 120 Last Admin: 11/02/16 09:12 Dose: 10 mg Diltiazem HCl (Cardizem Cd -) 240 mg PO DAILY [facility] Last Admin: 11/11/16 09:03 Dose: 240 mg Furosemide (Lasix -) 40 mg PO DAILY [facility] Last Admin: 11/11/16 09:03 Dose: 40 mg IV Flush (Picc Line Flush) 8 ml IVPUSH PRN PRN PRN Reason: Protocol Last Admin: 11/11/16 06:22 Dose: 8 ml Cefazolin Sodium (Ancef 1 Gm Premixed Ivpb -) 50 mls @ 100 mls/hr IVPB Q8H-IV [facility] Last Admin: 11/11/16 09:04 Dose: 100 mls/hr Potassium Chloride (K-Dur -) 20 meq PO DAILY [facility] Last Admin: 11/11/16 09:03 Dose: 20 meq Potassium Phos/Sodium Phos (Phos-Nak Packet -) 1 packet PO BID [facility] Last Admin: 11/11/16 09:04 Dose: 1 packet Prednisone (Deltasone -) 20 mg PO BID [facility] Last Admin: 11/11/16 09:03 Dose: 20 mg Ranitidine HCl (Zantac -) 150 mg PO BID [facility] Last Admin: 11/11/16 09:03 Dose: 150 mg Tiotropium [place] (Spiriva -) 1 puff IH DAILY [facility] Last Admin: 11/11/16 09:04 Dose: 1 puff - Objective Vital Signs: Vital Signs Temperature 97.8 F 11/11/16 10:00 Pulse Rate 115 H 11/11/16 10:00 Respiratory Rate 18 11/11/16 10:00 Blood Pressure 130/77 11/11/16 10:00 O2 Sat by Pulse Oximetry (%) 96 11/11/16 09:00 Constitutional: Yes: Calm, Thin Eyes: Yes: Occular Prosthesis HENT: Yes: WNL Neck: Yes: WNL Cardiovascular: Yes: Regular Rate and Rhythm, S1, S2 Respiratory: Yes: Diminished Gastrointestinal: Yes: Normal Bowel Sounds, Soft Extremities: Yes: WNL Edema: No Labs: CBC, BMP 11/11/16 05:35 11/11/16 05:35 INR, PTT INR 1.34 (0.82-1.09) H 11/01/16 18:50 Problem List - Problems (1) Atrial fibrillation with RVR Code(s): I48.91 - UNSPECIFIED ATRIAL FIBRILLATION (2) COPD (chronic obstructive pulmonary disease) Code(s): J44.9 - CHRONIC OBSTRUCTIVE PULMONARY DISEASE, UNSPECIFIED Qualifiers : COPD type: COPD with acute exacerbation Qualified Code(s): J44.1 - Chronic obstructive pulmonary disease with (acute) exacerbation (3) Chest pain Code(s): R07.9 - CHEST PAIN, UNSPECIFIED Qualifiers: Chest pain type: other chest pain Qualified Code(s): R07.89 - Other chest pain; R07.8 - Other chest pain (4) Dyspnea Code(s): R06.00 - DYSPNEA, UNSPECIFIED Qualifiers: Dyspnea type: shortness of breath Qualified Code(s): R06.02 - Shortness of breath (5) Endocarditis Code(s): I38 - ENDOCARDITIS, VALVE UNSPECIFIED Qualifiers: Endocarditis type: infective Infective endocarditis organism: bacterial Chronicity: acute Qualified Code(s): I33.0 - Acute and subacute infective endocarditis (6) Tachycardia Code(s): R00.0 - TACHYCARDIA, UNSPECIFIED (7) Bacteremia Code(s): R78.81 - BACTEREMIA (8) Chronic respiratory failure with hypoxia Code(s): J96.11 - CHRONIC RESPIRATORY FAILURE WITH HYPOXIA (9) Respiratory failure Code(s): J96.90 - RESPIRATORY FAILURE, UNSP, UNSP W HYPOXIA OR HYPERCAPNIA Assessment/Plan A/P MSSA Bacteremia Endocarditis ruled out Acute Diastolic Heart Failure Pulmonary HTN Mitral Regurgitation MAT COPD - continue antibiotics outpatient - lasix - inhaled bronchodilators - O2 as needed - prednisone DR RUTHERFORD
--- NOTE | 2016-11-11 15:24 | PN ---
Progress Note, Physician Chief Complaint: Ms Mo says she is feeling fine and is without complaint. No cp, sob, n/v. - Current Medication List Current Medications: Active Medications Albuterol Sulfate (Ventolin 0.083% Nebulizer Soln -) 1 amp NEB Q1H PRN PRN Reason: SHORT OF BREATH/WHEEZING Albuterol Sulfate (Ventolin 0.083% Nebulizer Soln -) 1 amp NEB Q4HPO [facility] Last Admin: 11/11/16 10:19 Dose: 1 amp Alprazolam (Xanax -) 0.25 mg PO Q8H PRN PRN Reason: ANXIETY Last Admin: 11/11/16 09:02 Dose: 0.25 mg Apixaban (Eliquis -) 5 mg PO BID [facility] Last Admin: 11/11/16 09:03 Dose: 5 mg Digoxin (Lanoxin -) 0.125 mg PO DAILY [facility] Last Admin: 11/11/16 09:03 Dose: 0.125 mg Diltiazem HCl (Cardizem Injection -) 10 mg IV Q4H PRN PRN Reason: FOR HR > 120 Last Admin: 11/02/16 09:12 Dose: 10 mg Diltiazem HCl (Cardizem Cd -) 240 mg PO DAILY [facility] Last Admin: 11/11/16 09:03 Dose: 240 mg Furosemide (Lasix -) 40 mg PO DAILY [facility] Last Admin: 11/11/16 09:03 Dose: 40 mg IV Flush (Picc Line Flush) 8 ml IVPUSH PRN PRN PRN Reason: Protocol Last Admin: 11/11/16 06:22 Dose: 8 ml Cefazolin Sodium (Ancef 1 Gm Premixed Ivpb -) 50 mls @ 100 mls/hr IVPB Q8H-IV [facility] Last Admin: 11/11/16 09:04 Dose: 100 mls/hr Potassium Chloride (K-Dur -) 20 meq PO DAILY [facility] Last Admin: 11/11/16 09:03 Dose: 20 meq Potassium Phos/Sodium Phos (Phos-Nak Packet -) 1 packet PO BID [facility] Last Admin: 11/11/16 09:04 Dose: 1 packet Prednisone (Deltasone -) 20 mg PO BID [facility] Last Admin: 11/11/16 09:03 Dose: 20 mg Ranitidine HCl (Zantac -) 150 mg PO BID [facility] Last Admin: 11/11/16 09:03 Dose: 150 mg Tiotropium [place] (Spiriva -) 1 puff IH DAILY [facility] Last Admin: 11/11/16 09:04 Dose: 1 puff - Objective Vital Signs: Vital Signs Temperature 97.8 F 11/11/16 10:00 Pulse Rate 76 11/11/16 14:20 Respiratory Rate 18 11/11/16 10:00 Blood Pressure 130/77 11/11/16 10:00 O2 Sat by Pulse Oximetry (%) 98 11/11/16 14:20 Constitutional: Yes: No Distress, Calm, Thin Cardiovascular: Yes: Pulse Irregular. No: Gallop, Murmur, Rub Respiratory: Yes: Regular, On Nasal O2, Wheezes (slight). No: Rales, Rhonchi Gastrointestinal: Yes: Normal Bowel Sounds, Soft. No: Distention, Tenderness Extremities: Yes: WNL Edema: No Labs: CBC, BMP 11/11/16 05:35 11/11/16 05:35 INR, PTT INR 1.34 (0.82-1.09) H 11/01/16 18:50 Problem List - Problems (1) Endocarditis Code(s): I38 - ENDOCARDITIS, VALVE UNSPECIFIED Qualifiers: Endocarditis type: infective Infective endocarditis organism: bacterial Chronicity: acute Qualified Code(s): I33.0 - Acute and subacute infective endocarditis (2) Severe sepsis Code(s): A41.9 - SEPSIS, UNSPECIFIED ORGANISM R65.20 - SEVERE SEPSIS WITHOUT SEPTIC SHOCK (3) Atrial fibrillation with RVR Code(s): I48.91 - UNSPECIFIED ATRIAL FIBRILLATION (4) COPD (chronic obstructive pulmonary disease) Code(s): J44.9 - CHRONIC OBSTRUCTIVE PULMONARY DISEASE, UNSPECIFIED Qualifiers : COPD type: COPD with acute exacerbation Qualified Code(s): J44.1 - Chronic obstructive pulmonary disease with (acute) exacerbation (5) Compressed spine fracture Code(s): M48.50XA - COLLAPSED VERTEBRA, NEC, SITE UNSP, INIT (6) Pulmonary hypertension Code(s): I27.2 - OTHER SECONDARY PULMONARY HYPERTENSION Assessment/Plan (1) MRSA bacteremia -cefazolin for a total of 4 weeks (2) Severe sepsis Assessment/Plan: -resolved -as above Code(s): A41.9 - SEPSIS, UNSPECIFIED ORGANISM R65.20 - SEVERE SEPSIS WITHOUT SEPTIC SHOCK (3) Atrial fibrillation with RVR Assessment/Plan: -rate controlled -on eliquis -continue digoxin and diltiazem Code(s): I48.91 - UNSPECIFIED ATRIAL FIBRILLATION (4) COPD (chronic obstructive pulmonary disease) Assessment/Plan: -continue current management -at baseline -prednisone taper as an outpatient Code(s): J44.9 - CHRONIC OBSTRUCTIVE PULMONARY DISEASE, UNSPECIFIED Qualifiers : COPD type: COPD with acute exacerbation Qualified Code(s): J44.1 - Chronic obstructive pulmonary disease with (acute) exacerbation (5) Compressed spine fracture Assessment/Plan: -if has any pain or complaints, perform MRI or CT with contrast on spine Code(s): M48.50XA - COLLAPSED VERTEBRA, NEC, SITE UNSP, INIT (6) Pulmonary hypertension Assessment/Plan: -continue oral lasix Code(s): I27.2 - OTHER SECONDARY PULMONARY HYPERTENSION Dispo -patient safe for discharge, awaiting bed at SNF
[2016-11-11 15:56] VITALS: BP 120/70; PULSE 103; TEMP 98.5
--- NOTE | 2016-11-11 17:14 | PN ---
Progress Note, Physician History of Present Illness: patient doing well no complaints - Current Medication List Current Medications: Active Medications Albuterol Sulfate (Ventolin 0.083% Nebulizer Soln -) 1 amp NEB Q1H PRN PRN Reason: SHORT OF BREATH/WHEEZING Albuterol Sulfate (Ventolin 0.083% Nebulizer Soln -) 1 amp NEB Q4HPO [facility] Last Admin: 11/11/16 10:19 Dose: 1 amp Alprazolam (Xanax -) 0.25 mg PO Q8H PRN PRN Reason: ANXIETY Last Admin: 11/11/16 09:02 Dose: 0.25 mg Apixaban (Eliquis -) 5 mg PO BID [facility] Last Admin: 11/11/16 09:03 Dose: 5 mg Digoxin (Lanoxin -) 0.125 mg PO DAILY [facility] Last Admin: 11/11/16 09:03 Dose: 0.125 mg Diltiazem HCl (Cardizem Injection -) 10 mg IV Q4H PRN PRN Reason: FOR HR > 120 Last Admin: 11/02/16 09:12 Dose: 10 mg Diltiazem HCl (Cardizem Cd -) 240 mg PO DAILY [facility] Last Admin: 11/11/16 09:03 Dose: 240 mg Furosemide (Lasix -) 40 mg PO DAILY [facility] Last Admin: 11/11/16 09:03 Dose: 40 mg IV Flush (Picc Line Flush) 8 ml IVPUSH PRN PRN PRN Reason: Protocol Last Admin: 11/11/16 06:22 Dose: 8 ml Cefazolin Sodium (Ancef 1 Gm Premixed Ivpb -) 50 mls @ 100 mls/hr IVPB Q8H-IV [facility] Last Admin: 11/11/16 09:04 Dose: 100 mls/hr Potassium Chloride (K-Dur -) 20 meq PO DAILY [facility] Last Admin: 11/11/16 09:03 Dose: 20 meq Potassium Phos/Sodium Phos (Phos-Nak Packet -) 1 packet PO BID [facility] Last Admin: 11/11/16 09:04 Dose: 1 packet Prednisone (Deltasone -) 20 mg PO BID [facility] Last Admin: 11/11/16 09:03 Dose: 20 mg Ranitidine HCl (Zantac -) 150 mg PO BID [facility] Last Admin: 11/11/16 09:03 Dose: 150 mg Tiotropium [place] (Spiriva -) 1 puff IH DAILY [facility] Last Admin: 11/11/16 09:04 Dose: 1 puff - Objective Vital Signs: Vital Signs Temperature 98.5 F 11/11/16 15:55 Pulse Rate 103 H 11/11/16 15:55 Respiratory Rate 18 11/11/16 15:55 Blood Pressure 120/70 11/11/16 15:55 O2 Sat by Pulse Oximetry (%) 98 11/11/16 14:20 Constitutional: Yes: No Distress, Calm Cardiovascular: Yes: Regular Rate and Rhythm Respiratory: Yes: Regular, Poor Air Entry Gastrointestinal: Yes: Normal Bowel Sounds, Soft Musculoskeletal: Yes: WNL Extremities: Yes: Other Neurological: Yes: Alert, Oriented Psychiatric: Yes: Alert Labs: CBC, BMP 11/11/16 05:35 11/11/16 05:35 INR, PTT INR 1.34 (0.82-1.09) H 11/01/16 18:50 Assessment/Plan Problem List - Problems (1) Endocarditis Code(s): I38 - ENDOCARDITIS, VALVE UNSPECIFIED Qualifiers: Endocarditis type: infective Infective endocarditis organism: bacterial Chronicity: acute Qualified Code(s): I33.0 - Acute and subacute infective endocarditis (2) Severe sepsis Code(s): A41.9 - SEPSIS, UNSPECIFIED ORGANISM R65.20 - SEVERE SEPSIS WITHOUT SEPTIC SHOCK (3) Atrial fibrillation with RVR Code(s): I48.91 - UNSPECIFIED ATRIAL FIBRILLATION (4) COPD (chronic obstructive pulmonary disease) Code(s): J44.9 - CHRONIC OBSTRUCTIVE PULMONARY DISEASE, UNSPECIFIED Qualifiers : COPD type: COPD with acute exacerbation Qualified Code(s): J44.1 - Chronic obstructive pulmonary disease with (acute) exacerbation (5) Compressed spine fracture Code(s): M48.50XA - COLLAPSED VERTEBRA, NEC, SITE UNSP, INIT (6) Pulmonary hypertension Code(s): I27.2 - OTHER SECONDARY PULMONARY HYPERTENSION plan continue as abx decided till patient finishes the course
== END 2016-11-11 17:50 | DRG 871 ==
LOC: JER 17:51 → JERBED 20:45 → UNDOADMIN 20:59 → JERBED 20:59 → J4S 23:43
PROVIDERS: ADMIT Specialist; ATTEND Specialist
PROC: B246ZZ4 Ultrasonography of Right and Left Heart, Transesophageal (ICD-10-PCS; principal; 2016-11-07 11:00)
PROC: 02HV33Z Insertion of Infusion Device into Superior Vena Cava, Percutaneous Approach (ICD-10-PCS; 2016-11-10)
PROC: B518YZA Fluoroscopy of Superior Vena Cava using Other Contrast, Guidance (ICD-10-PCS; 2016-11-10)
DX: A41.9 Sepsis, unspecified organism (principal); I50.31 Acute diastolic (congestive) heart failure; J44.1 Chronic obstructive pulmonary disease with (acute) exacerbation; M48.56XA Collapsed vertebra, not elsewhere classified, lumbar region, initial encounter for fracture; I47.1 Supraventricular tachycardia; I47.2 Ventricular tachycardia; E87.3 Alkalosis; J96.11 Chronic respiratory failure with hypoxia; J96.12 Chronic respiratory failure with hypercapnia; R64 Cachexia; I48.91 Unspecified atrial fibrillation; I27.2 Other secondary pulmonary hypertension; I34.0 Nonrheumatic mitral (valve) insufficiency; I10 Essential (primary) hypertension; R65.20 Severe sepsis without septic shock; R07.89 Other chest pain; Z87.891 Personal history of nicotine dependence
CPT/HCPCS: 36415; 36569; 36600; 70546-TC; 70553-TC; 71010-TC; 77001-TC; 80048; 80053; 80162; 81003; 82272; 82550; 82803; 83735; 83880; 84100; 84443; 84484; 85025; 85027; 85610; 85651; 85730; 86140; 87040; 87086; 87186; 87254; 87804; 93005; 93010; 93306-TC; 93312; 93325; 94640; 97116-GP; 97161-GP; 99282-25; A9576; C1751; J1644

== ENCOUNTER 2016-12-24 14:30 | Emergency (ER) | payer OTHER ==
[2016-12-24 14:52] VITALS: BMI 18.8
[2016-12-24 15:11] VITALS: TEMP 99.1
[2016-12-24] MEDS ORDERED: SODIUM CHLORIDE 500 ML IV STA (15:12)
[2016-12-24 15:29] LABS: BASOPHIL 0.6 % (0-2.0); EOSINOPHIL 0.3 % (0-4.5); MCH 24.2 pg (25.7-33.7); MCHC 31.4 g/dl (32.0-36.0); MEAN CELL VOLUME 77.1 fl (80-96); MEAN PLT VOLUME 7.3 fl (7.5-11.1); PLATELET COUNT 395 K/MM3 (134-434); RDW 19.9 % (11.6-15.6); WHITE BLOOD COUNT 9.7 K/mm3 (4.0-10.0)
[2016-12-24 15:38] LABS: URINE APPEARANCE CLEAR; URINE BILIRUBIN NEGATIVE (NEGATIVE); URINE BLOOD NEGATIVE (NEGATIVE); URINE COLOR COLORLESS; URINE GLUCOSE (UA) NEGATIVE (NEGATIVE); URINE KETONE NEGATIVE (NEGATIVE); URINE NITRITE NEGATIVE (NEGATIVE); URINE PROTEIN NEGATIVE (NEGATIVE); URINE UROBILINOGEN NEGATIVE E.U./dl (0.2-1.0)
[2016-12-24 15:51] LABS: ANION GAP 6 (8-16); BILIRUBIN,TOTAL 0.6 mg/dL (0.2-1.0); CALCIUM 9.2 mg/dL (8.5-10.1); CO2 39 mmol/L (21-32); CREATININE 0.6 mg/dL (0.55-1.02); GLUCOSE,RANDOM 90 mg/dL (74-106); SGOT/AST 8 U/L (15-37); SGPT/ALT 14 U/L (12-78); TOT PROT 6.6 g/dl (6.4-8.2)
[2016-12-24 15:54] LABS: ALK PHOS 99 U/L (45-117); TROPONIN I < 0.02 ng/ml (0.00-0.05)
[2016-12-24 15:57] LABS: URINE LEUK ESTERASE TRACE (NEGATIVE)
[2016-12-24 16:06] LABS: URINE BACTERIA RARE /hpf (NONE SEEN); URINE RBC 1 /hpf (0-3); URINE WBC 1 /hpf (3-5)
--- NOTE | 2016-12-24 16:08 | PDOC ---
History of Present Illness - General History Source: Patient Exam Limitations: No Limitations - History of Present Illness Initial Comments: 12/24/16 16:16 The patient is a 76 year old female, with a significant past medical history of Atrial Fibrillation (on Eliquis), COPD (on home O2), CHF, HTN and bacteremia, who presents to the emergency department via EMS from home with complaints of generalized weakness and confusion. The patient states she has not been feeling herself for the past day. As per daughter, the patient has complained of throat pain and diffuse body itching. The daughter has noticed the patients decreased appetite and presents to the ED for further evaluation. She denies chest pain, headache or dizziness. She denies fever, chills, nausea, vomit, diarrhea or constipation. She denies dysuria, frequency, urgency or hematuria. Allergies: NKA Social history: Former smoker <Bella Becerra - Last Filed: 12/24/16 16:31> - General History Source: Patient, EMS, Family Exam Limitations: No Limitations <Eli Rider - Last Filed: 12/24/16 16:46> - General Chief Complaint: Weakness Stated Complaint: GENERAL MALAISE Time Seen by Provider: 12/24/16 14:45 Past History <Bella Becerra - Last Filed: 12/24/16 16:31> - Past Medical History Cardiac Disorders: Yes (A-FIB-ON ELIQUIS) COPD: Yes CHF: Yes HTN: Yes Psychiatric Problems: Yes (DEPRESSION) - Immunization History Immunization Up to Date: Yes - Psycho/Social/Smoking Cessation Hx Anxiety: No Suicidal Ideation: No Smoking Status: Yes Smoking History: Former smoker Have you smoked in the past 12 months: Yes Number of Cigarettes Smoked Daily: 1 If you are a former smoker, when did you quit?: 08/09/2016 Information on smoking cessation initiated: No 'Breaking Loose' booklet given: 09/10/16 Hx Alcohol Use: No Drug/Substance Use Hx: No Substance Use Type: None Hx Substance Use Treatment: No <Eli Rider - Last Filed: 12/24/16 16:46> - Past Medical History Allergies/Adverse Reactions: Allergies Allergy/AdvReac Type Severity Reaction Status Date / Time No Known Allergies Allergy Verified 12/24/16 14:49 Home Medications: Ambulatory Orders Digoxin [Lanoxin -] 0.125 mg PO DAILY tablet 09/27/16 Furosemide [Lasix -] 40 mg PO DAILY tablet 10/06/16 Potassium Chloride [Klor-Con 10] 10 meq PO DAILY 11/01/16 Ranitidine [Zantac -] 150 mg PO BID 11/01/16 Albuterol 0.083% Nebulizer [place] [Ventolin 0.083% Nebulizer Soln -] 1 amp NEB Q4HPO amp 11/11/16 Apixaban [Eliquis -] 5 mg PO BID tablet 11/11/16 Diltiazem Cd [Cardizem Cd -] 240 mg PO DAILY cap.cd.24h 11/11/16 Alprazolam [Xanax] 0.25 mg PO BID PRN MDD 1mg 12/24/16 Levofloxacin [Levaquin] 500 mg PO DAILY #7 tablet 12/24/16 Prednisone [Deltasone -] 5 mg PO DAILY 12/24/16 Review of Systems - Review of Systems Able to Perform ROS?: Yes Comments:: 12/24/16 16:16 GENERAL/CONSTITUTIONAL: No fever or chills. + weakness. +confusion. HEAD, EYES, EARS, NOSE AND THROAT: + throat pain. No change in vision. No ear pain or discharge. CARDIOVASCULAR: No chest pain or shortness of breath. RESPIRATORY: No cough, wheezing, or hemoptysis. GASTROINTESTINAL: No nausea, vomiting, diarrhea or constipation. GENITOURINARY: No dysuria, frequency, or change in urination. MUSCULOSKELETAL: No joint or muscle swelling or pain. No neck or back pain. SKIN: No rash NEUROLOGIC: No headache, vertigo, loss of consciousness, or change in strength/ sensation. ENDOCRINE: No increased thirst. No abnormal weight change. HEMATOLOGIC/LYMPHATIC: No anemia, easy bleeding, or history of blood clots. ALLERGIC/IMMUNOLOGIC: No hives or skin allergy. <Bella Becerra - Last Filed: 12/24/16 16:31> *Physical Exam - Vital Signs Last Vital Signs Temp Pulse Resp BP Pulse Ox 99.1 F 96 H 15 113/78 100 12/24/16 14:45 12/24/16 14:41 12/24/16 14:41 12/24/16 14:41 12/24/16 14:41 - Physical Exam Comments: 12/24/16 16:17 GENERAL:+Thin. Awake, alert, and fully oriented, in no acute distress HEAD: No signs of trauma EYES: PERRLA, EOMI, sclera anicteric, conjunctiva clear ENT: Auricles normal inspection, hearing grossly normal, nares patent, oropharynx clear without exudates. + Dry mucosa. NECK: Normal ROM, supple, no lymphadenopathy, JVD, or masses LUNGS: Breath sounds equal, clear to auscultation bilaterally. No wheezes, and no crackles HEART: Irregular rate and rhythm, normal S1 and S2, no murmurs, rubs or gallops ABDOMEN: Soft, nontender, normoactive bowel sounds. No guarding, no rebound. No masses EXTREMITIES: Normal range of motion, no edema. No clubbing or cyanosis. No cords, erythema, or tenderness NEUROLOGICAL: Cranial nerves II through XII grossly intact. Normal speech. SKIN: No sacral decubitus ulcers. Warm, Dry, normal turgor, no rashes or lesions noted. <Bella Becerra - Last Filed: 12/24/16 16:31> - Vital Signs Last Vital Signs Temp Pulse Resp BP Pulse Ox 99.1 F 96 H 15 113/78 100 12/24/16 14:45 12/24/16 14:41 12/24/16 14:41 12/24/16 14:41 12/24/16 14:41 <Eli Rider - Last Filed: 12/24/16 16:46> ED Treatment Course - LABORATORY CBC & Chemistry Diagram: 12/24/16 15:08 12/24/16 15:08 - ADDITIONAL ORDERS Additional order review: Laboratory Results 12/24/16 12/24/16 15:30 15:08 Sodium 138 Potassium 3.2 L D Chloride 93 L Carbon Dioxide 39 H Anion Gap 6 L BUN 16 D Creatinine 0.6 D Creat Clearance w eGFR > 60 Random Glucose 90 Calcium 9.2 Phosphorus 3.0 Magnesium 2.0 Total Bilirubin 0.6 D AST 8 L D ALT 14 D Alkaline Phosphatase 99 Creatine Kinase 22 L Troponin I < 0.02 Total Protein 6.6 Albumin 4.0 D Urine Color Colorless Urine Appearance Clear Urine pH 8.0 D Ur Specific [place] 1.005 Urine Protein Negative Urine Glucose (UA) Negative Urine Ketones Negative Urine Blood Negative Urine Nitrite Negative Urine Bilirubin Negative Urine Urobilinogen Negative Ur Leukocyte Esterase Trace H 12/24/16 15:08 RBC 4.01 MCV 77.1 L MCHC 31.4 L RDW 19.9 H D MPV 7.3 L Neutrophils % 91.0 H Lymphocytes % 5.1 L D Monocytes % 3.0 L Eosinophils % 0.3 D Basophils % 0.6 D - Medications Given in the ED: ED Medications Discontinued Medications Generic Name Dose Route Start Last Admin Trade Name Freq PRN Reason Stop Dose Admin Sodium Chloride 500 mls @ 1,000 mls/hr 12/24/16 15:12 12/24/16 15:20 Normal Saline - IV 12/24/16 15:41 1,000 mls/hr ASDIR STA Administration <Bella Becerra - Last Filed: 12/24/16 16:31> - LABORATORY CBC & Chemistry Diagram: 12/24/16 15:08 12/24/16 15:08 - ADDITIONAL ORDERS Additional order review: Laboratory Results 12/24/16 12/24/16 15:30 15:08 Sodium 138 Potassium 3.2 L D Chloride 93 L Carbon Dioxide 39 H Anion Gap 6 L BUN 16 D Creatinine 0.6 D Creat Clearance w eGFR > 60 Random Glucose 90 Calcium 9.2 Phosphorus 3.0 Magnesium 2.0 Total Bilirubin 0.6 D AST 8 L D ALT 14 D Alkaline Phosphatase 99 Creatine Kinase 22 L Troponin I < 0.02 Total Protein 6.6 Albumin 4.0 D Urine Color Colorless Urine Appearance Clear Urine pH 8.0 D Ur Specific [place] 1.005 Urine Protein Negative Urine Glucose (UA) Negative Urine Ketones Negative Urine Blood Negative Urine Nitrite Negative Urine Bilirubin Negative Urine Urobilinogen Negative Ur Leukocyte Esterase Trace H 12/24/16 15:08 RBC 4.01 MCV 77.1 L MCHC 31.4 L RDW 19.9 H D MPV 7.3 L Neutrophils % 91.0 H Lymphocytes % 5.1 L D Monocytes % 3.0 L Eosinophils % 0.3 D Basophils % 0.6 D - RADIOLOGY Radiology Studies Ordered: Category Date Time Status HEAD CT WITHOUT CONTRAST [CT] Stat CT Scan 12/24/16 15:42 Completed CHEST X-RAY PORTABLE* [RAD] Stat Radiology 12/24/16 14:53 Completed - Medications Given in the ED: ED Medications Discontinued Medications Generic Name Dose Route Start Last Admin Trade Name Freq PRN Reason Stop Dose Admin Sodium Chloride 500 mls @ 1,000 mls/hr 12/24/16 15:12 12/24/16 15:20 Normal Saline - IV 12/24/16 15:41 1,000 mls/hr ASDIR STA Administration <Eli Rider - Last Filed: 12/24/16 16:46> Medical Decision Making - Medical Decision Making 12/24/16 16:11 Dr. Jameson paged via phone answering service at 4:11 PM. Awaiting call back. Second call placed o Dr Meyer covering for Dr Jameson at 4:[address] Meyer returned and call and the patient's case was discussed at 4:32 PM. <Bella Becerra - Last Filed: 12/24/16 16:31> - Medical Decision Making 12/24/16 16:06 76-year-old female with history of COPDoxygen dependent, CHF, atrial fibrillation, pulmonary hypertension, depression, bacteremia who presents the emergency department with her daughter who states that for the past week or so the patient has had deterioration in her mental status and has not been making sense at times. Differential diagnosis includes but is not limited to: Delirium , dehydration, electrolyte abnormality, infection, intracranial process, toxic/ metabolic derangement, ACS. Plan: 1. CT head 2. EKG 3. Labs 4. Urine 5. IV fluids for hydration 6. Observe and reevaluate 12/24/16 16:38 Addendum: EKG show atrial fib at 94 bpm and unchanged from prior EKG. All labs were reviewed and are noted in the EMR. CXR showed slightly increased markings at the right lung base. CT head shows no acute intracranial pathology. She has no elevated WBC. The urine has +LE. Will treat for presumptive UTI with levaquin. I have discussed the case with Dr. Meyer. The daughter is a little concerned because transportation cannot take her to doctors appointments because she does not have transportable oxygen. Will speak to keycase assembler. <Eli Rider - Last Filed: 12/24/16 16:46> *DC/Admit/Observation/Transfer - Attestations Scribe Attestion: 12/24/16 16:17 Documentation prepared by Bella Becerra, acting as medical delivery technician for Eli Rider MD. <Bella Becerra - Last Filed: 12/24/16 16:31> - Discharge Dispostion Admit: No - Attestations Physician Attestion: 12/24/16 16:07 I, Dr. Eli Rider, attest that the scribes documentation that appears above has been prepared under my direction and personally reviewed by me in its entirety. I confirmed that the note above accurately reflects all work, treatment, procedures, and medical decision-making performed by me. <Eli Rider - Last Filed: 12/24/16 16:46> Diagnosis at time of Disposition: Altered mental status, UTI (urinary tract infection) - Discharge Dispostion Disposition: HOME Condition at time of disposition: Stable - Prescriptions Prescriptions: Levofloxacin [Levaquin] 500 mg PO DAILY #7 tablet - Referrals Referrals: Mariano Jameson MD [Primary Care Provider] - - Patient Instructions Printed Discharge Instructions: DI for Urinary Tract Infection (UTI) Additional Instructions: You are being treated for a urinary tract infection with levaquin 500mg--take one tablet daily for the next 7 days. Please follow-up with your doctor on Monday. Return to the ED if your symptoms persist, worsen or new symptoms arise.
[2016-12-24] MEDS ORDERED: POTASSIUM CHLORIDE TABS 20 MEQ TABLET.ER (FP) PO ONE ×2 (16:26→16:29)
[2016-12-24] MEDS ORDERED: LEVOFLOXACIN 500 MG TABLET (FP) PO SCH (16:45)
[2016-12-24] MEDS ORDERED: LEVOFLOXACIN 500 MG TABLET (FP) ONE (17:03)
[2016-12-24 17:25] VITALS: BP 119/73; PULSE 85
--- NOTE | 2016-12-25 11:32 | EKG ---
Test Reason : Blood Pressure : / mmHG Vent. Rate : 094 BPM Atrial Rate : 125 BPM P-R Int : 000 ms QRS Dur : 086 ms QT Int : 344 ms P-R-T Axes : 000 -18 165 degrees QTc Int : 430 ms ATRIAL FIBRILLATION ABNORMAL ECG WHEN COMPARED WITH ECG OF 04-NOV-2016 10:56, ATRIAL FIBRILLATION HAS REPLACED PROBABLE MULTIFOCAL TACHYCARDIA Confirmed by JAYRO LAYTON MD ([id number]) on 12/25/2016 11:32:28 AM Referred By: Confirmed By:JAYRO LAYTON MD
== END 2016-12-24 17:15 | disposition home or self-care (01) ==
LOC: JER 14:30
DX: N39.0 Urinary tract infection, site not specified (principal); R41.82 Altered mental status, unspecified; I48.91 Unspecified atrial fibrillation; Z79.01 Long term (current) use of anticoagulants; I50.9 Heart failure, unspecified; I10 Essential (primary) hypertension; J44.9 Chronic obstructive pulmonary disease, unspecified; E87.6 Hypokalemia
CPT/HCPCS: 36415; 70450-TC; 71010-TC; 80053; 81003; 81015; 82550; 83735; 84100; 84484; 85025; 87086; 93005; 93010; 99284-25

== ENCOUNTER 2016-12-27 12:25 | Emergency (ER) | payer OTHER ==
[2016-12-27] MEDS ORDERED: LORazepam 1 MG TABLET PO ONE (12:35)
--- NOTE | 2016-12-27 12:47 | PDOC ---
History of Present Illness - General History Source: Patient, Old Records Exam Limitations: No Limitations - History of Present Illness Initial Comments: 12/27/16 13:08 The patient is a 76 year old female brought via EMS, with a significant past medical history of Atrial Fibrillation (on Eliquis), COPD (on home O2), CHF, HTN , bacteremia and anxiety, who presents to the emergency department with shortness of breath and anxious. She states that she has been having trouble sleeping due to the anxiety for the past 3 days. She reports that she has been drinking plenty of fluids but has been urinating constantly. The patient was recently in the ED on 12/24/2016 and was diagnosed with a UTI, she was prescribed antibiotics, which she has been compliant with. She was discharged same day. The patient denies chest pain, shortness of breath, headache and dizziness. Denies fever, chills, nausea, vomit, diarrhea and constipation. Denies dysuria, frequency, urgency and hematuria. Allergies: None Past surgical history: None reported Social history: No alcohol, tobacco or drug use reported <Delgado Fernandez - Last Filed: 12/27/16 13:26> <Jeb Bejarano - Last Filed: 12/27/16 15:56> - General Stated Complaint: POSS UTI Time Seen by Provider: 12/27/16 12:33 Past History <Delgado Fernandez - Last Filed: 12/27/16 13:26> - Past Medical History Cardiac Disorders: Yes (A-FIB-ON ELIQUIS) COPD: Yes CHF: Yes HTN: Yes Psychiatric Problems: Yes (DEPRESSION) - Immunization History Immunization Up to Date: Yes - Psycho/Social/Smoking Cessation Hx Anxiety: No Suicidal Ideation: No Smoking Status: Yes Smoking History: Former smoker Have you smoked in the past 12 months: Yes Number of Cigarettes Smoked Daily: 1 If you are a former smoker, when did you quit?: 08/09/2016 'Breaking Loose' booklet given: 09/10/16 Hx Alcohol Use: No Drug/Substance Use Hx: No Substance Use Type: None Hx Substance Use Treatment: No <Jeb Bejarano - Last Filed: 12/27/16 15:56> - Past Medical History Allergies/Adverse Reactions: Allergies Allergy/AdvReac Type Severity Reaction Status Date / Time No Known Allergies Allergy Verified 12/24/16 14:49 Home Medications: Ambulatory Orders Digoxin [Lanoxin -] 0.125 mg PO DAILY tablet 09/27/16 Furosemide [Lasix -] 40 mg PO DAILY tablet 10/06/16 Potassium Chloride [Klor-Con 10] 10 meq PO DAILY 11/01/16 Ranitidine [Zantac -] 150 mg PO BID 11/01/16 Albuterol 0.083% Nebulizer Robina [Ventolin 0.083% Nebulizer Soln -] 1 amp NEB Q4HPO amp 11/11/16 Apixaban [Eliquis -] 5 mg PO BID tablet 11/11/16 Diltiazem Cd [Cardizem Cd -] 240 mg PO DAILY cap.cd.24h 11/11/16 Alprazolam [Xanax] 0.25 mg PO BID PRN MDD 1mg 12/24/16 Levofloxacin [Levaquin] 500 mg PO DAILY #7 tablet 12/24/16 Prednisone [Deltasone -] 5 mg PO DAILY 12/24/16 Lorazepam [Ativan] 0.5 mg PO TID #40 tablet MDD 3 12/27/16 Review of Systems - Review of Systems Able to Perform ROS?: Yes Comments:: 12/27/16 13:08 GENERAL/CONSTITUTIONAL: No fever or chills. No weakness. HEAD, EYES, EARS, NOSE AND THROAT: No change in vision. No ear pain or discharge. No sore throat. CARDIOVASCULAR: +Shortness of breath. No chest pain RESPIRATORY: No cough, wheezing, or hemoptysis. GASTROINTESTINAL: No nausea, vomiting, diarrhea or constipation. GENITOURINARY: No dysuria, frequency, or change in urination. MUSCULOSKELETAL: No joint or muscle swelling or pain. No neck or back pain. SKIN: No rash NEUROLOGIC: No headache, vertigo, loss of consciousness, or change in strength/ sensation. ENDOCRINE: No increased thirst. No abnormal weight change HEMATOLOGIC/LYMPHATIC: No anemia, easy bleeding, or history of blood clots. ALLERGIC/IMMUNOLOGIC: No hives or skin allergy. <Delgado Fernandez - Last Filed: 12/27/16 13:26> *Physical Exam - Physical Exam Comments: 12/27/16 13:08 GENERAL: Awake, alert, and fully oriented, in no acute distress HEAD: No signs of trauma, normocephalic, atraumatic EYES: PERRLA, EOMI, sclera anicteric, conjunctiva clear ENT: Auricles normal inspection, hearing grossly normal, nares patent, oropharynx clear without exudates. Moist mucosa NECK: Normal ROM, supple, no lymphadenopathy, JVD, or masses LUNGS: No distress, speaks full sentences, clear to auscultation bilaterally HEART: Regular rate and rhythm, normal S1 and S2, no murmurs, rubs or gallops, peripheral pulses normal and equal bilaterally. ABDOMEN: Soft, nontender, normoactive bowel sounds. No guarding, no rebound. No masses EXTREMITIES: Normal inspection, Normal range of motion, no edema. No clubbing or cyanosis. NEUROLOGICAL: Cranial nerves II through XII grossly intact. Normal speech, no focal sensorimotor deficits SKIN: Warm, Dry, normal turgor, no rashes or lesions noted. <Delgado Fernandez - Last Filed: 12/27/16 13:26> ED Treatment Course - RADIOLOGY Radiograph Interpretation: 12/27/16 13:26 Chest X-Ray Reviewed by: Dr. Liang Belle Impression: No acute pathology. No significant change since 12/24/2016 <Delgado Fernandez - Last Filed: 12/27/16 13:26> - LABORATORY CBC & Chemistry Diagram: 12/27/16 13:27 12/27/16 13:27 - RADIOLOGY Radiology Studies Ordered: Category Date Time Status CHEST X-RAY PORTABLE* [RAD] Stat Radiology 12/27/16 12:35 Ordered <Jeb Bejarano - Last Filed: 12/27/16 15:56> *DC/Admit/Observation/Transfer - Attestations Scribe Attestion: 12/27/16 13:09 Documentation prepared by Delgado Fernandez, acting as medical manager for Jeb Bejarano MD <Delgado Fernandez - Last Filed: 12/27/16 13:26> - Discharge Dispostion Admit: Yes - Attestations Physician Attestion: 12/27/16 12:46 I, Dr. Jeb Bejarano, attest that this document has been prepared under my direction and personally reviewed by me in its entirety. I further attest, that it accurately reflects all work, treatment, procedures and medical decision -making performed by me. <Jeb Bejarano - Last Filed: 12/27/16 15:56> Diagnosis at time of Disposition: Anxiety attack UTI (urinary tract infection) Qualifiers: Urinary tract infection type: site unspecified Hematuria presence: without hematuria Qualified Code(s): N39.0 - Urinary tract infection, site not specified - Discharge Dispostion Disposition: HOME Condition at time of disposition: Good - Prescriptions Prescriptions: Lorazepam [Ativan] 0.5 mg PO TID #40 tablet MDD 3 - Referrals Referrals: Mariano Jameson MD [Primary Care Provider] - - Patient Instructions Printed Discharge Instructions: DI for Anxiety -- Adult Additional Instructions: Mrs Mo- Sorry that you are feeling this way. Your lab tests and x-ray are normal. I think this is all anxiety. I am discharging you with a prescription for a few pills to help with the anxiety (Ativan 0.5mg)/ You can take three in one day.... roughly 8 hours apart. Hope this helps. Keep taking all your other medicines. Best- Dr. Jeb Bejarano
[2016-12-27] MEDS ORDERED: LORazepam 0.5 MG TABLET ONE (12:58)
[2016-12-27 13:21] VITALS: BMI 17.3
[2016-12-27 14:08] LABS: BASOPHIL 0.3 % (0-2.0); EOSINOPHIL 0.1 % (0-4.5); MCHC 31.4 g/dl (32.0-36.0); MEAN CELL VOLUME 76.4 fl (80-96); MEAN PLT VOLUME 7.7 fl (7.5-11.1); PLATELET COUNT 343 K/MM3 (134-434); WHITE BLOOD COUNT 10.8 K/mm3 (4.0-10.0)
[2016-12-27 14:33] LABS: PROTHROMBIN TIME (PATIENT) 33.8 SEC (9.98-11.88)
[2016-12-27 15:12] LABS: ALBUMIN 3.9 g/dl (3.4-5.0); ALK PHOS 94 U/L (45-117); ANION GAP 13 (8-16); BILIRUBIN,TOTAL 0.5 mg/dL (0.2-1.0); CALCIUM 9.2 mg/dL (8.5-10.1); CO2 34 mmol/L (21-32); CREATININE 0.7 mg/dL (0.55-1.02); GLUCOSE,RANDOM 98 mg/dL (74-106); SGOT/AST 13 U/L (15-37); SGPT/ALT 13 U/L (12-78); TOT PROT 6.6 g/dl (6.4-8.2); TROPONIN I 0.03 ng/ml (0.00-0.05)
[2016-12-27 15:27] LABS: URINE APPEARANCE CLEAR; URINE BILIRUBIN NEGATIVE (NEGATIVE); URINE BLOOD NEGATIVE (NEGATIVE); URINE COLOR COLORLESS; URINE GLUCOSE (UA) NEGATIVE (NEGATIVE); URINE KETONE NEGATIVE (NEGATIVE); URINE NITRITE NEGATIVE (NEGATIVE); URINE PROTEIN NEGATIVE (NEGATIVE); URINE UROBILINOGEN NEGATIVE E.U./dl (0.2-1.0)
[2016-12-27 15:28] LABS: URINE LEUK ESTERASE TRACE (NEGATIVE)
[2016-12-27 15:40] LABS: URINE HYALINE CAST 3 /lpf; URINE RBC 2 /hpf (0-3); URINE WBC 1 /hpf (3-5)
[2016-12-27 15:58] VITALS: BP 108/67; PULSE 85; TEMP 98.8
--- NOTE | 2016-12-28 12:47 | EKG ---
Test Reason : Blood Pressure : / mmHG Vent. Rate : 088 BPM Atrial Rate : 088 BPM P-R Int : 380 ms QRS Dur : 086 ms QT Int : 358 ms P-R-T Axes : 005 019 234 degrees QTc Int : 433 ms POOR DATA QUALITY, INTERPRETATION MAY BE ADVERSELY AFFECTED SINUS RHYTHM WITH MARKED SINUS ARRHYTHMIA WITH 1ST DEGREE A-V BLOCK ABNORMAL ECG WHEN COMPARED WITH ECG OF 24-DEC-2016 14:59, SINUS RHYTHM HAS REPLACED ATRIAL FIBRILLATION Confirmed by SHIRLEY RODRÍGUEZ MD ([id number]) on 12/28/2016 12:47:17 PM Referred By: Confirmed By:SHIRLEY RODRÍGUEZ MD
== END 2016-12-27 16:10 | disposition home or self-care (01) ==
LOC: JER 12:25
DX: F41.0 Panic disorder [episodic paroxysmal anxiety] (principal); N39.0 Urinary tract infection, site not specified; I48.91 Unspecified atrial fibrillation; Z79.01 Long term (current) use of anticoagulants; Z87.891 Personal history of nicotine dependence; J44.9 Chronic obstructive pulmonary disease, unspecified; I50.9 Heart failure, unspecified; I10 Essential (primary) hypertension; F32.9 Major depressive disorder, single episode, unspecified
CPT/HCPCS: 36415; 71010-TC; 80053; 81003; 81015; 82550; 83605; 84484; 85025; 85610; 87040; 87086; 93005; 93010; 99283-25

== ENCOUNTER 2017-01-01 07:01 | Inpatient (IN) | payer OTHER ==
--- NOTE | 2017-01-01 07:31 | PDOC ---
History of Present Illness - General History Source: Patient, Family - History of Present Illness Timing/Duration: other Associated Symptoms: reports: weakness. denies: chest pain, cough, fever/chills , headaches, nausea/vomiting, shortness of breath <FrenchDavid - Last Filed: 01/01/17 11:09> <Taz Kirkland - Last Filed: 01/03/17 19:57> - General Chief Complaint: Pain Stated Complaint: PAIN Time Seen by Provider: 01/01/17 07:15 Past History - Past Medical History Cardiac Disorders: Yes (A-FIB-ON ELIQUIS) COPD: Yes CHF: Yes HTN: Yes Psychiatric Problems: Yes (DEPRESSION) - Immunization History Immunization Up to Date: Yes - Psycho/Social/Smoking Cessation Hx Anxiety: No Suicidal Ideation: No Smoking Status: Yes Smoking History: Former smoker Have you smoked in the past 12 months: Yes Number of Cigarettes Smoked Daily: 1 If you are a former smoker, when did you quit?: 6 mo ago Information on smoking cessation initiated: No 'Breaking Loose' booklet given: 09/10/16 Hx Alcohol Use: No Drug/Substance Use Hx: No Substance Use Type: None Hx Substance Use Treatment: No <David Tiwari - Last Filed: 01/01/17 11:09> <Taz Kirkland - Last Filed: 01/03/17 19:57> - Past Medical History Allergies/Adverse Reactions: Allergies Allergy/AdvReac Type Severity Reaction Status Date / Time No Known Allergies Allergy Verified 01/01/17 07:11 Home Medications: Ambulatory Orders Digoxin [Lanoxin -] 0.125 mg PO DAILY tablet 09/27/16 Furosemide [Lasix -] 40 mg PO DAILY tablet 10/06/16 Potassium Chloride [Klor-Con 10] 10 meq PO DAILY 11/01/16 Ranitidine [Zantac -] 150 mg PO BID 11/01/16 Albuterol 0.083% Nebulizer Robina [Ventolin 0.083% Nebulizer Soln -] 1 amp NEB Q4HPO amp 11/11/16 Apixaban [Eliquis -] 5 mg PO BID tablet 11/11/16 Diltiazem Cd [Cardizem Cd -] 240 mg PO DAILY cap.cd.24h 11/11/16 Prednisone [Deltasone -] 5 mg PO DAILY 12/24/16 Lorazepam [Ativan] 0.5 mg PO TID #40 tablet MDD 3 12/27/16 Warfarin Sodium [Coumadin] 4 mg PO HS 01/01/17 Review of Systems - Review of Systems Constitutional: Yes: Malaise, Weakness. No: Chills, Fever HEENTM: Yes: Difficulty Swallowing Respiratory: No: Cough Cardiac (ROS): No: Chest Pain ABD/GI: No: Constipated, Diarrhea, Nausea, Vomiting Neurological: No: Headache, Dizziness <David Tiwari - Last Filed: 01/01/17 11:09> *Physical Exam - Vital Signs Last Vital Signs Temp Pulse Resp BP Pulse Ox 98.2 F 93 H 20 97/66 93 L 01/01/17 07:05 01/01/17 07:05 01/01/17 07:05 01/01/17 07:05 01/01/17 07:05 - Physical Exam General Appearance: Yes: Appropriately Dressed. No: Apparent Distress HEENT: positive: Normal Voice. negative: Muffled/Hoarse voice Neck: positive: Supple Respiratory/Chest: positive: Lungs Clear, Normal Breath Sounds. negative: Respiratory Distress Cardiovascular: positive: Regular Rate, S1, S2 Gastrointestinal/Abdominal: positive: Soft. negative: Tender Integumentary: positive: Dry, Warm Neurologic: positive: Fully Oriented, Alert, Normal Mood/Affect <David Tiwari - Last Filed: 01/01/17 11:09> - Vital Signs Last Vital Signs Temp Pulse Resp BP Pulse Ox 99.1 F 86 18 95/51 99 01/03/17 18:37 01/03/17 18:37 01/03/17 18:37 01/03/17 18:37 01/03/17 10:00 <Taz Kirkland - Last Filed: 01/03/17 19:57> ED Treatment Course - LABORATORY CBC & Chemistry Diagram: 01/01/17 07:58 01/01/17 07:58 <David Tiwari - Last Filed: 01/01/17 11:09> - LABORATORY CBC & Chemistry Diagram: 01/03/17 06:45 01/03/17 06:45 - ADDITIONAL ORDERS Additional order review: 01/01/17 07:58 RBC 3.99 MCV 74.2 L MCHC 32.0 RDW 20.2 H MPV 7.6 Neutrophils % 83.8 H Lymphocytes % 6.8 L D Monocytes % 8.6 D Eosinophils % 0.5 D Basophils % 0.3 - Medications Given in the ED: ED Medications Discontinued Medications Generic Name Dose Route Start Last Admin Trade Name Freq PRN Reason Stop Dose Admin Sodium Chloride 500 mls @ 1,000 mls/hr 01/01/17 07:38 01/01/17 07:45 Normal Saline - IV 01/01/17 08:07 1,000 mls/hr ASDIR STA Administration Ampicillin Sodium/Sulbactam 100 mls @ 200 mls/hr 01/02/17 14:00 01/03/17 11:47 Sodium 3 gm/ Sodium Chloride IVPB 200 mls/hr Q8H-IV HERMINIO Administration Fluconazole 100 mls @ 100 mls/hr 01/02/17 18:14 01/02/17 19:59 Diflucan 200 Mg/D5w Premixed Ivpb - IVPB 01/02/17 19:13 100 mls/hr ONCE ONE Administration Pantoprazole Sodium 40 mg 01/02/17 10:00 01/02/17 11:16 Protonix - PO 40 mg DAILY HERMINIO Administration Pneumococcal 13-Valent Conj Vacc 0.5 ml 01/02/17 18:00 01/02/17 17:09 Prevnar 13 Syringe - IM 01/02/17 18:01 0.5 ml .ONCE ONE Administration Potassium Chloride 20 meq 01/02/17 14:01 01/02/17 14:58 K-Dur - PO 01/02/17 14:02 20 meq ONCE ONE Administration Prednisone 5 mg 01/02/17 10:00 01/02/17 11:16 Deltasone - PO 5 mg DAILY HERMINIO Administration <Marita,Taz - Last Filed: 01/03/17 19:57> Medical Decision Making - Medical Decision Making 01/01/17 07:28 76-year-old female history of COPD-oxygen dependent, afib on blood thinner ( currently on eliquis and coumadin for 4 days then will continue on coumadin only per daughter), anxiety, bacteremia, recently completed antibiotics for UTI (of note, ucx neg), brought in by daughter for decreased po intake secondary to dysphagia 2 weeks. Patient reports "pain in my throat" when she swallows but states pain is mild. Able to take her medication, but one at a time as per daughter and sometimes gags on pills. Pt reports that she does have an appetite to eat but only "sometimes". C/o weakness and as per daughter sleeps approximately 20 hours per day. Patient denies any abdominal pain, nausea, vomiting, change in bowel movements, f/c. States dysuria has since resolved. No chest pain or worsening in her baseline shortness of breath. Of note, pt was seen for similar complaints > 1 week ago and was discharged from ED. Daughter states sxs have worsened since then See exam Dysphagia w/ decreased po intake and weakness Hypotensive in ED, rest of exam unremarkable -IVF -labs -?scope given +tob hx -discuss dispo w/ Dr Jameson 01/01/17 07:37 01/01/17 08:02 01/01/17 09:24 Labs only remarkable for wbc of 14. On chart review, wbc usually elevated despite no infection. Ua and cxr neg for infxn today. Pt able to lizbet water in ED. Case d/w Dr Jameson, wants pt admitted to Dr Patrick. Dr Jameson to order inpt labs 01/01/17 09:26 01/01/17 09:26 01/01/17 11:00 01/01/17 11:10 <David Tiwari - Last Filed: 01/01/17 11:09> - Medical Decision Making 01/03/17 19:57 The patient was seen and evaluated in conjunction with NALINI Tiwari under my direct supervision, ancillary studies were reviewed. I agree with the plan as outlined by NALINI Tiwari . <Taz Kirkland - Last Filed: 01/03/17 19:57> *DC/Admit/Observation/Transfer - Discharge Dispostion Admit: Yes <David Tiwari - Last Filed: 01/01/17 11:09> <Taz Kirkland - Last Filed: 01/03/17 19:57> Diagnosis at time of Disposition: Weakness Dysphagia Qualifiers: Dysphagia type: unspecified Qualified Code(s): R13.10 - Dysphagia, unspecified - Discharge Dispostion Condition at time of disposition: Fair - Referrals
[2017-01-01] MEDS ORDERED: SODIUM CHLORIDE 500 ML IV STA (07:38)
[2017-01-01 08:11] LABS: BASOPHIL 0.3 % (0-2.0); EOSINOPHIL 0.5 % (0-4.5); MCH 23.7 pg (25.7-33.7); MEAN CELL VOLUME 74.2 fl (80-96); MEAN PLT VOLUME 7.6 fl (7.5-11.1); NEUTROPHILS 83.8 % (42.8-82.8); PLATELET COUNT 318 K/MM3 (134-434); RDW 20.2 % (11.6-15.6); WHITE BLOOD COUNT 14.5 K/mm3 (4.0-10.0)
[2017-01-01 08:25] LABS: INR 3.07 (0.82-1.09); PROTHROMBIN TIME (PATIENT) 34.5 SEC (9.98-11.88)
[2017-01-01 08:39] LABS: URINE APPEARANCE CLEAR; URINE BILIRUBIN NEGATIVE (NEGATIVE); URINE BLOOD NEGATIVE (NEGATIVE); URINE COLOR YELLOW; URINE GLUCOSE (UA) NEGATIVE (NEGATIVE); URINE KETONE NEGATIVE (NEGATIVE); URINE LEUK ESTERASE NEGATIVE (NEGATIVE); URINE NITRITE NEGATIVE (NEGATIVE); URINE PROTEIN NEGATIVE (NEGATIVE); URINE UROBILINOGEN NEGATIVE E.U./dl (0.2-1.0)
[2017-01-01 08:40] LABS: ALBUMIN 3.6 g/dl (3.4-5.0); ANION GAP 13 (8-16); CALCIUM 9.3 mg/dL (8.5-10.1); CO2 34 mmol/L (21-32); CREATININE 0.7 mg/dL (0.55-1.02); GLUCOSE,RANDOM 89 mg/dL (74-106); SGPT/ALT 16 U/L (12-78)
[2017-01-01 08:44] LABS: ALK PHOS 84 U/L (45-117); BILIRUBIN,TOTAL 0.4 mg/dL (0.2-1.0); TOT PROT 6.4 g/dl (6.4-8.2); TROPONIN I 0.02 ng/ml (0.00-0.05)
[2017-01-01 08:45] LABS: SGOT/AST 20 U/L (15-37)
[2017-01-01 12:37] VITALS: BMI 18.9
--- NOTE | 2017-01-01 14:22 | HP ---
Admitting History and Physical - Primary Care Physician PCP: Mariano Jameson - Admission Chief Complaint: Dysphagia, generalized weakness. History of Present Illness: 76-year-old female history with significant past medical history of COPD-oxygen dependent, afib on blood thinner ?? (currently on eliquis and coumadin for 4 days then will continue on coumadin only per daughter), anxiety, bacteremia, recently completed antibiotics for UTI (of note, ucx neg), brought in by daughter for decreased po intake secondary to dysphagia 2 weeks. Patient reports "pain in my throat" when she swallows but states pain is mild. Able to take her medication, but one at a time as per daughter and sometimes gags on pills. Pt reports that she does have an appetite to eat but only "sometimes". C /o weakness and as per daughter sleeps approximately 20 hours per day. Patient seen in the ER twice in last one week for the same but discharged. Since then daughter reports worsening of her condition. Denies nausea, vomiting, abdominal pain. Afebrile. Deneis dysuria or hematuria. Denies chest pain, palpitation or dizziness. History Source: Patient, Family Member (daughter) Limitations to Obtaining History: No Limitations - Past Medical History Cardiovascular: Yes: AFIB, HTN, Pulmonary Hypertension Pulmonary: Yes: COPD, O2 Dependent ...: No Psych: Yes: Anxiety - Past Surgical History Past Surgical History: Yes: None - Advance Directives Advance Directives: Yes: Living Will - Smoking History Smoking history: Former smoker Have you smoked in the past 12 months: Yes Aproximately how many cigarettes per day: 1 If you are a former smoker, when did you quit?: 5 mo ago - Alcohol/Substance Use Hx Alcohol Use: Yes (rarely, last drink 2 weeks ago) History of Substance Use: reports: None - Social History ADL: Support Services History of Recent Travel: No Home Medications - Allergies Allergies/Adverse Reactions: Allergies Allergy/AdvReac Type Severity Reaction Status Date / Time No Known Allergies Allergy Verified 01/01/17 07:11 - Home Medications Home Medications: Ambulatory Orders Digoxin [Lanoxin -] 0.125 mg PO DAILY tablet 09/27/16 Furosemide [Lasix -] 40 mg PO DAILY tablet 10/06/16 Potassium Chloride [Klor-Con 10] 10 meq PO DAILY 11/01/16 Ranitidine [Zantac -] 150 mg PO BID 11/01/16 Albuterol 0.083% Nebulizer Robina [Ventolin 0.083% Nebulizer Soln -] 1 amp NEB Q4HPO amp 11/11/16 Apixaban [Eliquis -] 5 mg PO BID tablet 11/11/16 Diltiazem Cd [Cardizem Cd -] 240 mg PO DAILY cap.cd.24h 11/11/16 Prednisone [Deltasone -] 5 mg PO DAILY 12/24/16 Lorazepam [Ativan] 0.5 mg PO TID #40 tablet MDD 3 12/27/16 Warfarin Sodium [Coumadin] 4 mg PO HS 01/01/17 Review of Systems - Review of Systems Constitutional: reports: Loss of Appetite, Weakness Eyes: reports: No Symptoms HENT: reports: Throat Pain Neck: reports: No Symptoms Respiratory: reports: SOB, SOB on Exertion Gastrointestinal: reports: Dysphagia Genitourinary: reports: No Symptoms Musculoskeletal: reports: No Symptoms Neurological: reports: No Symptoms Endocrine: reports: No Symptoms Psychiatric: reports: Anxiety Physical Examination Vital Signs: Vital Signs Temperature 98.7 F 01/01/17 12:30 Pulse Rate 88 01/01/17 12:30 Respiratory Rate 22 01/01/17 12:30 Blood Pressure 104/56 01/01/17 12:30 O2 Sat by Pulse Oximetry (%) 94 L 01/01/17 12:30 Constitutional: Yes: Anxious, Cachectic, Mild Distress Eyes: Yes: WNL HENT: Yes: WNL Neck: Yes: WNL Cardiovascular: Yes: WNL Respiratory: Yes: Diminished Gastrointestinal: Yes: Normal Bowel Sounds, Soft Edema: No Peripheral Pulses WNL: Yes Neurological: Yes: Alert, Weakness ...Motor Strength: WNL Imaging - Results Chest X-ray: Report Reviewed Problem List - Problems (1) Dysphagia Assessment/Plan: For last 2 weeks. GI consulted for the same. ?? edilberto esophagitis Code(s): R13.10 - DYSPHAGIA, UNSPECIFIED Qualifiers: Dysphagia type: unspecified (2) Weakness Assessment/Plan: Most likely combination of poor PO intake due to dysphagia and severe COPD. W/U in progress. Code(s): R53.1 - WEAKNESS (3) Leukocytosis Assessment/Plan: Wbc elevated but stable. H/O Bacteremia in recent past. Blood cultures prelim till now - negative. Chest x ray: No acute pathology. Urine - clean Patient is afebrile. Most likely due to steroids. She is on prednisone 5 mg daily. Will continue to monitor. Code(s): D72.829 - ELEVATED WHITE BLOOD CELL COUNT, UNSPECIFIED (4) Hyponatremia Assessment/Plan: Most likely in the setting of poor PO intake. Received IV fluid in the ER Check sodium in the morning. Code(s): E87.1 - HYPO-OSMOLALITY AND HYPONATREMIA (5) COPD (chronic obstructive pulmonary disease) Assessment/Plan: Stable Continue Inhaled bronchodilators Continue prednisone 5 mg daily. Continue Oxygen NC. Code(s): J44.9 - CHRONIC OBSTRUCTIVE PULMONARY DISEASE, UNSPECIFIED Qualifiers : COPD type: COPD with acute exacerbation Qualified Code(s): J44.1 - Chronic obstructive pulmonary disease with (acute) exacerbation (6) Atrial fibrillation with RVR Assessment/Plan: Rate controlled for time being. Was on Eliquis and warfarin. ?? most likely switching from Eliquis to warfarin due to cost factor. INR 3.07. Slightly above normal. Will hold warfarin and Eliquis for today. Cardiology consult for clarification. Code(s): I48.91 - UNSPECIFIED ATRIAL FIBRILLATION (7) Generalized anxiety disorder Assessment/Plan: Stable for time being. Continue Lorazepam TID. Code(s): F41.1 - GENERALIZED ANXIETY DISORDER
--- NOTE | 2017-01-01 15:20 | PN ---
Progress Note (short form) - Note Progress Note: pt not seen today, will be seen tomorrow. clarification of current AC regimen: was on eliquis since last hosp stay. too expensive for her as are all other NOACs. she prefers warfarin--started on 4mg qd few days ago with plan to check inr after 4-5 days and stop eliquis once INR approaching 2.0 INR here 3.0, with decr po intake due to dysphagia. stop eliquis. cont low dose warfarin--decr to 3mg qd, dose per INR (target 2-3)
[2017-01-01 16:06] LABS: MAGNESIUM 2.4 mg/dL (1.8-2.4)
[2017-01-01] MEDS: WARFARIN NA 3 MG TABLET PO SCH ×2 (17:17→17:45)
[2017-01-01] MEDS: NYSTATIN 500,000 UNITS/5 ML SUSPENSION PO SCH ×2 (17:17→23:00)
[2017-01-01] MEDS: ALBUTEROL SO4 0.083% IH SOL 2.5 MG/3 ML VIAL.NEB. NEB SCH ×2 (18:07→22:35)
[2017-01-01] MEDS: LORazepam 0.5 MG TABLET PO SCH (21:04)
[2017-01-01] MEDS ORDERED: RANITIDINE HCL 150 MG TABLET (FP) PO SCH (22:00)
[2017-01-01] MEDS ORDERED: PATIENT'S OWN MEDICATION (NON-FORMULARY) (Warfarin Sodium [Coumadin] 4 MG) PO SCH (22:00)
[2017-01-01] MEDS ORDERED: APIXABAN 5 MG TABLET PO SCH (22:00)
--- NOTE | 2017-01-01 22:28 | EKG ---
Test Reason : Blood Pressure : / mmHG Vent. Rate : 088 BPM Atrial Rate : 087 BPM P-R Int : 000 ms QRS Dur : 100 ms QT Int : 358 ms P-R-T Axes : 000 002 -81 degrees QTc Int : 433 ms POOR DATA QUALITY, INTERPRETATION MAY BE ADVERSELY AFFECTED ATRIAL FIBRILLATION LOW VOLTAGE QRS INFERIOR INFARCT , AGE UNDETERMINED ABNORMAL ECG WHEN COMPARED WITH ECG OF 27-DEC-2016 14:16, ATRIAL FIBRILLATION HAS REPLACED SINUS RHYTHM Confirmed by ROB PORRAS MD ([id number]) on 01/01/2017 10:28:16 PM Referred By: Confirmed By:ROB PORRAS MD
[2017-01-02] MEDS: ALBUTEROL SO4 0.083% IH SOL 2.5 MG/3 ML VIAL.NEB. NEB SCH ×6 (02:39→21:45)
[2017-01-02] MEDS: LORazepam 0.5 MG TABLET PO SCH ×3 (06:53→21:32)
[2017-01-02] MEDS: NYSTATIN 500,000 UNITS/5 ML SUSPENSION PO SCH ×4 (06:54→23:19)
[2017-01-02 07:50] LABS: BASOPHIL 0.3 % (0-2.0); EOSINOPHIL 0.6 % (0-4.5); MCH 23.7 pg (25.7-33.7); MCHC 31.9 g/dl (32.0-36.0); MEAN CELL VOLUME 74.2 fl (80-96); MEAN PLT VOLUME 7.4 fl (7.5-11.1); NEUTROPHILS 80.1 % (42.8-82.8); PLATELET COUNT 279 K/MM3 (134-434); RDW 20.2 % (11.6-15.6); WHITE BLOOD COUNT 9.7 K/mm3 (4.0-10.0)
[2017-01-02 08:15] LABS: INR 2.39 (0.82-1.09); PROTHROMBIN TIME (PATIENT) 26.8 SEC (9.98-11.88)
[2017-01-02 08:16] LABS: ALBUMIN 3.1 g/dl (3.4-5.0); ALK PHOS 74 U/L (45-117); ANION GAP 11 (8-16); BILIRUBIN,TOTAL 0.3 mg/dL (0.2-1.0); CALCIUM 8.9 mg/dL (8.5-10.1); CO2 36 mmol/L (21-32); CREATININE 0.4 mg/dL (0.55-1.02); DIGOXIN LEVEL 1.6199 ng/ml (0.8-2.0); GLUCOSE,RANDOM 81 mg/dL (74-106); SGOT/AST 10 U/L (15-37); SGPT/ALT 13 U/L (12-78); THYROID STIMULATING HORMONE 0.82 uIU/ml (0.358-3.74); TOT PROT 5.5 g/dl (6.4-8.2)
--- NOTE | 2017-01-02 09:13 | CON.CARD ---
Consult Consult Specialty:: cardio Referred by:: jw Reason for Consultation:: afib - History of Present Illness Chief Complaint: difficulty swallowing History of Present Illness: 76 yo female here with dysphagia 2 weeks. Patient reports "pain in my throat" when she swallows. ? tongue burning as well. gags on pills, so has to take meds one at a time decr'd po intake as a result. + weakness. as per daughter sleeps approximately 20 hours per day had not been sob at home since using O2 (confirmed by dtr). this am feels sob since soon after woke up; no wheezing, no cough/phlegm, no sore throat; no cp, palpitations PMH: copd diast chf afib copd anxiety - Past Medical History Cardio/Vascular: Yes: AFIB, HTN, Pulmonary Hypertension Pulmonary: Yes: COPD, O2 Dependent ...: No Psych: Yes: Anxiety - Past Surgical History Past Surgical History: Yes: None - Alcohol/Substance Use Hx Alcohol Use: Yes (rarely, last drink 2 weeks ago) History of Substance Use: reports: None - Smoking History Smoking history: Former smoker Have you smoked in the past 12 months: Yes Aproximately how many cigarettes per day: 1 If you are a former smoker, when did you quit?: 5 mo ago - Social History ADL: Support Services History of Recent Travel: No Home Medications - Allergies Allergies/Adverse Reactions: Allergies Allergy/AdvReac Type Severity Reaction Status Date / Time No Known Allergies Allergy Verified 01/01/17 07:11 - Home Medications Home Medications: Ambulatory Orders Digoxin [Lanoxin -] 0.125 mg PO DAILY tablet 09/27/16 Furosemide [Lasix -] 40 mg PO DAILY tablet 10/06/16 Potassium Chloride [Klor-Con 10] 10 meq PO DAILY 11/01/16 Ranitidine [Zantac -] 150 mg PO BID 11/01/16 Albuterol 0.083% Nebulizer Robina [Ventolin 0.083% Nebulizer Soln -] 1 amp NEB Q4HPO amp 11/11/16 Apixaban [Eliquis -] 5 mg PO BID tablet 11/11/16 Diltiazem Cd [Cardizem Cd -] 240 mg PO DAILY cap.cd.24h 11/11/16 Prednisone [Deltasone -] 5 mg PO DAILY 12/24/16 Lorazepam [Ativan] 0.5 mg PO TID #40 tablet MDD 3 12/27/16 Warfarin Sodium [Coumadin] 4 mg PO HS 01/01/17 Family Disease History - Family Disease History Family History: Denies (no cmp) Review of Systems - Review of Systems Constitutional: denies: Chills, Fever Eyes: denies: Eye Pain HENT: denies: Nasal Congestion Neck: denies: Stiffness Cardiovascular: denies: Palpitations Respiratory: denies: Orthopnea, PND Gastrointestinal: denies: Diarrhea, Rectal Bleeding Genitourinary: denies: Burning, Hematuria Musculoskeletal: denies: Muscle Pain Integumentary: denies: Rash Neurological: denies: Numbness, Seizure, Syncope Endocrine: denies: Excessive Sweating Hematology/Lymphatic: denies: Excessive Bleeding Vital Signs: Vital Signs Temperature 98.1 F 01/02/17 06:00 Pulse Rate 96 H 01/02/17 06:00 Respiratory Rate 18 01/02/17 06:00 Blood Pressure 106/72 01/02/17 06:00 O2 Sat by Pulse Oximetry (%) 97 01/01/17 21:00 Constitutional: Yes: Well Nourished, No Distress Eyes: No: Sclera Icterus HENT: No: Nasal Congestion Neck: No: Decreased ROM Respiratory: Yes: CTA Bilaterally. No: Accessory Muscle Use, Rales, Wheezes Gastrointestinal: Yes: Normal Bowel Sounds. No: Distention, Hepatomegaly, Palpable Mass, Tenderness Cardiovascular: Yes: Pulse Irregular JVD: No Carotid Bruit: No PMI: Non-Displaced Heart Sounds: Yes: S1, S2. No: Gallop Murmur: No: Systolic Murmur, Diastolic Murmur Musculoskeletal: Yes: Other (No kyphosis) Extremities: No: Cool, Cyanosis Edema: No Peripheral Pulses: 2+ Left Carotid, 2+ Right Carotid, 2+ Left Doralis Pedis, 2+ Right Dorsalis Pedis Integumentary: No: Jaundice Neurological: Yes: Alert, Oriented (x3) Psychiatric: No: Agitated - Other Data Labs, Other Data: CBC, BMP 01/02/17 06:30 01/02/17 06:30 INR, PTT INR 2.39 (0.82-1.09) H 01/02/17 06:30 Troponin, BNP 01/02/17 06:30 B-Natriuretic Peptide 1472.73 H Troponin, BNP 01/02/17 06:30 B-Natriuretic Peptide 1472.73 H Laboratory Tests 10/02/16 11/01/16 01/01/17 06:30 20:20 07:58 WBC Hgb Plt Count INR Sodium Potassium Carbon Dioxide BUN Creatinine AST ALT Creatine Kinase 40 Troponin I 0.02 B-Natriuretic Peptide 572.18 H 2532.46 H TSH 01/02/17 01/02/17 01/02/17 06:30 06:30 06:30 WBC 9.7 D Hgb 8.8 L Plt Count 279 INR Sodium 135 L Potassium 3.4 L Carbon Dioxide 36 H BUN 18 D Creatinine 0.4 L D AST 10 L D ALT 13 Creatine Kinase Troponin I B-Natriuretic Peptide 1472.73 H TSH 0.82 D 01/02/17 06:30 WBC Hgb Plt Count INR 2.39 H Sodium Potassium Carbon Dioxide BUN Creatinine AST ALT Creatine Kinase Troponin I B-Natriuretic Peptide TSH ekg: afib; normal axis; no path q's; diffuse ST-Ts not changed vs 10/25 Imaging - Results Chest X-ray: Report Reviewed (clear lungs/pleura) Assessment/Plan MANUEL 10/2016: nl lv/rv. 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 No TR. 1+ AR. No veg/abscess. Mild-mod mural aortic atheroma. Echo 10/2016: nl lv/rv, sixto, mild mr, mild-mod tr, nl rvsp, nl rvsp, mild ar Echo 09/2016: Nl lv/rv. Mod MAC. 1+ AR/TR. Mod WA. 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); mild-mod MR with no systolic blunting or reversal of flow in pulm vein; peak E velocity (59 cm/sec) ; myxomatous TV with prob mild-mod TR; at least moderate pulm HTN; no change vs 2013 echo a/p: chronic diast chf: -episodes of acute chf on prior admits, required lasix 40 iv qd treatment -sent home on lasix 40 po daily last time--saw me in office few weeks ago and appeared euvolemic with new dry wt (likely lost muscle mass in hospital) -bnp 1400, down from 2500 during 10/25 admit -cxr clear, no JVD, no audible MR murmur -do not see any eivdence of acute chf here, to explains her sob today -cont po lasix 40 qd -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 copd: -advanced, dependent on home O2 -per pulm recurrent staph bacteremia/MANUEL negative for endocarditis: -+MSSA on repeat BCXs 2d apart in early 09/23 (treated with 14d of abx then) -back 10/25 with spontaneous MSSA as outpatient; -MANUEL then with no evidence of endocarditis paroxysmal Afib/supraventricular tachycardia/MAT: -has hx mat worsened by acute resp illnesses in past -new AFib on tele 10/25, HR mostly controlled, has occasional rvr when anxious -started on dig, diltiazem 240 qd -sbp 90s-100s here, currently HRs well controlled -cont dig (repeat level here is WNL) -change diltiazem to 120mg qd, observe HR trend -CHADS VASC 4--NOACs prohibitive cost so recently changed over to warfarin as outpt -dose warfarin per INR (goal 2-3) 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
[2017-01-02] MEDS ORDERED: predniSONE 5 MG TABLET (UD) PO SCH (10:00)
[2017-01-02] MEDS ORDERED: PANTOPRAZOLE 40 MG TABLET (FP) PO SCH (10:00)
[2017-01-02] MEDS: FUROSEMIDE 40 MG TABLET (FP) PO SCH (11:15)
[2017-01-02] MEDS: DIGOXIN 0.125 MG TABLET (FP) PO SCH (11:16)
[2017-01-02] MEDS: POTASSIUM CHLORIDE TABS 10 MEQ TABLET.ER (FP) PO SCH (11:17)
--- NOTE | 2017-01-02 13:32 | CONSULT ---
Consult Consult Specialty:: infectious diseases Referred by:: Reason for Consultation:: copd,sorethroat,thrush - History of Present Illness Chief Complaint: dysphagia,generalized weakness History of Present Illness: 76-year-old female history with significant past medical history of COPD-oxygen dependent, afib o anxiety, bacteremia, UTI , brought in by daughter for decreased po intake secondary to dysphagia 2 weeks. Patient reports "pain in my throat" when she swallows but states pain is mild. patient is having pain since last 2 weeks According to the history patient is fatigued a lot and seems tired most of the day denies fever or chills patient has been known to me and has been treated for bacteremia twice before patient has also been intubated in the past and was in icu currently patient looks very weak denies any fever or chills,but c/o f pain in the throat - History Source History Provided By: Patient, Medical Record Limitations to Obtaining History: Clinical Condition - Past Medical History Cardio/Vascular: Yes: AFIB, HTN, Pulmonary Hypertension Pulmonary: Yes: COPD, O2 Dependent ...: No Psych: Yes: Anxiety - Past Surgical History Past Surgical History: Yes: None - Alcohol/Substance Use Hx Alcohol Use: Yes (rarely, last drink 2 weeks ago) History of Substance Use: reports: None - Smoking History Smoking history: Former smoker Have you smoked in the past 12 months: Yes Aproximately how many cigarettes per day: 1 If you are a former smoker, when did you quit?: 5 mo ago - Social History ADL: Support Services History of Recent Travel: No Home Medications - Allergies Allergies/Adverse Reactions: Allergies Allergy/AdvReac Type Severity Reaction Status Date / Time No Known Allergies Allergy Verified 01/01/17 07:11 - Home Medications Home Medications: Ambulatory Orders Digoxin [Lanoxin -] 0.125 mg PO DAILY tablet 09/27/16 Furosemide [Lasix -] 40 mg PO DAILY tablet 10/06/16 Potassium Chloride [Klor-Con 10] 10 meq PO DAILY 11/01/16 Ranitidine [Zantac -] 150 mg PO BID 11/01/16 Albuterol 0.083% Nebulizer Robina [Ventolin 0.083% Nebulizer Soln -] 1 amp NEB Q4HPO amp 11/11/16 Apixaban [Eliquis -] 5 mg PO BID tablet 11/11/16 Diltiazem Cd [Cardizem Cd -] 240 mg PO DAILY cap.cd.24h 11/11/16 Prednisone [Deltasone -] 5 mg PO DAILY 12/24/16 Lorazepam [Ativan] 0.5 mg PO TID #40 tablet MDD 3 12/27/16 Warfarin Sodium [Coumadin] 4 mg PO HS 01/01/17 Review of Systems - Review of Systems Constitutional: reports: Lethargy, Loss of Appetite, Weakness Eyes: reports: No Symptoms HENT: reports: No Symptoms Neck: reports: Tenderness Respiratory: reports: SOB, SOB on Exertion, Other Gastrointestinal: reports: No Symptoms Genitourinary: reports: No Symptoms Musculoskeletal: reports: No Symptoms Integumentary: reports: No Symptoms Neurological: reports: No Symptoms Endocrine: reports: No Symptoms Hematology/Lymphatic: reports: No Symptoms Psychiatric: reports: No Symptoms Physical Exam Vital Signs: Vital Signs Temperature 97.6 F 01/02/17 10:45 Pulse Rate 100 H 01/02/17 11:16 Respiratory Rate 18 01/02/17 10:45 Blood Pressure 111/68 01/02/17 10:45 O2 Sat by Pulse Oximetry (%) 99 01/02/17 10:17 Constitutional: Yes: Cachectic, Mild Distress, Thin, Other Eyes: Yes: Conjunctiva Clear HENT: Yes: Atraumatic, Other (thrush) Neck: Yes: Supple, Tenderness (on palpation of the neck) Cardiovascular: Yes: Pulse Irregular, Other Respiratory: Yes: Regular, Poor Air Entry, Rhonchi Gastrointestinal: Yes: Normal Bowel Sounds, Soft Musculoskeletal: Yes: Other Extremities: Yes: Other Neurological: Yes: Alert, Oriented Psychiatric: Yes: Alert Labs: CBC, BMP 01/02/17 06:30 01/02/17 06:30 Imaging - Results Chest X-ray: Report Reviewed, Image Reviewed Assessment/Plan Problem List - Problems (1) Dysphagia Code(s): R13.10 - DYSPHAGIA, UNSPECIFIED Qualifiers: Dysphagia type: unspecified (2) Weakness. Code(s): R53.1 - WEAKNESS (3) Leukocytosis Code(s): D72.829 - ELEVATED WHITE BLOOD CELL COUNT, UNSPECIFIED (4) Hyponatremia Code(s): E87.1 - HYPO-OSMOLALITY AND HYPONATREMIA (5) COPD (chronic obstructive pulmonary disease) Code(s): J44.9 - CHRONIC OBSTRUCTIVE PULMONARY DISEASE, UNSPECIFIED Qualifiers : COPD type: COPD with acute exacerbation Qualified Code(s): J44.1 - Chronic obstructive pulmonary disease with (acute) exacerbation (6) Atrial fibrillation with RVR Code(s): I48.91 - UNSPECIFIED ATRIAL FIBRILLATION (7) Generalized anxiety disorder Code(s): F41.1 - GENERALIZED ANXIETY DISORDER i am going to order a stat blood cx continue to monitor the thrush plan will order stat blood culture will start patient on unasyn nystatin oral swish and spit await for all cx report
--- NOTE | 2017-01-02 13:55 | PN ---
Progress Note, Physician Chief Complaint: Ms Mo says she is still having pain with swallowing. No cp, sob, n/v. - Current Medication List Current Medications: Active Medications Acetaminophen (Tylenol -) 650 mg PO Q6H PRN PRN Reason: FEVER OR PAIN Albuterol Sulfate (Ventolin 0.083% Nebulizer Soln -) 1 amp NEB Q4HPO [facility] Last Admin: 01/02/17 13:23 Dose: 1 amp Digoxin (Lanoxin -) 0.125 mg PO DAILY [facility] Last Admin: 01/02/17 11:16 Dose: 0.125 mg Diltiazem HCl (Cardizem Cd -) 120 mg PO DAILY [facility] Last Admin: 01/02/17 11:33 Dose: 120 mg Furosemide (Lasix -) 40 mg PO DAILY [facility] Last Admin: 01/02/17 11:15 Dose: 40 mg Ampicillin Sodium/Sulbactam (Sodium 3 gm/ Sodium Chloride) 100 mls @ 200 mls/ hr IVPB Q8H-IV HERMINIO Lorazepam (Ativan -) 0.5 mg PO TID [facility] Last Admin: 01/02/17 13:49 Dose: 0.5 mg Nystatin (Nystatin Oral Suspension -) 500,000 units PO Q6HPO [facility] Last Admin: 01/02/17 11:34 Dose: 500,000 units Pantoprazole Sodium (Protonix -) 40 mg PO DAILY [facility] Last Admin: 01/02/17 11:16 Dose: 40 mg Potassium Chloride (K-Dur -) 10 meq PO DAILY [facility] Last Admin: 01/02/17 11:17 Dose: 10 meq Prednisone (Deltasone -) 5 mg PO DAILY [facility] Last Admin: 01/02/17 11:16 Dose: 5 mg Warfarin Sodium (Coumadin -) 3 mg PO DAILY@1800 [facility] Last Admin: 01/01/17 17:45 Dose: 3 mg - Objective Vital Signs: Vital Signs Temperature 97.6 F 01/02/17 10:45 Pulse Rate 100 H 01/02/17 11:16 Respiratory Rate 18 01/02/17 10:45 Blood Pressure 111/68 01/02/17 10:45 O2 Sat by Pulse Oximetry (%) 99 01/02/17 10:17 Constitutional: Yes: No Distress, Calm, Thin Cardiovascular: Yes: Pulse Irregular. No: Gallop, Murmur, Rub Respiratory: Yes: Regular, Rhonchi, Wheezes Gastrointestinal: Yes: Normal Bowel Sounds, Soft. No: Distention, Tenderness Extremities: Yes: WNL Edema: No Labs: CBC, BMP 01/02/17 06:30 01/02/17 06:30 INR, PTT INR 2.39 (0.82-1.09) H 01/02/17 06:30 Assessment/Plan (1) Dysphagia Assessment/Plan: -concern for thrush -case d/w ID -continue nystatin swish and swallow -GI consulted, awaiting recommendations Code(s): R13.10 - DYSPHAGIA, UNSPECIFIED Qualifiers: Dysphagia type: unspecified (2) Weakness Assessment/Plan: -suspect multifactorial -hydration -treat thrush -PT consult Code(s): R53.1 - WEAKNESS (3) Leukocytosis Assessment/Plan: -resolved -suspect secondary to dehydration Code(s): D72.829 - ELEVATED WHITE BLOOD CELL COUNT, UNSPECIFIED (4) Hyponatremia Assessment/Plan: -secondary to dehydration -improving Code(s): E87.1 - HYPO-OSMOLALITY AND HYPONATREMIA (5) COPD (chronic obstructive pulmonary disease) Assessment/Plan: -with chronic respiratory failure and home oxygen -continue low dose prednisone -continue bronchodilators -pulmonary consulted Code(s): J44.9 - CHRONIC OBSTRUCTIVE PULMONARY DISEASE, UNSPECIFIED Qualifiers : COPD type: COPD with acute exacerbation Qualified Code(s): J44.1 - Chronic obstructive pulmonary disease with (acute) exacerbation (6) Atrial fibrillation with RVR Assessment/Plan: -appreciate cardiology assistance -transitioning to coumadin -rate controlled Code(s): I48.91 - UNSPECIFIED ATRIAL FIBRILLATION (7) Generalized anxiety disorder Assessment/Plan: -controlled Code(s): F41.1 - GENERALIZED ANXIETY DISORDER
[2017-01-02] MEDS ORDERED: POTASSIUM CHLORIDE TABS 20 MEQ TABLET.ER (FP) PO ONE (14:01)
--- NOTE | 2017-01-02 15:35 | PN ---
Progress Note (short form) - Note Progress Note: PULMONARY CONSULTATION DICTATED 01/02/17 IMP ACUTE ON CHRONIC HYPOXEMIC RESPIRATORY FAILURE COPD EXACERBATION DIASTOLIC HF DYSPHAGIA PULMONARY HTN AFIB ANXIETY HYPONATREMIA PLAN IV SOLUMEDROL INHALED BRONCHODILATORS NASAL O2 NYSTATIN COUMADIN MONITOR INR MONITOR RENAE RUTHERFORD Problem List - Problems (1) Dysphagia Code(s): R13.10 - DYSPHAGIA, UNSPECIFIED Qualifiers: Dysphagia type: unspecified Qualified Code(s): R13.10 - Dysphagia, unspecified (2) Generalized anxiety disorder Code(s): F41.1 - GENERALIZED ANXIETY DISORDER (3) Atrial fibrillation with RVR Code(s): I48.91 - UNSPECIFIED ATRIAL FIBRILLATION (4) COPD (chronic obstructive pulmonary disease) Code(s): J44.9 - CHRONIC OBSTRUCTIVE PULMONARY DISEASE, UNSPECIFIED Qualifiers : COPD type: COPD with acute exacerbation Qualified Code(s): J44.1 - Chronic obstructive pulmonary disease with (acute) exacerbation (5) Dyspnea Code(s): R06.00 - DYSPNEA, UNSPECIFIED Qualifiers: Dyspnea type: shortness of breath Qualified Code(s): R06.02 - Shortness of breath (6) Pulmonary hypertension Code(s): I27.2 - OTHER SECONDARY PULMONARY HYPERTENSION (7) Acute on chronic respiratory failure with hypoxemia Code(s): J96.21 - ACUTE AND CHRONIC RESPIRATORY FAILURE WITH HYPOXIA
[2017-01-02] MEDS: AMPICILLIN NA/SULBACTAM NA 3 GM in SODIUM CHLORIDE 100 ML IVPB SCH ×2 (16:00→17:17)
[2017-01-02] MEDS: TIOTROPIUM BROMIDE 18 MCG/INH (DEVICE W/ 30 CAPSULES) IH SCH (16:50)
[2017-01-02] MEDS: methylPREDNISolone NA SUCC 40 MG/1 ML VIAL IVPB SCH ×2 (16:50→21:32)
[2017-01-02] MEDS: WARFARIN NA 3 MG TABLET PO SCH (17:07)
[2017-01-02] MEDS: ACETAMINOPHEN 325 MG TABLET (FP) PO PRN ×2 (17:07→23:20)
[2017-01-02] MEDS ORDERED: PNEUMOC 13-VAL CONJ-DIP CRM/PF 0.5 ML DISP.SYRIN IM ONE (18:00)
[2017-01-02] MEDS ORDERED: FLUCONAZOLE 200 MG/D5W 100 ML IVPB ONE (18:14)
--- NOTE | 2017-01-02 18:26 | CONS ---
DATE OF CONSULTATION: DATE OF DICTATION: 01/02/2017 PULMONARY CONSULTATION REFERRING PHYSICIAN: Mariano Jameson M.D. HISTORY OF PRESENT ILLNESS: The patient is a 76-year-old white female known to me from previous hospitalizations and office followup in the past for advanced COPD on O2, atrial fibrillation, COPD, anxiety, diastolic heart failure, admitted to [facility] with complaint of 2-week history of dysphagia. Patient apparently complained that she had a pain as well when she swallowed. She states she gagged on her pills, so she had to take 1 pill at a time. She also had been complaining of progressive weakness. Patient was admitted with the above. The patient also complained of increasing shortness of breath and dyspnea on exertion. Denied any complaints of chest pain, nausea, vomiting, diaphoreses. She is evaluated by Dr. Wilkerson for the above. Patient denies any fevers or chills. Denies any hemoptysis. Denies any productive cough. PAST MEDICAL HISTORY: Again includes advanced COPD on home O2, atrial fibrillation, diastolic heart failure, anxiety. Pulmonary hypertension. REVIEW OF SYSTEMS: Positive dyspnea. No orthopnea. No chest pain. Positive dysphagia. No abdominal pain. No change in bowels. No lower extremity edema. CURRENT MEDICATIONS: Include prednisone 5 mg daily, Tylenol, Unasyn, Coumadin, Ativan, albuterol, Cardizem, Lanoxin, Lasix, Protonix, K-Dur, and Prevnar. PHYSICAL EXAMINATION: General: The patient is an elderly white female, thin, well-developed, awake, alert, in no acute distress. Vital signs: She is currently afebrile. Blood pressure 113/64, respiratory rate 18, O2 saturation is 99. HEENT: Head is normocephalic, atraumatic. Neck: Supple. Heart: Irregularly irregular, normal S1, S2. Chest: breath sounds bilaterally. Abdomen: Soft. Bowel sounds positive. Extremities: No cyanosis, edema. LABORATORY: WBC 5.7, hemoglobin 8.8, hematocrit 27.5, with platelet count 279,000. INR is 2.39. BUN 18, creatinine 0.4. Digoxin level is 1.6. Chest x-ray reveals right lower lung dover obscured by her hand, there is cardiomegaly involved, increased pulmonary vascular markings. IMPRESSION: 1. Advanced chronic obstructive pulmonary disease with mild exacerbation. 2. Dysphagia, possibly secondary to oral candidiasis. 3. Atrial fibrillation. 4. Diastolic heart failure. 5. Anxiety. PLAN: Continue steroids. Inhaled bronchodilators. Supplemental O2. Consider ENT and/or speech therapy evaluation. Continue anticoagulation Coumadin. Monitor INR. Continue with nystatin swish and swallow. Low dose prednisone. BIBI RUTHERFORD M.D. [id number]
--- NOTE | 2017-01-02 18:30 | CON.GI ---
Consult Consult Specialty:: GASTROENTEROLOGY Reason for Consultation:: ODYNOPHAGIA - History of Present Illness Chief Complaint: PAINFUL SWALLOWING History of Present Illness: 76 YEAR OLD FEMALE WITH AFIB (ELIQUIS AND COUMADIN) COPGD/PULMONARY HTN, O2 DEPENDENT, ON STEROIDS RECENT ANTIBIOTICS C/O PAINFUL SWALLOWING, ABLE TO GET PILLS DOWN BUT HAS TROBLE WITH SOLID FOOD. SOMEWHAT BETTER ON PURREEE. HAD THRUSH ON ADMISSION. SHE DENIES ABDOMINAL PAIN OR GERD. - History Source History Provided By: Patient Limitations to Obtaining History: No Limitations - Past Medical History Cardio/Vascular: Yes: AFIB, HTN, Pulmonary Hypertension Pulmonary: Yes: COPD, O2 Dependent Gastrointestinal: Yes: Other (ODYNOPHAGIA) Hepatobiliary: No: Cirrhosis, Cholelithiasis, Cholecystitis, Choledocholithiasis , Hepatitis A, Hepatitis B, Hepatitis C, Other Renal/: Yes: UTI ...: No Psych: Yes: Anxiety - Past Surgical History Past Surgical History: Yes: None - Alcohol/Substance Use Hx Alcohol Use: Yes (rarely, last drink 2 weeks ago) History of Substance Use: reports: None - Smoking History Smoking history: Former smoker Have you smoked in the past 12 months: Yes Aproximately how many cigarettes per day: 1 If you are a former smoker, when did you quit?: 5 mo ago - Social History ADL: Support Services History of Recent Travel: No Home Medications - Allergies Allergies/Adverse Reactions: Allergies Allergy/AdvReac Type Severity Reaction Status Date / Time No Known Allergies Allergy Verified 01/01/17 07:11 - Home Medications Home Medications: Ambulatory Orders Digoxin [Lanoxin -] 0.125 mg PO DAILY tablet 09/27/16 Furosemide [Lasix -] 40 mg PO DAILY tablet 10/06/16 Potassium Chloride [Klor-Con 10] 10 meq PO DAILY 11/01/16 Ranitidine [Zantac -] 150 mg PO BID 11/01/16 Albuterol 0.083% Nebulizer Robina [Ventolin 0.083% Nebulizer Soln -] 1 amp NEB Q4HPO amp 11/11/16 Apixaban [Eliquis -] 5 mg PO BID tablet 11/11/16 Diltiazem Cd [Cardizem Cd -] 240 mg PO DAILY cap.cd.24h 11/11/16 Prednisone [Deltasone -] 5 mg PO DAILY 12/24/16 Lorazepam [Ativan] 0.5 mg PO TID #40 tablet MDD 3 12/27/16 Warfarin Sodium [Coumadin] 4 mg PO HS 01/01/17 Family Disease History - Family Disease History Family History: Denies Review of Systems - Review of Systems Constitutional: reports: Weakness Eyes: reports: No Symptoms HENT: reports: Difficult Swallowing, Other (PAINFUL SWALLOWING) Neck: reports: No Symptoms Cardiovascular: reports: No Symptoms Respiratory: reports: PND, SOB Gastrointestinal: reports: Dysphagia Genitourinary: reports: Burning (RESOLVED) Musculoskeletal: reports: No Symptoms Neurological: reports: No Symptoms Endocrine: reports: No Symptoms Psychiatric: reports: No Symptoms Physical Exam-GI Vital Signs: Vital Signs Temperature 98.7 F 01/02/17 14:33 Pulse Rate 98 H 01/02/17 14:33 Respiratory Rate 18 01/02/17 14:33 Blood Pressure 113/64 01/02/17 14:33 O2 Sat by Pulse Oximetry (%) 99 01/02/17 10:17 Constitutional: Yes: No Distress HENT: Yes: Pharyngeal Erythema, Thrush Neck: Yes: Supple Cardiovascular: Yes: Pulse Irregular Respiratory: Yes: Diminished Gastrointestinal Inspection: Yes: WNL ...Auscultate: Yes: Normoactive Bowel Sounds ...Palpate: Yes: Soft Musculoskeletal: Yes: WNL Extremities: Yes: WNL Labs: CBC, BMP 01/02/17 06:30 01/02/17 06:30 INR, PTT INR 2.39 (0.82-1.09) H 01/02/17 06:30 Problem List - Problems (1) Odynophagia Assessment/Plan: PROBABLY FUNGAL ESOPHAGITIS CHANGE PO PROTONIX TO IVPB START IV DIFLUCAN, WATCH INR EVERYDAY AND ADJUST COUMADIN "MAGIC MOUTHWASH" Q 6 PURREED DIET IF NO IMPROVEMENT EGD AVOID ABX/STEROIDS IF POSSIBLE NO KCL PO PLEASE! Code(s): R13.10 - DYSPHAGIA, UNSPECIFIED (2) Dysphagia Code(s): R13.10 - DYSPHAGIA, UNSPECIFIED Qualifiers: Dysphagia type: unspecified Qualified Code(s): R13.10 - Dysphagia, unspecified (3) Thrush, oral Code(s): B37.0 - CANDIDAL STOMATITIS (4) Weakness Code(s): R53.1 - WEAKNESS (5) COPD (chronic obstructive pulmonary disease) Code(s): J44.9 - CHRONIC OBSTRUCTIVE PULMONARY DISEASE, UNSPECIFIED Qualifiers : COPD type: COPD with acute exacerbation Qualified Code(s): J44.1 - Chronic obstructive pulmonary disease with (acute) exacerbation (6) Chronic respiratory failure with hypoxia Code(s): J96.11 - CHRONIC RESPIRATORY FAILURE WITH HYPOXIA (7) Pulmonary hypertension Code(s): I27.2 - OTHER SECONDARY PULMONARY HYPERTENSION
[2017-01-02] MEDS ORDERED: PT OWN MED DRAWER 7, Y5N ONE (21:23)
[2017-01-02] MEDS: ARFORMOTEROL TARTRATE 15 MCG/2 ML VIAL NEB SCH (21:45)
[2017-01-02] MEDS: MAG HYDROX/ALH/SMC/DPHA/LIDO 240 ML MOUTHWASH MM SCH (23:19)
[2017-01-03] MEDS: AMPICILLIN NA/SULBACTAM NA 3 GM in SODIUM CHLORIDE 100 ML IVPB SCH ×2 (01:27→11:47)
[2017-01-03] MEDS: ALBUTEROL SO4 0.083% IH SOL 2.5 MG/3 ML VIAL.NEB. NEB SCH ×6 (02:54→22:40)
[2017-01-03] MEDS: MAG HYDROX/ALH/SMC/DPHA/LIDO 240 ML MOUTHWASH MM SCH ×4 (06:35→23:45)
[2017-01-03] MEDS: LORazepam 0.5 MG TABLET PO SCH ×3 (06:35→22:05)
[2017-01-03] MEDS: NYSTATIN 500,000 UNITS/5 ML SUSPENSION PO SCH ×4 (06:35→23:45)
[2017-01-03 07:54] LABS: MCH 23.7 pg (25.7-33.7); MCHC 31.6 g/dl (32.0-36.0); MEAN CELL VOLUME 74.9 fl (80-96); MEAN PLT VOLUME 7.6 fl (7.5-11.1); NEUTROPHILS 91.8 % (42.8-82.8); PLATELET COUNT 262 K/MM3 (134-434); RDW 20.2 % (11.6-15.6)
[2017-01-03 08:24] LABS: INR 2.93 (0.82-1.09); PROTHROMBIN TIME (PATIENT) 32.9 SEC (9.98-11.88)
[2017-01-03 08:37] LABS: CALCIUM 9.2 mg/dL (8.5-10.1); MAGNESIUM 2.3 mg/dL (1.8-2.4)
[2017-01-03 08:40] LABS: CREATININE 0.5 mg/dL (0.55-1.02); PHOSPHOROUS 3.8 mg/dL (2.5-4.9)
[2017-01-03] MEDS: ARFORMOTEROL TARTRATE 15 MCG/2 ML VIAL NEB SCH ×2 (10:05→22:40)
[2017-01-03] MEDS: TIOTROPIUM BROMIDE 18 MCG/INH (DEVICE W/ 30 CAPSULES) IH SCH (10:42)
[2017-01-03] MEDS: FUROSEMIDE 40 MG TABLET (FP) PO SCH (10:42)
[2017-01-03] MEDS: PANTOPRAZOLE SODIUM 100 ML IVPB SCH (10:42)
[2017-01-03] MEDS: POTASSIUM CHLORIDE TABS 10 MEQ TABLET.ER (FP) PO SCH (10:42)
[2017-01-03] MEDS: methylPREDNISolone NA SUCC 40 MG/1 ML VIAL IVPB SCH ×2 (10:42→22:06)
[2017-01-03] MEDS: DIGOXIN 0.125 MG TABLET (FP) PO SCH (10:42)
[2017-01-03] MEDS ORDERED: PT OWN MED DRAWER 7, Y5N ONE ×3 (10:53→17:10)
[2017-01-03] MEDS: FLUCONAZOLE 100 MG/NS 50 ML IVPB SCH (11:47)
--- NOTE | 2017-01-03 12:41 | PN ---
Progress Note (short form) - Note Progress Note: PULMONARY Breathing much improved today per pt and daughter. No cough or wheezing. No fevers or chills. Last Vital Signs Temp Pulse Resp BP Pulse Ox 98 F 90 20 109/75 99 01/03/17 06:00 01/03/17 10:42 01/03/17 06:00 01/03/17 06:00 01/02/17 20:32 Gen: mildly tachypneic at rest Heart: RRRL Lung: distant breath sounds, scattered rhonchi Abd: soft, nontender Ext: no edema CBC, BMP 01/03/17 06:45 01/03/17 06:45 Active Medications Acetaminophen (Tylenol -) 650 mg PO Q6H PRN PRN Reason: FEVER OR PAIN Last Admin: 01/02/17 23:20 Dose: 650 mg Albuterol Sulfate (Ventolin 0.083% Nebulizer Soln -) 1 amp NEB Q4HPO [facility] Last Admin: 01/03/17 06:07 Dose: 1 amp Arformoterol Tartrate (Brovana (Restricted To Pulmonology/Resp) -) 1 amp NEB BID [facility] Last Admin: 01/03/17 10:05 Dose: 1 amp Digoxin (Lanoxin -) 0.125 mg PO DAILY [facility] Last Admin: 01/03/17 10:42 Dose: 0.125 mg Diltiazem HCl (Cardizem Cd -) 120 mg PO DAILY [facility] Last Admin: 01/03/17 10:42 Dose: 120 mg Furosemide (Lasix -) 40 mg PO DAILY [facility] Last Admin: 01/03/17 10:42 Dose: 40 mg Ampicillin Sodium/Sulbactam (Sodium 3 gm/ Sodium Chloride) 100 mls @ 200 mls/ hr IVPB Q8H-IV [facility] Last Admin: 01/03/17 11:47 Dose: 200 mls/hr Fluconazole (Diflucan 100 Mg/Ns Premixed Ivpb -) 50 mls @ 50 mls/hr IVPB DAILY [facility] Last Admin: 01/03/17 11:47 Dose: 50 mls/hr Pantoprazole Sodium (Protonix 40mg Ivpb (Pre-Docked)) 100 mls @ 200 mls/hr IVPB DAILY [facility] Last Admin: 01/03/17 10:42 Dose: 200 mls/hr Lidocaine/Aluminum/Magnesium/Simeth (Magic Mouthwash *Sjr Formula* -) 5 ml MM Q6HPO [facility] Last Admin: 01/03/17 11:53 Dose: 5 ml Lorazepam (Ativan -) 0.5 mg PO TID [facility] Last Admin: 01/03/17 06:35 Dose: 0.5 mg Methylprednisolone Sodium Succinate (Solu-Medrol -) 40 mg IVPB BID [facility] Last Admin: 01/03/17 10:42 Dose: 40 mg Nystatin (Nystatin Oral Suspension -) 500,000 units PO Q6HPO [facility] Last Admin: 01/03/17 11:54 Dose: 500,000 units Potassium Chloride (K-Dur -) 10 meq PO DAILY [facility] Last Admin: 01/03/17 10:42 Dose: 10 meq Tiotropium [place] (Spiriva -) 1 puff IH DAILY [facility] Last Admin: 01/03/17 10:42 Dose: 1 puff Warfarin Sodium (Coumadin -) 3 mg PO DAILY@1800 [facility] Last Admin: 01/02/17 17:07 Dose: 3 mg A/P Acute COPD Exacerbation LV Diastolic Dysfunction Pulmonary HTN Atrial Fibrillation Dysphagia - continue medrol at current dose - inhaled bronchodilators - lasix - rate controlled - continue anticoagulation - O2 to keep SpO2 >90%
--- NOTE | 2017-01-03 14:33 | PN ---
Progress Note, Physician Chief Complaint: Ms Mo says she is feeling better today. She says she is swallowing easier and without pain. No cp, sob, n/v. - Current Medication List Current Medications: Active Medications Acetaminophen (Tylenol -) 650 mg PO Q6H PRN PRN Reason: FEVER OR PAIN Last Admin: 01/02/17 23:20 Dose: 650 mg Albuterol Sulfate (Ventolin 0.083% Nebulizer Soln -) 1 amp NEB Q4HPO [facility] Last Admin: 01/03/17 06:07 Dose: 1 amp Arformoterol Tartrate (Brovana (Restricted To Pulmonology/Resp) -) 1 amp NEB BID [facility] Last Admin: 01/03/17 10:05 Dose: 1 amp Digoxin (Lanoxin -) 0.125 mg PO DAILY [facility] Last Admin: 01/03/17 10:42 Dose: 0.125 mg Diltiazem HCl (Cardizem Cd -) 120 mg PO DAILY [facility] Last Admin: 01/03/17 10:42 Dose: 120 mg Furosemide (Lasix -) 40 mg PO DAILY [facility] Last Admin: 01/03/17 10:42 Dose: 40 mg Ampicillin Sodium/Sulbactam (Sodium 3 gm/ Sodium Chloride) 100 mls @ 200 mls/ hr IVPB Q8H-IV [facility] Last Admin: 01/03/17 11:47 Dose: 200 mls/hr Fluconazole (Diflucan 100 Mg/Ns Premixed Ivpb -) 50 mls @ 50 mls/hr IVPB DAILY [facility] Last Admin: 01/03/17 11:47 Dose: 50 mls/hr Pantoprazole Sodium (Protonix 40mg Ivpb (Pre-Docked)) 100 mls @ 200 mls/hr IVPB DAILY [facility] Last Admin: 01/03/17 10:42 Dose: 200 mls/hr Lidocaine/Aluminum/Magnesium/Simeth (Magic Mouthwash *Sjr Formula* -) 5 ml MM Q6HPO [facility] Last Admin: 01/03/17 11:53 Dose: 5 ml Lorazepam (Ativan -) 0.5 mg PO TID [facility] Last Admin: 01/03/17 06:35 Dose: 0.5 mg Methylprednisolone Sodium Succinate (Solu-Medrol -) 40 mg IVPB BID [facility] Last Admin: 01/03/17 10:42 Dose: 40 mg Nystatin (Nystatin Oral Suspension -) 500,000 units PO Q6HPO [facility] Last Admin: 01/03/17 11:54 Dose: 500,000 units Potassium Chloride (K-Dur -) 10 meq PO DAILY [facility] Last Admin: 01/03/17 10:42 Dose: 10 meq Tiotropium [place] (Spiriva -) 1 puff IH DAILY [facility] Last Admin: 01/03/17 10:42 Dose: 1 puff Warfarin Sodium (Coumadin -) 3 mg PO DAILY@1800 [facility] Last Admin: 01/02/17 17:07 Dose: 3 mg - Objective Vital Signs: Vital Signs Temperature 99 F 01/03/17 13:31 Pulse Rate 94 H 01/03/17 13:31 Respiratory Rate 19 01/03/17 13:31 Blood Pressure 106/54 01/03/17 13:31 O2 Sat by Pulse Oximetry (%) 99 01/03/17 10:00 Constitutional: Yes: Well Nourished, No Distress, Calm Cardiovascular: Yes: Regular Rate and Rhythm. No: Gallop, Murmur, Rub Respiratory: Yes: Regular, Rhonchi, Wheezes. No: Rales Gastrointestinal: Yes: Normal Bowel Sounds, Soft. No: Distention, Tenderness Extremities: Yes: WNL Edema: No Labs: CBC, BMP 01/03/17 06:45 01/03/17 06:45 INR, PTT INR 2.93 (0.82-1.09) H 01/03/17 06:45 Assessment/Plan (1) Dysphagia Assessment/Plan: -secondary to thrush -responding well to nystatin swish and swallow and IV diflucan -change to soft diet Code(s): R13.10 - DYSPHAGIA, UNSPECIFIED Qualifiers: Dysphagia type: unspecified (2) Weakness Assessment/Plan: -improved -continue PT Code(s): R53.1 - WEAKNESS (3) Leukocytosis Assessment/Plan: -secondary to dehydration -resolved Code(s): D72.829 - ELEVATED WHITE BLOOD CELL COUNT, UNSPECIFIED (4) Hyponatremia Assessment/Plan: -resolved with hydration -stop IVFs since having increased oral intake Code(s): E87.1 - HYPO-OSMOLALITY AND HYPONATREMIA (5) COPD (chronic obstructive pulmonary disease) Assessment/Plan: -with exacerbation -pulmonary following -continue solumedrol and bronchodilators Code(s): J44.9 - CHRONIC OBSTRUCTIVE PULMONARY DISEASE, UNSPECIFIED Qualifiers : COPD type: COPD with acute exacerbation Qualified Code(s): J44.1 - Chronic obstructive pulmonary disease with (acute) exacerbation (6) Atrial fibrillation with RVR Assessment/Plan: -appreciate cardiology assistance -transitioning to coumadin -rate controlled Code(s): I48.91 - UNSPECIFIED ATRIAL FIBRILLATION (7) Generalized anxiety disorder Assessment/Plan: -controlled Code(s): F41.1 - GENERALIZED ANXIETY DISORDER
--- NOTE | 2017-01-03 15:14 | PN ---
Progress Note, Physician History of Present Illness: patient stable no new issues doing much better still effort of breathing - Current Medication List Current Medications: Active Medications Acetaminophen (Tylenol -) 650 mg PO Q6H PRN PRN Reason: FEVER OR PAIN Last Admin: 01/02/17 23:20 Dose: 650 mg Albuterol Sulfate (Ventolin 0.083% Nebulizer Soln -) 1 amp NEB Q4HPO [facility] Last Admin: 01/03/17 06:07 Dose: 1 amp Arformoterol Tartrate (Brovana (Restricted To Pulmonology/Resp) -) 1 amp NEB BID [facility] Last Admin: 01/03/17 10:05 Dose: 1 amp Digoxin (Lanoxin -) 0.125 mg PO DAILY [facility] Last Admin: 01/03/17 10:42 Dose: 0.125 mg Diltiazem HCl (Cardizem Cd -) 120 mg PO DAILY [facility] Last Admin: 01/03/17 10:42 Dose: 120 mg Furosemide (Lasix -) 40 mg PO DAILY [facility] Last Admin: 01/03/17 10:42 Dose: 40 mg Fluconazole (Diflucan 100 Mg/Ns Premixed Ivpb -) 50 mls @ 50 mls/hr IVPB DAILY [facility] Last Admin: 01/03/17 11:47 Dose: 50 mls/hr Pantoprazole Sodium (Protonix 40mg Ivpb (Pre-Docked)) 100 mls @ 200 mls/hr IVPB DAILY [facility] Last Admin: 01/03/17 10:42 Dose: 200 mls/hr Lidocaine/Aluminum/Magnesium/Simeth (Magic Mouthwash *Sjr Formula* -) 5 ml MM Q6HPO [facility] Last Admin: 01/03/17 11:53 Dose: 5 ml Lorazepam (Ativan -) 0.5 mg PO TID [facility] Last Admin: 01/03/17 14:42 Dose: 0.5 mg Methylprednisolone Sodium Succinate (Solu-Medrol -) 40 mg IVPB BID [facility] Last Admin: 01/03/17 10:42 Dose: 40 mg Nystatin (Nystatin Oral Suspension -) 500,000 units PO Q6HPO [facility] Last Admin: 01/03/17 11:54 Dose: 500,000 units Potassium Chloride (K-Dur -) 10 meq PO DAILY [facility] Last Admin: 01/03/17 10:42 Dose: 10 meq Tiotropium [place] (Spiriva -) 1 puff IH DAILY [facility] Last Admin: 01/03/17 10:42 Dose: 1 puff Warfarin Sodium (Coumadin -) 3 mg PO DAILY@1800 [facility] Last Admin: 01/02/17 17:07 Dose: 3 mg - Objective Vital Signs: Vital Signs Temperature 99 F 01/03/17 13:31 Pulse Rate 94 H 01/03/17 13:31 Respiratory Rate 19 01/03/17 13:31 Blood Pressure 106/54 01/03/17 13:31 O2 Sat by Pulse Oximetry (%) 99 01/03/17 10:00 Constitutional: Yes: No Distress, Calm Cardiovascular: Yes: Regular Rate and Rhythm Respiratory: Yes: Regular, Poor Air Entry, Rhonchi Gastrointestinal: Yes: Normal Bowel Sounds, Soft Musculoskeletal: Yes: WNL Extremities: Yes: WNL Neurological: Yes: Alert, Oriented Psychiatric: Yes: Alert, Oriented Labs: CBC, BMP 01/03/17 06:45 01/03/17 06:45 INR, PTT INR 2.93 (0.82-1.09) H 01/03/17 06:45 Assessment/Plan Problem List - Problems (1) Dysphagia Code(s): R13.10 - DYSPHAGIA, UNSPECIFIED Qualifiers: Dysphagia type: unspecified (2) Weakness. Code(s): R53.1 - WEAKNESS (3) Leukocytosis Code(s): D72.829 - ELEVATED WHITE BLOOD CELL COUNT, UNSPECIFIED (4) Hyponatremia Code(s): E87.1 - HYPO-OSMOLALITY AND HYPONATREMIA (5) COPD (chronic obstructive pulmonary disease) Code(s): J44.9 - CHRONIC OBSTRUCTIVE PULMONARY DISEASE, UNSPECIFIED Qualifiers : COPD type: COPD with acute exacerbation Qualified Code(s): J44.1 - Chronic obstructive pulmonary disease with (acute) exacerbation (6) Atrial fibrillation with RVR Code(s): I48.91 - UNSPECIFIED ATRIAL FIBRILLATION (7) Generalized anxiety disorder Code(s): F41.1 - GENERALIZED ANXIETY DISORDER i am going to order a stat blood cx continue to monitor the thrush plan blood cx negative will stop abx continue current mgmt resp physio
[2017-01-03] MEDS: WARFARIN NA 3 MG TABLET PO SCH (17:14)
--- NOTE | 2017-01-03 18:38 | PN ---
GI Progress Note Subjective: GASTROENTEROLOGY STATES THAT SHE FEELS BETTER TODAY BUT THEN AT THE END OF THE CONVERSATION STATES THAT THE SWALLOWING IS NOT BETTER. SHE FEELS THAT HER THROAT IS BETTER. I TOLD HER THAT I ORDERED AN ESOPHAGRAM AND UGI SERIES INSTEAD OF AN EGD (DUE TO PULMONARY AND CARDIAC COMORBIDITIES) SHE SAID THAT WAS FINE AND "THANK GOD BECAUSE I HAVE HAD THIS SWALLOWING PROBLEM FOR A LONG TIME!" - Objective Vital Signs: Vital Signs Temperature 99 F 01/03/17 13:31 Pulse Rate 94 H 01/03/17 13:31 Respiratory Rate 19 01/03/17 13:31 Blood Pressure 106/54 01/03/17 13:31 O2 Sat by Pulse Oximetry (%) 99 01/03/17 10:00 Constitutional: Calm Eyes: Yes: Conjunctiva Clear Cardiovascular: Yes: Pulse Irregular Respiratory: Yes: Regular ...Auscultate: Yes: Normoactive Bowel Sounds ...Palpate: Yes: Soft Extremities: Yes: WNL Labs: CBC, BMP 01/03/17 06:45 01/03/17 06:45 INR, PTT INR 2.93 (0.82-1.09) H 01/03/17 06:45 Laboratory Tests 01/02/17 01/03/17 01/03/17 06:30 06:45 06:45 WBC 4.0 D RBC 3.47 L Hgb 8.2 L Hct 26.0 L MCV 74.9 L MCHC 31.6 L RDW 20.2 H Plt Count 262 MPV 7.6 Neutrophils % 91.8 H Lymphocytes % 6.0 L D Monocytes % 2.2 L Eosinophils % 0.0 D Basophils % 0.0 INR 2.93 H Sodium Potassium Chloride Carbon Dioxide Anion Gap BUN Creatinine Random Glucose B-Natriuretic Peptide 1472.73 H 01/03/17 06:45 WBC RBC Hgb Hct MCV MCHC RDW Plt Count MPV Neutrophils % Lymphocytes % Monocytes % Eosinophils % Basophils % INR Sodium 137 Potassium 3.9 Chloride 89 L Carbon Dioxide 40 H Anion Gap 8 BUN 16 Creatinine 0.5 L D Random Glucose 119 H D B-Natriuretic Peptide Problem List - Problems (1) Odynophagia Assessment/Plan: I HAVE BEEN TOLD SHE IS EATING FINE, WANTS REAL FOOD NOT PUREED CONTINUE SAME RX FOR UGI AND ESOPHAGRAM Code(s): R13.10 - DYSPHAGIA, UNSPECIFIED (2) Dysphagia Code(s): R13.10 - DYSPHAGIA, UNSPECIFIED Qualifiers: Dysphagia type: unspecified Qualified Code(s): R13.10 - Dysphagia, unspecified (3) Thrush, oral Code(s): B37.0 - CANDIDAL STOMATITIS (4) Weakness Code(s): R53.1 - WEAKNESS (5) COPD (chronic obstructive pulmonary disease) Code(s): J44.9 - CHRONIC OBSTRUCTIVE PULMONARY DISEASE, UNSPECIFIED Qualifiers : COPD type: COPD with acute exacerbation Qualified Code(s): J44.1 - Chronic obstructive pulmonary disease with (acute) exacerbation (6) Chronic respiratory failure with hypoxia Code(s): J96.11 - CHRONIC RESPIRATORY FAILURE WITH HYPOXIA (7) Pulmonary hypertension Code(s): I27.2 - OTHER SECONDARY PULMONARY HYPERTENSION
[2017-01-04] MEDS: ALBUTEROL SO4 0.083% IH SOL 2.5 MG/3 ML VIAL.NEB. NEB SCH ×4 (02:15→15:50)
[2017-01-04] MEDS: LORazepam 0.5 MG TABLET PO SCH ×3 (07:44→21:55)
[2017-01-04] MEDS: NYSTATIN 500,000 UNITS/5 ML SUSPENSION PO SCH ×4 (07:45→23:34)
[2017-01-04] MEDS: MAG HYDROX/ALH/SMC/DPHA/LIDO 240 ML MOUTHWASH MM SCH ×4 (07:45→23:34)
[2017-01-04 08:32] LABS: BASOPHIL 0.1 % (0-2.0); MCH 23.5 pg (25.7-33.7); MCHC 31.6 g/dl (32.0-36.0); MEAN CELL VOLUME 74.3 fl (80-96); MEAN PLT VOLUME 7.4 fl (7.5-11.1); NEUTROPHILS 90.8 % (42.8-82.8); PLATELET COUNT 263 K/MM3 (134-434); RDW 19.8 % (11.6-15.6); WHITE BLOOD COUNT 8.7 K/mm3 (4.0-10.0)
[2017-01-04 08:36] LABS: PROTHROMBIN TIME (PATIENT) 48.7 SEC (9.98-11.88)
[2017-01-04 08:53] LABS: CALCIUM 9.4 mg/dL (8.5-10.1); CREATININE 0.5 mg/dL (0.55-1.02); MAGNESIUM 2.2 mg/dL (1.8-2.4); PHOSPHOROUS 3.1 mg/dL (2.5-4.9)
[2017-01-04 09:06] LABS: INR 4.3 (0.82-1.09)
[2017-01-04] MEDS: PANTOPRAZOLE SODIUM 100 ML IVPB SCH (09:35)
[2017-01-04] MEDS ORDERED: PT OWN MED DRAWER 7, Y5N ONE ×4 (10:26→18:30)
[2017-01-04] MEDS: POTASSIUM CHLORIDE TABS 10 MEQ TABLET.ER (FP) PO SCH (10:29)
[2017-01-04] MEDS: FUROSEMIDE 40 MG TABLET (FP) PO SCH (10:30)
[2017-01-04] MEDS: DIGOXIN 0.125 MG TABLET (FP) PO SCH (10:30)
[2017-01-04] MEDS: TIOTROPIUM BROMIDE 18 MCG/INH (DEVICE W/ 30 CAPSULES) IH SCH (10:31)
[2017-01-04] MEDS: methylPREDNISolone NA SUCC 40 MG/1 ML VIAL IVPB SCH ×2 (10:32→21:55)
[2017-01-04] MEDS: ARFORMOTEROL TARTRATE 15 MCG/2 ML VIAL NEB SCH ×2 (10:45→22:33)
--- NOTE | 2017-01-04 10:59 | PN ---
Progress Note (short form) - Note Progress Note: s: no cp palps dizzy; sob better o: Vital Signs Period Temp Pulse Resp BP Sys/Starks Pulse Ox Last 24 Hr 98.0 F-99.1 F 86-100 18-20 95-123/51-68 98 Constitutional: Yes: Well Nourished, No Distress Eyes: No: Sclera Icterus Respiratory: Yes: mild exp wheeze, nl eff. No: Accessory Muscle Use, Rales Gastrointestinal: Yes: Normal Bowel Sounds. No: Distention, Hepatomegaly, Palpable Mass, Tenderness Cardiovascular: Yes: Pulse Irregular JVD: No Heart Sounds: Yes: S1, S2. No: Gallop Murmur: No: Systolic Murmur, Diastolic Murmur Extremities: No: Cool, Cyanosis Edema: No Integumentary: No: Jaundice diaphoresis Neurological: Yes: Alert, awake, appropriate Psychiatric: No: Agitated Current Medications Generic Name Dose Route Start Last Admin Trade Name Freq PRN Reason Stop Dose Admin Acetaminophen 650 mg 01/01/17 14:11 01/02/17 23:20 Tylenol - PO 650 mg Q6H PRN Administration FEVER OR PAIN Albuterol Sulfate 1 amp 01/01/17 18:00 01/04/17 06:59 Ventolin 0.083% Nebulizer Soln - NEB 1 amp Q4HPO [facility] Administration Arformoterol Tartrate 1 amp 01/02/17 22:00 01/03/17 22:40 Brovana (Restricted To Pulmonology/Resp) - NEB 1 amp BID [facility] Administration Digoxin 0.125 mg 01/02/17 10:00 01/04/17 10:30 Lanoxin - PO 0.125 mg DAILY [facility] Administration Diltiazem HCl 120 mg 01/02/17 10:00 01/04/17 10:30 Cardizem Cd - PO 120 mg DAILY [facility] Administration Furosemide 40 mg 01/02/17 10:00 01/04/17 10:30 Lasix - PO 40 mg DAILY [facility] Administration Fluconazole 50 mls @ 50 mls/hr 01/03/17 10:00 01/03/17 11:47 Diflucan 100 Mg/Ns Premixed Ivpb - IVPB 50 mls/hr DAILY [facility] Administration Pantoprazole Sodium 100 mls @ 200 mls/hr 01/03/17 10:00 01/04/17 09:35 Protonix 40mg Ivpb (Pre-Docked) IVPB 200 mls/hr DAILY [facility] Administration Lidocaine/Aluminum/Magnesium/Simeth 5 ml 01/03/17 00:00 01/04/17 07:45 Magic Mouthwash *Sjr Formula* - MM Not Given Q6HPO [facility] Lorazepam 0.5 mg 01/01/17 22:00 01/04/17 07:44 Ativan - PO Not Given TID [facility] Methylprednisolone Sodium Succinate 40 mg 01/02/17 16:00 01/04/17 10:32 Solu-Medrol - IVPB 40 mg BID [facility] Administration Nystatin 500,000 units 01/01/17 18:00 01/04/17 07:45 Nystatin Oral Suspension - PO Not Given Q6HPO [facility] Potassium Chloride 10 meq 01/02/17 10:00 01/04/17 10:29 K-Dur - PO 10 meq DAILY [facility] Administration Tiotropium [employer] 1 puff 01/02/17 16:30 01/04/17 10:31 Spiriva - IH 1 puff DAILY [facility] Administration Warfarin Sodium 3 mg 01/01/17 18:00 01/03/17 17:14 Coumadin - PO 3 mg DAILY@1800 [facility] Administration CBC, BMP 01/04/17 07:40 01/04/17 07:40 ekg: afib; normal axis; no path q's; diffuse ST-Ts not changed vs 10/25 Chest X-ray: Report Reviewed (clear lungs/pleura) MANUEL 10/2016: nl lv/rv. 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 No TR. 1+ AR. No veg/abscess. Mild-mod mural aortic atheroma. Echo 10/2016: nl lv/rv, sixto, mild mr, mild-mod tr, nl rvsp, nl rvsp, mild ar Echo 09/2016: Nl lv/rv. Mod MAC. 1+ AR/TR. Mod [place]. 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 director of first impressions); mild-mod MR with no systolic blunting or reversal of flow in pulm vein; peak E velocity (59 cm/sec) ; myxomatous TV with prob mild-mod TR; at least moderate pulm HTN; no change vs 2013 echo a/p: chronic diast chf: -episodes of acute chf on prior admits, required lasix 40 iv qd treatment -sent home on lasix 40 po daily last time--saw dr ivey in office few weeks ago and appeared euvolemic with new dry wt (likely lost muscle mass in hospital) -bnp 1400, down from 2500 during 10/25 admit -cxr clear, no JVD, no audible MR murmur -do not see any eivdence of acute chf here, to explains her sob today -cont po lasix 40 qd copd: -advanced, dependent on home O2 -on iv steroids per pulm recurrent staph bacteremia/MANUEL negative for endocarditis: -+MSSA on repeat BCXs 2d apart in early 09/23 (treated with 14d of abx then) -back 10/25 with spontaneous MSSA as outpatient; -MANUEL then with no evidence of endocarditis paroxysmal Afib/supraventricular tachycardia/MAT: -has hx mat worsened by acute resp illnesses in past -new AFib on tele 10/25, HR mostly controlled, has occasional rvr when anxious -started on dig, diltiazem 240 qd -sbp 90s-100s here, currently HRs well controlled -cont dig (repeat level here is WNL) -change diltiazem to 120mg qd, observe HR trend -CHADS VASC 4--NOACs prohibitive cost so recently changed over to warfarin as outpt -dose warfarin per INR (goal 2-3) 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
[2017-01-04] MEDS: FLUCONAZOLE 100 MG/NS 50 ML IVPB SCH (13:03)
--- NOTE | 2017-01-04 14:18 | PN ---
Progress Note, Physician History of Present Illness: PULMONARY ALERT,C/O SOB,-TACHYPNEA - Current Medication List Current Medications: Active Medications Acetaminophen (Tylenol -) 650 mg PO Q6H PRN PRN Reason: FEVER OR PAIN Last Admin: 01/02/17 23:20 Dose: 650 mg Albuterol Sulfate (Ventolin 0.083% Nebulizer Soln -) 1 amp NEB Q4HPO [facility] Last Admin: 01/04/17 10:55 Dose: 1 amp Arformoterol Tartrate (Brovana (Restricted To Pulmonology/Resp) -) 1 amp NEB BID [facility] Last Admin: 01/04/17 10:45 Dose: 1 amp Digoxin (Lanoxin -) 0.125 mg PO DAILY [facility] Last Admin: 01/04/17 10:30 Dose: 0.125 mg Diltiazem HCl (Cardizem Cd -) 120 mg PO DAILY [facility] Last Admin: 01/04/17 10:30 Dose: 120 mg Furosemide (Lasix -) 40 mg PO DAILY [facility] Last Admin: 01/04/17 10:30 Dose: 40 mg Fluconazole (Diflucan 100 Mg/Ns Premixed Ivpb -) 50 mls @ 50 mls/hr IVPB DAILY [facility] Last Admin: 01/04/17 13:03 Dose: 50 mls/hr Pantoprazole Sodium (Protonix 40mg Ivpb (Pre-Docked)) 100 mls @ 200 mls/hr IVPB DAILY [facility] Last Admin: 01/04/17 09:35 Dose: 200 mls/hr Lidocaine/Aluminum/Magnesium/Simeth (Magic Mouthwash *Sjr Formula* -) 5 ml MM Q6HPO [facility] Last Admin: 01/04/17 13:03 Dose: 5 ml Lorazepam (Ativan -) 0.5 mg PO TID [facility] Last Admin: 01/04/17 13:44 Dose: 0.5 mg Methylprednisolone Sodium Succinate (Solu-Medrol -) 40 mg IVPB BID [facility] Last Admin: 01/04/17 10:32 Dose: 40 mg Nystatin (Nystatin Oral Suspension -) 500,000 units PO Q6HPO [facility] Last Admin: 01/04/17 13:04 Dose: 500,000 units Potassium Chloride (K-Dur -) 10 meq PO DAILY [facility] Last Admin: 01/04/17 10:29 Dose: 10 meq Tiotropium [place] (Spiriva -) 1 puff IH DAILY [facility] Last Admin: 01/04/17 10:31 Dose: 1 puff - Objective Vital Signs: Vital Signs Temperature 98.9 F 01/04/17 13:21 Pulse Rate 101 H 01/04/17 13:21 Respiratory Rate 18 01/04/17 13:21 Blood Pressure 122/78 01/04/17 13:21 O2 Sat by Pulse Oximetry (%) 98 01/04/17 09:00 Constitutional: Yes: Anxious, Thin Eyes: Yes: WNL HENT: Yes: WNL Neck: Yes: WNL Cardiovascular: Yes: Pulse Irregular, S1, S2 Respiratory: Yes: Diminished Gastrointestinal: Yes: Normal Bowel Sounds, Soft Extremities: Yes: WNL Edema: No Labs: CBC, BMP 01/04/17 07:40 01/04/17 07:40 INR, PTT INR 4.30 (0.82-1.09) H* D 01/04/17 07:40 Problem List - Problems (1) Dysphagia Code(s): R13.10 - DYSPHAGIA, UNSPECIFIED Qualifiers: Dysphagia type: unspecified Qualified Code(s): R13.10 - Dysphagia, unspecified (2) Generalized anxiety disorder Code(s): F41.1 - GENERALIZED ANXIETY DISORDER (3) Atrial fibrillation with RVR Code(s): I48.91 - UNSPECIFIED ATRIAL FIBRILLATION (4) COPD (chronic obstructive pulmonary disease) Code(s): J44.9 - CHRONIC OBSTRUCTIVE PULMONARY DISEASE, UNSPECIFIED Qualifiers : COPD type: COPD with acute exacerbation Qualified Code(s): J44.1 - Chronic obstructive pulmonary disease with (acute) exacerbation (5) Dyspnea Code(s): R06.00 - DYSPNEA, UNSPECIFIED Qualifiers: Dyspnea type: shortness of breath Qualified Code(s): R06.02 - Shortness of breath (6) Pulmonary hypertension Code(s): I27.2 - OTHER SECONDARY PULMONARY HYPERTENSION (7) Acute on chronic respiratory failure with hypoxemia Code(s): J96.21 - ACUTE AND CHRONIC RESPIRATORY FAILURE WITH HYPOXIA Assessment/Plan IMP ACUTE ON CHRONIC HYPOXEMIC RESPIRATORY FAILURE COPD EXACERBATION DIASTOLIC HF DYSPHAGIA PULMONARY HTN AFIB ANXIETY HYPONATREMIA PLAN CONTINUE IV SOLUMEDROL INHALED BRONCHODILATORS NASAL O2 NYSTATIN COUMADIN MONITOR INR MONITOR RENAE RUTHERFORD Problem List - Problems (1) Dysphagia Code(s): R13.10 - DYSPHAGIA, UNSPECIFIED Qualifiers: Dysphagia type: unspecified Qualified Code(s): R13.10 - Dysphagia, unspecified (2) Generalized anxiety disorder Code(s): F41.1 - GENERALIZED ANXIETY DISORDER (3) Atrial fibrillation with RVR Code(s): I48.91 - UNSPECIFIED ATRIAL FIBRILLATION (4) COPD (chronic obstructive pulmonary disease) Code(s): J44.9 - CHRONIC OBSTRUCTIVE PULMONARY DISEASE, UNSPECIFIED Qualifiers : COPD type: COPD with acute exacerbation Qualified Code(s): J44.1 - Chronic obstructive pulmonary disease with (acute) exacerbation (5) Dyspnea Code(s): R06.00 - DYSPNEA, UNSPECIFIED Qualifiers: Dyspnea type: shortness of breath Qualified Code(s): R06.02 - Shortness of breath (6) Pulmonary hypertension Code(s): I27.2 - OTHER SECONDARY PULMONARY HYPERTENSION (7) Acute on chronic respiratory failure with hypoxemia Code(s): J96.21 - ACUTE AND CHRONIC RESPIRATORY FAILURE WITH HYPOXIA
--- NOTE | 2017-01-04 14:31 | PN ---
Physical Exam: SUBJECTIVE: Patient seen and examined this AM. She says her throat is hurting more today. Buddy n/v. OBJECTIVE: Vital Signs Period Temp Pulse Resp BP Sys/Starks Pulse Ox Last 24 Hr 98.0 F-99.1 F 86-101 18-20 95-122/51-78 98-98 PE Gen: pleasant, conversational Neuro: alert, awake, cn 2-12intact Pulm: diminished, distant BS, no cough CV: s1 s2 irregular rhythm Abd: s nt nd + bs Ext: warm, no le edema Laboratory Results - last 24 hr 01/04/17 01/04/17 01/04/17 07:40 07:40 07:40 WBC 8.7 D RBC 3.27 L Hgb 7.7 L Hct 24.3 L MCV 74.3 L MCHC 31.6 L RDW 19.8 H Plt Count 263 MPV 7.4 L Neutrophils % 90.8 H Lymphocytes % 4.9 L Monocytes % 4.2 D Eosinophils % 0.0 Basophils % 0.1 D INR 4.30 H* D Sodium 137 Potassium 4.4 Chloride 88 L Carbon Dioxide 40 H Anion Gap 9 BUN 24 H D Creatinine 0.5 L Random Glucose 117 H Calcium 9.4 Phosphorus 3.1 Magnesium 2.2 Active Medications Generic Name Dose Route Start Last Admin Trade Name Yasmaniq PRN Reason Stop Dose Admin Acetaminophen 650 mg 01/01/17 14:11 01/02/17 23:20 Tylenol - PO 650 mg Q6H PRN Administration FEVER OR PAIN Albuterol Sulfate 1 amp 01/04/17 14:24 Ventolin 0.083% Nebulizer Soln - NEB Q4HPO PRN SHORT OF BREATH/WHEEZING Arformoterol Tartrate 1 amp 01/02/17 22:00 01/04/17 10:45 Brovana (Restricted To Pulmonology/Resp) - NEB 1 amp BID [facility] Administration Digoxin 0.125 mg 01/02/17 10:00 01/04/17 10:30 Lanoxin - PO 0.125 mg DAILY [facility] Administration Diltiazem HCl 120 mg 01/02/17 10:00 01/04/17 10:30 Cardizem Cd - PO 120 mg DAILY [facility] Administration Furosemide 40 mg 01/02/17 10:00 01/04/17 10:30 Lasix - PO 40 mg DAILY [facility] Administration Fluconazole 50 mls @ 50 mls/hr 01/03/17 10:00 01/04/17 13:03 Diflucan 100 Mg/Ns Premixed Ivpb - IVPB 50 mls/hr DAILY [facility] Administration Pantoprazole Sodium 100 mls @ 200 mls/hr 01/03/17 10:00 01/04/17 09:35 Protonix 40mg Ivpb (Pre-Docked) IVPB 200 mls/hr DAILY [facility] Administration Lidocaine/Aluminum/Magnesium/Simeth 5 ml 01/03/17 00:00 01/04/17 13:03 Magic Mouthwash *Sjr Formula* - MM 5 ml Q6HPO [facility] Administration Lorazepam 0.5 mg 01/01/17 22:00 01/04/17 13:44 Ativan - PO 0.5 mg TID [facility] Administration Methylprednisolone Sodium Succinate 40 mg 01/02/17 16:00 01/04/17 10:32 Solu-Medrol - IVPB 40 mg BID [facility] Administration Nystatin 500,000 units 01/01/17 18:00 01/04/17 13:04 Nystatin Oral Suspension - PO 500,000 units Q6HPO [facility] Administration Potassium Chloride 10 meq 01/02/17 10:00 01/04/17 10:29 K-Dur - PO 10 meq DAILY [facility] Administration Tiotropium [place] 1 puff 01/02/17 16:30 01/04/17 10:31 Spiriva - IH 1 puff DAILY [facility] Administration Assessment: 76 year old female admitted with decreased po intake and dysphagia x 2 weeks. Plan: 1. Dysphagia - Secondary to thrush - UGI series cancelled today, will be rescheduled - Ampicillin stopped yesterday - On IV Diflucan and nystatin swish and swallow - Soft diet 2. Atrial fibrillation with RVR - Decrease cardizem 120mg daily - Dig 0.125mg - HOLD Coumadin 3mg HS tonight, parameters in place - Daily INR 3. Acute on chronic COPD exacerbation - Continue IV solumedrol per pulmonary - Spiriva daily - Brovana BID 4. Chronic Diastolic HF - Maintain lasix 40mg daily 5. Weakness - Continue PT 6. Hyponatremia - Resolved with hydration - Off fluids 7. Leukocytosis - Secondary to dehydration - Resolved 8. Generalized anxiety disorder - Controlled 9. Muscle wasting and wt loss - Secondary to malnutrition - Repeat CMP in AM eval protein and albumin levels Visit type - Emergency Visit Emergency Visit: Yes ED Registration Date: 01/01/17 Care time: The patient presented to the Emergency Department on the above date and was hospitalized for further evaluation of their emergent condition. - New Patient This patient is new to me today: Yes Date on this admission: 01/04/17 - Critical Care Critical Care patient: No
[2017-01-04] MEDS: ALBUTEROL SO4 0.083% IH SOL 2.5 MG/3 ML VIAL.NEB. NEB PRN (15:50)
--- NOTE | 2017-01-04 16:16 | PN ---
Progress Note, Physician History of Present Illness: stable still throat hurting thrush better - Current Medication List Current Medications: Active Medications Acetaminophen (Tylenol -) 650 mg PO Q6H PRN PRN Reason: FEVER OR PAIN Last Admin: 01/02/17 23:20 Dose: 650 mg Albuterol Sulfate (Ventolin 0.083% Nebulizer Soln -) 1 amp NEB Q4HPO PRN PRN Reason: SHORT OF BREATH/WHEEZING Last Admin: 01/04/17 15:50 Dose: 1 amp Arformoterol Tartrate (Brovana (Restricted To Pulmonology/Resp) -) 1 amp NEB BID [facility] Last Admin: 01/04/17 10:45 Dose: 1 amp Digoxin (Lanoxin -) 0.125 mg PO DAILY [facility] Last Admin: 01/04/17 10:30 Dose: 0.125 mg Diltiazem HCl (Cardizem Cd -) 120 mg PO DAILY [facility] Last Admin: 01/04/17 10:30 Dose: 120 mg Furosemide (Lasix -) 40 mg PO DAILY [facility] Last Admin: 01/04/17 10:30 Dose: 40 mg Fluconazole (Diflucan 100 Mg/Ns Premixed Ivpb -) 50 mls @ 50 mls/hr IVPB DAILY [facility] Last Admin: 01/04/17 13:03 Dose: 50 mls/hr Pantoprazole Sodium (Protonix 40mg Ivpb (Pre-Docked)) 100 mls @ 200 mls/hr IVPB DAILY [facility] Last Admin: 01/04/17 09:35 Dose: 200 mls/hr Lidocaine/Aluminum/Magnesium/Simeth (Magic Mouthwash *Sjr Formula* -) 5 ml MM Q6HPO [facility] Last Admin: 01/04/17 13:03 Dose: 5 ml Lorazepam (Ativan -) 0.5 mg PO TID [facility] Last Admin: 01/04/17 13:44 Dose: 0.5 mg Methylprednisolone Sodium Succinate (Solu-Medrol -) 40 mg IVPB BID [facility] Last Admin: 01/04/17 10:32 Dose: 40 mg Nystatin (Nystatin Oral Suspension -) 500,000 units PO Q6HPO [facility] Last Admin: 01/04/17 13:04 Dose: 500,000 units Potassium Chloride (K-Dur -) 10 meq PO DAILY [facility] Last Admin: 03/29/17 10:29 Dose: 10 meq Tiotropium [place] (Spiriva -) 1 puff IH DAILY [facility] Last Admin: 01/04/17 10:31 Dose: 1 puff - Objective Vital Signs: Vital Signs Temperature 98.9 F 01/04/17 13:21 Pulse Rate 101 H 01/04/17 13:21 Respiratory Rate 18 01/04/17 13:21 Blood Pressure 122/78 01/04/17 13:21 O2 Sat by Pulse Oximetry (%) 98 01/04/17 09:00 Constitutional: Yes: No Distress, Calm Cardiovascular: Yes: Regular Rate and Rhythm Respiratory: Yes: Regular, CTA Bilaterally Gastrointestinal: Yes: Normal Bowel Sounds, Soft Musculoskeletal: Yes: WNL Extremities: Yes: WNL Neurological: Yes: Alert, Oriented Labs: CBC, BMP 01/04/17 07:40 01/04/17 07:40 INR, PTT INR 4.30 (0.82-1.09) H* D 01/04/17 07:40 Assessment/Plan Problem List - Problems (1) Dysphagia Code(s): R13.10 - DYSPHAGIA, UNSPECIFIED Qualifiers: Dysphagia type: unspecified (2) Weakness. Code(s): R53.1 - WEAKNESS (3) Leukocytosis Code(s): D72.829 - ELEVATED WHITE BLOOD CELL COUNT, UNSPECIFIED (4) Hyponatremia Code(s): E87.1 - HYPO-OSMOLALITY AND HYPONATREMIA (5) COPD (chronic obstructive pulmonary disease) Code(s): J44.9 - CHRONIC OBSTRUCTIVE PULMONARY DISEASE, UNSPECIFIED Qualifiers : COPD type: COPD with acute exacerbation Qualified Code(s): J44.1 - Chronic obstructive pulmonary disease with (acute) exacerbation (6) Atrial fibrillation with RVR Code(s): I48.91 - UNSPECIFIED ATRIAL FIBRILLATION (7) Generalized anxiety disorder Code(s): F41.1 - GENERALIZED ANXIETY DISORDER i am going to order a stat blood cx continue to monitor the thrush plan continue current mgmt rest as per primary incentive ally
--- NOTE | 2017-01-04 18:43 | PN ---
GI Progress Note Subjective: GASTROENTEROLOGY PATIENT TOTALLY VAGUE TODAY WITH ANY ANSWERS ESOPHAGRAM CANCELLED DUE TO MECHANICAL ISSUES IN RADIOLOGY TEST FOR TOMORROW. - Objective Vital Signs: Vital Signs Temperature 98.6 F 01/04/17 18:15 Pulse Rate 92 H 01/04/17 18:15 Respiratory Rate 18 01/04/17 18:15 Blood Pressure 128/76 01/04/17 18:15 O2 Sat by Pulse Oximetry (%) 98 01/04/17 13:40 Constitutional: Calm HENT: Yes: Normocephalic Cardiovascular: Yes: Pulse Irregular Respiratory: Yes: Wheezes ...Auscultate: Yes: Normoactive Bowel Sounds ...Palpate: Yes: Soft Extremities: Yes: WNL Labs: CBC, BMP 01/04/17 07:40 01/04/17 07:40 INR, PTT INR 4.30 (0.82-1.09) H* D 01/04/17 07:40 Problem List - Problems (1) Odynophagia Assessment/Plan: SWALLOWING EVALATUON WITH ALEKSANDRA KARL ESOPHAGRAM AND UGI SERIES TOMORROW I HELD COUMADIN GIVEN INR OVER 4! Code(s): R13.10 - DYSPHAGIA, UNSPECIFIED (2) Dysphagia Assessment/Plan: ABOVE Code(s): R13.10 - DYSPHAGIA, UNSPECIFIED Qualifiers: Dysphagia type: unspecified Qualified Code(s): R13.10 - Dysphagia, unspecified (3) Thrush, oral Assessment/Plan: BETTER Code(s): B37.0 - CANDIDAL STOMATITIS (4) Weakness Code(s): R53.1 - WEAKNESS (5) COPD (chronic obstructive pulmonary disease) Code(s): J44.9 - CHRONIC OBSTRUCTIVE PULMONARY DISEASE, UNSPECIFIED Qualifiers : COPD type: COPD with acute exacerbation Qualified Code(s): J44.1 - Chronic obstructive pulmonary disease with (acute) exacerbation (6) Chronic respiratory failure with hypoxia Code(s): J96.11 - CHRONIC RESPIRATORY FAILURE WITH HYPOXIA (7) Pulmonary hypertension Code(s): I27.2 - OTHER SECONDARY PULMONARY HYPERTENSION
[2017-01-05] MEDS: LORazepam 0.5 MG TABLET PO SCH ×3 (06:19→21:01)
[2017-01-05] MEDS: NYSTATIN 500,000 UNITS/5 ML SUSPENSION PO SCH ×3 (06:20→18:11)
[2017-01-05] MEDS: MAG HYDROX/ALH/SMC/DPHA/LIDO 240 ML MOUTHWASH MM SCH ×3 (06:20→18:10)
[2017-01-05] MEDS: ALBUTEROL SO4 0.083% IH SOL 2.5 MG/3 ML VIAL.NEB. NEB PRN ×2 (07:01→16:22)
[2017-01-05 07:36] LABS: MCH 23.6 pg (25.7-33.7); MCHC 31.8 g/dl (32.0-36.0); MEAN CELL VOLUME 74.2 fl (80-96); MEAN PLT VOLUME 7.5 fl (7.5-11.1); NEUTROPHILS 91.2 % (42.8-82.8); PLATELET COUNT 263 K/MM3 (134-434); RDW 19.7 % (11.6-15.6); WHITE BLOOD COUNT 8.3 K/mm3 (4.0-10.0)
[2017-01-05 07:43] LABS: PROTHROMBIN TIME (PATIENT) 54.2 SEC (9.98-11.88)
[2017-01-05 08:14] LABS: ALBUMIN 3.4 g/dl (3.4-5.0); ANION GAP 7 (8-16); CALCIUM 9.5 mg/dL (8.5-10.1); CO2 40 mmol/L (21-32); MAGNESIUM 2.3 mg/dL (1.8-2.4)
[2017-01-05 08:20] LABS: ALK PHOS 65 U/L (45-117); BILIRUBIN,TOTAL 0.3 mg/dL (0.2-1.0); CREATININE 0.5 mg/dL (0.55-1.02); GLUCOSE,RANDOM 109 mg/dL (74-106); PHOSPHOROUS 3.5 mg/dL (2.5-4.9); SGOT/AST 8 U/L (15-37); SGPT/ALT 18 U/L (12-78); TOT PROT 5.9 g/dl (6.4-8.2)
[2017-01-05 08:28] LABS: INR 4.77 (0.82-1.09)
[2017-01-05] MEDS ORDERED: PT OWN MED DRAWER 7, Y5N ONE ×3 (09:10→18:07)
[2017-01-05] MEDS: methylPREDNISolone NA SUCC 40 MG/1 ML VIAL IVPB SCH ×2 (09:12→21:01)
[2017-01-05] MEDS: DIGOXIN 0.125 MG TABLET (FP) PO SCH (09:13)
[2017-01-05] MEDS: POTASSIUM CHLORIDE TABS 10 MEQ TABLET.ER (FP) PO SCH (09:13)
[2017-01-05] MEDS: FUROSEMIDE 40 MG TABLET (FP) PO SCH (09:13)
[2017-01-05] MEDS: TIOTROPIUM BROMIDE 18 MCG/INH (DEVICE W/ 30 CAPSULES) IH SCH (09:14)
[2017-01-05] MEDS: PANTOPRAZOLE SODIUM 100 ML IVPB SCH (10:02)
--- NOTE | 2017-01-05 10:36 | PN ---
Progress Note (short form) - Note Progress Note: s: no cp palps dizzy; sob better but still present o: Vital Signs Period Temp Pulse Resp BP Sys/Starks Pulse Ox Last 24 Hr 97.5 F-98.9 F 91-101 18-20 104-128/69-78 98-98 Constitutional: Yes: Well Nourished, No Distress Eyes: No: Sclera Icterus Respiratory: Yes: mild exp wheeze, nl eff. No: Accessory Muscle Use, Rales Gastrointestinal: Yes: Normal Bowel Sounds. No: Distention, Hepatomegaly, Palpable Mass, Tenderness Cardiovascular: Yes: Pulse Irregular JVD: No Heart Sounds: Yes: S1, S2. No: Gallop Murmur: No: Systolic Murmur, Diastolic Murmur Extremities: No: Cool, Cyanosis Edema: No Integumentary: No: Jaundice diaphoresis Neurological: Yes: Alert, awake, appropriate Psychiatric: No: Agitated Current Medications Generic Name Dose Route Start Last Admin Trade Name Freq PRN Reason Stop Dose Admin Acetaminophen 650 mg 01/01/17 14:11 01/02/17 23:20 Tylenol - PO 650 mg Q6H PRN Administration FEVER OR PAIN Albuterol Sulfate 1 amp 01/04/17 14:24 01/05/17 07:01 Ventolin 0.083% Nebulizer Soln - NEB 1 amp Q4HPO PRN Administration SHORT OF BREATH/WHEEZING Arformoterol Tartrate 1 amp 01/02/17 22:00 01/04/17 22:33 Brovana (Restricted To Pulmonology/Resp) - NEB 1 amp BID HERMINIO Administration Digoxin 0.125 mg 01/02/17 10:00 01/05/17 09:13 Lanoxin - PO 0.125 mg DAILY HERMINIO Administration Diltiazem HCl 120 mg 01/02/17 10:00 01/05/17 09:12 Cardizem Cd - PO 120 mg DAILY HERMINIO Administration Furosemide 40 mg 01/02/17 10:00 01/05/17 09:13 Lasix - PO 40 mg DAILY HERMINIO Administration Fluconazole 50 mls @ 50 mls/hr 01/03/17 10:00 01/04/17 13:03 Diflucan 100 Mg/Ns Premixed Ivpb - IVPB 50 mls/hr DAILY HERMINIO Administration Pantoprazole Sodium 100 mls @ 200 mls/hr 01/03/17 10:00 01/05/17 10:02 Protonix 40mg Ivpb (Pre-Docked) IVPB 200 mls/hr DAILY HERMINIO Administration Lidocaine/Aluminum/Magnesium/Simeth 5 ml 01/03/17 00:00 01/05/17 06:20 Magic Mouthwash *Sjr Formula* - MM Not Given Q6HPO HERMINIO Lorazepam 0.5 mg 01/01/17 22:00 01/05/17 06:19 Ativan - PO Not Given TID HERMINIO Methylprednisolone Sodium Succinate 40 mg 01/02/17 16:00 01/05/17 09:12 Solu-Medrol - IVPB 40 mg BID HERMINIO Administration Nystatin 500,000 units 01/01/17 18:00 01/05/17 06:20 Nystatin Oral Suspension - PO Not Given Q6HPO HERMINIO Potassium Chloride 10 meq 01/02/17 10:00 01/05/17 09:13 K-Dur - PO 10 meq DAILY HERMINIO Administration Tiotropium [place] 1 puff 01/02/17 16:30 01/05/17 09:14 Spiriva - IH 1 puff DAILY HERMINIO Administration CBC, BMP 01/05/17 06:40 01/05/17 06:40 ekg: afib; normal axis; no path q's; diffuse ST-Ts not changed vs 10/25 Chest X-ray: Report Reviewed (clear lungs/pleura) MANUEL 10/2016: nl lv/rv. 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 No TR. 1+ AR. No veg/abscess. Mild-mod mural aortic atheroma. Echo 10/2016: nl lv/rv, sixto, mild mr, mild-mod tr, nl rvsp, nl rvsp, mild ar Echo 09/2016: Nl lv/rv. Mod MAC. 1+ AR/TR. Mod OK. 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); mild-mod MR with no systolic blunting or reversal of flow in pulm vein; peak E velocity (59 cm/sec) ; myxomatous TV with prob mild-mod TR; at least moderate pulm HTN; no change vs 2013 echo a/p: chronic diast chf: -episodes of acute chf on prior admits, required lasix 40 iv qd treatment -sent home on lasix 40 po daily last time--saw dr ivey in office few weeks ago and appeared euvolemic with new dry wt (likely lost muscle mass in hospital) -bnp 1400, down from 2500 during 10/25 admit -cxr clear, no JVD, no audible MR murmur -do not see any evidence of acute chf here -cont po lasix 40 qd, monitor vol status with steroids copd: -advanced, dependent on home O2 -on iv steroids per pulm recurrent staph bacteremia/MANUEL negative for endocarditis: -+MSSA on repeat BCXs 2d apart in early 09/23 (treated with 14d of abx then) -back 10/25 with spontaneous MSSA as outpatient; -MANUEL then with no evidence of endocarditis paroxysmal Afib/supraventricular tachycardia/MAT: -has hx mat worsened by acute resp illnesses in past -new AFib on tele 10/25, HR mostly controlled, has occasional rvr when anxious -started on dig, diltiazem 240 qd -sbp 90s-100s here, currently HRs well controlled -cont dig (repeat level here is WNL) -change diltiazem to 120mg qd, observe HR trend -CHADS VASC 4--NOACs prohibitive cost so recently changed over to warfarin as outpt -dose warfarin per INR (goal 2-3) 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
[2017-01-05] MEDS: FLUCONAZOLE 100 MG/NS 50 ML IVPB SCH (10:43)
[2017-01-05] MEDS: ARFORMOTEROL TARTRATE 15 MCG/2 ML VIAL NEB SCH ×2 (10:55→22:40)
--- NOTE | 2017-01-05 12:24 | PN ---
Progress Note (short form) - Note Progress Note: PULMONARY Remains short of breath but denies cough or wheezing. No fevers or chills. Last Vital Signs Temp Pulse Resp BP Pulse Ox 98.4 F 96 H 18 117/68 98 01/05/17 10:00 01/05/17 10:00 01/05/17 10:00 01/05/17 10:00 01/04/17 21:00 Gen: mildly tachypneic at rest Heart: RRRL Lung: distant breath sounds, scattered rhonchi Abd: soft, nontender Ext: no edema CBC, BMP 01/05/17 06:40 01/05/17 06:40 Active Medications Acetaminophen (Tylenol -) 650 mg PO Q6H PRN PRN Reason: FEVER OR PAIN Last Admin: 01/02/17 23:20 Dose: 650 mg Albuterol Sulfate (Ventolin 0.083% Nebulizer Soln -) 1 amp NEB Q4HPO PRN PRN Reason: SHORT OF BREATH/WHEEZING Last Admin: 01/05/17 07:01 Dose: 1 amp Arformoterol Tartrate (Brovana (Restricted To Pulmonology/Resp) -) 1 amp NEB BID [facility] Last Admin: 01/05/17 10:55 Dose: 1 amp Digoxin (Lanoxin -) 0.125 mg PO DAILY [facility] Last Admin: 01/05/17 09:13 Dose: 0.125 mg Diltiazem HCl (Cardizem Cd -) 120 mg PO DAILY [facility] Last Admin: 01/05/17 09:12 Dose: 120 mg Furosemide (Lasix -) 40 mg PO DAILY [facility] Last Admin: 01/05/17 09:13 Dose: 40 mg Fluconazole (Diflucan 100 Mg/Ns Premixed Ivpb -) 50 mls @ 50 mls/hr IVPB DAILY [facility] Last Admin: 01/05/17 10:43 Dose: 50 mls/hr Pantoprazole Sodium (Protonix 40mg Ivpb (Pre-Docked)) 100 mls @ 200 mls/hr IVPB DAILY [facility] Last Admin: 01/05/17 10:02 Dose: 200 mls/hr Lidocaine/Aluminum/Magnesium/Simeth (Magic Mouthwash *Sjr Formula* -) 5 ml MM Q6HPO [facility] Last Admin: 01/05/17 12:18 Dose: 5 ml Lorazepam (Ativan -) 0.5 mg PO TID [facility] Last Admin: 01/05/17 06:19 Dose: Not Given Methylprednisolone Sodium Succinate (Solu-Medrol -) 40 mg IVPB BID [facility] Last Admin: 01/05/17 09:12 Dose: 40 mg Nystatin (Nystatin Oral Suspension -) 500,000 units PO Q6HPO [facility] Last Admin: 01/05/17 12:18 Dose: 500,000 units Potassium Chloride (K-Dur -) 10 meq PO DAILY [facility] Last Admin: 01/05/17 09:13 Dose: 10 meq Tiotropium [place] (Spiriva -) 1 puff IH DAILY [facility] Last Admin: 01/05/17 09:14 Dose: 1 puff A/P Acute COPD Exacerbation LV Diastolic Dysfunction Pulmonary HTN Atrial Fibrillation Dysphagia - continue medrol at current dose - inhaled bronchodilators - lasix - rate controlled - continue anticoagulation - O2 to keep SpO2 >90%
--- NOTE | 2017-01-05 15:07 | PN ---
Progress Note, Physician History of Present Illness: patient doing well no complaints awaiting for speech and swallow studies - Current Medication List Current Medications: Active Medications Acetaminophen (Tylenol -) 650 mg PO Q6H PRN PRN Reason: FEVER OR PAIN Last Admin: 01/02/17 23:20 Dose: 650 mg Albuterol Sulfate (Ventolin 0.083% Nebulizer Soln -) 1 amp NEB Q4HPO PRN PRN Reason: SHORT OF BREATH/WHEEZING Last Admin: 01/05/17 07:01 Dose: 1 amp Arformoterol Tartrate (Brovana (Restricted To Pulmonology/Resp) -) 1 amp NEB BID [facility] Last Admin: 01/05/17 10:55 Dose: 1 amp Digoxin (Lanoxin -) 0.125 mg PO DAILY [facility] Last Admin: 01/05/17 09:13 Dose: 0.125 mg Diltiazem HCl (Cardizem Cd -) 120 mg PO DAILY [facility] Last Admin: 01/05/17 09:12 Dose: 120 mg Furosemide (Lasix -) 40 mg PO DAILY [facility] Last Admin: 01/05/17 09:13 Dose: 40 mg Fluconazole (Diflucan 100 Mg/Ns Premixed Ivpb -) 50 mls @ 50 mls/hr IVPB DAILY [facility] Last Admin: 01/05/17 10:43 Dose: 50 mls/hr Pantoprazole Sodium (Protonix 40mg Ivpb (Pre-Docked)) 100 mls @ 200 mls/hr IVPB DAILY [facility] Last Admin: 01/05/17 10:02 Dose: 200 mls/hr Lidocaine/Aluminum/Magnesium/Simeth (Magic Mouthwash *Sjr Formula* -) 5 ml MM Q6HPO [facility] Last Admin: 01/05/17 12:18 Dose: 5 ml Lorazepam (Ativan -) 0.5 mg PO TID [facility] Last Admin: 01/05/17 14:02 Dose: 0.5 mg Methylprednisolone Sodium Succinate (Solu-Medrol -) 40 mg IVPB BID [facility] Last Admin: 01/05/17 09:12 Dose: 40 mg Nystatin (Nystatin Oral Suspension -) 500,000 units PO Q6HPO [facility] Last Admin: 01/05/17 12:18 Dose: 500,000 units Potassium Chloride (K-Dur -) 10 meq PO DAILY [facility] Last Admin: 01/05/17 09:13 Dose: 10 meq Tiotropium [place] (Spiriva -) 1 puff IH DAILY [facility] Last Admin: 01/05/17 09:14 Dose: 1 puff - Objective Vital Signs: Vital Signs Temperature 98.2 F 01/05/17 14:14 Pulse Rate 96 H 01/05/17 14:14 Respiratory Rate 16 01/05/17 14:14 Blood Pressure 120/75 01/05/17 14:14 O2 Sat by Pulse Oximetry (%) 96 01/05/17 10:54 Constitutional: Yes: No Distress, Calm Cardiovascular: Yes: Pulse Irregular Respiratory: Yes: Regular, Poor Air Entry Gastrointestinal: Yes: Normal Bowel Sounds, Soft Musculoskeletal: Yes: WNL Extremities: Yes: WNL Integumentary: Yes: WNL Neurological: Yes: Alert, Oriented Psychiatric: Yes: Alert, Oriented Labs: CBC, BMP 01/05/17 06:40 01/05/17 06:40 INR, PTT INR 4.77 (0.82-1.09) H* 01/05/17 06:40 Assessment/Plan Problem List - Problems (1) Dysphagia Code(s): R13.10 - DYSPHAGIA, UNSPECIFIED Qualifiers: Dysphagia type: unspecified (2) Weakness. Code(s): R53.1 - WEAKNESS (3) Leukocytosis Code(s): D72.829 - ELEVATED WHITE BLOOD CELL COUNT, UNSPECIFIED (4) Hyponatremia Code(s): E87.1 - HYPO-OSMOLALITY AND HYPONATREMIA (5) COPD (chronic obstructive pulmonary disease) Code(s): J44.9 - CHRONIC OBSTRUCTIVE PULMONARY DISEASE, UNSPECIFIED Qualifiers : COPD type: COPD with acute exacerbation Qualified Code(s): J44.1 - Chronic obstructive pulmonary disease with (acute) exacerbation (6) Atrial fibrillation with RVR Code(s): I48.91 - UNSPECIFIED ATRIAL FIBRILLATION (7) Generalized anxiety disorder Code(s): F41.1 - GENERALIZED ANXIETY DISORDER plan continue current mgmt rest as per primary incentive ally stable off of abx
--- NOTE | 2017-01-05 17:21 | PN ---
Physical Exam: SUBJECTIVE: Patient seen and examined. Denies chest pain, some shortness of breath relieved when she rests. OBJECTIVE: cachectic appearing shortness of breath at rest, states shortness of breath slightly worse today purse lip breathing noted Vital Signs Period Temp Pulse Resp BP Sys/Starks Pulse Ox Last 24 Hr 97.5 F-98.6 F 89-98 16-20 104-128/68-76 96-98 GENERAL: The patient is awake, alert, and fully oriented, in mild-moderate respiratory distress, HEAD: Normal with no signs of trauma. EYES: PERRL, extraocular movements intact, sclera anicteric, conjunctiva clear. No ptosis. ENT: Ears normal, nares patent, oropharynx clear without exudates, moist mucous membranes. NECK: Trachea midline, full range of motion, supple. LUNGS: accessory muscle use, dyspnea at rest, poor air flow, oxygen dependent EXTREMITIES: 2+ pulses, warm, well-perfused, no edema. NEUROLOGICAL: Normal speech, gait not observed. PSYCH: Normal mood, normal affect. SKIN: Warm, dry, normal turgor, no rashes or lesions noted Laboratory Results - last 24 hr 01/05/17 01/05/17 01/05/17 06:40 06:40 06:40 WBC 8.3 RBC 3.37 L Hgb 7.9 L Hct 25.0 L MCV 74.2 L MCHC 31.8 L RDW 19.7 H Plt Count 263 MPV 7.5 Neutrophils % 91.2 H Lymphocytes % 4.1 L Monocytes % 4.7 Eosinophils % 0.0 Basophils % 0.0 INR 4.77 H* Sodium 136 Potassium 4.3 Chloride 89 L Carbon Dioxide 40 H Anion Gap 7 L BUN 28 H Creatinine 0.5 L Creat Clearance w eGFR > 60 Random Glucose 109 H Calcium 9.5 Phosphorus 3.5 Magnesium 2.3 Total Bilirubin 0.3 AST 8 L ALT 18 D Alkaline Phosphatase 65 Total Protein 5.9 L Albumin 3.4 Active Medications Generic Name Dose Route Start Last Admin Trade Name Freq PRN Reason Stop Dose Admin Acetaminophen 650 mg 01/01/17 14:11 01/02/17 23:20 Tylenol - PO 650 mg Q6H PRN Administration FEVER OR PAIN Albuterol Sulfate 1 amp 01/04/17 14:24 01/05/17 16:22 Ventolin 0.083% Nebulizer Soln - NEB 1 amp Q4HPO PRN Administration SHORT OF BREATH/WHEEZING Arformoterol Tartrate 1 amp 01/02/17 22:00 01/05/17 10:55 Brea (Restricted To Pulmonology/Resp) - NEB 1 amp BID HERMINIO Administration Digoxin 0.125 mg 01/02/17 10:00 01/05/17 09:13 Lanoxin - PO 0.125 mg DAILY HERMINIO Administration Diltiazem HCl 120 mg 01/02/17 10:00 01/05/17 09:12 Cardizem Cd - PO 120 mg DAILY HERMINIO Administration Furosemide 40 mg 01/02/17 10:00 01/05/17 09:13 Lasix - PO 40 mg DAILY HERMINIO Administration Fluconazole 50 mls @ 50 mls/hr 01/03/17 10:00 01/05/17 10:43 Diflucan 100 Mg/Ns Premixed Ivpb - IVPB 50 mls/hr DAILY HERMINIO Administration Pantoprazole Sodium 100 mls @ 200 mls/hr 01/03/17 10:00 01/05/17 10:02 Protonix 40mg Ivpb (Pre-Docked) IVPB 200 mls/hr DAILY HERMINIO Administration Lidocaine/Aluminum/Magnesium/Simeth 5 ml 01/03/17 00:00 01/05/17 12:18 Magic Mouthwash *Sjr Formula* - MM 5 ml Q6HPO HERMINIO Administration Lorazepam 0.5 mg 01/01/17 22:00 01/05/17 14:02 Ativan - PO 0.5 mg TID HERMINIO Administration Methylprednisolone Sodium Succinate 40 mg 01/02/17 16:00 01/05/17 09:12 Solu-Medrol - IVPB 40 mg BID HERMINIO Administration Nystatin 500,000 units 01/01/17 18:00 01/05/17 12:18 Nystatin Oral Suspension - PO 500,000 units Q6HPO HERMINIO Administration Potassium Chloride 10 meq 01/02/17 10:00 01/05/17 09:13 K-Dur - PO 10 meq DAILY HERMINIO Administration Tiotropium Plain 1 puff 01/02/17 16:30 01/05/17 09:14 Spiriva - IH 1 puff DAILY HERMINIO Administration ASSESSMENT/PLAN: Patient is a 76 year old female with a significant past medical history of atrial fib, dysphagia, COPD, diastolic heart failure and weakness. She was admitted on 01/01/2017 with decreased PO intake and dysphagia x 2 weeks. On admission, she was noted to have oral thrush. GI: Dysphagia - acute Assessment/Plan: Oral thrush noted on oral cavity, on Nystatin oral suspension q6 with upper gi series for dysphasia today but unable to perform due to technical difficulties of equipment Ampicillin stopped 01/04, on IV diflucan 100mg as per GI On soft diet but PO intake poor - very cachectic and weak Cardiology: Atrial fibrillation with RVR - chronic Assessment/Plan: On cardizem 120mg daily Digoxin 0.125mg daily Continue to HOLD Coumadin for supratherapeutic INR Chronic Diastolic HF Assessment/Plan: Maintain lasix 40mg daily Monitor renal function Pulmonary: Acute on chronic COPD exacerbation Assessment/Plan: diminished breath sounds bilaterally, accessory muscle use On IV solumedrol 40mg BID as per pulmonary Spiriva daily, dyspnea at rest, continue current dose of Solumedrol Monitor respiratory status Muscular/Skeletal: Muscle wasting and wt loss - chronic Assessment/Plan: Secondary to malnutrition, failure to thrive On a soft diet, poor PO intake likely secondary thrush Will consult dietary for support F.E.N. Fluids: offer free fluids, tolerating PO, on Lasix, no IVF Electrolytes: dehydration, encourage oral intake Nutrition: soft diet as tolerated, Nystatin for oral thrush Disposition: Likely will need STR upon discharge. Full Code. Visit type - Emergency Visit Emergency Visit: Yes ED Registration Date: 01/01/17 Care time: The patient presented to the Emergency Department on the above date and was hospitalized for further evaluation of their emergent condition. - New Patient This patient is new to me today: No - Critical Care Critical Care patient: No - Discharge Referral Referred to [facility] Med P.C.: No
--- NOTE | 2017-01-05 17:29 | CONSULT ---
Admitting History and Physical - Past Medical History Cardiovascular: Yes: AFIB, HTN, Pulmonary Hypertension Pulmonary: Yes: COPD, O2 Dependent Gastrointestinal: Yes: Other (ODYNOPHAGIA) Hepatobiliary: No: Cirrhosis, Cholelithiasis, Cholecystitis, Choledocholithiasis , Hepatitis A, Hepatitis B, Hepatitis C, Other Renal/: Yes: UTI ...: No Psych: Yes: Anxiety - Past Surgical History Past Surgical History: Yes: None - Advance Directives Advance Directives: Yes: Living Will - Smoking History Smoking history: Former smoker Have you smoked in the past 12 months: Yes Aproximately how many cigarettes per day: 1 If you are a former smoker, when did you quit?: 5 mo ago - Alcohol/Substance Use Hx Alcohol Use: Yes (rarely, last drink 2 weeks ago) History of Substance Use: reports: None - Social History ADL: Support Services History of Recent Travel: No History - Admission Reason For Visit: DYSPHAGIA, WEAKNESS - Hearing Hearing: Impaired, Both Hearing Aide: No Speech Evaluation - Communication Primary Language: VIET[place]ESE Communication: Yes: Within Normal Limits Oral Expression Ability: Yes: No Impairment - Speech Production Apraxia: No Able to Make Needs Known: Yes: Mildly Impaired (word finding difficulties at times) Intelligibility: Yes: WNL - Speech Characteristics Voice Loudness: Monoloudness, Limited Variation Voice Pitch: Yes: Limited Variation Voice Phonatory-based Quality: Yes: Normal Speech Pattern: Normal Nasal Resonance: Normal Articulation: Yes: Precise Rate of Speech: Intact - Language/Auditory Comprehension Follows: Yes: 1 Stage Simple Commands (WFL), 2 Stage Simple Commands (WFL) Observation: Able to respond to yes/no queries: Yes, Yes/No Confusion: No, Comprehends Conversational Speech: Yes, Benefits from Slow Speech: No, Benefits from Repetiton: No, Benefits from Increased Volume of Speech: No - Language/Verbal Expression Able to Respond to Simple Queries: Yes: WNL Able to Communicate Wants and Needs: Yes: WNL Functional Communication Status: Yes: WNL Aware of Errors: Yes Attempts to Correct Errors: Yes Attention: Yes: Intact - Memory/Perception intermediate Memory: Yes: WNL Short Term Memory: Yes: WNL - Swallow Evaluation/Bedside Assessment Current Nutritional Intake: Soft, Thin Liquids Oral Secretions: Yes: Dryness Tracheostomy Present: No Patient on Ventilator: No Dentition: Yes: Adequate, Dental Appliance Upper, Dental Appliance Lower Facial Symmetry at Rest: Symmetrical Facial Symmetry on Retraction: Symmetrical Facial Movement: Controlled Sensation: Normal Facial Comment: WFL for speech and swallowing purposes Jaw Position: Closed at Rest Pucker Lips: Normal Smile: Normal Lips, Comment: WFL for speech and swallowing purposes Lingual Movement: Normal Lingual Speed of Movement: Normal Lingual Movement Strgth Against Opposition: Reduced Lingual Comment: WFL for speech and swallowing purposes Soft Palate Description: Normal Color, Normal Arch Hard Palate Description: Normal Color, Normal Arch Gag Reflex: Weak Velopharyngeal Movement: Normal Laryngeal Elevation: WFL Laryngeal Movement: Able to Palpate Needs Assistance: No Rate of Intake: WFL Bolus Size: Small Labial Seal: WFL Chewing: WFL Oral Prep Time: WFL A-P Transit: WFL Pocketing: None Timing of Swallow: WFL Odynophagia: Oral, Pharyngeal Coughing/Throat Clear: No Change in Voice: No Other Findings/Remarks: 76 year old female seen at bedside for swallow eval. Pt is A&Ox3, verbal and cooperative. Pt presents admitted with dysphagia, weakness, PMH: COPD, CHF, HTN, anxiety, and a-fib. Current diet: Soft solids with thin liquids. Pt was consuming pureed but refused the consistency. Pt self reported that she has thrush and has difficultly swallowing at times. Pt is consuming about 50% of meals. Pt given po trials of pureed, mech soft and soft solids with without assistance revealed good acceptance, adequate mastication and A-P transport. Pharyngeal swallow appear timely with no coughing or changes in respiration at this time. Pt reports mild pain at times (not evidence during this session) Pt given po trials of thin liquids without assistance were unremarkable for aspiration at this time. Recommendations - Speech Evaluation, Impression/Plan Impression: 76 year old female presents with mild oral phase dysphagia and possible pharyngeal phase dysphagia with pureed, mech soft, soft solids and thin liquids. No evidence of aspiration at this time with any consistency offered. Laundry Washer Goals: tolerate the least restrictive diet consistency without s/s aspiration. Short Term Goals: tolerate the least restrictive diet consistency without s/s aspiration. - Dysphagia Impressions/Plan Swallowing Skills: Impaired Dysphagia Impressions: Minimal Impairment Dysphagia Treatment Plan: Small Bites, Safe Rate, 1/2 tsp. at a time, Elevate HOB during feed, Other (Alternate liquids of every 2-3 bites of solids. Monitor nutritional intake and pulmonary status.) Dysphagia Evaluation Summary: Pt is able to tolerate puree, mech soft, soft solids and thin liquids without signs or symptoms of aspiration at this time. Results given to extension service specialist in charge and to pcp via chart. Recommendations: ENT Consult (To eval oral thrush?) - Recommendations Diet Consistency: Mechanical Soft Medication Administration: Crushed with applesauce Liquids: Thin Liquids
[2017-01-06] MEDS: MAG HYDROX/ALH/SMC/DPHA/LIDO 240 ML MOUTHWASH MM SCH ×4 (00:09→18:10)
[2017-01-06] MEDS: NYSTATIN 500,000 UNITS/5 ML SUSPENSION PO SCH ×4 (00:09→18:10)
[2017-01-06] MEDS: ALBUTEROL SO4 0.083% IH SOL 2.5 MG/3 ML VIAL.NEB. NEB PRN ×3 (01:31→13:04)
[2017-01-06] MEDS: LORazepam 0.5 MG TABLET PO SCH ×3 (05:31→21:06)
[2017-01-06 08:03] LABS: BASOPHIL 0.1 % (0-2.0); MCH 23.2 pg (25.7-33.7); MCHC 31.4 g/dl (32.0-36.0); MEAN CELL VOLUME 73.9 fl (80-96); MEAN PLT VOLUME 7.9 fl (7.5-11.1); NEUTROPHILS 90.2 % (42.8-82.8); PLATELET COUNT 275 K/MM3 (134-434); RDW 19.6 % (11.6-15.6); WHITE BLOOD COUNT 7.1 K/mm3 (4.0-10.0)
[2017-01-06 08:10] LABS: ALBUMIN 3.2 g/dl (3.4-5.0); ANION GAP 8 (8-16); BILIRUBIN,TOTAL 0.4 mg/dL (0.2-1.0); CALCIUM 9.2 mg/dL (8.5-10.1); CO2 42 mmol/L (21-32); CREATININE 0.6 mg/dL (0.55-1.02); GLUCOSE,RANDOM 111 mg/dL (74-106); SGOT/AST 13 U/L (15-37); SGPT/ALT 24 U/L (12-78); TOT PROT 5.7 g/dl (6.4-8.2)
[2017-01-06 08:11] LABS: ALK PHOS 68 U/L (45-117)
[2017-01-06 08:29] LABS: INR 3.99 (0.82-1.09); PROTHROMBIN TIME (PATIENT) 45.2 SEC (9.98-11.88)
[2017-01-06] MEDS: ARFORMOTEROL TARTRATE 15 MCG/2 ML VIAL NEB SCH ×2 (10:00→21:37)
--- NOTE | 2017-01-06 10:54 | PN ---
Progress Note (short form) - Note Progress Note: s: no cp palps dizzy; sob better but still present o: Vital Signs Period Temp Pulse Resp BP Sys/Starks Pulse Ox Last 24 Hr 98.2 F-98.4 F 86-107 16-22 108-120/65-76 96-97 Constitutional: Yes: Well Nourished, No Distress Eyes: No: Sclera Icterus Respiratory: Yes: mild exp wheeze, nl eff. No: Accessory Muscle Use, Rales Gastrointestinal: Yes: Normal Bowel Sounds. No: Distention, Hepatomegaly, Palpable Mass, Tenderness Cardiovascular: Yes: Pulse Irregular JVD: No Heart Sounds: Yes: S1, S2. No: Gallop Murmur: No: Systolic Murmur, Diastolic Murmur Extremities: No: Cool, Cyanosis Edema: No Integumentary: No: Jaundice diaphoresis Neurological: Yes: Alert, awake, appropriate Psychiatric: No: Agitated Current Medications Generic Name Dose Route Start Last Admin Trade Name Freq PRN Reason Stop Dose Admin Acetaminophen 650 mg 01/01/17 14:11 01/02/17 23:20 Tylenol - PO 650 mg Q6H PRN Administration FEVER OR PAIN Albuterol Sulfate 1 amp 01/04/17 14:24 01/06/17 06:30 Ventolin 0.083% Nebulizer Soln - NEB 1 amp Q4HPO PRN Administration SHORT OF BREATH/WHEEZING Arformoterol Tartrate 1 amp 01/02/17 22:00 01/06/17 10:00 Brovana (Restricted To Pulmonology/Resp) - NEB 1 amp BID HERMINIO Administration Digoxin 0.125 mg 01/02/17 10:00 01/05/17 09:13 Lanoxin - PO 0.125 mg DAILY HERMINIO Administration Diltiazem HCl 120 mg 01/02/17 10:00 01/05/17 09:12 Cardizem Cd - PO 120 mg DAILY HERMINIO Administration Furosemide 40 mg 01/02/17 10:00 01/05/17 09:13 Lasix - PO 40 mg DAILY HERMINIO Administration Fluconazole 50 mls @ 50 mls/hr 01/03/17 10:00 01/05/17 10:43 Diflucan 100 Mg/Ns Premixed Ivpb - IVPB 50 mls/hr DAILY HERMINIO Administration Pantoprazole Sodium 100 mls @ 200 mls/hr 01/03/17 10:00 01/05/17 10:02 Protonix 40mg Ivpb (Pre-Docked) IVPB 200 mls/hr DAILY HERMINIO Administration Lidocaine/Aluminum/Magnesium/Simeth 5 ml 01/03/17 00:00 01/06/17 05:30 Magic Mouthwash *Sjr Formula* - MM Not Given Q6HPO HERMINIO Lorazepam 0.5 mg 01/01/17 22:00 01/06/17 05:31 Ativan - PO 0.5 mg TID HERMINIO Administration Methylprednisolone Sodium Succinate 40 mg 01/02/17 16:00 01/05/17 21:01 Solu-Medrol - IVPB 40 mg BID HERMINIO Administration Nystatin 500,000 units 01/01/17 18:00 01/06/17 05:30 Nystatin Oral Suspension - PO Not Given Q6HPO HERMINIO Potassium Chloride 10 meq 01/02/17 10:00 01/05/17 09:13 K-Dur - PO 10 meq DAILY HERMINIO Administration Tiotropium [place] 1 puff 01/02/17 16:30 01/05/17 09:14 Spiriva - IH 1 puff DAILY HERMINIO Administration CBC, BMP 01/06/17 06:00 01/06/17 06:00 ekg: afib; normal axis; no path q's; diffuse ST-Ts not changed vs 10/25 Chest X-ray: Report Reviewed (clear lungs/pleura) MANUEL 10/2016: nl lv/rv. 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 No TR. 1+ AR. No veg/abscess. Mild-mod mural aortic atheroma. Echo 10/2016: nl lv/rv, sixto, mild mr, mild-mod tr, nl rvsp, nl rvsp, mild ar Echo 09/2016: Nl lv/rv. Mod MAC. 1+ AR/TR. Mod ND. 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 web operations lead); mild-mod MR with no systolic blunting or reversal of flow in pulm vein; peak E velocity (59 cm/sec) ; myxomatous TV with prob mild-mod TR; at least moderate pulm HTN; no change vs 2013 echo a/p: chronic diast chf: -episodes of acute chf on prior admits, required lasix 40 iv qd treatment -sent home on lasix 40 po daily last time--saw dr ivey in office few weeks ago and appeared euvolemic with new dry wt (likely lost muscle mass in hospital) -bnp 1400, down from 2500 during 10/25 admit -cxr clear, no JVD, no audible MR murmur -do not see any evidence of acute chf here -cont po lasix 40 qd, monitor vol status with steroids copd: -advanced, dependent on home O2 -on iv steroids per pulm recurrent staph bacteremia/MANUEL negative for endocarditis: -+MSSA on repeat BCXs 2d apart in early 09/23 (treated with 14d of abx then) -back 10/25 with spontaneous MSSA as outpatient; -MANUEL then with no evidence of endocarditis paroxysmal Afib/supraventricular tachycardia/MAT: -has hx mat worsened by acute resp illnesses in past -new AFib on tele 10/25, HR mostly controlled, has occasional rvr when anxious -started on dig, diltiazem 240 qd -sbp 90s-100s here, currently HRs well controlled -cont dig (repeat level here is WNL) -change diltiazem to 120mg qd, observe HR trend -CHADS VASC 4--NOACs prohibitive cost so recently changed over to warfarin as outpt -dose warfarin per INR (goal 2-3) 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
[2017-01-06] MEDS: DIGOXIN 0.125 MG TABLET (FP) PO SCH (11:52)
[2017-01-06] MEDS: FLUCONAZOLE 100 MG/NS 50 ML IVPB SCH (11:52)
[2017-01-06] MEDS: POTASSIUM CHLORIDE TABS 10 MEQ TABLET.ER (FP) PO SCH (11:52)
[2017-01-06] MEDS: methylPREDNISolone NA SUCC 40 MG/1 ML VIAL IVPB SCH ×2 (11:53→21:06)
[2017-01-06] MEDS: TIOTROPIUM BROMIDE 18 MCG/INH (DEVICE W/ 30 CAPSULES) IH SCH (11:53)
[2017-01-06] MEDS: FUROSEMIDE 40 MG TABLET (FP) PO SCH (11:53)
[2017-01-06] MEDS: PANTOPRAZOLE SODIUM 100 ML IVPB SCH (11:55)
--- NOTE | 2017-01-06 15:28 | PN ---
Progress Note, Physician History of Present Illness: stable no new issues sob present - Current Medication List Current Medications: Active Medications Acetaminophen (Tylenol -) 650 mg PO Q6H PRN PRN Reason: FEVER OR PAIN Last Admin: 01/02/17 23:20 Dose: 650 mg Albuterol Sulfate (Ventolin 0.083% Nebulizer Soln -) 1 amp NEB Q4HPO PRN PRN Reason: SHORT OF BREATH/WHEEZING Last Admin: 01/06/17 13:04 Dose: 1 amp Arformoterol Tartrate (Brovana (Restricted To Pulmonology/Resp) -) 1 amp NEB BID [facility] Last Admin: 01/06/17 10:00 Dose: 1 amp Digoxin (Lanoxin -) 0.125 mg PO DAILY [facility] Last Admin: 01/06/17 11:52 Dose: 0.125 mg Diltiazem HCl (Cardizem Cd -) 120 mg PO DAILY [facility] Last Admin: 01/06/17 11:52 Dose: 120 mg Furosemide (Lasix -) 40 mg PO DAILY [facility] Last Admin: 01/06/17 11:53 Dose: 40 mg Fluconazole (Diflucan 100 Mg/Ns Premixed Ivpb -) 50 mls @ 50 mls/hr IVPB DAILY [facility] Last Admin: 01/06/17 11:52 Dose: 50 mls/hr Pantoprazole Sodium (Protonix 40mg Ivpb (Pre-Docked)) 100 mls @ 200 mls/hr IVPB DAILY [facility] Last Admin: 01/06/17 11:55 Dose: 200 mls/hr Lidocaine/Aluminum/Magnesium/Simeth (Magic Mouthwash *Sjr Formula* -) 5 ml MM Q6HPO [facility] Last Admin: 01/06/17 11:55 Dose: 5 ml Lorazepam (Ativan -) 0.5 mg PO TID [facility] Last Admin: 01/06/17 15:23 Dose: 0.5 mg Methylprednisolone Sodium Succinate (Solu-Medrol -) 40 mg IVPB BID [facility] Last Admin: 01/06/17 11:53 Dose: 40 mg Nystatin (Nystatin Oral Suspension -) 500,000 units PO Q6HPO [facility] Last Admin: 01/06/17 11:55 Dose: 500,000 units Potassium Chloride (K-Dur -) 10 meq PO DAILY [facility] Last Admin: 01/06/17 11:52 Dose: 10 meq Tiotropium [place] (Spiriva -) 1 puff IH DAILY HERMINIO Last Admin: 01/06/17 11:53 Dose: 1 puff - Objective Vital Signs: Vital Signs Temperature 98.3 F 01/06/17 15:07 Pulse Rate 120 H 01/06/17 15:07 Respiratory Rate 20 01/06/17 15:07 Blood Pressure 124/76 01/06/17 15:07 O2 Sat by Pulse Oximetry (%) 97 01/06/17 10:10 Constitutional: Yes: No Distress, Calm Cardiovascular: Yes: Pulse Irregular Respiratory: Yes: Regular, Poor Air Entry, Rhonchi Gastrointestinal: Yes: Normal Bowel Sounds, Soft Musculoskeletal: Yes: WNL Extremities: Yes: WNL Neurological: Yes: Alert, Oriented Psychiatric: Yes: Alert, Oriented Labs: CBC, BMP 01/06/17 06:00 01/06/17 06:00 INR, PTT INR 3.99 (0.82-1.09) H 01/06/17 06:00 Assessment/Plan Problem List - Problems (1) Dysphagia Code(s): R13.10 - DYSPHAGIA, UNSPECIFIED Qualifiers: Dysphagia type: unspecified (2) Weakness. Code(s): R53.1 - WEAKNESS (3) Leukocytosis Code(s): D72.829 - ELEVATED WHITE BLOOD CELL COUNT, UNSPECIFIED (4) Hyponatremia Code(s): E87.1 - HYPO-OSMOLALITY AND HYPONATREMIA (5) COPD (chronic obstructive pulmonary disease) Code(s): J44.9 - CHRONIC OBSTRUCTIVE PULMONARY DISEASE, UNSPECIFIED Qualifiers : COPD type: COPD with acute exacerbation Qualified Code(s): J44.1 - Chronic obstructive pulmonary disease with (acute) exacerbation (6) Atrial fibrillation with RVR Code(s): I48.91 - UNSPECIFIED ATRIAL FIBRILLATION (7) Generalized anxiety disorder Code(s): F41.1 - GENERALIZED ANXIETY DISORDER plan continue current mgmt rest as per primary incentive ally stable off of abx patient doing well
--- NOTE | 2017-01-06 17:24 | PN ---
Physical Exam: SUBJECTIVE: Patient seen and examined. States she is still short of breath at rest. OBJECTIVE: shortness of breath at rest, states shortness of breath still worse today purse lip breathing noted very weak and frail, unable to ambulate, will order PT in anticipation of d/c to STR Vital Signs Period Temp Pulse Resp BP Sys/Starks Pulse Ox Last 24 Hr 98.2 F-98.4 F 86-120 18-22 108-124/65-76 96-97 GENERAL: The patient is awake, alert, and fully oriented, in mild-moderate respiratory distress. Frail/weak. HEAD: Normal with no signs of trauma EYES: PERRL, extraocular movements intact, sclera anicteric, conjunctiva clear. No ptosis. ENT: Ears normal, nares patent, oral thrush NECK: Trachea midline, full range of motion, supple. LUNGS: accessory muscle use, dyspnea at rest, poor air flow, oxygen dependent EXTREMITIES: 2+ pulses, warm, well-perfused, no edema. NEUROLOGICAL: Normal speech, gait not observed. PSYCH: Normal mood, normal affect. SKIN: Warm, dry, normal turgor, no rashes or lesions noted Laboratory Results - last 24 hr 01/06/17 01/06/17 01/06/17 06:00 06:00 06:00 WBC 7.1 RBC 3.34 L Hgb 7.8 L Hct 24.7 L MCV 73.9 L MCHC 31.4 L RDW 19.6 H Plt Count 275 MPV 7.9 Neutrophils % 90.2 H Lymphocytes % 5.1 L D Monocytes % 4.6 Eosinophils % 0.0 Basophils % 0.1 D INR 3.99 H Sodium 138 Potassium 4.1 Chloride 88 L Carbon Dioxide 42 H Anion Gap 8 BUN 32 H Creatinine 0.6 Creat Clearance w eGFR > 60 Random Glucose 111 H Calcium 9.2 Total Bilirubin 0.4 D AST 13 L D ALT 24 D Alkaline Phosphatase 68 Total Protein 5.7 L Albumin 3.2 L Active Medications Generic Name Dose Route Start Last Admin Trade Name Freq PRN Reason Stop Dose Admin Acetaminophen 650 mg 01/01/17 14:11 01/02/17 23:20 Tylenol - PO 650 mg Q6H PRN Administration FEVER OR PAIN Albuterol Sulfate 1 amp 01/04/17 14:24 01/06/17 13:04 Ventolin 0.083% Nebulizer Soln - NEB 1 amp Q4HPO PRN Administration SHORT OF BREATH/WHEEZING Arformoterol Tartrate 1 amp 01/02/17 22:00 01/06/17 10:00 Brea (Restricted To Pulmonology/Resp) - NEB 1 amp BID HERMINIO Administration Digoxin 0.125 mg 01/02/17 10:00 01/06/17 11:52 Lanoxin - PO 0.125 mg DAILY HERMINIO Administration Diltiazem HCl 120 mg 01/02/17 10:00 01/06/17 11:52 Cardizem Cd - PO 120 mg DAILY HERMINIO Administration Furosemide 40 mg 01/02/17 10:00 01/06/17 11:53 Lasix - PO 40 mg DAILY HERMINIO Administration Fluconazole 50 mls @ 50 mls/hr 01/03/17 10:00 01/06/17 11:52 Diflucan 100 Mg/Ns Premixed Ivpb - IVPB 50 mls/hr DAILY HERMINIO Administration Pantoprazole Sodium 100 mls @ 200 mls/hr 01/03/17 10:00 01/06/17 11:55 Protonix 40mg Ivpb (Pre-Docked) IVPB 200 mls/hr DAILY HERMINIO Administration Lidocaine/Aluminum/Magnesium/Simeth 5 ml 01/03/17 00:00 01/06/17 11:55 Magic Mouthwash *Sjr Formula* - MM 5 ml Q6HPO HERMINIO Administration Lorazepam 0.5 mg 01/01/17 22:00 01/06/17 15:23 Ativan - PO 0.5 mg TID HERMINIO Administration Methylprednisolone Sodium Succinate 40 mg 01/02/17 16:00 01/06/17 11:53 Solu-Medrol - IVPB 40 mg BID HERMINIO Administration Nystatin 500,000 units 01/01/17 18:00 01/06/17 11:55 Nystatin Oral Suspension - PO 500,000 units Q6HPO HERMINIO Administration Potassium Chloride 10 meq 01/02/17 10:00 01/06/17 11:52 K-Dur - PO 10 meq DAILY HERMINIO Administration Tiotropium [place] 1 puff 01/02/17 16:30 01/06/17 11:53 Spiriva - IH 1 puff DAILY HERMINIO Administration ASSESSMENT/PLAN: Patient is a 76 year old female with a significant past medical history of atrial fib, dysphagia, COPD, diastolic heart failure and weakness. She was admitted on 01/01/2017 with decreased PO intake and dysphagia x 2 weeks. On admission, she was noted to have oral thrush. Imaging: Radiology upper GI series/esophagram 01/06/2017: Esophageal spasms with dilatation of the proximal esophagus - corkscrew appearance of esophagus on barium swallow, narrowing @ the distal thoracic esophagas - gastroesophageal junction. GI: Dysphagia - acute Assessment/Plan: Oral thrush noted on oral cavity, on Nystatin oral suspension q6 with upper gi series w/esophageal spasms with dilatation of the proximal esophagus - corkscrew appearance of esophagus on barium swallow, narrowing @ the distal thoracic esophagas - gastroesophageal junction. on IV diflucan 100mg as per GI On soft diet but PO intake poor - very cachectic and weak Will await GI input. Cardiology: Atrial fibrillation with RVR - chronic Assessment/Plan: On cardizem 120mg daily Digoxin 0.125mg daily Continue to hold Coumadin for supratherapeutic INR Chronic Diastolic HF Assessment/Plan: Maintain lasix 40mg daily Monitor renal function Pulmonary: Acute on chronic COPD exacerbation Assessment/Plan: diminished breath sounds bilaterally, accessory muscle use On IV solumedrol 40mg BID as per pulmonary Spiriva daily, dyspnea at rest, continue current dose of Solumedrol Monitor respiratory status Muscular/Skeletal: Muscle wasting and wt loss - chronic Assessment/Plan: Secondary to malnutrition, failure to thrive On a soft diet, poor PO intake likely secondary thrush Will consult dietary for support F.E.N. Fluids: offer free fluids, tolerating PO, on Lasix, no IVF Electrolytes: dehydration, encourage oral intake Nutrition: soft diet as tolerated, Nystatin for oral thrush Disposition: Likely will need STR upon discharge. Full Code. Visit type - Emergency Visit Emergency Visit: Yes ED Registration Date: 01/01/17 Care time: The patient presented to the Emergency Department on the above date and was hospitalized for further evaluation of their emergent condition. - New Patient This patient is new to me today: No - Critical Care Critical Care patient: No - Discharge Referral Referred to [facility] Med P.C.: No
--- NOTE | 2017-01-06 17:47 | PN ---
Progress Note (short form) - Note Progress Note: PULMONARY RESTING COMFORTABLY IN BED ON O2 APPEARS MILDLY DYSPNEIC CHEST DISTANT BILATERALLY S1S2\DISTANT BS+ SOFT NONTENDER NO EDEMA LABS/MEDS/NOTES/IMAGING REVIEWED Acute COPD Exacerbation LV Diastolic Dysfunction Pulmonary HTN Atrial Fibrillation Dysphagia - continue medrol at current dose - inhaled bronchodilators - lasix - rate controlled - continue anticoagulation - O2 to keep SpO2 >90% Tania ROSE MD
--- NOTE | 2017-01-06 18:50 | PN ---
Progress Note (short form) - Note Progress Note: Dr. Fernandez covering for Dr. Pulliam: He asked me to f/u UGIS result: Motility disorder of the esophagus with dilation of the proximal esophagus, spasm of the distal esophagus with narrowing of the distal esophagus/GE Junction ? Achalasia with Spasm Would change to pureed diet Can trial Pureed diet Dr. Yang covering 01/07-01/08 Dr. Pulliam resumes coverage wednesday 01/10
--- NOTE | 2017-01-07 03:07 | HOSP ---
Addendum entered and electronically signed by Lore Catherine RES 01/07/17 05 :12: Patient is complaining of left wrist pain. X-ray of left wrist ordered. Original Note: Subjective - Review of Symptoms Events since last encounter: I was on the fifth floor and nurse told me patient fell. Went to examine the patient. She fell @ 2:50 am. Found her on the floor sitting up. We put her on the bed and examined her. Mild pain over the left wrist. No other complaints of pain anywhere. Patient is able to move all joints, no tenderness on palpation over the upper/lower extremities. Patient mentioned she didn't hit her head. She wanted to go to the bathroom to move her bowels even if she was in diapers. Patient states that although she knew she has high fall risk, she didn't call the nurse, thought she could make it on her own. Vitals:- BP- 134/80; P-100bpm; Afebrile; Spo2-95% Physical examination: General: Elderly female, awake, alert, oriented x 3, in no acute distress. HEENT: EOM intact, no pallor or icterus. Chest: Lungs clear bilaterally, no wheeze or crackles CVS: Irregularly irregular, S1, S2, soft systolic murmur Extremities: No bruises, range of motion normal, no tenderness on palpation in any joints. No peripheral edema. Neuro: CN 2-12 Intact. Normal speech. A/P S/P mechanical fall No injuries Would consider x-ray of the left wrist if pain persists. Fall precautions Post fall protocol # [address] initiated. Case discussed with Dr. Stevenson. Physical Examination Vital Signs: Vital Signs Temperature 97.5 F L 01/06/17 18:29 Pulse Rate 105 H 01/06/17 18:29 Respiratory Rate 20 01/06/17 18:29 Blood Pressure 123/76 01/06/17 18:29 O2 Sat by Pulse Oximetry (%) 97 01/06/17 21:00 Labs: CBC, BMP 01/06/17 06:00 01/06/17 06:00 Visit type - Emergency Visit Emergency Visit: Yes ED Registration Date: 01/01/17 Care time: The patient presented to the Emergency Department on the above date and was hospitalized for further evaluation of their emergent condition. - New Patient This patient is new to me today: Yes Date on this admission: 01/07/17 - Critical Care Critical Care patient: No
[2017-01-07] MEDS: NYSTATIN 500,000 UNITS/5 ML SUSPENSION PO SCH ×5 (03:29→23:10)
[2017-01-07] MEDS: MAG HYDROX/ALH/SMC/DPHA/LIDO 240 ML MOUTHWASH MM SCH ×5 (03:29→23:10)
[2017-01-07] MEDS: ALBUTEROL SO4 0.083% IH SOL 2.5 MG/3 ML VIAL.NEB. NEB PRN (05:14)
[2017-01-07] MEDS: LORazepam 0.5 MG TABLET PO SCH ×3 (05:24→22:08)
[2017-01-07 09:37] LABS: MCH 22.8 pg (25.7-33.7); MCHC 30.7 g/dl (32.0-36.0); MEAN CELL VOLUME 74.3 fl (80-96); MEAN PLT VOLUME 7.7 fl (7.5-11.1); NEUTROPHILS 94.6 % (42.8-82.8); PLATELET COUNT 294 K/MM3 (134-434); RDW 19.9 % (11.6-15.6); WHITE BLOOD COUNT 17.2 K/mm3 (4.0-10.0)
[2017-01-07 09:45] LABS: INR 3.18 (0.82-1.09); PROTHROMBIN TIME (PATIENT) 35.8 SEC (9.98-11.88)
[2017-01-07 10:00] LABS: ALBUMIN 3.5 g/dl (3.4-5.0); ALK PHOS 60 U/L (45-117); ANION GAP 8 (8-16); BILIRUBIN,TOTAL 0.3 mg/dL (0.2-1.0); CALCIUM 9.1 mg/dL (8.5-10.1); CO2 39 mmol/L (21-32); CREATININE 0.6 mg/dL (0.55-1.02); GLUCOSE,RANDOM 143 mg/dL (74-106); SGOT/AST 15 U/L (15-37); SGPT/ALT 37 U/L (12-78)
[2017-01-07] MEDS: DIGOXIN 0.125 MG TABLET (FP) PO SCH (10:11)
[2017-01-07] MEDS: PANTOPRAZOLE SODIUM 100 ML IVPB SCH (10:11)
[2017-01-07] MEDS: TIOTROPIUM BROMIDE 18 MCG/INH (DEVICE W/ 30 CAPSULES) IH SCH (10:12)
[2017-01-07] MEDS: FUROSEMIDE 40 MG TABLET (FP) PO SCH (10:12)
[2017-01-07] MEDS: POTASSIUM CHLORIDE TABS 10 MEQ TABLET.ER (FP) PO SCH (10:12)
[2017-01-07] MEDS: methylPREDNISolone NA SUCC 40 MG/1 ML VIAL IVPB SCH ×2 (10:12→22:08)
[2017-01-07] MEDS ORDERED: PT OWN MED DRAWER 7, Y5N ONE ×3 (10:28→22:54)
[2017-01-07] MEDS: FLUCONAZOLE 100 MG/NS 50 ML IVPB SCH (10:29)
--- NOTE | 2017-01-07 10:36 | PN ---
Progress Note (short form) - Note Progress Note: s: no cp palps dizzy; sob improving; fell in bathroom last night, xray now with wrist fracture o: Vital Signs Period Temp Pulse Resp BP Sys/Starks Pulse Ox Last 24 Hr 97.5 F-98.6 F 99-120 20-22 113-134/76-86 97 Constitutional: Yes: Well Nourished, No Distress Eyes: No: Sclera Icterus Respiratory: Yes: mild exp wheeze, nl eff. No: Accessory Muscle Use, Rales Gastrointestinal: Yes: Normal Bowel Sounds. No: Distention, Hepatomegaly, Palpable Mass, Tenderness Cardiovascular: Yes: Pulse Irregular JVD: No Heart Sounds: Yes: S1, S2. No: Gallop Murmur: No: Systolic Murmur, Diastolic Murmur Extremities: No: Cool, Cyanosis Edema: No Integumentary: No: Jaundice diaphoresis Neurological: Yes: Alert, awake, appropriate Psychiatric: No: Agitated Current Medications Generic Name Dose Route Start Last Admin Trade Name Freq PRN Reason Stop Dose Admin Acetaminophen 650 mg 01/01/17 14:11 01/02/17 23:20 Tylenol - PO 650 mg Q6H PRN Administration FEVER OR PAIN Albuterol Sulfate 1 amp 01/04/17 14:24 01/07/17 05:14 Ventolin 0.083% Nebulizer Soln - NEB 1 amp Q4HPO PRN Administration SHORT OF BREATH/WHEEZING Arformoterol Tartrate 1 amp 01/02/17 22:00 01/06/17 21:37 Brovana (Restricted To Pulmonology/Resp) - NEB 1 amp BID HERMINIO Administration Digoxin 0.125 mg 01/02/17 10:00 01/07/17 10:11 Lanoxin - PO 0.125 mg DAILY HERMINIO Administration Diltiazem HCl 120 mg 01/02/17 10:00 01/07/17 10:12 Cardizem Cd - PO 120 mg DAILY HERMINIO Administration Furosemide 40 mg 01/02/17 10:00 01/07/17 10:12 Lasix - PO 40 mg DAILY HERMINIO Administration Fluconazole 50 mls @ 50 mls/hr 01/03/17 10:00 01/07/17 10:29 Diflucan 100 Mg/Ns Premixed Ivpb - IVPB 50 mls/hr DAILY HERMINIO Administration Pantoprazole Sodium 100 mls @ 200 mls/hr 01/03/17 10:00 01/07/17 10:11 Protonix 40mg Ivpb (Pre-Docked) IVPB 200 mls/hr DAILY HERMINIO Administration Lidocaine/Aluminum/Magnesium/Simeth 5 ml 01/03/17 00:00 01/07/17 05:24 Magic Mouthwash *Sjr Formula* - MM 5 ml Q6HPO HERMINIO Administration Lorazepam 0.5 mg 01/01/17 22:00 01/07/17 05:24 Ativan - PO 0.5 mg TID HERMINIO Administration Methylprednisolone Sodium Succinate 40 mg 01/02/17 16:00 01/07/17 10:12 Solu-Medrol - IVPB 40 mg BID HERMINIO Administration Nystatin 500,000 units 01/01/17 18:00 01/07/17 05:24 Nystatin Oral Suspension - PO 500,000 units Q6HPO HERMINIO Administration Potassium Chloride 10 meq 01/02/17 10:00 01/07/17 10:12 K-Dur - PO 10 meq DAILY HERMINIO Administration Tiotropium [place] 1 puff 01/02/17 16:30 01/07/17 10:12 Spiriva - IH 1 puff DAILY HERMINIO Administration CBC, BMP 01/07/17 08:00 01/07/17 08:00 ekg: afib; normal axis; no path q's; diffuse ST-Ts not changed vs 10/25 Chest X-ray: Report Reviewed (clear lungs/pleura) MANUEL 10/2016: nl lv/rv. 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 No TR. 1+ AR. No veg/abscess. Mild-mod mural aortic atheroma. Echo 10/2016: nl lv/rv, sixto, mild mr, mild-mod tr, nl rvsp, nl rvsp, mild ar Echo 09/2016: Nl lv/rv. Mod MAC. 1+ AR/TR. Mod CO. 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); mild-mod MR with no systolic blunting or reversal of flow in pulm vein; peak E velocity (59 cm/sec) ; myxomatous TV with prob mild-mod TR; at least moderate pulm HTN; no change vs 2014 echo a/p: chronic diast chf: -episodes of acute chf on prior admits, required lasix 40 iv qd treatment -sent home on lasix 40 po daily last time--saw dr ivey in office few weeks ago and appeared euvolemic with new dry wt (likely lost muscle mass in hospital) -bnp 1400, down from 2500 during 10/25 admit -cxr clear, no JVD, no audible MR murmur -do not see any evidence of acute chf here -cont po lasix 40 qd, monitor vol status with steroids copd: -advanced, dependent on home O2 -on iv steroids per pulm recurrent staph bacteremia/MANUEL negative for endocarditis: -+MSSA on repeat BCXs 2d apart in early 09/23 (treated with 14d of abx then) -back 10/25 with spontaneous MSSA as outpatient; -MANUEL then with no evidence of endocarditis paroxysmal Afib/supraventricular tachycardia/MAT: -has hx mat worsened by acute resp illnesses in past -new AFib on tele 10/25, HR mostly controlled, has occasional rvr when anxious -currently HRs well controlled -cont dig (repeat level here is WNL) -cont diltiazem 120mg qd -CHADS VASC 4--NOACs prohibitive cost so recently changed over to warfarin as outpt -dose warfarin per INR (goal 2-3) 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
[2017-01-07] MEDS: ARFORMOTEROL TARTRATE 15 MCG/2 ML VIAL NEB SCH ×2 (11:00→22:08)
--- NOTE | 2017-01-07 12:21 | PN ---
Progress Note (short form) - Note Progress Note: Covering for her regular PCP today. Patient slipped last krystian and wrist Xray was done as that was the area she hurt. Fx noted and orthopedic MD consult placed. Patient has been followed for Dysphagia and had a possible transfer to SNF suggested. Anemia and new leukocytosis noted; patient afebrile and on steroids. To follow. On Exam: Abnormal Lab Results 01/07/17 01/07/17 01/07/17 08:00 08:00 08:00 WBC 17.2 H D RBC 3.54 L Hgb 8.1 L Hct 26.3 L MCV 74.3 L MCHC 30.7 L RDW 19.9 H Neutrophils % 94.6 H Lymphocytes % 2.6 L D Monocytes % 2.8 L INR 3.18 H Chloride 90 L Carbon Dioxide 39 H BUN 30 H Random Glucose 143 H D Total Protein 6.0 L Vital Signs Period Temp Pulse Resp BP Sys/Starks Pulse Ox Last 24 Hr 97.5 F-98.6 F 84-120 20-22 102-134/72-86 97 Alert Chest:Few bilateral wheezes Cor: Irreg Ext: No edema Left wrist: ecchymosis and appears out of alignment. Imp: New left wrist fracture A. Fib COPD Dysphagia Anemia New onset Leukocytosis
--- NOTE | 2017-01-07 13:31 | PN ---
Progress Note (short form) - Note Progress Note: Breathing feels the same. Bothered by the nasal cannula drying her nostrils. Noted that she fell and has an acute Left wrist fracture. Intake & Output 01/04/17 01/05/17 01/06/17 01/07/17 23:59 23:59 23:59 23:59 Intake Total 9960 716 5530 Balance 3457 308 0445 Weight 84 lb 9 oz 84 lb 6 oz 83 lb 9 oz 83 lb 6.4 oz Last Vital Signs Temp Pulse Resp BP Pulse Ox 98.6 F 84 20 102/72 96 01/07/17 11:00 01/07/17 11:00 01/07/17 11:00 01/07/17 11:00 01/07/17 09:00 Active Medications Acetaminophen (Tylenol -) 650 mg PO Q6H PRN PRN Reason: FEVER OR PAIN Last Admin: 01/02/17 23:20 Dose: 650 mg Albuterol Sulfate (Ventolin 0.083% Nebulizer Soln -) 1 amp NEB Q4HPO PRN PRN Reason: SHORT OF BREATH/WHEEZING Last Admin: 01/07/17 05:14 Dose: 1 amp Arformoterol Tartrate (Brovana (Restricted To Pulmonology/Resp) -) 1 amp NEB BID [facility] Last Admin: 01/07/17 11:00 Dose: 1 amp Digoxin (Lanoxin -) 0.125 mg PO DAILY [facility] Last Admin: 01/07/17 10:11 Dose: 0.125 mg Diltiazem HCl (Cardizem Cd -) 120 mg PO DAILY [facility] Last Admin: 01/07/17 10:12 Dose: 120 mg Furosemide (Lasix -) 40 mg PO DAILY [facility] Last Admin: 01/07/17 10:12 Dose: 40 mg Fluconazole (Diflucan 100 Mg/Ns Premixed Ivpb -) 50 mls @ 50 mls/hr IVPB DAILY [facility] Last Admin: 01/07/17 10:29 Dose: 50 mls/hr Pantoprazole Sodium (Protonix 40mg Ivpb (Pre-Docked)) 100 mls @ 200 mls/hr IVPB DAILY [facility] Last Admin: 01/07/17 10:11 Dose: 200 mls/hr Lidocaine/Aluminum/Magnesium/Simeth (Magic Mouthwash *Sjr Formula* -) 5 ml MM Q6HPO [facility] Last Admin: 01/07/17 12:00 Dose: 5 ml Lorazepam (Ativan -) 0.5 mg PO TID [facility] Last Admin: 01/07/17 05:24 Dose: 0.5 mg Methylprednisolone Sodium Succinate (Solu-Medrol -) 40 mg IVPB BID [facility] Last Admin: 01/07/17 10:12 Dose: 40 mg Nystatin (Nystatin Oral Suspension -) 500,000 units PO Q6HPO [facility] Last Admin: 01/07/17 12:00 Dose: 500,000 units Potassium Chloride (K-Dur -) 10 meq PO DAILY [facility] Last Admin: 01/07/17 10:12 Dose: 10 meq Tiotropium [place] (Spiriva -) 1 puff IH DAILY [facility] Last Admin: 01/07/17 10:12 Dose: 1 puff Gen: mildly tachypneic at rest Heart: RRRL Lung: distant breath sounds, scattered rhonchi Abd: soft, nontender Ext: Left wrist fracture A/P Acute COPD Exacerbation LV Diastolic Dysfunction Pulmonary HTN Atrial Fibrillation Dysphagia - Medrol taper - inhaled bronchodilators - lasix - rate controlled - continue anticoagulation - O2 to keep SpO2 >90% - Ortho evaluation Dr Ayoub
[2017-01-07] MEDS: ACETAMINOPHEN 325 MG TABLET (FP) PO PRN (16:01)
--- NOTE | 2017-01-07 16:28 | PN ---
Progress Note, Physician History of Present Illness: patient stable unhappy fell down fractured her left wrist - Current Medication List Current Medications: Active Medications Acetaminophen (Tylenol -) 650 mg PO Q6H PRN PRN Reason: FEVER OR PAIN Last Admin: 01/07/17 16:01 Dose: 650 mg Albuterol Sulfate (Ventolin 0.083% Nebulizer Soln -) 1 amp NEB Q4HPO PRN PRN Reason: SHORT OF BREATH/WHEEZING Last Admin: 01/07/17 05:14 Dose: 1 amp Arformoterol Tartrate (Brovana (Restricted To Pulmonology/Resp) -) 1 amp NEB BID [facility] Last Admin: 01/07/17 11:00 Dose: 1 amp Digoxin (Lanoxin -) 0.125 mg PO DAILY [facility] Last Admin: 01/07/17 10:11 Dose: 0.125 mg Diltiazem HCl (Cardizem Cd -) 120 mg PO DAILY [facility] Last Admin: 01/07/17 10:12 Dose: 120 mg Furosemide (Lasix -) 40 mg PO DAILY [facility] Last Admin: 01/07/17 10:12 Dose: 40 mg Fluconazole (Diflucan 100 Mg/Ns Premixed Ivpb -) 50 mls @ 50 mls/hr IVPB DAILY [facility] Last Admin: 01/07/17 10:29 Dose: 50 mls/hr Pantoprazole Sodium (Protonix 40mg Ivpb (Pre-Docked)) 100 mls @ 200 mls/hr IVPB DAILY [facility] Last Admin: 01/07/17 10:11 Dose: 200 mls/hr Lidocaine/Aluminum/Magnesium/Simeth (Magic Mouthwash *Sjr Formula* -) 5 ml MM Q6HPO [facility] Last Admin: 01/07/17 12:00 Dose: 5 ml Lorazepam (Ativan -) 0.5 mg PO TID [facility] Last Admin: 01/07/17 15:01 Dose: 0.5 mg Methylprednisolone Sodium Succinate (Solu-Medrol -) 30 mg IVPB BID [facility] Nystatin (Nystatin Oral Suspension -) 500,000 units PO Q6HPO [facility] Last Admin: 01/07/17 12:00 Dose: 500,000 units Potassium Chloride (K-Dur -) 10 meq PO DAILY [facility] Last Admin: 01/07/17 10:12 Dose: 10 meq Tiotropium [place] (Spiriva -) 1 puff IH DAILY [facility] Last Admin: 01/07/17 10:12 Dose: 1 puff - Objective Vital Signs: Vital Signs Temperature 98.2 F 01/07/17 15:08 Pulse Rate 107 H 01/07/17 15:08 Respiratory Rate 18 01/07/17 15:08 Blood Pressure 117/66 01/07/17 15:08 O2 Sat by Pulse Oximetry (%) 96 01/07/17 09:00 Constitutional: Yes: No Distress, Calm Cardiovascular: Yes: Pulse Irregular Respiratory: Yes: Poor Air Entry, Rhonchi Gastrointestinal: Yes: Normal Bowel Sounds, Soft Musculoskeletal: Yes: Other Extremities: Yes: Other (deformity of the left wrist) Neurological: Yes: Alert, Oriented Psychiatric: Yes: Alert Labs: CBC, BMP 01/07/17 08:00 01/07/17 08:00 INR, PTT INR 3.18 (0.82-1.09) H 01/07/17 08:00 Assessment/Plan Problem List - Problems (1) Dysphagia Code(s): R13.10 - DYSPHAGIA, UNSPECIFIED Qualifiers: Dysphagia type: unspecified (2) Weakness. Code(s): R53.1 - WEAKNESS (3) Leukocytosis Code(s): D72.829 - ELEVATED WHITE BLOOD CELL COUNT, UNSPECIFIED (4) Hyponatremia Code(s): E87.1 - HYPO-OSMOLALITY AND HYPONATREMIA (5) COPD (chronic obstructive pulmonary disease) Code(s): J44.9 - CHRONIC OBSTRUCTIVE PULMONARY DISEASE, UNSPECIFIED Qualifiers : COPD type: COPD with acute exacerbation Qualified Code(s): J44.1 - Chronic obstructive pulmonary disease with (acute) exacerbation (6) Atrial fibrillation with RVR Code(s): I48.91 - UNSPECIFIED ATRIAL FIBRILLATION (7) Generalized anxiety disorder Code(s): F41.1 - GENERALIZED ANXIETY DISORDER plan continue current mgmt rest as per primary incentive ally stable off of abx patient doing well splint for the wrist
[2017-01-08] MEDS: NYSTATIN 500,000 UNITS/5 ML SUSPENSION PO SCH ×3 (06:25→18:07)
[2017-01-08] MEDS: LORazepam 0.5 MG TABLET PO SCH ×3 (06:25→21:14)
[2017-01-08] MEDS: MAG HYDROX/ALH/SMC/DPHA/LIDO 240 ML MOUTHWASH MM SCH ×3 (06:25→18:08)
[2017-01-08] MEDS: ALBUTEROL SO4 0.083% IH SOL 2.5 MG/3 ML VIAL.NEB. NEB PRN (06:55)
[2017-01-08] MEDS ORDERED: morphine CARPU-JECT 2 MG/1 ML DISP.SYRIN IVPUSH ONE (08:16)
[2017-01-08 08:22] LABS: BASOPHIL 0.1 % (0-2.0); MCH 22.7 pg (25.7-33.7); MCHC 30.5 g/dl (32.0-36.0); MEAN CELL VOLUME 74.3 fl (80-96); MEAN PLT VOLUME 7.4 fl (7.5-11.1); NEUTROPHILS 84.7 % (42.8-82.8); PLATELET COUNT 321 K/MM3 (134-434); WHITE BLOOD COUNT 10.3 K/mm3 (4.0-10.0)
--- NOTE | 2017-01-08 08:25 | CON.ORTH ---
Addendum entered and electronically signed by Karsten Quintero PA 01/08/17 08:55: Risks and benefits were d/w pt in detail regarding surgical vs conservative management. We decided to treat conservatively. Therefore a closed reduction and cast application will be performed. Original Note: Consult Reason for Consultation:: left wrist fx - Past Medical History Cardio/Vascular: Yes: AFIB, HTN, Pulmonary Hypertension Pulmonary: Yes: COPD, O2 Dependent Gastrointestinal: Yes: Other (ODYNOPHAGIA) Hepatobiliary: No: Cirrhosis, Cholelithiasis, Cholecystitis, Choledocholithiasis , Hepatitis A, Hepatitis B, Hepatitis C, Other Renal/: Yes: UTI ...: No Psych: Yes: Anxiety - Past Surgical History Past Surgical History: Yes: None - Alcohol/Substance Use Hx Alcohol Use: Yes (rarely, last drink 2 weeks ago) History of Substance Use: reports: None - Smoking History Smoking history: Former smoker Have you smoked in the past 12 months: Yes Aproximately how many cigarettes per day: 1 If you are a former smoker, when did you quit?: 5 mo ago - Social History ADL: Support Services History of Recent Travel: No Home Medications - Allergies Allergies/Adverse Reactions: Allergies Allergy/AdvReac Type Severity Reaction Status Date / Time No Known Allergies Allergy Verified 01/01/17 07:11 - Home Medications Home Medications: Ambulatory Orders Digoxin [Lanoxin -] 0.125 mg PO DAILY tablet 09/27/16 Furosemide [Lasix -] 40 mg PO DAILY tablet 10/06/16 Potassium Chloride [Klor-Con 10] 10 meq PO DAILY 11/01/16 Ranitidine [Zantac -] 150 mg PO BID 11/01/16 Albuterol 0.083% Nebulizer [place] [Ventolin 0.083% Nebulizer Soln -] 1 amp NEB Q4HPO amp 11/11/16 Apixaban [Eliquis -] 5 mg PO BID tablet 11/11/16 Diltiazem Cd [Cardizem Cd -] 240 mg PO DAILY cap.cd.24h 11/11/16 Prednisone [Deltasone -] 5 mg PO DAILY 12/24/16 Lorazepam [Ativan] 0.5 mg PO TID #40 tablet MDD 3 12/27/16 Warfarin Sodium [Coumadin] 4 mg PO HS 01/01/17 Physical Exam for Ortho Vital Signs: Vital Signs Temperature 98.3 F 01/08/17 07:00 Pulse Rate 100 H 01/08/17 07:00 Respiratory Rate 18 01/08/17 07:00 Blood Pressure 120/81 01/08/17 07:00 O2 Sat by Pulse Oximetry (%) 94 L 01/07/17 21:00 Labs: INR, PTT INR 3.18 (0.82-1.09) H 01/07/17 08:00 - Upper Extremity Wrist: Yes: Left, Assymetrical, Deformity, Limited ROM, Pain, Swelling, Tenderness, Other (nvi) Imaging - Results X-ray: Report Reviewed, Image Reviewed (left displaced distal radius fx) Assessment/Plan 76-year-old female right hand dominant with history of COPD-oxygen dependent, afib on blood thinner (currently on eliquis and coumadin for 4 days then will continue on coumadin only per daughter), anxiety, bacteremia, recently completed antibiotics for UTI. Recently fell during admission sustaining a left distal radius fx. a/p- left displaced distal radius fx After informed consent was obtained, a hematoma block was administered then a closed reduction and cast application was performed Procedure tolerated well Post-reduction xrays ordered NWB L UE strict elevation will follow d/w Dr. Reed
[2017-01-08 08:56] LABS: INR 2.83 (0.82-1.09); PROTHROMBIN TIME (PATIENT) 31.8 SEC (9.98-11.88)
[2017-01-08 09:02] LABS: CALCIUM 9.4 mg/dL (8.5-10.1)
[2017-01-08 09:38] LABS: CREATININE 0.4 mg/dL (0.55-1.02); DIGOXIN LEVEL 1.3023 ng/ml (0.8-2.0)
[2017-01-08 09:41] LABS: FERRITIN 19.581 ng/ml (6.9-282.5)
[2017-01-08] MEDS ORDERED: PT OWN MED DRAWER 7, Y5N ONE ×3 (10:12→18:08)
[2017-01-08] MEDS: methylPREDNISolone NA SUCC 40 MG/1 ML VIAL IVPB SCH ×2 (10:19→21:14)
[2017-01-08] MEDS: POTASSIUM CHLORIDE TABS 10 MEQ TABLET.ER (FP) PO SCH (10:19)
[2017-01-08] MEDS: DIGOXIN 0.125 MG TABLET (FP) PO SCH (10:20)
[2017-01-08] MEDS: PANTOPRAZOLE SODIUM 100 ML IVPB SCH (10:20)
[2017-01-08] MEDS: FUROSEMIDE 40 MG TABLET (FP) PO SCH (10:20)
[2017-01-08] MEDS: FLUCONAZOLE 100 MG/NS 50 ML IVPB SCH (10:20)
[2017-01-08] MEDS: ARFORMOTEROL TARTRATE 15 MCG/2 ML VIAL NEB SCH ×2 (10:40→21:52)
[2017-01-08] MEDS: TIOTROPIUM BROMIDE 18 MCG/INH (DEVICE W/ 30 CAPSULES) IH SCH (11:53)
--- NOTE | 2017-01-08 12:08 | PN ---
Progress Note (short form) - Note Progress Note: Required additional BD TX this AM. Patient reports anxiety. Left wrist was casted. Intake & Output 01/05/17 01/06/17 01/07/17 01/08/17 23:59 23:59 23:59 23:59 Intake Total 980 1140 435 Balance 980 1140 435 Weight 84 lb 6 oz 83 lb 9 oz 83 lb 6.4 oz 85 lb 3.2 oz Last Vital Signs Temp Pulse Resp BP Pulse Ox 98.3 F 103 H 18 120/81 94 L 01/08/17 07:00 01/08/17 10:20 01/08/17 07:00 01/08/17 07:00 01/07/17 21:00 Active Medications Acetaminophen (Tylenol -) 650 mg PO Q6H PRN PRN Reason: FEVER OR PAIN Last Admin: 01/07/17 16:01 Dose: 650 mg Albuterol Sulfate (Ventolin 0.083% Nebulizer Soln -) 1 amp NEB Q4HPO PRN PRN Reason: SHORT OF BREATH/WHEEZING Last Admin: 01/08/17 06:55 Dose: 1 amp Arformoterol Tartrate (Brovana (Restricted To Pulmonology/Resp) -) 1 amp NEB BID [facility] Last Admin: 01/08/17 10:40 Dose: 1 amp Digoxin (Lanoxin -) 0.125 mg PO DAILY [facility] Last Admin: 01/08/17 10:20 Dose: 0.125 mg Diltiazem HCl (Cardizem Cd -) 120 mg PO DAILY [facility] Last Admin: 01/08/17 10:19 Dose: 120 mg Furosemide (Lasix -) 40 mg PO DAILY [facility] Last Admin: 01/08/17 10:20 Dose: 40 mg Fluconazole (Diflucan 100 Mg/Ns Premixed Ivpb -) 50 mls @ 50 mls/hr IVPB DAILY [facility] Last Admin: 01/08/17 10:20 Dose: 50 mls/hr Pantoprazole Sodium (Protonix 40mg Ivpb (Pre-Docked)) 100 mls @ 200 mls/hr IVPB DAILY [facility] Last Admin: 01/08/17 10:20 Dose: 200 mls/hr Lidocaine/Aluminum/Magnesium/Simeth (Magic Mouthwash *Sjr Formula* -) 5 ml MM Q6HPO [facility] Last Admin: 01/08/17 11:42 Dose: 5 ml Lorazepam (Ativan -) 0.5 mg PO TID [facility] Last Admin: 01/08/17 06:25 Dose: 0.5 mg Methylprednisolone Sodium Succinate (Solu-Medrol -) 30 mg IVPB BID [facility] Last Admin: 01/08/17 10:19 Dose: 30 mg Nystatin (Nystatin Oral Suspension -) 500,000 units PO Q6HPO [facility] Last Admin: 01/08/17 11:42 Dose: 500,000 units Potassium Chloride (K-Dur -) 10 meq PO DAILY [facility] Last Admin: 01/08/17 10:19 Dose: 10 meq Tiotropium [place] (Spiriva -) 1 puff IH DAILY [facility] Last Admin: 01/08/17 11:53 Dose: 1 puff Gen: mildly tachypneic at rest Heart: RRRL Lung: distant breath sounds, scattered rhonchi Abd: soft, nontender Ext: Left arm cast Laboratory Results - last 24 hr 01/08/17 01/08/17 01/08/17 07:00 07:00 07:00 WBC 10.3 H D RBC 3.62 Hgb 8.2 L Hct 26.9 L MCV 74.3 L MCHC 30.5 L RDW 20.0 H Plt Count 321 MPV 7.4 L Neutrophils % 84.7 H Lymphocytes % 5.8 L D Monocytes % 9.4 D Eosinophils % 0.0 Basophils % 0.1 D INR Sodium 138 Potassium 4.0 Chloride 87 L Carbon Dioxide 44 H Anion Gap 7 L BUN 32 H Creatinine 0.4 L D Random Glucose 82 D Calcium 9.4 Ferritin 19.581 Vitamin B12 328 Serum Folate 18 H Digoxin 1.3023 01/08/17 07:00 WBC RBC Hgb Hct MCV MCHC RDW Plt Count MPV Neutrophils % Lymphocytes % Monocytes % Eosinophils % Basophils % INR 2.83 H Sodium Potassium Chloride Carbon Dioxide Anion Gap BUN Creatinine Random Glucose Calcium Ferritin Vitamin B12 Serum Folate Digoxin A/P Acute COPD Exacerbation LV Diastolic Dysfunction Pulmonary HTN Atrial Fibrillation Dysphagia - Medrol at current dose - inhaled bronchodilators - lasix - rate controlled - continue anticoagulation - O2 to keep SpO2 >90% - pain control Dr Ayoub
--- NOTE | 2017-01-08 13:59 | PN ---
Progress Note, Physician Chief Complaint: Left wrist comfortable after cast placed by [employer]IST. Still slightly SOB; on Rx History of Present Illness: Patient with multiple comorbidities including COPD; Diastolic Dysfunction, A. Fib and Chronic Anemia slipped the other krystian here in hospital sustaining a wrist Fx. She had a cast placed by [employer] SPECIALIST yesterday and is comfortable with that today. Still periods of SOB today and on IV Solumedrol and Anxiety Rx PRN. Anemia lab ordered and Ferritin and B12 borderline. She is resigned to [facility] post hospital. - Current Medication List Current Medications: Active Medications Acetaminophen (Tylenol -) 650 mg PO Q6H PRN PRN Reason: FEVER OR PAIN Last Admin: 01/07/17 16:01 Dose: 650 mg Albuterol Sulfate (Ventolin 0.083% Nebulizer Soln -) 1 amp NEB Q4HPO PRN PRN Reason: SHORT OF BREATH/WHEEZING Last Admin: 01/08/17 06:55 Dose: 1 amp Arformoterol Tartrate (Brovana (Restricted To Pulmonology/Resp) -) 1 amp NEB BID [facility] Last Admin: 01/08/17 10:40 Dose: 1 amp Digoxin (Lanoxin -) 0.125 mg PO DAILY [facility] Last Admin: 01/08/17 10:20 Dose: 0.125 mg Diltiazem HCl (Cardizem Cd -) 120 mg PO DAILY [facility] Last Admin: 01/08/17 10:19 Dose: 120 mg Furosemide (Lasix -) 40 mg PO DAILY [facility] Last Admin: 01/08/17 10:20 Dose: 40 mg Fluconazole (Diflucan 100 Mg/Ns Premixed Ivpb -) 50 mls @ 50 mls/hr IVPB DAILY [facility] Last Admin: 01/08/17 10:20 Dose: 50 mls/hr Pantoprazole Sodium (Protonix 40mg Ivpb (Pre-Docked)) 100 mls @ 200 mls/hr IVPB DAILY [facility] Last Admin: 01/08/17 10:20 Dose: 200 mls/hr Lidocaine/Aluminum/Magnesium/Simeth (Magic Mouthwash *Sjr Formula* -) 5 ml MM Q6HPO [facility] Last Admin: 01/08/17 11:42 Dose: 5 ml Lorazepam (Ativan -) 0.5 mg PO TID [facility] Last Admin: 01/08/17 13:30 Dose: 0.5 mg Methylprednisolone Sodium Succinate (Solu-Medrol -) 30 mg IVPB BID [facility] Last Admin: 01/08/17 10:19 Dose: 30 mg Nystatin (Nystatin Oral Suspension -) 500,000 units PO Q6HPO [facility] Last Admin: 01/08/17 11:42 Dose: 500,000 units Potassium Chloride (K-Dur -) 10 meq PO DAILY [facility] Last Admin: 01/08/17 10:19 Dose: 10 meq Tiotropium [place] (Spiriva -) 1 puff IH DAILY [facility] Last Admin: 01/08/17 11:53 Dose: 1 puff - Objective Vital Signs: Vital Signs Temperature 98.3 F 01/08/17 07:00 Pulse Rate 103 H 01/08/17 10:20 Respiratory Rate 18 01/08/17 07:00 Blood Pressure 120/81 01/08/17 07:00 O2 Sat by Pulse Oximetry (%) 94 L 01/07/17 21:00 Constitutional: Yes: Calm Cardiovascular: Yes: Pulse Irregular Respiratory: Yes: Diminished, Rhonchi (rare rhonchi at bases) Gastrointestinal: Yes: Soft Genitourinary: No: David Present Edema: No Neurological: Yes: Alert, Oriented Labs: CBC, BMP 01/08/17 07:00 01/08/17 07:00 INR, PTT INR 2.83 (0.82-1.09) H 01/08/17 07:00 Problem List - Problems (1) Wrist fracture, left Assessment/Plan: Cast applied by [employer]IST yesterday; no pain today Code(s): S62.102A - FRACTURE OF UNSP CARPAL BONE, LEFT WRIST, INIT FOR CLOS FX (2) Acute on chronic respiratory failure with hypoxemia Assessment/Plan: Still requiring IV steroids Followed By Pulmonary MD Code(s): J96.21 - ACUTE AND CHRONIC RESPIRATORY FAILURE WITH HYPOXIA (3) Generalized anxiety disorder Assessment/Plan: On PRN Rx. Code(s): F41.1 - GENERALIZED ANXIETY DISORDER (4) Anemia Assessment/Plan: Hb 7.8GM B12 and Ferritin borderline To repeat CBC AM Code(s): D64.9 - ANEMIA, UNSPECIFIED
--- NOTE | 2017-01-08 16:21 | PN ---
Progress Note (short form) - Note Progress Note: s: no cp palps dizzy; sob improving; + frequent bothersome frequent urination, poor po intake o: Current Medications Acetaminophen (Tylenol -) 650 mg PO Q6H PRN PRN Reason: FEVER OR PAIN Last Admin: 01/07/17 16:01 Dose: 650 mg Albuterol Sulfate (Ventolin 0.083% Nebulizer Soln -) 1 amp NEB Q4HPO PRN PRN Reason: SHORT OF BREATH/WHEEZING Last Admin: 01/08/17 06:55 Dose: 1 amp Arformoterol Tartrate (Brovana (Restricted To Pulmonology/Resp) -) 1 amp NEB BID [facility] Last Admin: 01/08/17 10:40 Dose: 1 amp Digoxin (Lanoxin -) 0.125 mg PO DAILY [facility] Last Admin: 01/08/17 10:20 Dose: 0.125 mg Diltiazem HCl (Cardizem Cd -) 120 mg PO DAILY [facility] Last Admin: 01/08/17 10:19 Dose: 120 mg Furosemide (Lasix -) 40 mg PO DAILY [facility] Last Admin: 01/08/17 10:20 Dose: 40 mg Fluconazole (Diflucan 100 Mg/Ns Premixed Ivpb -) 50 mls @ 50 mls/hr IVPB DAILY [facility] Last Admin: 01/08/17 10:20 Dose: 50 mls/hr Pantoprazole Sodium (Protonix 40mg Ivpb (Pre-Docked)) 100 mls @ 200 mls/hr IVPB DAILY [facility] Last Admin: 01/08/17 10:20 Dose: 200 mls/hr Lidocaine/Aluminum/Magnesium/Simeth (Magic Mouthwash *Sjr Formula* -) 5 ml MM Q6HPO [facility] Last Admin: 01/08/17 11:42 Dose: 5 ml Lorazepam (Ativan -) 0.5 mg PO TID [facility] Last Admin: 01/08/17 13:30 Dose: 0.5 mg Methylprednisolone Sodium Succinate (Solu-Medrol -) 30 mg IVPB BID [facility] Last Admin: 01/08/17 10:19 Dose: 30 mg Nystatin (Nystatin Oral Suspension -) 500,000 units PO Q6HPO [facility] Last Admin: 01/08/17 11:42 Dose: 500,000 units Potassium Chloride (K-Dur -) 10 meq PO DAILY [facility] Last Admin: 04/02/17 10:19 Dose: 10 meq Tiotropium [place] (Spiriva -) 1 puff IH DAILY [facility] Last Admin: 01/08/17 11:53 Dose: 1 puff Vital Signs - 24 hr 01/07/17 01/07/17 01/07/17 18:38 18:45 21:00 Temperature 98.2 F 98.9 F Pulse Rate 104 H 98 H Respiratory 18 18 20 Rate Blood Pressure 107/64 109/74 O2 Sat by Pulse 94 L Oximetry (%) 01/07/17 01/08/17 01/08/17 23:00 02:04 03:37 Temperature 97.9 F 98.2 F 98.2 F Pulse Rate 102 H 98 H 98 H Respiratory 20 18 18 Rate Blood Pressure 135/78 105/68 105/68 O2 Sat by Pulse Oximetry (%) 01/08/17 01/08/17 01/08/17 06:00 07:00 09:00 Temperature 98.3 F 98.3 F Pulse Rate 100 H 100 H Respiratory 18 18 21 Rate Blood Pressure 120/81 120/81 O2 Sat by Pulse 94 L Oximetry (%) 01/08/17 01/08/17 10:20 13:00 Temperature 97.9 F Pulse Rate 103 H 104 H Respiratory 21 Rate Blood Pressure 148/78 O2 Sat by Pulse Oximetry (%) Intake & Output 01/06/17 01/07/17 01/08/17 01/09/17 07:59 07:59 07:59 07:59 Intake Total 1030 1090 435 Balance 1030 1090 435 Weight 83 lb 9 oz 83 lb 6.4 oz 85 lb 3.2 oz Constitutional: Yes: cachectic, No Distress Eyes: No: Sclera Icterus Respiratory: Yes: mild exp wheeze, nl eff. No: Accessory Muscle Use, Rales Gastrointestinal: Yes: Normal Bowel Sounds. No: Distention, Hepatomegaly, Palpable Mass, Tenderness Cardiovascular: Yes: Pulse Irregular JVD: No Heart Sounds: Yes: S1, S2. No: Gallop Murmur: No: Systolic Murmur, Diastolic Murmur Extremities: No: Cool, Cyanosis Edema: No Integumentary: No: Jaundice diaphoresis Neurological: Yes: Alert, awake, appropriate Psychiatric: No: Agitated CBC, BMP 01/08/17 07:00 01/08/17 07:00 ekg: afib; normal axis; no path q's; diffuse ST-Ts not changed vs 10/25 Chest X-ray: Report Reviewed (clear lungs/pleura) MANUEL 10/2016: nl lv/rv. 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 No TR. 1+ AR. No veg/abscess. Mild-mod mural aortic atheroma. Echo 10/2016: nl lv/rv, sixto, mild mr, mild-mod tr, nl rvsp, nl rvsp, mild ar Echo 09/2016: Nl lv/rv. Mod MAC. 1+ AR/TR. Mod MI. 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); mild-mod MR with no systolic blunting or reversal of flow in pulm vein; peak E velocity (59 cm/sec) ; myxomatous TV with prob mild-mod TR; at least moderate pulm HTN; no change vs 2013 echo a/p: chronic diast chf: -episodes of acute chf on prior admits, required lasix 40 iv qd treatment -sent home on lasix 40 po daily last time--saw dr ivey in office few weeks ago and appeared euvolemic with new dry wt (likely lost muscle mass in hospital) -bnp 1400, down from 2500 during 10/25 admit -cxr clear, no JVD, no audible MR murmur -do not see any evidence of acute chf here -poor po intake will try decreasing lasix to 20 mg per day. con't to monitor vol status copd: -advanced, dependent on home O2 -on iv steroids per pulm recurrent staph bacteremia/MANUEL negative for endocarditis: -+MSSA on repeat BCXs 2d apart in early 09/23 (treated with 14d of abx then) -back 10/25 with spontaneous MSSA as outpatient; -MANUEL then with no evidence of endocarditis paroxysmal Afib/supraventricular tachycardia/MAT: -has hx mat worsened by acute resp illnesses in past -new AFib on tele 10/25, HR mostly controlled, has occasional rvr when anxious -currently HRs well controlled -cont dig (repeat level here is WNL) -cont diltiazem 120mg qd -CHADS VASC 4--NOACs prohibitive cost so recently changed over to warfarin as outpt -dose warfarin per INR (goal 2-3) 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
--- NOTE | 2017-01-08 17:16 | PN ---
Progress Note, Physician History of Present Illness: patient doing well cast on the right hand - Current Medication List Current Medications: Active Medications Acetaminophen (Tylenol -) 650 mg PO Q6H PRN PRN Reason: FEVER OR PAIN Last Admin: 01/07/17 16:01 Dose: 650 mg Albuterol Sulfate (Ventolin 0.083% Nebulizer Soln -) 1 amp NEB Q4HPO PRN PRN Reason: SHORT OF BREATH/WHEEZING Last Admin: 01/08/17 06:55 Dose: 1 amp Arformoterol Tartrate (Brovana (Restricted To Pulmonology/Resp) -) 1 amp NEB BID [facility] Last Admin: 01/08/17 10:40 Dose: 1 amp Digoxin (Lanoxin -) 0.125 mg PO DAILY [facility] Last Admin: 01/08/17 10:20 Dose: 0.125 mg Diltiazem HCl (Cardizem Cd -) 120 mg PO DAILY [facility] Last Admin: 01/08/17 10:19 Dose: 120 mg Furosemide (Lasix -) 40 mg PO DAILY [facility] Last Admin: 01/08/17 10:20 Dose: 40 mg Fluconazole (Diflucan 100 Mg/Ns Premixed Ivpb -) 50 mls @ 50 mls/hr IVPB DAILY [facility] Last Admin: 01/08/17 10:20 Dose: 50 mls/hr Pantoprazole Sodium (Protonix 40mg Ivpb (Pre-Docked)) 100 mls @ 200 mls/hr IVPB DAILY [facility] Last Admin: 01/08/17 10:20 Dose: 200 mls/hr Lidocaine/Aluminum/Magnesium/Simeth (Magic Mouthwash *Sjr Formula* -) 5 ml MM Q6HPO [facility] Last Admin: 01/08/17 11:42 Dose: 5 ml Lorazepam (Ativan -) 0.5 mg PO TID [facility] Last Admin: 01/08/17 13:30 Dose: 0.5 mg Methylprednisolone Sodium Succinate (Solu-Medrol -) 30 mg IVPB BID [facility] Last Admin: 01/08/17 10:19 Dose: 30 mg Nystatin (Nystatin Oral Suspension -) 500,000 units PO Q6HPO [facility] Last Admin: 01/08/17 11:42 Dose: 500,000 units Potassium Chloride (K-Dur -) 10 meq PO DAILY [facility] Last Admin: 04/02/17 10:19 Dose: 10 meq Tiotropium [place] (Spiriva -) 1 puff IH DAILY [facility] Last Admin: 01/08/17 11:53 Dose: 1 puff - Objective Vital Signs: Vital Signs Temperature 97.9 F 01/08/17 13:00 Pulse Rate 104 H 01/08/17 13:00 Respiratory Rate 21 01/08/17 13:00 Blood Pressure 148/78 01/08/17 13:00 O2 Sat by Pulse Oximetry (%) 94 L 01/08/17 09:00 Constitutional: Yes: No Distress, Calm Cardiovascular: Yes: Pulse Irregular Respiratory: Yes: Regular, Poor Air Entry Gastrointestinal: Yes: Normal Bowel Sounds, Soft Musculoskeletal: Yes: WNL Extremities: Yes: Other Integumentary: Yes: WNL Neurological: Yes: Alert, Oriented Psychiatric: Yes: Alert, Oriented Labs: CBC, BMP 01/08/17 07:00 01/08/17 07:00 INR, PTT INR 2.83 (0.82-1.09) H 01/08/17 07:00 Assessment/Plan Problem List - Problems (1) Dysphagia Code(s): R13.10 - DYSPHAGIA, UNSPECIFIED Qualifiers: Dysphagia type: unspecified (2) Weakness. Code(s): R53.1 - WEAKNESS (3) Leukocytosis Code(s): D72.829 - ELEVATED WHITE BLOOD CELL COUNT, UNSPECIFIED (4) Hyponatremia Code(s): E87.1 - HYPO-OSMOLALITY AND HYPONATREMIA (5) COPD (chronic obstructive pulmonary disease) Code(s): J44.9 - CHRONIC OBSTRUCTIVE PULMONARY DISEASE, UNSPECIFIED Qualifiers : COPD type: COPD with acute exacerbation Qualified Code(s): J44.1 - Chronic obstructive pulmonary disease with (acute) exacerbation (6) Atrial fibrillation with RVR Code(s): I48.91 - UNSPECIFIED ATRIAL FIBRILLATION (7) Generalized anxiety disorder Code(s): F41.1 - GENERALIZED ANXIETY DISORDER plan continue current mgmt rest as per primary incentive ally stable off of abx patient has cast on the wrist now
[2017-01-09] MEDS: NYSTATIN 500,000 UNITS/5 ML SUSPENSION PO SCH ×4 (00:13→18:24)
[2017-01-09] MEDS: MAG HYDROX/ALH/SMC/DPHA/LIDO 240 ML MOUTHWASH MM SCH ×4 (00:13→18:26)
[2017-01-09] MEDS: LORazepam 0.5 MG TABLET PO SCH ×3 (05:35→21:29)
[2017-01-09 06:27] LABS: BASOPHIL 0.1 % (0-2.0); MCH 22.9 pg (25.7-33.7); MCHC 31.2 g/dl (32.0-36.0); MEAN CELL VOLUME 73.4 fl (80-96); MEAN PLT VOLUME 7.5 fl (7.5-11.1); NEUTROPHILS 89.5 % (42.8-82.8); PLATELET COUNT 333 K/MM3 (134-434); RDW 20.2 % (11.6-15.6); WHITE BLOOD COUNT 9.7 K/mm3 (4.0-10.0)
[2017-01-09 06:39] LABS: INR 2.06 (0.82-1.09)
--- NOTE | 2017-01-09 09:05 | PN ---
Progress Note (short form) - Note Progress Note: Ortho Pt seen and examined s/p left distal radius closed reduction and cast application- doing well cast intact, minimal swelling of fingers nvi post-reduction xrays show improved alignment with good position of fx a/p Continue immobilization elevation may d/c from ortho pov d/w Dr. Reed
--- NOTE | 2017-01-09 09:15 | PN ---
Progress Note, Physician - Current Medication List Current Medications: Active Medications Acetaminophen (Tylenol -) 650 mg PO Q6H PRN PRN Reason: FEVER OR PAIN Last Admin: 01/07/17 16:01 Dose: 650 mg Albuterol Sulfate (Ventolin 0.083% Nebulizer Soln -) 1 amp NEB Q4HPO PRN PRN Reason: SHORT OF BREATH/WHEEZING Last Admin: 01/08/17 06:55 Dose: 1 amp Arformoterol Tartrate (Brovana (Restricted To Pulmonology/Resp) -) 1 amp NEB BID [facility] Last Admin: 01/08/17 21:52 Dose: 1 amp Digoxin (Lanoxin -) 0.125 mg PO DAILY [facility] Last Admin: 01/08/17 10:20 Dose: 0.125 mg Diltiazem HCl (Cardizem Cd -) 120 mg PO DAILY [facility] Last Admin: 01/08/17 10:19 Dose: 120 mg Furosemide (Lasix -) 20 mg PO DAILY [facility] Fluconazole (Diflucan 100 Mg/Ns Premixed Ivpb -) 50 mls @ 50 mls/hr IVPB DAILY [facility] Last Admin: 01/08/17 10:20 Dose: 50 mls/hr Pantoprazole Sodium (Protonix 40mg Ivpb (Pre-Docked)) 100 mls @ 200 mls/hr IVPB DAILY [facility] Last Admin: 01/08/17 10:20 Dose: 200 mls/hr Lidocaine/Aluminum/Magnesium/Simeth (Magic Mouthwash *Sjr Formula* -) 5 ml MM Q6HPO [facility] Last Admin: 01/09/17 05:35 Dose: 5 ml Lorazepam (Ativan -) 0.5 mg PO TID [facility] Last Admin: 01/09/17 05:35 Dose: 0.5 mg Methylprednisolone Sodium Succinate (Solu-Medrol -) 30 mg IVPB BID [facility] Last Admin: 01/08/17 21:14 Dose: 30 mg Nystatin (Nystatin Oral Suspension -) 500,000 units PO Q6HPO [facility] Last Admin: 01/09/17 05:35 Dose: 500,000 units Potassium Chloride (K-Dur -) 10 meq PO DAILY [facility] Last Admin: 01/08/17 10:19 Dose: 10 meq Tiotropium [place] (Spiriva -) 1 puff IH DAILY [facility] Last Admin: 01/08/17 11:53 Dose: 1 puff - Objective Vital Signs: Vital Signs Temperature 97.7 F 01/09/17 06:00 Pulse Rate 94 H 01/09/17 06:00 Respiratory Rate 20 01/09/17 06:00 Blood Pressure 126/79 01/09/17 06:00 O2 Sat by Pulse Oximetry (%) 99 01/08/17 21:00 Labs: CBC, BMP 01/09/17 06:00 01/08/17 07:00 INR, PTT INR 2.06 (0.82-1.09) H 01/09/17 06:00 Assessment/Plan MANUEL 10/2016: nl lv/rv. 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 No TR. 1+ AR. No veg/abscess. Mild-mod mural aortic atheroma. Echo 10/2016: nl lv/rv, sixto, mild mr, mild-mod tr, nl rvsp, nl rvsp, mild ar Echo 09/2016: Nl lv/rv. Mod MAC. 1+ AR/TR. Mod [place]. 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); mild-mod MR with no systolic blunting or reversal of flow in pulm vein; peak E velocity (59 cm/sec) ; myxomatous TV with prob mild-mod TR; at least moderate pulm HTN; no change vs 2013 echo chronic diast chf: -episodes of acute chf on prior admits, required lasix 40 iv qd treatment -sent home on lasix 40 po daily last time--saw dr ivey in office few weeks ago and appeared euvolemic with new dry wt (likely lost muscle mass in hospital) -bnp 1400, down from 2500 during 10/25 admit -cxr clear, no JVD, no audible MR murmur -no evidence of acute chf here -4/2: bun/creat progressively rising; pt with poor po intake--lasix decreased to 20 mg per day. -4/3: rpt bun/creat, monitor labs trend--low threshold to hold lasix; though watch diligently for signs of acute chf on iv steroids here acute copd: -advanced, dependent on home O2 -incr'd sx's here--treating with iv steroids per pulm recurrent staph bacteremia/MANUEL negative for endocarditis: -+MSSA on repeat BCXs 2d apart in early 09/23 (treated with 14d of abx then) -back 10/25 with spontaneous MSSA as outpatient; -MANUEL then with no evidence of endocarditis paroxysmal Afib/supraventricular tachycardia/MAT: -has hx mat worsened by acute resp illnesses in past -new AFib on tele 10/25, HR mostly controlled, has occasional rvr when anxious -currently HRs well controlled -cont dig (repeat level here is WNL) -cont diltiazem 120mg qd -CHADS VASC 4--NOACs prohibitive cost so recently changed over to warfarin as outpt -dose warfarin per INR (goal 2-3) -01/09: INR was supratherapeutic, AC held--now 2.0, resume warfarin at lower dose (2mg daily)--trend daily INRs given on fluconazole as well, poor po intake, new to warfarin -watch closely for signs of occult GIB (as below) pulm HTN: -WHO 3 (overnight hypoxia has been documented), possibly WHO 2 component from LV diast chf -now complying with 24 hr home O2 -chf optimization as doing MVP with mitral regurg: -only mild MR on MANUEL 10/25 -worsens with acute chf in past dysphagia/odynophagia: -? esophageal candidiasis (oral thrush noted)--being treated -imaging also shows esoph spasm, cont dilt per GI anemia: -hgb here 7.7-8.2, down from prior baseline 9s-10s -Fe low, ferritin low-normal -check stool guaiac -monitor trend closely on AC
[2017-01-09 09:34] LABS: CALCIUM 9.1 mg/dL (8.5-10.1); CREATININE 0.5 mg/dL (0.55-1.02)
[2017-01-09] MEDS: methylPREDNISolone NA SUCC 40 MG/1 ML VIAL IVPB SCH ×2 (09:55→21:28)
[2017-01-09] MEDS: ARFORMOTEROL TARTRATE 15 MCG/2 ML VIAL NEB SCH ×2 (10:37→21:18)
[2017-01-09] MEDS: FLUCONAZOLE 100 MG/NS 50 ML IVPB SCH (10:50)
[2017-01-09] MEDS: PANTOPRAZOLE SODIUM 100 ML IVPB SCH (10:53)
[2017-01-09] MEDS: TIOTROPIUM BROMIDE 18 MCG/INH (DEVICE W/ 30 CAPSULES) IH SCH (10:59)
[2017-01-09] MEDS ORDERED: PT OWN MED DRAWER 7, Y5N ONE (11:46)
[2017-01-09] MEDS: POTASSIUM CHLORIDE TABS 10 MEQ TABLET.ER (FP) PO SCH (11:52)
[2017-01-09] MEDS: DIGOXIN 0.125 MG TABLET (FP) PO SCH (11:52)
[2017-01-09] MEDS: FUROSEMIDE 20 MG TABLET (FP) PO SCH (11:52)
--- NOTE | 2017-01-09 15:04 | PN ---
Progress Note, Physician History of Present Illness: PULMONARY ALERT,LESS DYSPNEIC,TOLERATING PO,-DYSPHAGIA - Current Medication List Current Medications: Active Medications Acetaminophen (Tylenol -) 650 mg PO Q6H PRN PRN Reason: FEVER OR PAIN Last Admin: 01/07/17 16:01 Dose: 650 mg Albuterol Sulfate (Ventolin 0.083% Nebulizer Soln -) 1 amp NEB Q4HPO PRN PRN Reason: SHORT OF BREATH/WHEEZING Last Admin: 01/08/17 06:55 Dose: 1 amp Arformoterol Tartrate (Brovana (Restricted To Pulmonology/Resp) -) 1 amp NEB BID [facility] Last Admin: 01/09/17 10:37 Dose: 1 amp Digoxin (Lanoxin -) 0.125 mg PO DAILY [facility] Last Admin: 01/09/17 11:52 Dose: 0.125 mg Diltiazem HCl (Cardizem Cd -) 120 mg PO DAILY [facility] Last Admin: 01/09/17 10:51 Dose: 120 mg Furosemide (Lasix -) 20 mg PO DAILY [facility] Last Admin: 01/09/17 11:52 Dose: 20 mg Fluconazole (Diflucan 100 Mg/Ns Premixed Ivpb -) 50 mls @ 50 mls/hr IVPB DAILY [facility] Last Admin: 01/09/17 10:50 Dose: 50 mls/hr Pantoprazole Sodium (Protonix 40mg Ivpb (Pre-Docked)) 100 mls @ 200 mls/hr IVPB DAILY [facility] Last Admin: 01/09/17 10:53 Dose: 200 mls/hr Lidocaine/Aluminum/Magnesium/Simeth (Magic Mouthwash *Sjr Formula* -) 5 ml MM Q6HPO [facility] Last Admin: 01/09/17 12:00 Dose: 5 ml Lorazepam (Ativan -) 0.5 mg PO TID [facility] Last Admin: 01/09/17 14:50 Dose: 0.5 mg Methylprednisolone Sodium Succinate (Solu-Medrol -) 30 mg IVPB BID [facility] Last Admin: 01/09/17 09:55 Dose: 30 mg Nystatin (Nystatin Oral Suspension -) 500,000 units PO Q6HPO [facility] Last Admin: 01/09/17 11:59 Dose: 500,000 units Potassium Chloride (K-Dur -) 10 meq PO DAILY [facility] Last Admin: 01/09/17 11:52 Dose: 10 meq Tiotropium [place] (Spiriva -) 1 puff IH DAILY [facility] Last Admin: 01/09/17 10:59 Dose: 1 puff Warfarin Sodium (Coumadin -) 2 mg PO DAILY@1800 [facility] - Objective Vital Signs: Vital Signs Temperature 98.9 F 01/09/17 14:56 Pulse Rate 108 H 01/09/17 14:56 Respiratory Rate 20 01/09/17 14:56 Blood Pressure 116/64 01/09/17 14:56 O2 Sat by Pulse Oximetry (%) 99 01/08/17 21:00 Constitutional: Yes: Calm, Thin Eyes: Yes: WNL HENT: Yes: WNL Neck: Yes: WNL Cardiovascular: Yes: Pulse Irregular, S1, S2 Respiratory: Yes: Diminished Gastrointestinal: Yes: Normal Bowel Sounds, Soft Extremities: Yes: WNL Edema: No Labs: CBC, BMP 01/09/17 06:00 01/09/17 06:00 INR, PTT INR 2.06 (0.82-1.09) H 01/09/17 06:00 Problem List - Problems (1) Dysphagia Code(s): R13.10 - DYSPHAGIA, UNSPECIFIED Qualifiers: Dysphagia type: unspecified Qualified Code(s): R13.10 - Dysphagia, unspecified (2) Generalized anxiety disorder Code(s): F41.1 - GENERALIZED ANXIETY DISORDER (3) Atrial fibrillation with RVR Code(s): I48.91 - UNSPECIFIED ATRIAL FIBRILLATION (4) COPD (chronic obstructive pulmonary disease) Code(s): J44.9 - CHRONIC OBSTRUCTIVE PULMONARY DISEASE, UNSPECIFIED Qualifiers : COPD type: COPD with acute exacerbation Qualified Code(s): J44.1 - Chronic obstructive pulmonary disease with (acute) exacerbation (5) Dyspnea Code(s): R06.00 - DYSPNEA, UNSPECIFIED Qualifiers: Dyspnea type: shortness of breath Qualified Code(s): R06.02 - Shortness of breath (6) Pulmonary hypertension Code(s): I27.2 - OTHER SECONDARY PULMONARY HYPERTENSION (7) Acute on chronic respiratory failure with hypoxemia Code(s): J96.21 - ACUTE AND CHRONIC RESPIRATORY FAILURE WITH HYPOXIA Assessment/Plan IMP ACUTE ON CHRONIC HYPOXEMIC RESPIRATORY FAILURE COPD EXACERBATION DIASTOLIC HF DYSPHAGIA PULMONARY HTN AFIB ANXIETY HYPONATREMIA PLAN TAPER SOLUMEDROL INHALED BRONCHODILATORS NASAL O2 NYSTATIN COUMADIN MONITOR INR MONITOR RENAE RUTHERFORD Problem List - Problems (1) Dysphagia Code(s): R13.10 - DYSPHAGIA, UNSPECIFIED Qualifiers: Dysphagia type: unspecified Qualified Code(s): R13.10 - Dysphagia, unspecified (2) Generalized anxiety disorder Code(s): F41.1 - GENERALIZED ANXIETY DISORDER (3) Atrial fibrillation with RVR Code(s): I48.91 - UNSPECIFIED ATRIAL FIBRILLATION (4) COPD (chronic obstructive pulmonary disease) Code(s): J44.9 - CHRONIC OBSTRUCTIVE PULMONARY DISEASE, UNSPECIFIED Qualifiers : COPD type: COPD with acute exacerbation Qualified Code(s): J44.1 - Chronic obstructive pulmonary disease with (acute) exacerbation (5) Dyspnea Code(s): R06.00 - DYSPNEA, UNSPECIFIED Qualifiers: Dyspnea type: shortness of breath Qualified Code(s): R06.02 - Shortness of breath (6) Pulmonary hypertension Code(s): I27.2 - OTHER SECONDARY PULMONARY HYPERTENSION (7) Acute on chronic respiratory failure with hypoxemia Code(s): J96.21 - ACUTE AND CHRONIC RESPIRATORY FAILURE WITH HYPOXIA
--- NOTE | 2017-01-09 15:08 | PN ---
Progress Note, Physician History of Present Illness: patient does not feel very well hot - Current Medication List Current Medications: Active Medications Acetaminophen (Tylenol -) 650 mg PO Q6H PRN PRN Reason: FEVER OR PAIN Last Admin: 01/07/17 16:01 Dose: 650 mg Albuterol Sulfate (Ventolin 0.083% Nebulizer Soln -) 1 amp NEB Q4HPO PRN PRN Reason: SHORT OF BREATH/WHEEZING Last Admin: 01/08/17 06:55 Dose: 1 amp Arformoterol Tartrate (Brovana (Restricted To Pulmonology/Resp) -) 1 amp NEB BID [facility] Last Admin: 01/09/17 10:37 Dose: 1 amp Digoxin (Lanoxin -) 0.125 mg PO DAILY [facility] Last Admin: 01/09/17 11:52 Dose: 0.125 mg Diltiazem HCl (Cardizem Cd -) 120 mg PO DAILY [facility] Last Admin: 01/09/17 10:51 Dose: 120 mg Furosemide (Lasix -) 20 mg PO DAILY [facility] Last Admin: 01/09/17 11:52 Dose: 20 mg Fluconazole (Diflucan 100 Mg/Ns Premixed Ivpb -) 50 mls @ 50 mls/hr IVPB DAILY [facility] Last Admin: 01/09/17 10:50 Dose: 50 mls/hr Pantoprazole Sodium (Protonix 40mg Ivpb (Pre-Docked)) 100 mls @ 200 mls/hr IVPB DAILY [facility] Last Admin: 01/09/17 10:53 Dose: 200 mls/hr Lidocaine/Aluminum/Magnesium/Simeth (Magic Mouthwash *Sjr Formula* -) 5 ml MM Q6HPO [facility] Last Admin: 01/09/17 12:00 Dose: 5 ml Lorazepam (Ativan -) 0.5 mg PO TID [facility] Last Admin: 01/09/17 14:50 Dose: 0.5 mg Methylprednisolone Sodium Succinate (Solu-Medrol -) 20 mg IVPB BID [facility] Nystatin (Nystatin Oral Suspension -) 500,000 units PO Q6HPO [facility] Last Admin: 01/09/17 11:59 Dose: 500,000 units Potassium Chloride (K-Dur -) 10 meq PO DAILY [facility] Last Admin: 01/09/17 11:52 Dose: 10 meq Tiotropium [place] (Spiriva -) 1 puff IH DAILY [facility] Last Admin: 01/09/17 10:59 Dose: 1 puff Warfarin Sodium (Coumadin -) 2 mg PO DAILY@1800 [facility] - Objective Vital Signs: Vital Signs Temperature 98.9 F 01/09/17 14:56 Pulse Rate 108 H 01/09/17 14:56 Respiratory Rate 20 01/09/17 14:56 Blood Pressure 116/64 01/09/17 14:56 O2 Sat by Pulse Oximetry (%) 99 01/08/17 21:00 Constitutional: Yes: Calm, Mild Distress Cardiovascular: Yes: Pulse Irregular Respiratory: Yes: Poor Air Entry Gastrointestinal: Yes: Normal Bowel Sounds, Soft Musculoskeletal: Yes: Other Extremities: Yes: Other (left wrist fracture) Integumentary: Yes: WNL Neurological: Yes: Alert, Oriented Psychiatric: Yes: Alert, Oriented Labs: CBC, BMP 01/09/17 06:00 01/09/17 06:00 INR, PTT INR 2.06 (0.82-1.09) H 01/09/17 06:00 Assessment/Plan Problem List - Problems (1) Dysphagia Code(s): R13.10 - DYSPHAGIA, UNSPECIFIED Qualifiers: Dysphagia type: unspecified (2) Weakness. Code(s): R53.1 - WEAKNESS (3) Leukocytosis Code(s): D72.829 - ELEVATED WHITE BLOOD CELL COUNT, UNSPECIFIED (4) Hyponatremia Code(s): E87.1 - HYPO-OSMOLALITY AND HYPONATREMIA (5) COPD (chronic obstructive pulmonary disease) Code(s): J44.9 - CHRONIC OBSTRUCTIVE PULMONARY DISEASE, UNSPECIFIED Qualifiers : COPD type: COPD with acute exacerbation Qualified Code(s): J44.1 - Chronic obstructive pulmonary disease with (acute) exacerbation (6) Atrial fibrillation with RVR Code(s): I48.91 - UNSPECIFIED ATRIAL FIBRILLATION (7) Generalized anxiety disorder Code(s): F41.1 - GENERALIZED ANXIETY DISORDER plan continue current mgmt rest as per primary incentive ally stable off of abx continue to monitor
--- NOTE | 2017-01-09 15:15 | PN ---
Physical Exam: SUBJECTIVE: Patient seen and examined. Denies chest pain or shortness of breath. States her breathing is improved. OBJECTIVE: Left wrist cast for left wrist fracture s/p fall over the weekend Vital Signs Period Temp Pulse Resp BP Sys/Starks Pulse Ox Last 24 Hr 97.7 F-98.9 F 94-113 20-22 116-127/64-79 99 GENERAL: The patient is awake, alert, and fully oriented, in mild-moderate respiratory distress. Frail/weak. HEAD: Normal with no signs of trauma EYES: PERRL, extraocular movements intact, sclera anicteric, conjunctiva clear. No ptosis. ENT: Ears normal, nares patent, oral thrush NECK: Trachea midline, full range of motion, supple. LUNGS: accessory muscle use, dyspnea at rest, poor air flow, oxygen dependent EXTREMITIES: 2+ pulses, warm, well-perfused, no edema. NEUROLOGICAL: Normal speech, gait not observed. PSYCH: Normal mood, normal affect. SKIN: Left wrist cast for left wrist fracture Laboratory Results - last 24 hr 01/08/17 01/09/17 01/09/17 07:00 06:00 06:00 WBC 9.7 RBC 3.54 L Hgb 8.1 L Hct 26.0 L MCV 73.4 L MCHC 31.2 L RDW 20.2 H Plt Count 333 MPV 7.5 Neutrophils % 89.5 H Lymphocytes % 4.9 L Monocytes % 5.5 Eosinophils % 0.0 Basophils % 0.1 INR 2.06 H Sodium Potassium Chloride Carbon Dioxide Anion Gap BUN Creatinine Random Glucose Calcium Iron 13 L 01/09/17 06:00 WBC RBC Hgb Hct MCV MCHC RDW Plt Count MPV Neutrophils % Lymphocytes % Monocytes % Eosinophils % Basophils % INR Sodium 137 Potassium 4.3 Chloride 89 L Carbon Dioxide 42 H Anion Gap 6 L BUN 30 H Creatinine 0.5 L D Random Glucose 107 H D Calcium 9.1 Iron Active Medications Generic Name Dose Route Start Last Admin Trade Name Freq PRN Reason Stop Dose Admin Acetaminophen 650 mg 01/01/17 14:11 01/07/17 16:01 Tylenol - PO 650 mg Q6H PRN Administration FEVER OR PAIN Albuterol Sulfate 1 amp 01/04/17 14:24 01/08/17 06:55 Ventolin 0.083% Nebulizer Soln - NEB 1 amp Q4HPO PRN Administration SHORT OF BREATH/WHEEZING Arformoterol Tartrate 1 amp 01/02/17 22:00 01/09/17 10:37 Brovana (Restricted To Pulmonology/Resp) - NEB 1 amp BID [facility] Administration Digoxin 0.125 mg 01/02/17 10:00 01/09/17 11:52 Lanoxin - PO 0.125 mg DAILY [facility] Administration Diltiazem HCl 120 mg 01/02/17 10:00 01/09/17 10:51 Cardizem Cd - PO 120 mg DAILY [facility] Administration Furosemide 20 mg 01/09/17 10:00 01/09/17 11:52 Lasix - PO 20 mg DAILY [facility] Administration Fluconazole 50 mls @ 50 mls/hr 01/03/17 10:00 01/09/17 10:50 Diflucan 100 Mg/Ns Premixed Ivpb - IVPB 50 mls/hr DAILY [facility] Administration Pantoprazole Sodium 100 mls @ 200 mls/hr 01/03/17 10:00 01/09/17 10:53 Protonix 40mg Ivpb (Pre-Docked) IVPB 200 mls/hr DAILY [facility] Administration Lidocaine/Aluminum/Magnesium/Simeth 5 ml 01/03/17 00:00 01/09/17 12:00 Magic Mouthwash *Sjr Formula* - MM 5 ml Q6HPO [facility] Administration Lorazepam 0.5 mg 01/01/17 22:00 01/09/17 14:50 Ativan - PO 0.5 mg TID [facility] Administration Methylprednisolone Sodium Succinate 20 mg 01/09/17 22:00 Solu-Medrol - IVPB BID [facility] Nystatin 500,000 units 01/01/17 18:00 01/09/17 11:59 Nystatin Oral Suspension - PO 500,000 units Q6HPO [facility] Administration Potassium Chloride 10 meq 01/02/17 10:00 01/09/17 11:52 K-Dur - PO 10 meq DAILY [facility] Administration Tiotropium [place] 1 puff 01/02/17 16:30 01/09/17 10:59 Spiriva - IH 1 puff DAILY [facility] Administration Warfarin Sodium 2 mg 01/09/17 18:00 Coumadin - PO DAILY@1800 [facility] ASSESSMENT/PLAN: Patient is a 76 year old female with a significant past medical history of atrial fib, dysphagia, COPD, diastolic heart failure and weakness. She was admitted on 01/01/2017 with decreased PO intake and dysphagia x 2 weeks. On admission, she was noted to have oral thrush. Imaging: Radiology upper GI series/esophagram 01/06/2017: Esophageal spasms with dilatation of the proximal esophagus - corkscrew appearance of esophagus on barium swallow, narrowing @ the distal thoracic esophagas - gastroesophageal junction. GI: Dysphagia - acute Assessment/Plan: Oral thrush noted on oral cavity, on Nystatin oral suspension q6 with upper gi series w/esophageal spasms with dilatation of the proximal esophagus - corkscrew appearance of esophagus on barium swallow, narrowing @ the distal thoracic esophagas - gastroesophageal junction. on IV diflucan 100mg as per GI PO intake poor - very cachectic and weak - on pureed diet Cardiology: Atrial fibrillation with RVR - chronic Assessment/Plan: On cardizem 120mg daily Digoxin 0.125mg daily Coumadin based on INR Chronic Diastolic HF Assessment/Plan: Maintain lasix 20mg daily Monitor renal function Pulmonary: Acute on chronic COPD exacerbation Assessment/Plan: diminished breath sounds bilaterally, accessory muscle use On IV solumedrol 20mg BID as per pulmonary Spiriva daily, dyspnea at rest, monitor respiratory status Muscular/Skeletal: Muscle wasting and wt loss - chronic Assessment/Plan: Secondary to malnutrition, failure to thrive On a soft diet, poor PO intake likely secondary thrush Left wrist fracture s/p fall over the weekend- acute On soft cast, s/p fall going to bathroom F.E.N. Fluids: offer free fluids, tolerating PO, on Lasix, no IVF Electrolytes: dehydration, encourage oral intake Nutrition: soft diet as tolerated, Nystatin for oral thrush Disposition: Likely will need STR upon discharge. Full Code. Visit type - Emergency Visit Emergency Visit: Yes ED Registration Date: 01/01/17 Care time: The patient presented to the Emergency Department on the above date and was hospitalized for further evaluation of their emergent condition. - New Patient This patient is new to me today: No - Critical Care Critical Care patient: No - Discharge Referral Referred to [facility] Med [facility].C.: No
[2017-01-09] MEDS ORDERED: WARFARIN NA 2 MG TABLET (UD) PO SCH (18:00)
--- NOTE | 2017-01-09 21:33 | PN ---
Progress Note (short form) - Note Progress Note: s: no cp palps dizzy; sob improving; bothersome frequent urination improved on lower lasix dose. poor po intake con't o: Current Medications Acetaminophen (Tylenol -) 650 mg PO Q6H PRN PRN Reason: FEVER OR PAIN Last Admin: 01/07/17 16:01 Dose: 650 mg Albuterol Sulfate (Ventolin 0.083% Nebulizer Soln -) 1 amp NEB Q4HPO PRN PRN Reason: SHORT OF BREATH/WHEEZING Last Admin: 01/08/17 06:55 Dose: 1 amp Arformoterol Tartrate (Brovana (Restricted To Pulmonology/Resp) -) 1 amp NEB BID [facility] Last Admin: 01/09/17 21:18 Dose: 1 amp Digoxin (Lanoxin -) 0.125 mg PO DAILY [facility] Last Admin: 01/09/17 11:52 Dose: 0.125 mg Diltiazem HCl (Cardizem Cd -) 120 mg PO DAILY [facility] Last Admin: 01/09/17 10:51 Dose: 120 mg Furosemide (Lasix -) 20 mg PO DAILY [facility] Last Admin: 01/09/17 11:52 Dose: 20 mg Fluconazole (Diflucan 100 Mg/Ns Premixed Ivpb -) 50 mls @ 50 mls/hr IVPB DAILY [facility] Last Admin: 01/09/17 10:50 Dose: 50 mls/hr Pantoprazole Sodium (Protonix 40mg Ivpb (Pre-Docked)) 100 mls @ 200 mls/hr IVPB DAILY [facility] Last Admin: 01/09/17 10:53 Dose: 200 mls/hr Lidocaine/Aluminum/Magnesium/Simeth (Magic Mouthwash *Sjr Formula* -) 5 ml MM Q6HPO [facility] Last Admin: 01/09/17 18:26 Dose: 5 ml Lorazepam (Ativan -) 0.5 mg PO TID [facility] Last Admin: 01/09/17 21:29 Dose: 0.5 mg Methylprednisolone Sodium Succinate (Solu-Medrol -) 20 mg IVPB BID [facility] Last Admin: 01/09/17 21:28 Dose: 20 mg Nystatin (Nystatin Oral Suspension -) 500,000 units PO Q6HPO [facility] Last Admin: 01/09/17 18:24 Dose: 500,000 units Potassium Chloride (K-Dur -) 10 meq PO DAILY [facility] Last Admin: 01/09/17 11:52 Dose: 10 meq Tiotropium [place] (Spiriva -) 1 puff IH DAILY [facility] Last Admin: 01/09/17 10:59 Dose: 1 puff Warfarin Sodium (Coumadin -) 2 mg PO DAILY@1800 [facility] Last Admin: 01/09/17 18:26 Dose: 2 mg Vital Signs - 24 hr 01/09/17 01/09/17 01/09/17 00:00 06:00 09:00 Temperature 97.7 F Pulse Rate 108 H 94 H Respiratory 22 20 17 Rate Blood Pressure 127/68 126/79 01/09/17 01/09/17 01/09/17 11:52 14:56 17:32 Temperature 98.9 F 99.2 F Pulse Rate 113 H 108 H 100 H Respiratory 20 20 Rate Blood Pressure 116/64 112/71 01/09/17 20:43 Temperature 98.7 F Pulse Rate 104 H Respiratory 20 Rate Blood Pressure 126/84 Intake & Output 01/07/17 01/08/17 01/09/17 01/10/17 07:59 07:59 07:59 07:59 Intake Total 1090 941 267 0753 Balance 1090 730 947 4503 Weight 83 lb 6.4 oz 85 lb 3.2 oz 83 lb 12.8 oz Constitutional: Yes: cachectic, No Distress Eyes: No: Sclera Icterus Respiratory: Yes: mild exp wheeze, nl eff. No: Accessory Muscle Use, Rales Gastrointestinal: Yes: Normal Bowel Sounds. No: Distention, Hepatomegaly, Palpable Mass, Tenderness Cardiovascular: Yes: Pulse Irregular JVD: No Heart Sounds: Yes: S1, S2. No: Gallop Murmur: No: Systolic Murmur, Diastolic Murmur Extremities: No: Cool, Cyanosis Edema: No Integumentary: No: Jaundice diaphoresis Neurological: Yes: Alert, awake, appropriate Psychiatric: No: Agitated CBC, BMP 01/09/17 06:00 01/09/17 06:00 ekg: afib; normal axis; no path q's; diffuse ST-Ts not changed vs 10/25 Chest X-ray: Report Reviewed (clear lungs/pleura) MANUEL 10/2016: nl lv/rv. 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 No TR. 1+ AR. No veg/abscess. Mild-mod mural aortic atheroma. Echo 10/2016: nl lv/rv, sixto, mild mr, mild-mod tr, nl rvsp, nl rvsp, mild ar Echo 09/2016: Nl lv/rv. Mod MAC. 1+ AR/TR. Mod NH. 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); mild-mod MR with no systolic blunting or reversal of flow in pulm vein; peak E velocity (59 cm/sec) ; myxomatous TV with prob mild-mod TR; at least moderate pulm HTN; no change vs 2013 echo a/p: chronic diast chf: -episodes of acute chf on prior admits, required lasix 40 iv qd treatment -sent home on lasix 40 po daily last time--saw dr ivey in office few weeks ago and appeared euvolemic with new dry wt (likely lost muscle mass in hospital) -bnp 1400, down from 2500 during 10/25 admit -cxr clear, no JVD, no audible MR murmur -do not see any evidence of acute chf here -poor po intake/bothersome urinary frequency --> decreased lasix to 20 mg per day. weight stable, no worsening of resp status. con't to monitor. Low threshold to increase back up to 40 mg/day copd: -advanced, dependent on home O2 -on iv steroids per pulm recurrent staph bacteremia/MANUEL negative for endocarditis: -+MSSA on repeat BCXs 2d apart in early 09/23 (treated with 14d of abx then) -back 10/25 with spontaneous MSSA as outpatient; -MANUEL then with no evidence of endocarditis paroxysmal Afib/supraventricular tachycardia/MAT: -has hx mat worsened by acute resp illnesses in past -new AFib on tele 10/25, HR mostly controlled, has occasional rvr when anxious -currently HRs well controlled -cont dig (repeat level here is WNL) -cont diltiazem 120mg qd -CHADS VASC 4--NOACs prohibitive cost so recently changed over to warfarin as outpt -dose warfarin per INR (goal 2-3) 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
[2017-01-10] MEDS: MAG HYDROX/ALH/SMC/DPHA/LIDO 240 ML MOUTHWASH MM SCH ×3 (00:21→11:07)
[2017-01-10] MEDS: NYSTATIN 500,000 UNITS/5 ML SUSPENSION PO SCH ×3 (00:21→11:07)
[2017-01-10] MEDS: ALBUTEROL SO4 0.083% IH SOL 2.5 MG/3 ML VIAL.NEB. NEB PRN (05:10)
[2017-01-10] MEDS: LORazepam 0.5 MG TABLET PO SCH ×2 (06:12→14:37)
[2017-01-10 08:14] LABS: BASOPHIL 0.1 % (0-2.0); MCH 22.7 pg (25.7-33.7); MEAN CELL VOLUME 73.4 fl (80-96); MEAN PLT VOLUME 7.4 fl (7.5-11.1); NEUTROPHILS 89.2 % (42.8-82.8); PLATELET COUNT 345 K/MM3 (134-434); WHITE BLOOD COUNT 10.4 K/mm3 (4.0-10.0)
[2017-01-10 08:26] LABS: INR 1.71 (0.82-1.09)
[2017-01-10] MEDS: ACETAMINOPHEN 325 MG TABLET (FP) PO PRN (08:46)
[2017-01-10 08:49] LABS: ALBUMIN 3.2 g/dl (3.4-5.0); ALK PHOS 70 U/L (45-117); ANION GAP 9 (8-16); BILIRUBIN,TOTAL 0.3 mg/dL (0.2-1.0); CALCIUM 9.2 mg/dL (8.5-10.1); CO2 39 mmol/L (21-32); CREATININE 0.5 mg/dL (0.55-1.02); GLUCOSE,RANDOM 112 mg/dL (74-106); SGOT/AST 8 U/L (15-37); SGPT/ALT 24 U/L (12-78); TOT PROT 5.5 g/dl (6.4-8.2)
[2017-01-10] MEDS: FLUCONAZOLE 100 MG/NS 50 ML IVPB SCH (09:36)
[2017-01-10] MEDS: TIOTROPIUM BROMIDE 18 MCG/INH (DEVICE W/ 30 CAPSULES) IH SCH (09:36)
[2017-01-10] MEDS: DIGOXIN 0.125 MG TABLET (FP) PO SCH (09:37)
--- NOTE | 2017-01-10 09:37 | DS ---
Physical Exam: SUBJECTIVE: Patient seen and examined OBJECTIVE: Vital Signs Period Temp Pulse Resp BP Sys/Starks Pulse Ox Last 24 Hr 98.5 F-99.2 F 60-113 20-20 112-126/64-84 99 PHYSICAL EXAM GENERAL: The patient is awake, alert, and fully oriented, in no acute distress. HEAD: Normal with no signs of trauma. EYES: PERRL, extraocular movements intact, sclera anicteric, conjunctiva clear. ENT: Ears normal, nares patent, oropharynx clear without exudates, moist mucous membranes. NECK: Trachea midline, full range of motion, supple. LUNGS: Breath sounds equal, clear to auscultation bilaterally, no wheezes, no crackles, no accessory muscle use. HEART: Regular rate and rhythm, S1, S2 without murmur, rub or gallop. ABDOMEN: Soft, nontender, nondistended, normoactive bowel sounds, no guarding, no rebound, no hepatosplenomegaly, no masses. EXTREMITIES: 2+ pulses, warm, well-perfused, no edema. NEUROLOGICAL: Cranial nerves II through XII grossly intact. Normal speech, gait not observed. PSYCH: Normal mood, normal affect. SKIN: Warm, dry, normal turgor, no rashes or lesions noted. LABS Laboratory Results - last 24 hr 01/09/17 01/10/17 01/10/17 06:00 07:45 07:45 WBC RBC Hgb Hct MCV MCHC RDW Plt Count MPV Neutrophils % Lymphocytes % Monocytes % Eosinophils % Basophils % INR 1.71 H Sodium 137 137 Potassium 4.3 4.0 Chloride 89 L 89 L Carbon Dioxide 42 H 39 H Anion Gap 6 L 9 BUN 30 H 33 H Creatinine 0.5 L D 0.5 L Creat Clearance w eGFR > 60 Random Glucose 107 H D 112 H Calcium 9.1 9.2 Total Bilirubin 0.3 AST 8 L D ALT 24 D Alkaline Phosphatase 70 Total Protein 5.5 L Albumin 3.2 L 01/10/17 07:45 WBC 10.4 H RBC 3.55 L Hgb 8.1 L Hct 26.0 L MCV 73.4 L MCHC 31.0 L RDW 20.0 H Plt Count 345 MPV 7.4 L Neutrophils % 89.2 H Lymphocytes % 3.4 L D Monocytes % 7.3 Eosinophils % 0.0 Basophils % 0.1 INR Sodium Potassium Chloride Carbon Dioxide Anion Gap BUN Creatinine Creat Clearance w eGFR Random Glucose Calcium Total Bilirubin AST ALT Alkaline Phosphatase Total Protein Albumin HOSPITAL COURSE: Date of Admission:01/01/17 Date of Discharge: 01/10/17 ASSESSMENT/PLAN: Patient is a 76 year old female with a significant past medical history of atrial fib, dysphagia, COPD, diastolic heart failure and weakness. She was admitted on 01/01/2017 with decreased PO intake and dysphagia x 2 weeks. On admission, she was noted to have oral thrush. Imaging: Radiology upper GI series/esophagram 01/06/2017: Esophageal spasms with dilatation of the proximal esophagus - corkscrew appearance of esophagus on barium swallow, narrowing @ the distal thoracic esophagas - gastroesophageal junction. GI: Dysphagia - to continue on pureed diet as outpt. Assessment/Plan: Oral thrush noted on oral cavity, on Nystatin oral suspension q6 with upper gi series w/esophageal spasms with dilatation of the proximal esophagus - corkscrew appearance of esophagus on barium swallow, narrowing @ the distal thoracic esophagas - gastroesophageal junction. PO intake poor - very cachectic and weak - on pureed diet Cardiology: Atrial fibrillation with RVR - chronic Assessment/Plan: On cardizem 120mg daily Digoxin 0.125mg daily Coumadin based on INR Chronic Diastolic HF Assessment/Plan: Maintain lasix 20mg daily Monitor renal function Pulmonary: Acute on chronic COPD exacerbation Assessment/Plan: diminished breath sounds bilaterally, accessory muscle use to continue of Prednisone Spiriva daily, dyspnea at rest, monitor respiratory status Muscular/Skeletal: Muscle wasting and wt loss - chronic Assessment/Plan: Secondary to malnutrition, failure to thrive On a soft diet, poor PO intake likely secondary thrush Left wrist fracture s/p fall over the weekend- acute/On soft cast, s/p fall going to bathroom Disposition: Discharge to [facility] Full Code. Minutes to complete discharge: 40 Discharge Summary Reason For Visit: DYSPHAGIA, WEAKNESS Current Active Problems Acute on chronic respiratory failure with hypoxemia (Acute) Anemia (Acute) Dysphagia (Acute) Generalized anxiety disorder (Acute) Hyponatremia (Acute) Leukocytosis (Acute) Odynophagia (Acute) Thrush, oral (Acute) Weakness (Acute) Wrist fracture, left (Acute) Condition: Fair - Instructions Diet, Activity, Other Instructions: Please follow up with Dr Pulliam within 2 weeks after discharge. You will need a modified barium swallow. Please continue a pureed diet. PREDNISODE TAPER as follows; January 11 2017 - Prednisone 40mg daily January 12 2017 - Prednisone 40mg daily January 13 2017 - Prednisone 30mg daily January 14 2017 - Prednisone 30mg daily January 15 2017 - Prednisone 20mg daily January 16 2017 - Prednisone 20mg daily January 17 2017 - Prednisone 10mg daily January 18 2017 - Prednisone 10mg daily January 19 2017 - Prednisone 5mg daily January 20 2017 - Prednisone 5mg daily and continue patient daily dose of Prednisone 5mg Please check INR for goal of INR 2 to 3 Referrals: Shree molina Yatahey [Outside] Mariano Jameson MD [Primary Care Provider] - Jeb Pulliam MD [Staff Physician] - 2 Weeks Disposition: INTERMEDIATE FACILITY - Home Medications Comprehensive Discharge Medication List: Ambulatory Orders Digoxin [Lanoxin -] 0.125 mg PO DAILY tablet 09/27/16 Furosemide [Lasix -] 40 mg PO DAILY tablet 10/06/16 Potassium Chloride [Klor-Con 10] 10 meq PO DAILY 11/01/16 Ranitidine [Zantac -] 150 mg PO BID 11/01/16 Albuterol 0.083% Nebulizer Robina [Ventolin 0.083% Nebulizer Soln -] 1 amp NEB Q4HPO amp 11/11/16 Apixaban [Eliquis -] 5 mg PO BID tablet 11/11/16 Diltiazem Cd [Cardizem Cd -] 240 mg PO DAILY cap.cd.24h 11/11/16 Prednisone [Deltasone -] 5 mg PO DAILY 12/24/16 Lorazepam [Ativan] 0.5 mg PO TID #40 tablet MDD 3 12/27/16 Warfarin Sodium [Coumadin] 4 mg PO HS 01/01/17 This patient is new to me today: No Emergency Visit: Yes ED Registration Date: 01/01/17 Care time: The patient presented to the Emergency Department on the above date and was hospitalized for further evaluation of their emergent condition. Critical Care patient: No - Discharge Referral Referred to [facility] Med P.C.: No
[2017-01-10] MEDS: POTASSIUM CHLORIDE TABS 10 MEQ TABLET.ER (FP) PO SCH (09:38)
[2017-01-10] MEDS: methylPREDNISolone NA SUCC 40 MG/1 ML VIAL IVPB SCH (09:38)
[2017-01-10] MEDS: PANTOPRAZOLE SODIUM 100 ML IVPB SCH (09:38)
[2017-01-10] MEDS: FUROSEMIDE 20 MG TABLET (FP) PO SCH (09:47)
[2017-01-10] MEDS: ARFORMOTEROL TARTRATE 15 MCG/2 ML VIAL NEB SCH (10:10)
[2017-01-10 10:49] LABS: ANISOCYTOSIS 1+; HYPOCHROMIA 1+; OVALOCYTES 1+; PLATELET ESTIMATE ADEQUATE (NORMAL)
[2017-01-10] MEDS ORDERED: PT OWN MED DRAWER 7, Y5N ONE (11:04)
--- NOTE | 2017-01-10 12:25 | PN ---
Progress Note, SETTER HELPER - Note Progress Note: Per EMR GI note: "Motility disorder of the esophagus with dilation of the proximal esophagus, spasm of the distal esophagus with narrowing of the distal esophagus/GE Junction ? Achalasia with Spasm Would change to pureed diet Can trial Pureed diet" Selected Entries 01/06/17 01/06/17 01/07/17 15:07 18:56 15:08 Breakfast 100% 100% Lunch 50% 25% Supper 75% 01/07/17 01/08/17 01/09/17 18:38 11:23 11:17 Breakfast 50% 50% Lunch Supper 50% 01/09/17 01/09/17 01/10/17 14:56 20:33 11:15 Breakfast 25% Lunch 25% Supper 25% c/o dislike for puree. Pt reports tolerating reg diet premorbidly. She denies h/o vomiting, needing heimlich, food sticking in chest. Pt would like to be upgraded. Pt is up for d/c, as discussed with PNP. Suggest opd MBS to upgrade diet with safety.
--- NOTE | 2017-01-10 12:59 | PN ---
Progress Note (short form) - Note Progress Note: No significant clinical changes. No acute events overnight. Intake & Output 01/07/17 01/08/17 01/09/17 01/10/17 23:59 23:59 23:59 23:59 Intake Total 957 258 9353 Balance 894 230 8690 Weight 83 lb 6.4 oz 85 lb 3.2 oz 83 lb 12.8 oz 83 lb 1 oz Last Vital Signs Temp Pulse Resp BP Pulse Ox 97.9 F 111 H 20 118/68 95 01/10/17 12:00 01/10/17 12:00 01/10/17 12:00 01/10/17 12:00 01/10/17 09:00 Active Medications Acetaminophen (Tylenol -) 650 mg PO Q6H PRN PRN Reason: FEVER OR PAIN Last Admin: 01/10/17 08:46 Dose: 650 mg Albuterol Sulfate (Ventolin 0.083% Nebulizer Soln -) 1 amp NEB Q4HPO PRN PRN Reason: SHORT OF BREATH/WHEEZING Last Admin: 01/10/17 05:10 Dose: 1 amp Arformoterol Tartrate (Brovana (Restricted To Pulmonology/Resp) -) 1 amp NEB BID [facility] Last Admin: 01/10/17 10:10 Dose: 1 amp Digoxin (Lanoxin -) 0.125 mg PO DAILY [facility] Last Admin: 01/10/17 09:37 Dose: 0.125 mg Diltiazem HCl (Cardizem Cd -) 120 mg PO DAILY [facility] Last Admin: 01/10/17 09:38 Dose: 120 mg Furosemide (Lasix -) 20 mg PO DAILY [facility] Last Admin: 01/10/17 09:47 Dose: 20 mg Pantoprazole Sodium (Protonix 40mg Ivpb (Pre-Docked)) 100 mls @ 200 mls/hr IVPB DAILY [facility] Last Admin: 01/10/17 09:38 Dose: 200 mls/hr Lidocaine/Aluminum/Magnesium/Simeth (Magic Mouthwash *Sjr Formula* -) 5 ml MM Q6HPO [facility] Last Admin: 01/10/17 11:07 Dose: 5 ml Lorazepam (Ativan -) 0.5 mg PO TID [facility] Last Admin: 01/10/17 06:12 Dose: 0.5 mg Methylprednisolone Sodium Succinate (Solu-Medrol -) 20 mg IVPB BID [facility] Last Admin: 01/10/17 09:38 Dose: 20 mg Nystatin (Nystatin Oral Suspension -) 500,000 units PO Q6HPO [facility] Last Admin: 01/10/17 11:07 Dose: 500,000 units Potassium Chloride (K-Dur -) 10 meq PO DAILY [facility] Last Admin: 01/10/17 09:38 Dose: 10 meq Tiotropium [place] (Spiriva -) 1 puff IH DAILY [facility] Last Admin: 01/10/17 09:36 Dose: 1 puff Warfarin Sodium (Coumadin -) 2 mg PO DAILY@1800 [facility] Last Admin: 01/09/17 18:26 Dose: 2 mg Gen: NAD Heart: RRRL Lung: distant breath sounds, scattered rhonchi Abd: soft, nontender Ext: Left arm cast Laboratory Results - last 24 hr 01/10/17 01/10/17 01/10/17 07:45 07:45 07:45 WBC 10.4 H RBC 3.55 L Hgb 8.1 L Hct 26.0 L MCV 73.4 L MCHC 31.0 L RDW 20.0 H Plt Count 345 MPV 7.4 L Neutrophils % 89.2 H Lymphocytes % 3.4 L D Monocytes % 7.3 Eosinophils % 0.0 Basophils % 0.1 Platelet Estimate Adequate Hypochromic-Microcytic 1+ Anisocytosis 1+ Ovalocytes 1+ INR 1.71 H Sodium 137 Potassium 4.0 Chloride 89 L Carbon Dioxide 39 H Anion Gap 9 BUN 33 H Creatinine 0.5 L Creat Clearance w eGFR > 60 Random Glucose 112 H Calcium 9.2 Total Bilirubin 0.3 AST 8 L D ALT 24 D Alkaline Phosphatase 70 Total Protein 5.5 L Albumin 3.2 L A/P Acute COPD Exacerbation LV Diastolic Dysfunction Pulmonary HTN Atrial Fibrillation Dysphagia - Prednisone - inhaled bronchodilators - lasix - rate controlled - AC - pain control - No Pulmonary contraindication for D/C Dr Ayoub
--- NOTE | 2017-01-10 13:16 | PN ---
Progress Note (short form) - Note Progress Note: s: no cp palps dizzy; sob improving; poor po intake persists o: Current Medications Acetaminophen (Tylenol -) 650 mg PO Q6H PRN PRN Reason: FEVER OR PAIN Last Admin: 01/10/17 08:46 Dose: 650 mg Albuterol Sulfate (Ventolin 0.083% Nebulizer Soln -) 1 amp NEB Q4HPO PRN PRN Reason: SHORT OF BREATH/WHEEZING Last Admin: 01/10/17 05:10 Dose: 1 amp Arformoterol Tartrate (Brovana (Restricted To Pulmonology/Resp) -) 1 amp NEB BID [facility] Last Admin: 01/10/17 10:10 Dose: 1 amp Digoxin (Lanoxin -) 0.125 mg PO DAILY [facility] Last Admin: 01/10/17 09:37 Dose: 0.125 mg Diltiazem HCl (Cardizem Cd -) 120 mg PO DAILY [facility] Last Admin: 01/10/17 09:38 Dose: 120 mg Furosemide (Lasix -) 20 mg PO DAILY [facility] Last Admin: 01/10/17 09:47 Dose: 20 mg Pantoprazole Sodium (Protonix 40mg Ivpb (Pre-Docked)) 100 mls @ 200 mls/hr IVPB DAILY [facility] Last Admin: 01/10/17 09:38 Dose: 200 mls/hr Lidocaine/Aluminum/Magnesium/Simeth (Magic Mouthwash *Sjr Formula* -) 5 ml MM Q6HPO [facility] Last Admin: 01/10/17 11:07 Dose: 5 ml Lorazepam (Ativan -) 0.5 mg PO TID [facility] Last Admin: 01/10/17 06:12 Dose: 0.5 mg Methylprednisolone Sodium Succinate (Solu-Medrol -) 20 mg IVPB BID [facility] Last Admin: 01/10/17 09:38 Dose: 20 mg Nystatin (Nystatin Oral Suspension -) 500,000 units PO Q6HPO [facility] Last Admin: 01/10/17 11:07 Dose: 500,000 units Potassium Chloride (K-Dur -) 10 meq PO DAILY [facility] Last Admin: 01/10/17 09:38 Dose: 10 meq Tiotropium [place] (Spiriva -) 1 puff IH DAILY [facility] Last Admin: 01/10/17 09:36 Dose: 1 puff Warfarin Sodium (Coumadin -) 2 mg PO DAILY@1800 [facility] Last Admin: 01/09/17 18:26 Dose: 2 mg Vital Signs - 24 hr 01/09/17 01/09/17 01/09/17 14:56 17:32 20:43 Temperature 98.9 F 99.2 F 98.7 F Pulse Rate 108 H 100 H 104 H Respiratory 20 20 20 Rate Blood Pressure 116/64 112/71 126/84 O2 Sat by Pulse Oximetry (%) 01/09/17 01/10/17 01/10/17 21:00 02:00 06:00 Temperature 98.5 F 98.8 F Pulse Rate 104 H 60 Respiratory 20 20 Rate Blood Pressure 126/77 121/66 O2 Sat by Pulse 99 Oximetry (%) 01/10/17 01/10/17 01/10/17 09:00 09:37 12:00 Temperature 97.9 F Pulse Rate 111 H 111 H Respiratory 20 20 Rate Blood Pressure 118/68 O2 Sat by Pulse 95 Oximetry (%) Intake & Output 01/08/17 01/09/17 01/10/17 01/11/17 07:59 07:59 07:59 07:59 Intake Total 796 104 4696 Balance 230 295 6287 Weight 85 lb 3.2 oz 83 lb 12.8 oz 83 lb 1 oz Constitutional: Yes: cachectic, No Distress Eyes: No: Sclera Icterus Respiratory: Yes: mild exp wheeze, nl eff. No: Accessory Muscle Use, Rales Gastrointestinal: Yes: Normal Bowel Sounds. No: Distention, Hepatomegaly, Palpable Mass, Tenderness Cardiovascular: Yes: Pulse Irregular JVD: No Heart Sounds: Yes: S1, S2. No: Gallop Murmur: No: Systolic Murmur, Diastolic Murmur Extremities: No: Cool, Cyanosis Edema: No Integumentary: No: Jaundice diaphoresis Neurological: Yes: Alert, awake, appropriate Psychiatric: No: Agitated CBC, BMP 01/10/17 07:45 01/10/17 07:45 ekg: afib; normal axis; no path q's; diffuse ST-Ts not changed vs 10/25 Chest X-ray: Report Reviewed (clear lungs/pleura) MANUEL 10/2016: nl lv/rv. 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 No TR. 1+ AR. No veg/abscess. Mild-mod mural aortic atheroma. Echo 10/2016: nl lv/rv, sixto, mild mr, mild-mod tr, nl rvsp, nl rvsp, mild ar Echo 09/2016: Nl lv/rv. Mod MAC. 1+ AR/TR. Mod MD. 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); mild-mod MR with no systolic blunting or reversal of flow in pulm vein; peak E velocity (59 cm/sec) ; myxomatous TV with prob mild-mod TR; at least moderate pulm HTN; no change vs 2013 echo a/p: chronic diast chf: -episodes of acute chf on prior admits, required lasix 40 iv qd treatment -sent home on lasix 40 po daily last time--saw dr ivey in office few weeks ago and appeared euvolemic with new dry wt (likely lost muscle mass in hospital) -bnp 1400, down from 2500 during 10/25 admit -cxr clear, no JVD, no audible MR murmur -do not see any evidence of acute chf here -poor po intake/bothersome urinary frequency --> decreased lasix to 20 mg per day. weight stable, no worsening of resp status. con't to monitor. Low threshold to increase back up to 40 mg/day copd: -advanced, dependent on home O2 -on iv steroids per pulm recurrent staph bacteremia/MANUEL negative for endocarditis: -+MSSA on repeat BCXs 2d apart in early 09/23 (treated with 14d of abx then) -back 10/25 with spontaneous MSSA as outpatient; -MANUEL then with no evidence of endocarditis paroxysmal Afib/supraventricular tachycardia/MAT: -has hx mat worsened by acute resp illnesses in past -new AFib on tele 10/25, HR mostly controlled, has occasional rvr when anxious -currently HRs well controlled -cont dig (repeat level here is WNL) -cont diltiazem 120mg qd -CHADS VASC 4--NOACs prohibitive cost so recently changed over to warfarin as outpt -dose warfarin per INR (goal 2-3) 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 OK to d/c on lasix 20 mg PO daily, will need ongoing weight monitoring. If weight starts to increase needs to resume prior 40 mg daily dosing.
[2017-01-10 13:58] VITALS: BP 127/75; PULSE 116; TEMP 98.7
--- NOTE | 2017-01-10 14:14 | PN ---
Progress Note, Physician History of Present Illness: stable no issues - Current Medication List Current Medications: Active Medications Acetaminophen (Tylenol -) 650 mg PO Q6H PRN PRN Reason: FEVER OR PAIN Last Admin: 01/10/17 08:46 Dose: 650 mg Albuterol Sulfate (Ventolin 0.083% Nebulizer Soln -) 1 amp NEB Q4HPO PRN PRN Reason: SHORT OF BREATH/WHEEZING Last Admin: 01/10/17 05:10 Dose: 1 amp Arformoterol Tartrate (Brovana (Restricted To Pulmonology/Resp) -) 1 amp NEB BID [facility] Last Admin: 01/10/17 10:10 Dose: 1 amp Digoxin (Lanoxin -) 0.125 mg PO DAILY [facility] Last Admin: 01/10/17 09:37 Dose: 0.125 mg Diltiazem HCl (Cardizem Cd -) 120 mg PO DAILY [facility] Last Admin: 01/10/17 09:38 Dose: 120 mg Furosemide (Lasix -) 20 mg PO DAILY [facility] Last Admin: 01/10/17 09:47 Dose: 20 mg Pantoprazole Sodium (Protonix 40mg Ivpb (Pre-Docked)) 100 mls @ 200 mls/hr IVPB DAILY [facility] Last Admin: 01/10/17 09:38 Dose: 200 mls/hr Lidocaine/Aluminum/Magnesium/Simeth (Magic Mouthwash *Sjr Formula* -) 5 ml MM Q6HPO [facility] Last Admin: 01/10/17 11:07 Dose: 5 ml Lorazepam (Ativan -) 0.5 mg PO TID [facility] Last Admin: 01/10/17 06:12 Dose: 0.5 mg Methylprednisolone Sodium Succinate (Solu-Medrol -) 20 mg IVPB BID [facility] Last Admin: 01/10/17 09:38 Dose: 20 mg Nystatin (Nystatin Oral Suspension -) 500,000 units PO Q6HPO [facility] Last Admin: 01/10/17 11:07 Dose: 500,000 units Potassium Chloride (K-Dur -) 10 meq PO DAILY [facility] Last Admin: 01/10/17 09:38 Dose: 10 meq Tiotropium [place] (Spiriva -) 1 puff IH DAILY [facility] Last Admin: 01/10/17 09:36 Dose: 1 puff Warfarin Sodium (Coumadin -) 2 mg PO DAILY@1800 [facility] Last Admin: 01/09/17 18:26 Dose: 2 mg - Objective Vital Signs: Vital Signs Temperature 98.7 F 01/10/17 13:57 Pulse Rate 116 H 01/10/17 13:57 Respiratory Rate 17 01/10/17 13:57 Blood Pressure 127/75 01/10/17 13:57 O2 Sat by Pulse Oximetry (%) 95 01/10/17 09:00 Constitutional: Yes: No Distress, Calm Cardiovascular: Yes: Pulse Irregular Respiratory: Yes: Regular, Other (distant heart sounds) Gastrointestinal: Yes: Normal Bowel Sounds, Soft Musculoskeletal: Yes: WNL Extremities: Yes: WNL Neurological: Yes: Alert, Oriented Psychiatric: Yes: Alert, Oriented Labs: CBC, BMP 01/10/17 07:45 01/10/17 07:45 INR, PTT INR 1.71 (0.82-1.09) H 01/10/17 07:45 Assessment/Plan Problem List - Problems (1) Dysphagia Code(s): R13.10 - DYSPHAGIA, UNSPECIFIED Qualifiers: Dysphagia type: unspecified (2) Weakness. Code(s): R53.1 - WEAKNESS (3) Leukocytosis Code(s): D72.829 - ELEVATED WHITE BLOOD CELL COUNT, UNSPECIFIED (4) Hyponatremia Code(s): E87.1 - HYPO-OSMOLALITY AND HYPONATREMIA (5) COPD (chronic obstructive pulmonary disease) Code(s): J44.9 - CHRONIC OBSTRUCTIVE PULMONARY DISEASE, UNSPECIFIED Qualifiers : COPD type: COPD with acute exacerbation Qualified Code(s): J44.1 - Chronic obstructive pulmonary disease with (acute) exacerbation (6) Atrial fibrillation with RVR Code(s): I48.91 - UNSPECIFIED ATRIAL FIBRILLATION (7) Generalized anxiety disorder Code(s): F41.1 - GENERALIZED ANXIETY DISORDER plan continue current mgmt rest as per primary incentive ally stable off of abx continue to monitor
== END 2017-01-10 17:07 | DRG 391 ==
LOC: JER 07:01 → JERBED 11:00 → J5S 11:54
PROVIDERS: ADMIT Internal Medicine; ATTEND Nurse Practitioner Family
PROC: 3E0F7GC Introduction of Other Therapeutic Substance into Respiratory Tract, Via Natural or Artificial Opening (ICD-10-PCS; principal; 2017-01-01)
PROC: 0PSJXZZ Reposition Left Radius, External Approach (ICD-10-PCS; 2017-01-08)
PROC: 2W3DX2Z Immobilization of Left Lower Arm using Cast (ICD-10-PCS; 2017-01-08)
DX: K22.4 Dyskinesia of esophagus (principal); J96.21 Acute and chronic respiratory failure with hypoxia; E87.1 Hypo-osmolality and hyponatremia; J44.1 Chronic obstructive pulmonary disease with (acute) exacerbation; B37.0 Candidal stomatitis; I50.32 Chronic diastolic (congestive) heart failure; E46 Unspecified protein-calorie malnutrition; Z68.1 Body mass index [BMI] 19.9 or less, adult; S52.592A Other fractures of lower end of left radius, initial encounter for closed fracture; R13.10 Dysphagia, unspecified; I48.0 Paroxysmal atrial fibrillation; Z79.01 Long term (current) use of anticoagulants; Z99.81 Dependence on supplemental oxygen; Z87.891 Personal history of nicotine dependence; I27.2 Other secondary pulmonary hypertension; D72.829 Elevated white blood cell count, unspecified; K22.2 Esophageal obstruction; F41.1 Generalized anxiety disorder; I34.1 Nonrheumatic mitral (valve) prolapse; I34.0 Nonrheumatic mitral (valve) insufficiency; M62.58 Muscle wasting and atrophy, not elsewhere classified, other site; W18.30XA Fall on same level, unspecified, initial encounter; Z91.81 History of falling; Y92.231 Patient bathroom in hospital as the place of occurrence of the external cause
CPT/HCPCS: 36415; 71010-TC; 73110-TC-LT; 73130-TC-LT; 74220-TC; 74240-TC; 80048; 80053; 80162; 81003; 82550; 82607; 82728; 82746; 83540; 83735; 83880; 84100; 84443; 84484; 85025; 85610; 87040; 90670; 93005; 93010; 94640; 97116-GP; 97161-GP; 99285-25